=== PATIENT | female | born 1940 | race Caucasian/White ===

== ENCOUNTER 2017-07-18 12:10 | Outpatient (RCR) | payer SELFPAY ==
[2017-07-18 14:22] LABS: Prothrombin Time (Protime)PT. 21.8 SECONDS (11.7-14.9)
[2017-07-25 16:37] LABS: International Normalized Ratio 2.4; Prothrombin Time (Protime)PT. 25.3 SECONDS (11.7-14.9)
== END 2017-07-18 12:30 | disposition home or self-care (01) ==
LOC: MTLAB 12:10
PROVIDERS: Family Provider Student in an Organized Health Care Education/Training Program; PCP Student in an Organized Health Care Education/Training Program; Visit Provider Internal Medicine Cardiovascular Disease
DX: Z95.2 Presence of prosthetic heart valve (principal)
CPT/HCPCS: 36415; 85610

== ENCOUNTER 2017-08-08 12:55 | Outpatient (RCR) | payer OTHER, SELFPAY ==
[2017-08-08 14:32] LABS: International Normalized Ratio 2.3; Prothrombin Time (Protime)PT. 24.2 SECONDS (11.7-14.9)
== END 2017-08-08 15:00 | disposition home or self-care (01) ==
LOC: MTLAB 12:55
PROVIDERS: Family Provider Student in an Organized Health Care Education/Training Program; PCP Student in an Organized Health Care Education/Training Program; Visit Provider Internal Medicine Cardiovascular Disease
DX: Z95.2 Presence of prosthetic heart valve (principal)
CPT/HCPCS: 36415; 85610

== ENCOUNTER 2017-09-05 15:18 | Outpatient (RCR) | payer OTHER, SELFPAY ==
[2017-09-05 18:05] LABS: International Normalized Ratio 2.4; Prothrombin Time (Protime)PT. 26.5 SECONDS (11.7-14.9)
== END 2017-09-05 16:00 | disposition home or self-care (01) ==
LOC: MTLAB 15:18
PROVIDERS: Family Provider Student in an Organized Health Care Education/Training Program; PCP Student in an Organized Health Care Education/Training Program; Visit Provider Internal Medicine Cardiovascular Disease
DX: Z95.2 Presence of prosthetic heart valve (principal)
CPT/HCPCS: 36415; 85610

== ENCOUNTER 2017-09-20 13:45 | Outpatient (RCR) | payer MEDICARE, SELFPAY ==
[2017-09-20 16:30] LABS: International Normalized Ratio 3.4; Prothrombin Time (Protime)PT. 34.4 SECONDS (11.7-14.9)
== END 2017-09-20 14:00 | disposition home or self-care (01) ==
LOC: MTLAB 13:45
PROVIDERS: Family Provider Student in an Organized Health Care Education/Training Program; PCP Student in an Organized Health Care Education/Training Program; Visit Provider Internal Medicine Cardiovascular Disease
DX: Z95.2 Presence of prosthetic heart valve (principal); Z79.01 Long term (current) use of anticoagulants
CPT/HCPCS: 36415; 85610

== ENCOUNTER 2017-10-19 09:43 | Outpatient (RCR) | payer MEDICARE, SELFPAY ==
[2017-10-05 14:49] LABS: Prothrombin Time (Protime)PT. 22.5 SECONDS (11.7-14.9)
[2017-10-19 12:27] LABS: Prothrombin Time (Protime)PT. 23.1 SECONDS (11.7-14.9)
== END 2017-10-19 10:00 | disposition home or self-care (01) ==
LOC: MTLAB 09:43
PROVIDERS: Family Provider Student in an Organized Health Care Education/Training Program; PCP Student in an Organized Health Care Education/Training Program; Visit Provider Internal Medicine Cardiovascular Disease
DX: Z95.2 Presence of prosthetic heart valve (principal); Z79.01 Long term (current) use of anticoagulants
CPT/HCPCS: 36415; 85610

== ENCOUNTER 2017-11-02 13:53 | Outpatient (RCR) | payer MEDICARE, SELFPAY ==
[2017-11-02 16:08] LABS: International Normalized Ratio 3.3
== END 2017-11-02 14:00 | disposition home or self-care (01) ==
LOC: MTLAB 13:53
PROVIDERS: Family Provider Student in an Organized Health Care Education/Training Program; PCP Student in an Organized Health Care Education/Training Program; Visit Provider Internal Medicine Cardiovascular Disease
DX: Z95.2 Presence of prosthetic heart valve (principal); Z79.01 Long term (current) use of anticoagulants
CPT/HCPCS: 36415; 85610

== ENCOUNTER 2017-12-20 10:37 | Outpatient (RCR) | payer MEDICARE, SELFPAY ==
[2017-12-20 12:44] LABS: International Normalized Ratio 2.6; Prothrombin Time (Protime)PT. 27.8 SECONDS (11.7-14.9)
== END 2017-12-20 11:00 | disposition home or self-care (01) ==
LOC: MTLAB 10:37
PROVIDERS: Family Provider Student in an Organized Health Care Education/Training Program; PCP Student in an Organized Health Care Education/Training Program; Visit Provider Internal Medicine Cardiovascular Disease
DX: E78.5 Hyperlipidemia, unspecified (principal); Z95.2 Presence of prosthetic heart valve; Z79.01 Long term (current) use of anticoagulants
CPT/HCPCS: 36415; 85610

== ENCOUNTER 2018-01-30 09:33 | Outpatient (RCR) | payer MEDICARE, SELFPAY ==
[2018-01-30 12:47] LABS: International Normalized Ratio 3.2
== END 2018-01-30 11:00 | disposition home or self-care (01) ==
LOC: MTLAB 09:33
PROVIDERS: Family Provider Student in an Organized Health Care Education/Training Program; PCP Student in an Organized Health Care Education/Training Program; Visit Provider Internal Medicine Cardiovascular Disease
DX: E78.5 Hyperlipidemia, unspecified (principal); Z95.2 Presence of prosthetic heart valve; Z79.01 Long term (current) use of anticoagulants
CPT/HCPCS: 36415; 85610

== ENCOUNTER 2018-03-24 14:54 | Outpatient (RCR) | payer MEDICARE, SELFPAY ==
[2018-03-24 17:07] LABS: Prothrombin Time (Protime)PT. 39.5 SECONDS (11.7-14.9)
== END 2018-03-24 16:00 | disposition home or self-care (01) ==
LOC: LAB 14:54
PROVIDERS: Family Provider Student in an Organized Health Care Education/Training Program; PCP Student in an Organized Health Care Education/Training Program; Visit Provider Internal Medicine Cardiovascular Disease
DX: E78.5 Hyperlipidemia, unspecified (principal); Z95.2 Presence of prosthetic heart valve; Z79.01 Long term (current) use of anticoagulants
CPT/HCPCS: 36415; 85610

== ENCOUNTER 2018-05-01 10:56 | Outpatient (RCR) | payer MEDICARE, SELFPAY ==
[2018-04-28 13:57] LABS: International Normalized Ratio 5.2
[2018-05-01 11:59] LABS: International Normalized Ratio 2.2; Prothrombin Time (Protime)PT. 24.1 SECONDS (11.7-14.9)
== END 2018-05-01 12:00 | disposition home or self-care (01) ==
LOC: LAB 10:56
PROVIDERS: Family Provider Student in an Organized Health Care Education/Training Program; PCP Student in an Organized Health Care Education/Training Program; Referring Provider Internal Medicine Cardiovascular Disease; Visit Provider Internal Medicine Cardiovascular Disease
DX: Z79.01 Long term (current) use of anticoagulants (principal); Z95.2 Presence of prosthetic heart valve; E78.5 Hyperlipidemia, unspecified
CPT/HCPCS: 36415; 85610

== ENCOUNTER 2018-05-09 16:03 | Outpatient (RCR) | payer MEDICARE, SELFPAY ==
[2018-05-09 17:24] LABS: International Normalized Ratio 2.1; Prothrombin Time (Protime)PT. 23.2 SECONDS (11.7-14.9)
== END 2018-06-02 09:47 | disposition home or self-care (01) ==
LOC: LAB 16:03
PROVIDERS: Family Provider Student in an Organized Health Care Education/Training Program; PCP Student in an Organized Health Care Education/Training Program; Referring Provider Internal Medicine Cardiovascular Disease; Visit Provider Internal Medicine Cardiovascular Disease
DX: Z79.01 Long term (current) use of anticoagulants (principal); Z95.2 Presence of prosthetic heart valve; E78.5 Hyperlipidemia, unspecified
CPT/HCPCS: 36415; 85610

== ENCOUNTER 2018-06-23 14:36 | Outpatient (RCR) | payer MEDICARE, SELFPAY ==
[2018-06-15 13:48] LABS: International Normalized Ratio 2.1
[2018-06-23 16:01] LABS: International Normalized Ratio 2.5; Prothrombin Time (Protime)PT. 26.9 SECONDS (11.7-14.9)
--- OUTSIDE RECORDS SUMMARY | 2018-08-01 07:28 | XMS RPT_ITS ---
:1940 Author Organization OHIP Support Name Relationship Address Phone RACIEL XIAO Unavailable [address] + [place] [address] DUSTIN DOMINIQUE Unavailable Unavailable + [place] [address] S Unavailable Unavailable Unavailable NINOSKA, RACIEL Unavailable [address] + [place] [address] DUSTIN DOMINIQUE Unavailable Unavailable + [place] [address] S Unavailable Unavailable Unavailable NINOSKA, RACIEL Unavailable [address] + [place] [address] S Unavailable Unavailable Unavailable NINOSKA, RACIEL Unavailable [address] + [place] [address] S Unavailable Unavailable Unavailable NINOSKA, RACIEL Unavailable [address] + [place] [address] S Unavailable Unavailable Unavailable NINOSKA, RACIEL Unavailable [address] + [place] [address] S Unavailable Unavailable Unavailable NINOSKA, RACIEL Unavailable [address] + [place] [address] S Unavailable Unavailable Unavailable NINOSKA, RACIEL Unavailable [address] + [place] [address] S Unavailable Unavailable Unavailable NINOSKA, RACIEL Unavailable [address] + [place] [address] S Unavailable Unavailable Unavailable NINOSKA, RACIEL Unavailable [address] + [place] [address] S Unavailable Unavailable Unavailable NINOSKA, RACIEL Unavailable [address] + [place] [address] S Unavailable Unavailable Unavailable NINOSKA, RACIEL Unavailable [address] + [place] [address] S Unavailable Unavailable Unavailable NINOSKA, RACIEL Unavailable [address] + [place] [address] S Unavailable Unavailable Unavailable NINOSKA RACIEL Unavailable [address] + [place] [address] S Unavailable Unavailable Unavailable NINOSKA, RACIEL Unavailable [address] + [place] [address] S Unavailable Unavailable Unavailable Care Team Providers Name Role Phone JOELLE BIRMINGHAM ([facility]) Attending Unavailable JOELLE BIRMINGHAM ([facility]) Referring Unavailable BLAND, SEAN L Attending Unavailable BLAND, SEAN L Referring Unavailable BLAND, SEAN L Attending Unavailable Moodispaw, Dash Attending Unavailable Moodispaw, Dash Referring Unavailable Danilo Bolden Primary Care Unavailable Moodispaw, Dash Attending Unavailable Moodispaw, Dash Referring Unavailable Bland, Sean Primary Care Unavailable Moodispaw, Dash Attending Unavailable Moodispaw, Dash Referring Unavailable Bland, Sean Primary Care Unavailable Moodispaw, Dash Attending Unavailable Moodispaw, Dash Referring Unavailable Blnad, Sean Primary Care Unavailable Arabella Hughes Attending Unavailable Moodispaw, Dash Attending Unavailable Moodispaw, Dash Referring Unavailable Bland, Sean Primary Care Unavailable Moodispaw, Dash Attending Unavailable Bland, Sean Referring Unavailable Moodispaw, Dash Attending Unavailable Moodispaw, Dash Referring Unavailable Bland, Sean Primary Care Unavailable Moodispaw, Dash Attending Unavailable Moodispaw, Dash Referring Unavailable Bland, Sean Primary Care Unavailable Moodispaw, Dash Attending Unavailable Moodispaw, Dash Attending Unavailable Moodispaw, Dash Referring Unavailable Bland, Sean Primary Care Unavailable Moodispaw, Dash Attending Unavailable Moodispaw, Dash Referring Unavailable Bland, Sean Primary Care Unavailable Moodispaw, Dash Attending Unavailable Moodispaw, Dash Referring Unavailable Bland, Sean Primary Care Unavailable Moodispaw, Dash Attending Unavailable Moodispaw, Dash Referring Unavailable Bland, Sean Primary Care Unavailable Moodispaw, Dash Attending Unavailable Moodispaw, Dash Referring Unavailable Bland, Sean Primary Care Unavailable PROBLEMS PROBLEMS DATE TYPE CONDITION / CODE ATTENDING STATUS SOURCE 07/03/2018 Unknown E78.5 - MoodDash guzman Active [place] Hyperlipidemia, Community unspecified / Hospital E78.5(ICD-10) Repository 06/05/2018 Unknown Z79.01 - correction Moodispaw, Dash Active [place] (current) use of Community anticoagulants / Hospital Z79.01(ICD-10) Repository 01/30/2018 Active Encounter for NA Active [facility] screening mammogram [facility] for malignant [place] neoplasm of breast / Repository Z12.31(ICD-10) 12/30/2017 Unknown I48.0 - Paroxysmal Dash Victoria Active [place] atrial fibrillation Community / I48.0(ICD-10) Hospital Repository 2017 Unknown Z95.2 - Presence of Dash Victoria Active [place] prosthetic heart Community valve / Hospital Z95.2(ICD-10) Repository 09/12/2017 Active Nontoxic goiter, NA Active [place] unspecified / Clinic Main E04.9(ICD-10) [place] Repository PROCEDURES PROCEDURES No Procedure Records FoundRESULTS RESULTS PROTHROMBIN TIME W/INR Collected: 07/20/2018 Status: F Source: [place] 3:40 PM [facility] REPOSITORY TYPE CODE TESTS RESULT OUT OF RANGE REFERENCE UNITS LAB L300.4150 11.7-14.9 SECONDS High PROTIME 26.2 LAB L300.4200 Normal INR 2.4 Performed By: #### [id number] #### [facility] [address] [place], [place], [id number] PROTHROMBIN TIME W/INR Collected: 06/23/2018 Status: F Source: [place] 2:40 PM [facility] REPOSITORY TYPE CODE TESTS RESULT OUT OF RANGE REFERENCE UNITS LAB L300.4150 11.7-14.9 SECONDS High PROTIME 26.9 LAB L300.4200 Normal INR 2.5 Performed By: #### [id number] #### [facility] [address] [place], [place], [id number] PROTHROMBIN TIME W/INR Collected: 06/15/2018 Status: F Source: [place] 12:22 PM [facility] REPOSITORY TYPE CODE TESTS RESULT OUT OF RANGE REFERENCE UNITS LAB L300.4150 11.7-14.9 SECONDS High PROTIME 24.0 LAB L300.4200 Normal INR 2.1 Performed By: #### [id number] #### [facility] [address] [place], [place], [id number] PROGRESS Observed: 05/22/2018 Status: COMPLETED Source: [place] 10:57 AM [facility] REPOSITORY HNO ID: [id number] Author: Urmila Rangel Service: (none) Author Type: Physician Imaging Science Professor Type: Progress Notes Filed: 05/22/2018 5:05 PM Note Text: 05/22/2018 Patient presents with: Chest Congestion: head congestion, bodyaches, nasal drainage, sore throat and ear pain x 5 days SUBJECTIVE: This is a 77 year old that is here today for Complaint(s) of sinus pressure and congestion. + body aches. Feverish per patient, subjective. + coug hand chest congestion. Notes intermittent SOB/wheezing. 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 Victoria - Other and unspecified hyperlipidemia - Spinal stenosis Dr. Perales - Vitamin D deficiency 11/2013 ALLERGIES Penicillin [Other] MEDICATIONS Current Outpatient Prescriptions: clobetasol (TEMOVATE) 0.05 % ointment Apply 1 application to affected area twice daily. pravastatin (PRAVACHOL) 40 mg tablet Take 1 tablet by mouth once daily. acetaminophen (TYLENOL 8 HOUR) 650 mg CR tablet Take 650 mg by mouth every 8 hours as needed. metoprolol tartrate, short acting, 25 mg tablet Take 50 mg by mouth twice daily. warfarin 5 mg tablet Take 7 mg once daily omeprazole (PRILOSEC) 20 mg capsule Take 1 capsule by mouth daily before breakfast. 1/2 hr before meal. (Patient taking differently: Take 20 mg by mouth as needed. OTC) doxycycline monohydrate 100 mg tablet Take 1 tablet by mouth twice daily. (Patient not taking: Reported on 05/22/2018 ) No current facility-administered medications for this visit. 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 OBJECTIVE: BP 124/72 Pulse 70 Temp 36.7 ?C (98.1 ?F) (Tympanic) Resp 16 Wt 88 kg (194 lb) LMP 04/10/2018 SpO2 98% BMI 36.66 kg/m? APPEARANCE alert, in no acute distress, well-hydrated, well nourished. EYES PERRLA, conjunctiva and sclera normal. EARS External ears normal, canals clear NOSE/SINUS Nares normal. Septum midline. Mucosa erythematous. No drainage. + SHIRIN maxillary sinus tenderness. THROAT normal, no erythema NECK Supple, no adenopathy; HEART RRR with normal S1 and S2 LUNG clear to auscultation, No wheezing, rhonchi, rales. ASSESSMENT/PLAN: 1. Viral URI with cough - ICD9: 465.9, ICD10: J06.9, B97.89 - Discussed viral etiology and rationale for treatment. - Symptomatic treatment with prn analgesia - Supportive care with fluids and rest - The patient may also use OTC cough and cold meds as needed, behind the counter Pseudoephedrine, warm salt water gargles, throat lozenges and/or OTC throat spray as needed and nasal saline gtts and suction prn. - Follow up in 3-5 days if symptoms persist or sooner if worsening of symptoms - FLUTICASONE 50 MCG/ACTUATION NASAL SPRAY,SUSPENSION Reviewed red flags and when to seek care sooner. The patient indicates understanding of these issues and agrees with the plan. BESSIE Pan Observed: 05/22/2018 Status: COMPLETED Source: [place] 10:45 AM [facility] REPOSITORY Office Visit (WSTR) AALIYAH XIAO ([id number]) 1940 F Date Time Provider Department 11/19/18 10:45 AM URMILA RANGEL PA-C [facility] During your visit today, we recorded the following information about you: Temperature Pulse Respiration Blood pressure 98.1 degrees 70/minute 16/minute 124/72 Weight 88 kg Urmila Rangel PA-C 05/22/2018 5:05 PM Signed 05/22/2018 Patient presents with: Chest Congestion: head congestion, bodyaches, nasal drainage, sore throat and ear pain x 5 days SUBJECTIVE: This is a 77 year old that is here today for Complaint(s) of sinus pressure and congestion. + body aches. Feverish per patient, subjective. + coug hand chest congestion. Notes intermittent SOB/wheezing. 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 Victoria - Other and unspecified hyperlipidemia - Spinal stenosis Dr. Perales - Vitamin D deficiency 11/2013 ALLERGIES Penicillin [Other] MEDICATIONS Current Outpatient Prescriptions: clobetasol (TEMOVATE) 0.05 % ointment Apply 1 application to affected area twice daily. pravastatin (PRAVACHOL) 40 mg tablet Take 1 tablet by mouth once daily. acetaminophen (TYLENOL 8 HOUR) 650 mg CR tablet Take 650 mg by mouth every 8 hours as needed. metoprolol tartrate, short acting, 25 mg tablet Take 50 mg by mouth twice daily. warfarin 5 mg tablet Take 7 mg once daily omeprazole (PRILOSEC) 20 mg capsule Take 1 capsule by mouth daily before breakfast. 1/2 hr before meal. (Patient taking differently: Take 20 mg by mouth as needed. OTC) doxycycline monohydrate 100 mg tablet Take 1 tablet by mouth twice daily. (Patient not taking: Reported on 05/22/2018 ) No current facility-administered medications for this visit. 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 OBJECTIVE: BP 124/72 Pulse 70 Temp 36.7 ?C (98.1 ?F) (Tympanic) Resp 16 Wt 88 kg (194 lb) LMP 04/10/2018 SpO2 98% BMI 36.66 kg/m? APPEARANCE alert, in no acute distress, well-hydrated, well nourished. EYES PERRLA, conjunctiva and sclera normal. EARS External ears normal, canals clear NOSE/SINUS Nares normal. Septum midline. Mucosa erythematous. No drainage. + SHIRIN maxillary sinus tenderness. THROAT normal, no erythema NECK Supple, no adenopathy; HEART RRR with normal S1 and S2 LUNG clear to auscultation, No wheezing, rhonchi, rales. ASSESSMENT/PLAN: 1. Viral URI with cough - ICD9: 465.9, ICD10: J06.9, B97.89 - Discussed viral etiology and rationale for treatment. - Symptomatic treatment with prn analgesia - Supportive care with fluids and rest - The patient may also use OTC cough and cold meds as needed, behind the counter Pseudoephedrine, warm salt water gargles, throat lozenges and/or OTC throat spray as needed and nasal saline gtts and suction prn. - Follow up in 3-5 days if symptoms persist or sooner if worsening of symptoms - FLUTICASONE 50 MCG/ACTUATION NASAL SPRAY,SUSPENSION Reviewed red flags and when to seek care sooner. The patient indicates understanding of these issues and agrees with the plan. Urmila Rangel PA-C Referring Provider: SELF [200] Allergies As of Date: 05/22/2018 Noted Allergy Reaction Penicillin [Other] 04/26/1998 2 - Rash Comments: Unable to recall due to young age when took medication Date Reviewed: 05/22/2018 Reviewed by: Winter Reeder Ma - Fully Assessed Reason for Visit: Chest Congestion [236] Cmt: head congestion, bodyaches, nasal drainage, sore throat and ear pain x 5 days Primary Visit Diagnosis:Viral URI with cough [J06.9, B97.89] Order(s):fluticasone (FLONASE ALLERGY RELIEF) 50 mcg/actuation nasal sprayUse 2 Sprays in each nostril once daily.Disp: 1 BottleRfl: 0 Prescriptions as of 05/22/2018 Sig: CLOBETASOL 0.05 % TOPICAL OIN* Apply 1 application to affect* PRAVASTATIN 40 MG TABLET Take 1 tablet by mouth once d* ACETAMINOPHEN ER 650 MG TABLE* Take 650 mg by mouth every 8 * METOPROLOL TARTRATE 25 MG TAB* Take 50 mg by mouth twice gualberto* WARFARIN 5 MG TABLET Take 7 mg once daily OMEPRAZOLE 20 MG CAPSULE,LAW* Take 1 capsule by mouth daily* Patient taking differently: Take 20 mg by mouth as needed* FLUTICASONE 50 MCG/ACTUATION * Use 2 Sprays in each nostril * DOXYCYCLINE MONOHYDRATE 100 M* Take 1 tablet by mouth twice * Patient not taking: Reported on 05/22/2018 Problem List As Of Date 05/22/2018 Noted Resolved CHOLELITH W CHOLECYS NEC [K80.10] INVALID FOR* GERD (gastroesophageal reflux disease) [K21.9] INVALID FOR* Thigh pain, musculoskeletal [M79.606] INVALID FOR* Muscle weakness [M62.81] INVALID FOR* Hyperlipidemia [E78.5] INVALID FOR* Obesity (BMI 30-39.9) [E66.9] INVALID FOR* Encounter for screening for malignant neoplasm *INVALID FOR*05/01/2015 Constipation [K59.00] INVALID FOR*05/01/2015 H/O mechanical aortic valve replacement [Z95.2] INVALID FOR* Obesity, Class II, BMI 35-39.9 [E66.9] INVALID FOR* Dyslipidemia [E78.5] INVALID FOR* GERD without esophagitis [K21.9] INVALID FOR* Prescriptions ordered this encounter Disp Refills Start End FLUTICASONE 50 MCG/ACTUATION NASAL S* 1 Jae* 0 05/22/2018 Route: EACH NOSTRIL Sig: Use 2 Sprays in each nostril once daily. Encounter Status:Closed by URMILA RANGEL PA-C on 05/22/18 PROTHROMBIN TIME W/INR Collected: 05/09/2018 Status: F Source: [place] 4:06 PM [facility] REPOSITORY TYPE CODE TESTS RESULT OUT OF RANGE REFERENCE UNITS LAB L300.4150 11.7-14.9 SECONDS High PROTIME 23.2 LAB L300.4200 Normal INR 2.1 Performed By: #### [id number] #### [facility] [address] [place], [address] PROTHROMBIN TIME W/INR Collected: 05/01/2018 Status: F Source: [place] 11:07 AM [facility] REPOSITORY TYPE CODE TESTS RESULT OUT OF RANGE REFERENCE UNITS LAB L300.4150 11.7-14.9 SECONDS High PROTIME 24.1 LAB L300.4200 Normal INR 2.2 Performed By: #### [id number] #### [facility] [address] [place], [address] PROTHROMBIN TIME W/INR Collected: 04/28/2018 Status: F Source: [place] 1:24 PM [facility] REPOSITORY TYPE CODE TESTS RESULT OUT OF REFERENCE UNITS RANGE LAB L300.4150 11.7-14.9 SECONDS High PROTIME 48.0 LAB L300.4200 High alert INR 5.2 Result Comment: CRITICAL VALUE VERIFIED. CALLED TO LYNDSEY AT 'S OFFICE. 04/28/18 1357 Sg Angulo. RESULTS READ BACK BY SAME. Performed By: #### [id number] #### [facility] [address] [place], [place], [address] PROGRESS Observed: 04/10/2018 Status: COMPLETED Source: [place] 1:01 PM [facility] REPOSITORY HNO ID: [id number] Author: Sean Bland Service: (none) Author Type: Physician Type: Progress Notes Filed: 04/10/2018 2:20 PM Note Text: Medicare Yearly Visit Medical B eligibilty date years ago Date of last exam 1 year Arrhythmia, taking coumadin per [facility], taking Metoprolol and cholesterol medication, had labs in December., hx of CAD, hx of mechanical valve replacement of aortic valve, no new symptoms GERD, stable, no concerns, not taking PPI at this time Spinal stenosis lumbar spine, intermittent back pain flare ups. No new changes. 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 Victoria - Other and unspecified hyperlipidemia - Spinal stenosis Dr. Perales - Vitamin D deficiency 11/2013 PAST SURGICAL HISTORY Procedure Laterality Date - CATARACT EXTRACTION 2018 Both eyes - COLONOSCOP W/ OR W/O BRS SPEC Colonoscopy - COLONOSCOP W/ OR W/O BRSH SPEC Colonoscopy - COLONOSCOP W/ OR W/O BRSH SPEC 05/01/15 Colonoscopy - EXCIS UTERINE FIBROID,VAG APPRCH 2005 - LAP CHOLECYSTECT/CHOLANGIOGRAPHY 06/15/07 - PAST SURGICAL HISTORY OF 04/09 Bypass - REPLACEMENT, AORTIC VALVE, WITH CAR 1995 Penicillin [Other] Medications reviewed: Yes FAMILY HISTORY Problem Relation Age of Onset - Breast Cancer Sister - Coronary Artery Disease Mother - Diabetes Mother - Diabetes Brother - Heart Mother - Heart Sister - Prostate Cancer Brother - Heart Failure Brother SOCIAL HISTORY: Social History Marital status: Spouse name: Raciel Years of education: 14 Number of children: 3 Occupational History 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 She watches her diet for sodium, low fat and low cholesterol most of the time. List of current specialists seen: [facility] End of Live Planning discussed including patients advanced directive wishes: No I am willing to follow Aaliyah's advanced directives. Depression screen She in the past two weeks denies having felt down, depressed, hopeless or with little interest or pleasure in doing things. Functional Ability/Safety Screen 1. Was the patient's timed Up and Go test unsteady or longer than 30 seconds? No 2. Does the patient need help with the phone, transportation, shopping,preparing meals, housework, laundry, medications or managing money? No 3. Does your home have rugs in the hallway, lack of grab bars in the bathroom, lack of handrails on the stairs or have poor lighting? No Hearing Evaluation: normal PHYSICAL EXAM BP 110/70 Pulse 68 Temp 36.1 ?C (97 ?F) (Right Tympanic) Resp 16 Ht 154.9 cm (5' 1) Wt 86.2 kg (190 lb) LMP 04/10/2018 BMI 35.90 kg/m? Alert and oriented X 3: Yes Body mass index is 35.9 kg/m?. Visual acuity: not tested ASSESSMENT/PLAN: 77 year old female The following prevention plan was discussed during the office visit and provided to the patient: - Weight Loss - Fall avoidance - Lipid panel Sean Bland DO CNOV Observed: 04/10/2018 Status: COMPLETED Source: [place] 1:00 PM [facility] REPOSITORY Office Visit (FAMPWS) AALIYAH XIAO ([id number]) 1940 F Date Time Provider Department 04/10/18 1:00 PM [facility] During your visit today, we recorded the following information about you: Temperature Pulse Respiration Blood pressure 97 degrees 68/minute 16/minute 110/70 Weight Height Last Period 86.2 kg 1.549 m 04/10/18 Sean Bland DO 04/10/2018 2:20 PM Signed Medicare Yearly Visit Medical B eligibilty date years ago Date of last exam 1 year Arrhythmia, taking coumadin per [facility], taking Metoprolol and cholesterol medication, had labs in December., hx of CAD, hx of mechanical valve replacement of aortic valve, no new symptoms GERD, stable, no concerns, not taking PPI at this time Spinal stenosis lumbar spine, intermittent back pain flare ups. No new changes. 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 Victoria - Other and unspecified hyperlipidemia - Spinal stenosis Dr. Perales - Vitamin D deficiency 11/2013 PAST SURGICAL HISTORY Procedure Laterality Date - CATARACT EXTRACTION HX 2018 Both eyes - COLONOSCOP W/ OR W/O BRSH SPEC Colonoscopy - COLONOSCOP W/ OR W/O BRSH SPEC Colonoscopy - COLONOSCOP W/ OR W/O [facility] SPEC 05/01/15 Colonoscopy - EXCIS UTERINE FIBROID,VAG APPRCH 2005 - LAP CHOLECYSTECT/CHOLANGIOGRAPHY 06/15/07 - PAST SURGICAL HISTORY OF 04/09 Bypass - REPLACEMENT, AORTIC VALVE, WITH CAR 1995 Penicillin [Other] Medications reviewed: Yes FAMILY HISTORY Problem Relation Age of Onset - Breast Cancer Sister - Coronary Artery Disease Mother - Diabetes Mother - Diabetes Brother - Heart Mother - Heart Sister - Prostate Cancer Brother - Heart Failure Brother SOCIAL HISTORY: Social History Marital status: Spouse name: Raciel Years of education: 14 Number of children: 3 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 She watches her diet for sodium, low fat and low cholesterol most of the time. List of current specialists seen: [facility] Machinist End of Live Planning discussed including patients advanced directive wishes: No I am willing to follow Aaliyah's advanced directives. Depression screen She in the past two weeks denies having felt down, depressed, hopeless or with little interest or pleasure in doing things. Functional Ability/Safety Screen 1. Was the patient's timed Up and Go test unsteady or longer than 30 seconds? No 2. Does the patient need help with the phone, transportation, shopping,preparing meals, housework, laundry, medications or managing money? No 3. Does your home have rugs in the hallway, lack of grab bars in the bathroom, lack of handrails on the stairs or have poor lighting? No Hearing Evaluation: normal PHYSICAL EXAM BP 110/70 Pulse 68 Temp 36.1 ?C (97 ?F) (Right Tympanic) Resp 16 Ht 154.9 cm (5' 1) Wt 86.2 kg (190 lb) LMP 04/10/2018 BMI 35.90 kg/m? Alert and oriented X 3: Yes Body mass index is 35.9 kg/m?. Visual acuity: not tested ASSESSMENT/PLAN: 77 year old female The following prevention plan was discussed during the office visit and provided to the patient: - Weight Loss - Fall avoidance - Lipid panel Sean Bland DO Referring Provider: SELF [200] Allergies As of Date: 04/10/2018 Noted Allergy Reaction Penicillin [Other] 04/26/1998 2 - Rash Comments: Unable to recall due to young age when took medication Date Reviewed: 04/10/2018 Reviewed by: Marybeth Naqvi LPN - Fully Assessed Reason for Visit: Physical [83] Primary Visit Diagnosis:Medicare annual wellness visit, subsequent [Z00.00] Other Visit Diagnoses:H/O mechanical aortic valve replacement [Z95.2] Dyslipidemia [E78.5] Obesity, Class II, BMI 35-39.9 [E66.9] GERD without esophagitis [K21.9] Prescriptions as of 04/10/2018 Sig: CLOBETASOL 0.05 % TOPICAL OIN* Apply 1 application to affect* DOXYCYCLINE MONOHYDRATE 100 M* Take 1 tablet by mouth twice * PRAVASTATIN 40 MG TABLET Take 1 tablet by mouth once d* ACETAMINOPHEN ER 650 MG TABLE* Take 650 mg by mouth every 8 * METOPROLOL TARTRATE 25 MG TAB* Take 50 mg by mouth twice gualberto* WARFARIN 5 MG TABLET Take 7 mg once daily OMEPRAZOLE 20 MG CAPSULE,LAW* Take 1 capsule by mouth daily* Patient taking differently: Take 20 mg by mouth as needed* Problem List As Of Date 04/10/2018 Noted Resolved CHOLELITH W CHOLECYS NEC [K80.10] INVALID FOR* GERD (gastroesophageal reflux disease) [K21.9] INVALID FOR* Thigh pain, musculoskeletal [M79.606] INVALID FOR* Muscle weakness [M62.81] INVALID FOR* Hyperlipidemia [E78.5] INVALID FOR* Obesity (BMI 30-39.9) [E66.9] INVALID FOR* Encounter for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 replacement [Z95.2] INVALID FOR* Prescriptions ordered this encounter Disp Refills Start End BENZONATATE 100 MG CAPSULE 30 c* 0 08/31/2017 Route: ORAL Sig: Take 2 capsules by mouth three times daily as needed. Encounter Status:Closed by SCOTT VEE PA-C on 08/31/17 PROTHROMBIN TIME W/INR Collected: 08/08/2017 Status: F Source: [place] 1:06 PM [facility] REPOSITORY TYPE CODE TESTS RESULT OUT OF RANGE REFERENCE UNITS LAB L300.4150 11.7-14.9 SECONDS High PROTIME 24.2 LAB L300.4200 Normal INR 2.3 Performed By: #### L300.3900 #### [facility] [address], [address] ALLERGIES ALLERGIES DATE TYPE / CODE NAME / CODE REACTION SEVERITY SOURCE 04/26/1998 Miscellaneous OTHER RASH [facility] Allergy/[id number](S [address] [place] NOMED CT) Repository ENCOUNTERS ENCOUNTERS ADMIT/DISCHARGE ACCOUNT ADMITTING ENCOUNTER LOCATION SOURCE NUMBER CLASS 07/20/2018 [id number] [facility] ing:LAB Repository 06/23/2018/06/23/[id number] ing:LAB Repository 05/22/2018/05/23/20 [id number] Ambulatory [address] Repository 05/09/2018/06/02/20 [id number] Ambulatory [address] ing:LAB Repository 05/01/2018/05/01/20 [id number] Ambulatory [address] ing:LAB Repository 04/10/2018/04/11/20 [id number] Ambulatory [address] Repository 03/24/2018/03/24/20 [id number] Ambulatory [address] ing:LAB Repository 01/30/2018/01/31/20 [id number] Ambulatory [address] ing:MTLAB Repository 01/30/2018/01/31/20 [id number] Ambulatory [address] Repository 01/16/2018 [id number] Ambulatory BMSBuilding:Khadijah Ames [facility] Repository 12/28/2017/12/30/19 [id number] Ambulatory [address] Repository 12/20/2017/12/21/19 [id number] Ambulatory [address] ing:MTLAB Repository 12/09/2017/12/10/19 [id number] Ambulatory BMSBuilding:B [place] 18 [facility] Repository 11/02/2017/11/03/19 [id number] Ambulatory [place] Kwaku [address] [place] [address] Hospital ing:MTLAB Repository 10/19/2017/10/20/19 [id number] Ambulatory [place] 18 [facility] ing:MTLAB Repository 09/20/2017 [id number] Ambulatory BMSBuilding:B [place] Repository 09/20/2017/09/21/19 [id number] Ambulatory [place] Kw[place] 18 [facility] ing:MTLAB Repository 09/12/2017/09/13/19 [id number] Ambulatory [address] Repository 09/09/2017/09/13/19 [id number] Ambulatory [address] Repository 09/05/2017/09/06/19 [id number] Ambulatory [place] [address] [place] [address] ing:MTLAB Repository 08/31/2017/09/02/19 [id number] Ambulatory [address] Repository 08/08/2017/08/08/19 [id number] Ambulatory [place] [address] [place] [address] ing:MTLAB Repository PAYERS PAYERS ENCOUNTER GUARANTOR PAYER SUBSCRIBER SOURCE 07/20/2018 RACIEL ROJASOB: [place] [id number] SHYLA Insurance:[place]HE[place] [id number] [facility] [address]Frp: (330) ADVANTAPolicy Number: Repository [phone] () [id number] Date:[id number] [address]XA: 07/20/2018 Secondary NOT GIVENUNK [place] Insurance:SELF PAY [facility] Number: Effective Repository Date:2018-07-03 06/23/2018 RACIEL ROJASOB: [place] [id number] SHYLA Insurance[place] [id number]. [facility] Medical [facility] [address]Swj: (330) MEDICAREPolicy Repository [phone] () Number: [id number] Date: [place], [place] [address]EZ: 06/23/2018 Secondary NOT GIVENUNK [place] Insurance:SELF PAY [facility] Number: Effective Repository Date:2018-06-05 05/09/2018 RACIEL Self Primary AALIYAH RACHELEDOB: [place] [id number] [place]LA Insurance[place] [id number] [address]Tel: (465) MEDICAREPolicy Repository [phone] () Number: [id number] Date: [place], [place] [address]OU: 05/09/2018 Secondary NOT GIVENUNK [place] Insurance:SELF PAY [facility] Number: Effective Repository Date:2018-05-04 05/01/2018 RACIEL Self Primary AALIYAH RACHELEDOB: [place] [id number] SHYLA Insurance:[place] [id number] [place] [address]Tel: (366) MEDICAREPolicy Repository [id number] () Number: [id number] Date: [place], [place] [address]FW: 05/01/2018 Secondary NOT GIVENUNK [place] Insurance:SELF PAY [facility] Number: Effective Repository Date:2018-04-05 03/24/2018 RACIEL Self Primary AALIYAH RACHELEDOB: [place] [id number] [place] Insurance:[place] [id number] [place] [address]Tel: (364) MEDICAREPolicy Repository [id number] () Number: [id number] Date: [place], [place] [address]WA: 03/24/2018 Secondary NOT GIVENUNK [place] Insurance:SELF PAY [facility] Number: Effective Repository Date:2018-02-03 01/30/2018 RACIEL Self Primary AALIYAH RACHELEDOB: [place] [id number] [place] Insurance:[place] [id number]. Mary's Medical [facility] [address]Xxq: (807) MEDICAREPolicy Repository [phone] () Number: [id number] Date: [place], [place] [address]IC: 01/30/2018 Secondary NOT GIVENUNK [place] Insurance:SELF PAY [facility] Number: Effective Repository Date:2017-12-30 01/16/2018 Raciel [id number] Primary Raciel HogeDOB: [place] Shyla [facility], Insurance:ANTHEMPolic [id number]-[facility] [address]Snl: y Number: [facility] [id number] Repository () Date:[id number] [address]HX: 01/16/2018 Secondary NOT GIVENUNK [place] Insurance:SELF PAY [facility] Number: Effective Repository Date:2017-06-22 12/20/2017 RACIEL R Primary AALIYAH J HOGEDOB: [place] [id number] [place] Insurance:[place] [id number] [place] [id number]: (330) MEDICAREPolicy Repository [phone] () Number: [id number] Date: [place], [place] [address]YX: 12/20/2017 Secondary NOT GIVENUNK [place] Insurance:SELF PAY [facility] Number: Effective Repository Date:2017 12/09/2017 RACIEL R Primary AALIYAH J HOGEDOB: [place] [id number] [place]YLA Insurance:[place] [id number]. Mary's Medical [facility] [address]Kxx: (330) [facility] Centericy Repository [phone] () Number: [id number] Date: [place], [place] [address]UG: 12/09/2017 Secondary NOT GIVENUNK [place] Insurance:SELF PAY [facility] Number: Effective Repository Date:2017-12-16 11/02/2017 RACIEL [id number] Primary AALIYAH ROJASOB: [place] SHYLA POLLOCKER, Insurance:[place] [id number] [facility] [address]Lmb: [facility] MEDICAREPolicy Repository () Number: [id number] Date: [place], [place] [address]FA: 11/02/2017 Secondary NOT GIVENUNK [place] Insurance:SELF PAY [facility] Number: Effective Repository Date:2017-11-01 10/19/2017 RACIEL [id number] Primary AALIYAH ROJASOB: [place] SHYLA PHILLER, Insurance[place] [id number] [facility] [address]Jgx: [facility] MEDICAREPolicy Repository () Number: [id number] Date: [place], [place] [address]YF: 10/19/2017 Secondary NOT GIVENUNK [place] Insurance:SELF PAY [facility] Number: Effective Repository Date:2017-10-03 09/20/2017 Raciel [id number] Primary AALIYAH ROJASOB: [place] Shyla Pollocker, Insurance[place] [id number] [facility] [address]Bbb: [facility] MEDICAREPolicy Repository () Number: [id number] Date: [place], [place] [address]DO: 09/20/2017 Secondary NOT GIVENUNK [place] Insurance:SELF PAY [facility] Number: Effective Repository Date:2017-09-20 09/20/2017 Raciel Rachele1692 Primary AALIYAH ROJASOB: [place] Shyla Philler, Insurance[place] [id number] [facility] [address]Dtx: [facility] MEDICAREPolicy Repository () Number: [id number] Date: [facility]ITAL[facility] [place] [address]MG: 09/20/2017 Secondary NOT GIVENUNK [place] Insurance:SELF PAY [facility] Number: Effective Repository Date:2017-09-20 09/05/2017 Raciel [id number] Primary AALIYAH ROJASOB: [place], Insurance:HEALTH PLAN [id number]-Rainey Specialty [facility] [address]Djn: [facility] Number: Repository () [id number] Date: [place], [place] [address]ED: 09/05/2017 Secondary NOT GIVENUNK [place] Insurance:SELF PAY [facility] Number: Effective Repository Date:2017-09-01 08/08/2017 Raciel Rachele1692 Primary AALIYAH HOGEDOB: [place], Insurance:HEALTH PLAN [id number]-Rainey Specialty Hospital [address]Ire: [facility] Number: Repository () [id number] Date: [facility] [place] [address]PJ: 08/08/2017 Secondary NOT GIVENUNK [place] Insurance:SELF PAY [facility] Number: Effective Repository Date:2017-08-05
== END 2018-06-23 15:00 | disposition home or self-care (01) ==
LOC: LAB 14:36
PROVIDERS: Family Provider Student in an Organized Health Care Education/Training Program; PCP Student in an Organized Health Care Education/Training Program; Referring Provider Internal Medicine Cardiovascular Disease; Visit Provider Internal Medicine Cardiovascular Disease
DX: E78.5 Hyperlipidemia, unspecified (principal); Z95.2 Presence of prosthetic heart valve; Z79.01 Long term (current) use of anticoagulants
CPT/HCPCS: 36415; 85610

== ENCOUNTER 2018-07-20 15:29 | Outpatient (RCR) | payer MEDICARE, SELFPAY ==
[2018-07-20 17:50] LABS: International Normalized Ratio 2.4; Prothrombin Time (Protime)PT. 26.2 SECONDS (11.7-14.9)
--- OUTSIDE RECORDS SUMMARY | 2018-09-24 11:14 | XMS RPT_ITS ---
:1940 Author Organization OHIP Support Name Relationship Address Phone RACIEL XIAO Unavailable [address] + [place] [address] DUSTIN DOMINIQUE Unavailable Unavailable + [place] [address] S Unavailable Unavailable Unavailable NINOSKA, RACIEL Unavailable [address] + [place] [address] DUSTIN DOMINIQUE Unavailable Unavailable + [place] [address] S Unavailable Unavailable Unavailable NINOSKA, RACIEL Unavailable [address] + [place] [address] S Unavailable Unavailable Unavailable NINOSKA, RACIEL Unavailable [address] + [place] [address] S Unavailable Unavailable Unavailable NINOSKA, RACIEL Unavailable [address] + [place] [address] S Unavailable Unavailable Unavailable NINOSKA, RACIEL Unavailable [address] + [place] [address] S Unavailable Unavailable Unavailable NINOSKA, RACIEL Unavailable [address] + [place] [address] S Unavailable Unavailable Unavailable NINOSKA, RACIEL Unavailable [address] + [place] [address] S Unavailable Unavailable Unavailable NINOSKA, RACIEL Unavailable [address] + [place] [address] S Unavailable Unavailable Unavailable NINOSKA, RACIEL Unavailable [address] + [place] [address] S Unavailable Unavailable Unavailable NINOSKA, RACIEL Unavailable [address] + [place] [address] S Unavailable Unavailable Unavailable NINOSKA, RACIEL Unavailable [address] + [place] [address] S Unavailable Unavailable Unavailable NINOSKA, RACIEL Unavailable [address] + [place] [address] S Unavailable Unavailable Unavailable NINOSKA RACIEL Unavailable [address] + [place] [address] S Unavailable Unavailable Unavailable NINOSKA, RACIEL Unavailable [address] + [place] [address] S Unavailable Unavailable Unavailable Care Team Providers Name Role Phone JOELLE [place]ING[place]AM ([facility]) Attending Unavailable JOELLE [place] ([facility]) Referring Unavailable BLAND, SEAN L Attending [...] Referring Unavailable Bland, Sean Primary Care Unavailable Arabella Hughes Attending [...] Hospital E78.5(ICD-10) Repository 06/05/2018 Unknown Z79.01 - jail [place], Dash Active [place] (current) use of Community anticoagulants / Hospital Z79.01(ICD-10) Repository 01/30/2018 Active Encounter for NA Active [place] screening mammogram [facility] Main for malignant [place] neoplasm of breast / Repository Z12.31(ICD-10) 12/30/2017 Unknown I48.0 - Paroxysmal [place] Active [place] atrial fibrillation Community / I48.0(ICD-10) Hospital Repository 2017 Unknown 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 [place], [place], [address] PROTHROMBIN TIME W/INR Collected: 06/23/2018 Status: F Source: [place] 2:40 PM [facility] REPOSITORY TYPE CODE TESTS RESULT OUT OF RANGE REFERENCE UNITS LAB L300.4150 11.7-14.9 SECONDS High PROTIME 26.9 LAB L300.4200 Normal INR 2.5 Performed By: #### L300.3900 #### [facility] [address] [place], [place], [address] PROTHROMBIN TIME W/INR Collected: 06/15/2018 Status: F Source: [place] 12:22 PM [facility] REPOSITORY TYPE CODE TESTS RESULT OUT OF RANGE REFERENCE UNITS LAB L300.4150 11.7-14.9 SECONDS High PROTIME 24.0 LAB L300.4200 Normal INR 2.1 Performed By: #### L300.3900 #### [facility] [address] 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, [address] PROTHROMBIN TIME W/INR Collected: 05/01/2018 Status: F Source: [place] 11:07 AM [facility] REPOSITORY TYPE CODE TESTS RESULT OUT OF RANGE REFERENCE UNITS LAB L300.4150 11.7-14.9 SECONDS High PROTIME 24.1 LAB L300.4200 Normal INR 2.2 Performed By: #### L300.3900 #### [facility] [address] [place], [address] PROTHROMBIN TIME W/INR Collected: 04/28/2018 Status: F Source: [place] 1:24 PM [facility] REPOSITORY TYPE CODE TESTS RESULT OUT OF REFERENCE UNITS RANGE LAB L300.4150 11.7-14.9 SECONDS High PROTIME 48.0 LAB L300.4200 High alert INR 5.2 Result Comment: CRITICAL VALUE VERIFIED. CALLED TO LYNDSEY AT 'S OFFICE. 04/28/18 1357 Sg Angulo. RESULTS READ BACK BY SAME. Performed By: #### L300.3900 #### [facility] [address] 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 She watches her diet for sodium, low fat and low cholesterol most of the time. List of current specialists seen: [facility] End of Live Planning discussed including patients [...] DO CNOV Observed: 04/10/2018 Status: COMPLETED Source: [place] 1:00 PM [facility] REPOSITORY Office Visit (FAMPWS) AALIYAH XIAO ([id number]) 1940 F Date Time Provider Department 04/10/18 1:00 PM [facility] During your visit today, we recorded the following information about you: Temperature Pulse Respiration Blood pressure 97 degrees 68/minute 16/minute 110/70 Weight Height Last Period 86.2 kg 1.549 m 04/10/18 Saen Bland DO 04/10/2018 2:20 PM Signed Medicare Yearly Visit Medical B eligibilty date years ago Date of last exam 1 year Arrhythmia, taking coumadin per [facility], taking Metoprolol and cholesterol medication, had labs [...] SPEC Colonoscopy - COLONOSCOP W/ OR W/O [facility] SPEC 05/01/15 Colonoscopy - EXCIS UTERINE FIBROID,VAG [...] children: 3 Occupational History 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 She watches her diet for sodium, low fat and low cholesterol most of the time. 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 CALLED TO [facility] 03/24/18 4417 Beata Prather. RESULTS READ BACK BY SAME . Performed By: #### L300.3900 #### [facility] [address] [place], [address] CNCO Observed: 01/30/2018 Status: COMPLETED Source: [place] 1:04 PM [facility] REPOSITORY HNO ID: [id number] Author: Mammography Coordinator Service: (none) Author Type: Physician Type: Letter Filed: 01/31/2018 11:32 PM Note Text: January 30, 2018 PID: [id number] Aaliyah Xiao [address] [place] [address] Dear Ms. Xiao, We are pleased to [...] report will be kept on file at [facility] as part of your permanent medical record and are available for your continuing care. Thank you for allowing us to help in meeting your health care needs. Sincerely, Dr. Judge Interpreting Radiologist [facility] (Normal over 40) PROTHROMBIN TIME W/INR Collected: 01/30/2018 Status: F Source: [place] 9:34 AM [facility] REPOSITORY TYPE CODE TESTS RESULT OUT OF RANGE REFERENCE UNITS LAB L300.4150 11.7-14.9 SECONDS High PROTIME 33.0 LAB L300.4200 Normal INR 3.2 Performed By: #### L300.3900 #### [facility] [place], [address] [facility] SCREENING Observed: 01/30/2018 Status: F Source: [place] 9:26 AM [facility] REPOSITORY * * *Final Report* * * DATE OF EXAM: Jan 30 2018 9:26AM WRW 0581 - [facility] SCREENING / PROCEDURE REASON: Encounter for screening mammogram for malignant neoplasm of breast * * * * Physician Interpretation * * * * RESULT: #[id number] - [facility]LESTE SCREENING BILATERAL DIGITAL SCREENING MAMMOGRAM WITH CAD: 01/30/2018 HISTORY: Screening Mammogram - patient reports NO breast symptoms /priors available for comparison. RESULT: TECHNIQUE: The study was acquired using full field digital technology and interpreted from soft copy. Current study was also evaluated with a Computer Aided Detection (CAD). Comparison is made to exams dated: 03/17/2015 mammogram and 01/24/2014 mammogram - [facility]. The tissue of both breasts [...] screening mammogram is recommended. Kristina hillman/arian:01/30/2018 13:04:21 Legislative Advocate: Corine GARCIA(R)([place]), [facility] letter sent: Normal over 40 Mammogram BI-RADS: 2 Benign finding Adventure Guide: Arian Transcribe Date/Time: Jan 30 2018 9:02A Dictated by: KRISTINA JUDGE MD This examination was interpreted and the report reviewed and electronically signed by: KRISTINA JUDGE MD on Jan 30 2018 1:04PM EST [id number] PROGRESS Observed: 01/30/2018 Status: COMPLETED Source: [place] 9:01 AM [facility] REPOSITORY HNO ID: [id number] Author: Clarissa Garcia Service: (none) Author Type: [...] IMPLANT DATA REVIEWED: Not Applicable RADIOLOGY DEPARTMENT: [facility] DATA: Not applicable SIGNED BY: Clarissa Garcia January 30, 2018 9:01 AM PROGRESS Observed: 12/28/2017 Status: COMPLETED Source: [place] 8:05 PM [facility] REPOSITORY [facility] ID: [id number] Author: Sean Bland Service: (none) Author Type: [...] SPEC 05/01/15 Colonoscopy - [facility] [place] CHOLECYSTECT/CHOLANGIOGRAPHY 06/15/07 - PAST [...] children: 3 Occupational History 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 See patient instructions. 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 Follow up with Sean Bland DO. Discussed risks, benefits, alternatives, and potential side effects of medications. Patient/Guardian expressed understanding and agreed with the plan. See patient instructions. Sean Bland DO [address] [place] [address] Referring Provider: SELF [200] Allergies As of Date: 12/28/2017 Noted Allergy Reaction Penicillin [Other] 04/26/1998 2 - Rash Comments: Unable to recall due to young age when took medication Date Reviewed: 12/28/2017 Reviewed by: Marybeth Naqvi LPN - Fully Assessed Reason for Visit: Rash [1087] Cmt: x 6 months lower legs Primary Visit Diagnosis:Blistering rash [R21] Other Visit Diagnosis:Visit for screening mammogram [Z12.31] Order(s):[facility] SCREENING [9124682] Order #: [id number] FUTURE clobetasol (TEMOVATE) 0.05 % ointmentApply 1 [...] TIME W/INR Collected: 12/20/2017 Status: F Source: [place] 10:43 AM [facility] REPOSITORY TYPE CODE TESTS RESULT OUT OF RANGE REFERENCE UNITS LAB L300.4150 11.7-14.9 SECONDS High PROTIME 27.8 LAB L300.4200 Normal INR 2.6 Performed By: #### L300.3900 #### [facility] [address] [place], [place], [address] CNCO Observed: 11/25/2017 Status: COMPLETED Source: [place] 12:00 AM [facility] REPOSITORY Letter Text [address] [facility] [place] [address] Itiri-[phone] 11/25/2017 Aaliyah Xiao [address] [facility] [address] Dear Ms. Xiao: Due to a change [...] for you, please contact our office at [phone]. Thank you for choosing the [facility] as your Healthcare Provider. Sincerely, Appointment Office PROTHROMBIN TIME W/INR Collected: 11/02/2017 Status: F Source: [place] 2:00 PM [facility] REPOSITORY Order Comment: Comments: STANDING ORDER Comments: STANDING ORDER TYPE CODE TESTS RESULT OUT OF RANGE REFERENCE UNITS LAB L300.4150 11.7-14.9 SECONDS High PROTIME 34.0 LAB L300.4200 Normal INR 3.3 Performed By: #### L300.3900 #### [facility] [address] [place], [address] CNPTOUTREACH Observed: 11/01/2017 Status: COMPLETED Source: [place] 12:00 AM [facility] REPOSITORY Patient Outreach (FAMPST) AALIYAH XIAO ([id number]) 1940 F Date Time Provider Department 11/01/17 [...] [Z79.899] Order(s):LIPID PANEL BASIC [SQLIPB] Order #: [id number] FUTURE Prescriptions as of 11/01/2017 Sig: X [...] TIME W/INR Collected: 10/19/2017 Status: F Source: [place] 9:50 AM [facility] REPOSITORY TYPE CODE TESTS RESULT OUT OF RANGE REFERENCE UNITS LAB L300.4150 11.7-14.9 SECONDS High PROTIME 23.1 LAB L300.4200 Normal INR 2.0 Performed By: #### L300.3900 #### [facility] [address] [place], [address] PROTHROMBIN TIME W/INR Collected: 10/05/2017 Status: F Source: [place] 12:53 PM [facility] REPOSITORY TYPE CODE TESTS RESULT OUT OF RANGE REFERENCE UNITS LAB L300.4150 11.7-14.9 SECONDS High PROTIME 22.5 LAB L300.4200 Normal INR 2.0 Performed By: #### L300.3900 #### [facility] [address] [place], [address] PROTHROMBIN TIME W/INR Collected: 09/20/2017 Status: F Source: [place] 1:58 PM [facility] REPOSITORY TYPE CODE TESTS RESULT OUT OF RANGE REFERENCE UNITS LAB L300.4150 11.7-14.9 SECONDS High PROTIME 34.4 LAB L300.4200 Normal INR 3.4 Performed By: #### L300.3900 #### [facility] [address] [facility] [place], [address] US THYROID/PARATHYROID Observed: 09/12/2017 Status: F Source: [place] 1:41 PM [facility] REPOSITORY * * *Final Report* * * DATE OF EXAM: Sep 12 2017 1:41PM [facility] 1048 - US THYROID/PARATHYROID / PROCEDURE REASON: [...] heterogeneous parenchyma. No thyroid nodule is seen. Adventure Guide: LETI Transcribe Date/Time: Sep 12 2017 2:13P Dictated by : MATHIEU MENDOZA MD This examination was interpreted and the report reviewed and electronically signed by: MATHIEU MENDOZA MD on Sep 12 2017 2:14PM EST [id number] PROGRESS Observed: 09/12/2017 Status: COMPLETED Source: [place] 1:01 PM [facility] REPOSITORY HNO ID: [id number] Author: Yuko Turk Rdms Service: (none) Author [...] PM PROGRESS Observed: 09/09/2017 Status: COMPLETED Source: [place] 8:55 AM [facility] REPOSITORY HNO ID: [id number] Author: Joelle [place] CNP Service: (none) Author Type: Nurse Practitioner Type: Progress Notes Filed: 09/09/2017 11:26 AM Note Text: This note was created using i.TVriter. Subjective Patient is a 76 year old female presenting with respiratory complaint comments. The history is provided by a parent. No house coordinator was used. URI She complains of cough, [...] CNP CNOV Observed: 09/09/2017 Status: COMPLETED Source: [place] 8:40 AM [facility] REPOSITORY Office Visit (FAMPWS) AALIYAH XIAO ([id number]) 1940 F Date Time Provider Department 09/09/17 8:40 AM JOELLE [place]) FAMPWS During your visit today, we recorded the following information about you: Pulse Respiration Blood pressure Weight 68/minute 18/minute 100/68 86.6 kg Joelle Bowden MART [place], MART 09/09/2017 11:26 AM Signed This note was created using i.TVriter. Subjective Patient is a 76 year old female presenting with respiratory complaint comments. The history is provided by a parent. No house coordinator was used. URI She complains of cough, [...] THYROID/PARATHYROID - f/u PRN MART Hurtado CNP, CORPORATE SALES TRAINER 09/09/2017 9:27 AM Signed Home going instructions [...] help open respiratory and sinus passages. - [facility] may offer relief of nasal and head [...] symptoms get worse. Joelle [place] CNP [facility] [address] [facility] [address] Referring Provider: SELF [200] Allergies As [...] thyroid [E04.9] Order(s):TSH BLD [SQTSH] Order #: [id number] FUTURE T3 BLD [SQT3] Order #: [id number] FUTURE T4 FREE/FREE THYROX [SQFT4] Order #: [id number] FUTURE US THYROID/PARATHYROID [8575916] Order #: [id number] FUTURE doxycycline monohydrate (MONODOX) 100 mg capsuleTake [...] help open respiratory and sinus passages. - [facility] [place] may offer relief of nasal and head [...] symptoms get worse. Joelle [place] CNP [facility] [address] [facility] [address] Prescriptions ordered this encounter Disp Refills [...] TIME W/INR Collected: 09/05/2017 Status: F Source: [place] 3:22 PM [facility] REPOSITORY TYPE CODE TESTS RESULT OUT OF RANGE REFERENCE UNITS LAB L300.4150 11.7-14.9 SECONDS High PROTIME 26.5 LAB L300.4200 Normal INR 2.4 Performed By: #### L300.3900 #### [facility] [address] [place], [address] PROGRESS Observed: 08/31/2017 Status: COMPLETED Source: [place] 11:26 AM [facility] REPOSITORY HNO ID: [id number] Author: Scott Galvez) Josep Service: (none) Author Type: Physician Artificial Cherry Maker Type: Progress Notes Filed: 08/31/2017 11:38 AM [...] SPEC 05/01/15 Colonoscopy - [facility]ROID[facility] [place] CHOLECYSTECT/CHOLANGIOGRAPHY 06/15/07 - PAST [...] PA-C CNOV Observed: 08/31/2017 Status: COMPLETED Source: [place] 11:15 AM [facility] REPOSITORY Office Visit (WSTR) AALIYAH XIAO ([id number]) 1940 F Date Time Provider Department 08/31/17 [...] SPEC 05/01/15 Colonoscopy - EXCIS UTERINE FIBROID,[facility]AG [facility] - [place] CHOLECYSTECT/CHOLANGIOGRAPHY 06/15/07 - PAST [...] TARTRATE 50 MG TABLET >> Nicolette Yangon DISPENSARY ATTENDANT 08/31/2017 11:18 AM >> NICOLETTE WESTON LPN TueAug 31, 2017 11:18 AM Not Taking MECLIZINE 25 MG TABLET >> Nicolette Yangon DISPENSARY ATTENDANT 08/31/2017 11:18 AM >> BESNICOLETTE AQUINO LPN [...] 08/08/2017 Status: F Source: [place] 1:06 PM [facility] REPOSITORY TYPE CODE TESTS RESULT OUT OF RANGE REFERENCE UNITS LAB L300.4150 11.7-14.9 SECONDS High PROTIME 24.2 LAB L300.4200 Normal INR 2.3 Performed By: #### L300.3900 #### [facility] [address] [place], [address] ALLERGIES ALLERGIES DATE TYPE / CODE NAME / CODE REACTION SEVERITY SOURCE 04/26/1998 Miscellaneous OTHER RASH [facility] Allergy/[id number](S Main [place] NOMED CT) Repository ENCOUNTERS ENCOUNTERS ADMIT/DISCHARGE ACCOUNT ADMITTING ENCOUNTER LOCATION SOURCE NUMBER CLASS 07/20/2018 [id number] [facility] ing:LAB Repository 06/23/2018/06/23/[id number] ing:LAB Repository 05/22/2018/05/23/20 [id number] Ambulatory [address] Repository 05/09/2018/06/02/20 [id number] Ambulatory [address] ing:LAB Repository 05/01/2018/05/01/20 [id number] Ambulatory [address] ing:LAB Repository 04/10/2018/04/11/20 [id number] Ambulatory [address] Repository 03/24/2018/03/24/20 [id number] Ambulatory [address] ing:LAB Repository 01/30/2018/01/31/20 [id number] Ambulatory [address] ing:MTLAB Repository 01/30/2018/01/31/20 [id number] Ambulatory [address] Repository 01/16/2018 [id number] Ambulatory BMSBuilding:Khadijah Ames [facility] Repository 12/28/2017/12/30/19 [id number] Ambulatory [address] Repository 12/20/2017/12/21/19 [id number] Ambulatory [address] ing:MTLAB Repository 12/09/2017/12/10/19 [id number] Ambulatory BMSBuilding:B [place] [address] [facility] Repository 11/02/2017/11/03/19 [id number] Ambulatory [place] [address] [place] [address] Hospital ing:MTLAB Repository 10/19/2017/10/20/19 [id number] Ambulatory [place] [address] [facility] Hospital ing:MTLAB Repository 09/20/2017 [id number] Ambulatory BMSBuilding:B [place] [facility] Repository 09/20/2017/09/21/19 [id number] Ambulatory [place] [address] [facility] ing:MTLAB Repository 09/12/2017/09/13/19 [id number] Ambulatory [address] Repository 09/09/2017/09/13/19 [id number] Ambulatory [address] Repository 09/05/2017/09/06/19 [id number] Ambulatory [place] [address] [place] [address] ing:MTLAB Repository 08/31/2017/09/02/19 [id number] Ambulatory [address] Repository 08/08/2017/08/08/19 [id number] Ambulatory [place] [address] [place] [address] ing:MTLAB Repository PAYERS PAYERS ENCOUNTER GUARANTOR PAYER SUBSCRIBER SOURCE 07/20/2018 RACIEL ROJASOB: [place] [id number] [address] Insurance:[employer] [id number] [place] [facility] [id number]: ([phone]) ADVANTAPolicy Number: [id number] [phone] () [id number] Date:[id number] [address]GG: 07/20/2018 Secondary NOT GIVENUNK Kwaku Insurance:SELF PAY [facility] Number: Effective Repository Date:2018-07-03 06/23/2018 RACIEL ROJASOB: [place] [id number] SHYLA Insurance[place] [id number] [facility] [address]Qpl: [phone]) MEDICAREPolicy Repository [phone] () Number: [id number] Date: [place], [place] [address]PG: 06/23/2018 Secondary NOT GIVENUNK Kw[place] Insurance:SELF PAY [facility] Number: Effective Repository Date:2018-06-05 05/09/2018 RACIEL Self Primary AALIYAH RACHELEDOB: [place] [id number] SHYLA Insurance[place] [id number] [address]Tel: [phone]) MEDICAREPolicy Repository [phone] () Number: [id number] Date: [place], [place] [address]PJ: 05/09/2018 Secondary NOT GIVENUNK [place] Insurance:SELF PAY [facility] Number: Effective Repository Date:2018-05-04 05/01/2018 RACIEL Self Primary AALIYAH RACHELEDOB: [place] [id number] SHYLA Insurance:[place] [id number] [place] [address]Tel: [phone]) MEDICAREPolicy Repository [phone] () Number: [id number] Date: [place], [place] [address]FH: 05/01/2018 Secondary NOT GIVENUNK [place] Insurance:SELF PAY [facility] Number: Effective Repository Date:2018-04-05 03/24/2018 RACIEL Self Primary AALIYAH RACHELEDOB: [place] [id number] SHYLA Insurance:[place] [id number] [place] [address]Tel: [phone]) MEDICAREPolicy Repository [phone] () Number: [id number] Date: [place], [place] [address]SK: 03/24/2018 Secondary NOT GIVENUNK [place] Insurance:SELF PAY [facility] Number: Effective Repository Date:2018-02-03 01/30/2018 RACIEL Self Primary AALIYAH RACHELEDOB: [place] [id number] SHYLA Insurance[place] [id number] [facility] [address]Zvb: (082) MEDICAREPolicy Repository [phone] () Number: [id number] Date: [place], [place] [address]MV: 01/30/2018 Secondary NOT GIVENUNK [place] Insurance:SELF PAY [facility] Hospital Number: Effective Repository Date:2017-12-30 01/16/2018 Raciel [id number] Primary Raciel HogeDOB: [place] Shyla [facility], Insurance:ANTHE[place]olic [id number] [address]Ura: y Number: [facility] [id number] Repository () Date:[id number] [address]TL: 01/16/2018 Secondary NOT GIVENUNK [place] Insurance:SELF PAY [facility] Hospital Number: Effective Repository Date:2017-06-22 12/20/2017 RACIEL R Primary AALIYAH J HOGEDOB: [place] [id number] [place] Insurance[place] [id number] [place] [id number]: [phone]) MEDICAREPolicy Repository [phone] () Number: [id number] Date: [place], [place] [address]RC: 12/20/2017 Secondary NOT GIVENUNK [place] Insurance:SELF PAY [facility] Hospital Number: Effective Repository Date:2017 12/09/2017 RACIEL R Primary AALIYAH J HOGEDOB: [place] [id number] SHYLA Insurance:[place] [id number] [facility] [address]Cld: (330) [facility] [phone] () Number: [id number] Date: [place], [place] [address]WV: 12/09/2017 Secondary NOT GIVENUNK [place] Insurance:SELF PAY [facility] Hospital Number: Effective Repository Date:2017-12-16 11/02/2017 RACIEL [id number] Primary AALIYAH ROJASOB: [place] SHYLA POLLOCKER, Insurance[place] [id number] [facility] [address]Wuh: [facility] MEDICAREPolicy Repository () Number: [id number] Date: [place], [place] [address]YD: 11/02/2017 Secondary NOT GIVENUNK [place] Insurance:SELF PAY [facility] Hospital Number: Effective Repository Date:2017-11-01 10/19/2017 RACIEL [id number] Primary AALIYAH ROJASOB: [place] SHYLA PHILLER, Insurance[place] [id number] [facility] [address]Xfh: [facility] MEDICAREPolicy Repository () Number: [id number] Date: [place], [place] [address]GY: 10/19/2017 Secondary NOT GIVENUNK [place] Insurance:SELF PAY [facility] Number: Effective Repository Date:2017-10-03 09/20/2017 Raciel [id number] Primary AALIYAH ROJASOB: [place] Shyla Pollocker, Insurance[place] [id number] [facility] [address]Osl: [facility] MEDICAREPolicy Repository () Number: [id number] Date: [place], [place] [address]DL: 09/20/2017 Secondary NOT GIVENUNK [place] Insurance:SELF PAY [facility] Hospital Number: Effective Repository Date:2017-09-20 09/20/2017 Raciel [id number] Primary AALIYAH ROJASOB: [place] Shyla Philler, Insurance[place] [id number] [facility] [address]Wwx: [facility] MEDICAREPolicy Repository () Number: [id number] Date: [facility]ITAL[facility] [place] [address]QP: 09/20/2017 Secondary NOT GIVENUNK [place] Insurance:SELF PAY [facility] Number: Effective Repository Date:2017-09-20 09/05/2017 Raciel [id number] Primary AALIYAH ROJASOB: [place] Lopez, Insurance:HEALTH PLAN [id number] Health [facility] [address]Nse: [facility] Number: Repository () [id number] Date: [place], [place] [address]RT: 09/05/2017 Secondary NOT GIVENUNK [place] Insurance:SELF PAY [facility] Number: Effective Repository Date:2017-09-01 08/08/2017 Raciel [id number] Primary AALIYAH HOGEDOB: [place] Lopez, Insurance:HEALTH PLAN [id number] Health [facility] [address]Wrz: [facility] Number: Repository () [id number] Date: [facility] [place] [address]VM: 08/08/2017 Secondary NOT GIVENUNK [place] Insurance:SELF PAY [facility] Number: Effective Repository Date:2017-08-05
== END 2018-07-20 16:29 | disposition home or self-care (01) ==
LOC: LAB 15:29
PROVIDERS: Family Provider Family Medicine; PCP Family Medicine; Referring Provider Internal Medicine Cardiovascular Disease; Visit Provider Internal Medicine Cardiovascular Disease
DX: Z95.2 Presence of prosthetic heart valve (principal); Z79.01 Long term (current) use of anticoagulants
CPT/HCPCS: 36415; 85610

== ENCOUNTER 2018-08-08 13:14 | Outpatient (RCR) | payer MEDICARE, SELFPAY ==
[2018-08-08 14:08] LABS: Prothrombin Time (Protime)PT. 35.8 SECONDS (11.7-14.9)
[2018-08-08 14:14] LABS: International Normalized Ratio 3.6
== END 2018-08-31 13:39 | disposition home or self-care (01) ==
LOC: LAB 13:14
PROVIDERS: Family Provider Family Medicine; PCP Family Medicine; Referring Provider Internal Medicine Cardiovascular Disease; Visit Provider Internal Medicine Cardiovascular Disease
DX: Z95.2 Presence of prosthetic heart valve (principal); Z79.01 Long term (current) use of anticoagulants
CPT/HCPCS: 36415; 85610

== ENCOUNTER 2018-09-18 12:46 | Outpatient (RCR) | payer MEDICARE, SELFPAY ==
[2018-09-07 15:49] VITALS: BMI 37.5
[2018-09-18 14:03] LABS: International Normalized Ratio 3.3; Prothrombin Time (Protime)PT. 33.4 SECONDS (11.7-14.9)
== END 2018-09-18 13:00 | disposition home or self-care (01) ==
LOC: MTLAB 12:46
PROVIDERS: Family Provider Family Medicine; PCP Family Medicine; Referring Provider Internal Medicine Cardiovascular Disease; Visit Provider Internal Medicine Cardiovascular Disease
DX: Z95.2 Presence of prosthetic heart valve (principal); Z79.01 Long term (current) use of anticoagulants
CPT/HCPCS: 36415; 85610

== ENCOUNTER → 2018-09-25 09:18 | Outpatient (CLI) | payer MEDICARE, SELFPAY ==
[2018-09-07 15:49] VITALS: BMI 37.5
[2018-09-25 10:01] LABS: AST(SGOT) 24 U/L (15-37); Alanine Aminotransfer ALT/SGPT 25 U/L (13-56); Albumin, Serum 3.6 g/dL (3.2-5.0); Alkaline Phosphatase 93 U/L (45-117); Bilirubin, Direct 0.26 mg/dL (0.00-0.30); Cholesterol 193 mg/dL (200); Globulin 4.3 g/dL (2.2-4.2); High Density Lipoprotein 77 mg/dL; Protein, Total 7.9 g/dL (6.4-8.2); Triglycerides 91 mg/dL; Very Low Density Lipoprotein 18 mg/dL (5-40)
== END ==
PROVIDERS: Family Provider Family Medicine; PCP Family Medicine; Referring Provider Internal Medicine Cardiovascular Disease; Visit Provider Internal Medicine Cardiovascular Disease
DX: E78.2 Mixed hyperlipidemia (principal)
CPT/HCPCS: 36415; 80061; 80076

== ENCOUNTER → 2018-09-27 09:52 | Outpatient (CLI) | payer MEDICARE, SELFPAY ==
[2018-09-07 15:49] VITALS: BMI 37.5
--- NOTE | 2018-09-27 09:54 | ECHOD_ITS ---
Reason For Study: Valve Replacement Eval Procedure This was a 2D Doppler, Color Flow transthoracic echocardiogram. The exam was of adequate technical quality. Exam performed in department. Left Ventricle Normal LV size. Left ventricular systolic function is normal. The estimated ejection fraction is 60 %. No regional wall motion abnormalities noted. Right Ventricle Normal RV size. Normal systolic function. Atria The left atrium is moderately enlarged. The right atrium is mildly enlarged. No doppler evidence for ASD. Mitral Valve There is mild to moderate mitral annular calcification. Extension of the mitral annular calcification onto the posterior mitral valve leaflet. Moderate (2+) mitral valve insufficiency. Tricuspid Valve Normal tricuspid valve. Mild to moderate (1-2+) tricuspid valve insufficiency. Right ventricular systolic pressure estimated to be 47 mmHg. Aortic Valve Stable appearing mechanical aortic valve apparatus. Trivial transvalvular insufficiency of the aortic valve. Pulmonic Valve The pulmonic valve is not well visualized. Trivial pulmonic valve insufficiency. Great Vessels Mildly dilated aortic root. Pericardium/Pleural No pericardial effusion. MMode/2D Measurements & Calculations LVIDd: 4.4 cm IVSd: 1.1 cm LVOT diam: 2.0 cm LVIDs: 2.9 cm LVPWd: 0.97 cm LVOT area: 3.2 cm2 RVDd: 4.1 cm FS: 33.7 % Ao root diam: 4.1 cm LAV(MOD-bp): 60.4 ml LVAd ap4: 19.4 cm2 LAV(MOD-bp) Indexed: 32.4 ml/m2 EDV(MOD-sp4): 49.6 ml LAV(MOD-sp2): 53.0 ml EDV(sp4-el): 50.5 ml LAV(MOD-sp4): 63.5 ml LVAs ap4: 11.5 cm2 ESV(MOD-sp4): 22.0 ml ESV(sp4-el): 20.9 ml EF(MOD-sp4): 55.7 % EF(sp4-el): 58.5 % SV(MOD-sp4): 27.6 ml SV(sp4-el): 29.5 ml LA A4 area: 22.9 cm2 LA dimension(2D): 4.1 cm RA A4 area: 18.8 cm2 Time Measurements MV dec time: 0.12 sec Doppler Measurements & Calculations MV E max steve: 148.0 cm/sec Lat Peak E' Steve: 8.2 cm/sec Med Peak E' Steve: 3.9 cm/sec MV A max steve: 38.1 cm/sec E/E' lat: 18.1 E/E' med: 37.6 MV E/A: 3.9 MV V2 max: 177.7 cm/sec MV P1/2t max steve: 173.6 cm/sec Ao V2 max: 294.4 cm/sec MV max P.6 mmHg MV P1/2t: 79.7 msec Ao max P.7 mmHg MV V2 mean: 80.2 cm/sec Ao V2 mean: 223.3 cm/sec MV mean P.5 mmHg MV dec slope: 638.5 cm/sec2 Ao mean P.5 mmHg MV V2 VTI: 40.4 cm MVA(P1/2t): 2.8 cm2 Ao V2 VTI: 75.9 cm MVA(VTI): 2.2 cm2 URPERT(I,D): 1.2 cm2 RUPERT(V,D): 1.1 cm2 LV V1 max: 106.8 cm/sec SV(LVOT): 88.0 ml PA V2 max: 59.2 cm/sec LV V1 max P.6 mmHg LV V1 mean P.8 mmHg LV V1 mean: 79.5 cm/sec LV V1 VTI: 27.9 cm TR max steve: 331.9 cm/sec TR max P.1 mmHg Interpretation Summary Left ventricular systolic function is normal. The estimated ejection fraction is 60 %. The left atrium is moderately enlarged. The right atrium is mildly enlarged. There is mild to moderate mitral annular calcification. Extension of the mitral annular calcification onto the posterior mitral valve leaflet. Moderate (2+) mitral valve insufficiency. Mild to moderate (1-2+) tricuspid valve insufficiency. Stable appearing mechanical aortic valve apparatus. Trivial transvalvular insufficiency of the aortic valve. Trivial pulmonic valve insufficiency. Mildly dilated aortic root. Right ventricular systolic pressure estimated to be 47 mmHg. Transmitral diastolic flow velocities suggest diastolic dysfunction (pseudonormal pattern). Ordering Physician: Dash Victoria Referring Physician: Danilo Bolden Performed By: Kalani Newsome, ARUN, RVT
== END ==
LOC: CVS 09:53
PROVIDERS: Family Provider Family Medicine; PCP Family Medicine; Referring Provider Internal Medicine Cardiovascular Disease; Visit Provider Internal Medicine Cardiovascular Disease
DX: E78.2 Mixed hyperlipidemia (principal); I35.0 Nonrheumatic aortic (valve) stenosis; Z95.2 Presence of prosthetic heart valve
CPT/HCPCS: 93306

== ENCOUNTER 2018-10-30 12:15 | Outpatient (RCR) | payer MEDICARE, SELFPAY ==
[2018-09-07 15:49] VITALS: BMI 37.5
[2018-10-30 14:08] LABS: Prothrombin Time (Protime)PT. 37.1 SECONDS (11.7-14.9)
[2018-10-30 14:20] LABS: International Normalized Ratio 3.7
== END 2018-10-31 16:00 | disposition home or self-care (01) ==
LOC: MTLAB 12:15
PROVIDERS: Family Provider Family Medicine; PCP Family Medicine; Referring Provider Internal Medicine Cardiovascular Disease; Visit Provider Internal Medicine Cardiovascular Disease
DX: Z95.2 Presence of prosthetic heart valve (principal); Z79.01 Long term (current) use of anticoagulants
CPT/HCPCS: 36415; 85610

== ENCOUNTER 2018-11-10 08:46 | Outpatient (RCR) | payer MEDICARE, SELFPAY ==
[2018-09-07 15:49] VITALS: BMI 37.5
[2018-11-10 09:34] LABS: International Normalized Ratio 2.4; Prothrombin Time (Protime)PT. 26.5 SECONDS (11.7-14.9)
== END 2018-11-10 10:00 | disposition home or self-care (01) ==
LOC: LAB 08:46
PROVIDERS: Family Provider Family Medicine; PCP Family Medicine; Referring Provider Internal Medicine Cardiovascular Disease; Visit Provider Internal Medicine Cardiovascular Disease
DX: Z79.01 Long term (current) use of anticoagulants (principal); Z95.2 Presence of prosthetic heart valve
CPT/HCPCS: 36415; 85610

== ENCOUNTER 2018-11-25 14:12 | Emergency (ER) | payer MEDICARE, SELFPAY ==
[2018-09-07 15:49] VITALS: BMI 37.5
[2018-11-25 14:12] VITALS: BP 150/81; PULSE 55; RESP 16; TEMP 36.7; O2SAT 99; BMI 35.9
--- NOTE | 2018-11-25 15:38 | RAD_ITS ---
STUDY: X-RAY - PELVIS AND LEFT HIP REASON FOR EXAM: Female, 77 years old. Fall. Pain. TECHNIQUE: 3 views of the pelvis and hip. COMPARISON: None. FINDINGS: There is a non-specific bowel gas pattern. Normal visualized soft tissue structures. Normal bilateral iliac wings, sacroiliac joints and visualized sacrum. Normal bilateral superior and inferior pubic rami. Normal pubic symphysis. Normal bilateral ischial tuberosities. Normal visualized femoral head. Normal acetabulum. Normal hip joint. RAD/HIP, UNI W/ Pelvis 2-3 Views IMPRESSION: Normal x-ray examination of the pelvis and hip. . Electronically Signed: Skip Lamas MD at 17:05 EDT , Service support ,
--- NOTE | 2018-11-25 15:38 | RAD_ITS ---
STUDY: X-RAY - SACRUM/COCCYX REASON FOR EXAM: Female, 77 years old. Fall. TECHNIQUE: 3 view(s) of the sacrum and coccyx were obtained. COMPARISON: None. FINDINGS: Normal bilateral sacroiliac joints. Normal visualized sacral ala and fused sacral bodies. Normal sacrococcygeal junction with a normal angulation. Normal coccygeal segments. The presacral soft tissue structures are unremarkable. There is no demonstrated fracture. RAD/Sacrum-Coccyx min 2 Views IMPRESSION: Normal x-rays of the sacrum and coccyx. Electronically Signed: Skip Lamas MD at 17:06 EDT , Service support ,
--- NOTE | 2018-11-25 15:38 | RAD_ITS ---
STUDY: X-RAY - LUMBAR SPINE REASON FOR EXAM: Female, 77 years old. Fall. TECHNIQUE: 3 view(s) of the lumbar spine were obtained. COMPARISON: None FINDINGS: Normal lumbar lordosis. There is no substantial scoliosis. There is a normal alignment of the vertebrae. There is multilevel endplate spondylosis of the lumbar vertebrae. There is mild multi-level degenerative disc disease with multi-level disc space narrowing. There is no demonstrated fracture. The soft tissue structures are unremarkable. RAD/Lumbar Spine 2 or 3 Views IMPRESSION: Multilevel mild degenerative changes. No acute abnormality. Electronically Signed: Skip Lamas MD at 17:08 EDT , Service support ,
--- NOTE | 2018-11-25 15:40 | ED.VISSUMM ---
- ER Visit Summary Date of Service: 11/25/18 Chief Complaint: Lower back and left leg pain History of Present Illness: The patient is a 77 F who presents for evaluation 1 week after a fall, in which she lost her balance after cleaning a coffee table and fell onto her bottom. Patient denies any injury to her neck or head. She has been having lower back pain but for the last 3 days has been having worsening pain and swelling in the left leg. Patient has had difficulty bearing weight on the left leg since the fall. She is taken Tylenol without relief. She was seen in urgent care today and sent for further evaluation, with concern for possible DVT given the swelling. Patient has history of mechanical aortic valve replacement and is on Coumadin. She has degenerative disc disease in the lumbar spine and history of spinal stenosis. Patient denies any loss of bowel or bladder continence, retention, or numbness/tingling in the lower extremities. No numbness in the groin. Patient also has history of CHF. Physical Examination: Vital signs: afebrile, hemodynamically stable, no hypoxia on room air General: well nourished, well developed, in no distress Skin: warm, dry, no rash, no pallor HEENT: normocephalic and atraumatic; PERRL, EOMI, moist mucous membranes Cardiovascular: regular rate and rhythm 2+ pulses all distal extremities Respiratory: No increased work of breathing Abdominal: Abdomen is soft, nontender MSK: Moves all extremities, no deformities, normal strength; pelvis is stable, negative for pain with logroll bilaterally, patient has difficulty with hip flexion on the left, very subtle difference in lower extremity edema, 1+ pitting symmetrically, lumbar spine has midline tenderness in the lower lumbar and sacral region, also paraspinal tenderness on the left Neuro: Awake and alert, oriented ?4. No facial droop, sensation and motor function intact and symmetric Test Results: Abnormal Lab Results 11/25/18 15:50 PT 32.0 H INR 3.1 Clinical Impression(s) from Imaging Studies Hip/Pelvis X-Ray 11/25/18 15:38 IMPRESSION: Normal x-ray examination of the pelvis and hip. . Electronically Signed: Skip Lamas MD at 17:05 EDT , Service support , Lumbar Spine X-Ray 11/25/18 15:38 IMPRESSION: Multilevel mild degenerative changes. No acute abnormality. Electronically Signed: Skip Lamas MD at 17:08 EDT , Service support , Sacrum and Coccyx X-Ray 11/25/18 15:38 IMPRESSION: Normal x-rays of the sacrum and coccyx. Electronically Signed: Skip Lamas MD at 17:06 EDT , Service support , Medications Given Discontinued Medications Acetaminophen (Tylenol) 1,000 mg PO X1 ONE Stop: 11/25/18 16:40 Last Admin: 11/25/18 16:53 Dose: 1,000 mg Emergency Department Course and Treatment: She was offered and declined pain medication. INR was checked since patient is on Coumadin. NR was 3.1, which is therapeutic. She denies any injury other than falling on the bottom, thus no head CT is warranted to look for intracranial hemorrhage. X-ray performed of the left hip, pelvis, and the lumbosacral spine. X-ray showed no pelvic fracture, hip fracture or spinal fractures or dislocations. It is highly unlikely that patient is having a blood clot in the left lower extremity, as there is no significant difference in the swelling or appearance of the lower extremities, and patient is therapeutic on her Coumadin. Her exam is most consistent with a lumbar and hip sprain from falling onto her buttocks. Patient was able to ambulate without any assistance for several steps, making an occult hip fracture or pelvic fracture unlikely. Patient was eventually given Tylenol for pain during the work-up as her pain had increased. She had improvement at time of discharge. Patient was given return precautions and discharged home. Treatment Plan: [] Disposition: [] Impression: Sprain of the lumbar spine and left hip This note was generated with Apozyation software. It may contain incorrect words, spelling, and punctuation that were not noted in review of the chart prior to signing ED Disposition - Plan for ED Patient: Disposition: Home or Assisted Living Instructions: ED Sprain Strain Lumbar, ED Sprain Hip Referrals: Danilo Bolden MD [Primary Care Provider] - 3-5 Days if not improving Additional Instructions: Continue Tylenol as needed for pain. If at any point you are unable to bear weight walk on the left leg, if you develop numbness or weakness in the legs, you are unable to control your bowel or bladder function, or you have any other concerns, return immediately to the emergency department for another evaluation.
--- NOTE | 2018-11-25 15:43 | ED.DCSUM_ITS ---
- ER Visit Summary Date of Service: 11/25/18 Chief Complaint: Lower back and left leg pain History of Present Illness: The patient is a 77 F who presents for evaluation 1 week after a fall, in which she lost her balance after cleaning a coffee table and fell onto her bottom. Patient denies any injury to her neck or head. She has been having lower back pain but for the last 3 days has been having worsening pain and swelling in the left leg. Patient has had difficulty bearing weight on the left leg since the fall. She is taken Tylenol without relief. She was seen in urgent care today and sent for further evaluation, with concern for possible DVT given the swelling. Patient has history of mechanical aortic valve replacement and is on Coumadin. She has degenerative disc disease in the lumbar spine and history of spinal stenosis. Patient denies any loss of bowel or bladder continence, retention, or numbness/tingling in the lower extremities. No numbness in the groin. Patient also has history of CHF. Physical Examination: Vital signs: afebrile, hemodynamically stable, no hypoxia on room air General: well nourished, well developed, in no distress Skin: warm, dry, no rash, no pallor HEENT: normocephalic and atraumatic; PERRL, EOMI, moist mucous membranes Cardiovascular: regular rate and rhythm 2+ pulses all distal extremities Respiratory: No increased work of breathing Abdominal: Abdomen is soft, nontender MSK: Moves all extremities, no deformities, normal strength; pelvis is stable, negative for pain with logroll bilaterally, patient has difficulty with hip flexion on the left, very subtle difference in lower extremity edema, 1+ pitting symmetrically, lumbar spine has midline tenderness in the lower lumbar and sacral region, also paraspinal tenderness on the left Neuro: Awake and alert, oriented ?4. No facial droop, sensation and motor function intact and symmetric Test Results: Abnormal Lab Results 11/25/18 15:50 PT 32.0 H INR 3.1 Clinical Impression(s) from Imaging Studies Hip/Pelvis X-Ray 11/25/18 15:38 IMPRESSION: Normal x-ray examination of the pelvis and hip. . Electronically Signed: Skip Lamas MD at 17:05 EDT , Service support , Lumbar Spine X-Ray 11/25/18 15:38 IMPRESSION: Multilevel mild degenerative changes. No acute abnormality. Electronically Signed: Skip Lamsa MD at 17:08 EDT , Service support , Sacrum and Coccyx X-Ray 11/25/18 15:38 IMPRESSION: Normal x-rays of the sacrum and coccyx. Electronically Signed: Skip Lamas MD at 17:06 EDT , Service support , Medications Given Discontinued Medications Acetaminophen (Tylenol) 1,000 mg PO X1 ONE Stop: 11/25/18 16:40 Last Admin: 11/25/18 16:53 Dose: 1,000 mg Emergency Department Course and Treatment: She was offered and declined pain medication. INR was checked since patient is on Coumadin. NR was 3.1, which is therapeutic. She denies any injury other than falling on the bottom, thus no head CT is warranted to look for intracranial hemorrhage. X-ray performed of the left hip, pelvis, and the lumbosacral spine. X-ray showed no pelvic fracture, hip fracture or spinal fractures or dislocations. It is highly unlikely that patient is having a blood clot in the left lower extremity, as there is no significant difference in the swelling or appearance of the lower extremities, and patient is therapeutic on her Coumadin. Her exam is most consistent with a lumbar and hip sprain from falling onto her buttocks. Patient was able to ambulate without any assistance for several steps, making an occult hip fracture or pelvic fracture unlikely. Patient was eventually given Tylenol for pain during the work-up as her pain had increased. She had improvement at time of discharge. Patient was given return precautions and discharged home. Treatment Plan: [] Disposition: [] Impression: Sprain of the lumbar spine and left hip This note was generated with [employer] Athlete[employer]ation software. It may contain incorrect words, spelling, and punctuation that were not noted in review of the chart prior to signing ED Disposition - Plan for ED Patient: Disposition: Home or Assisted Living Instructions: ED Sprain Strain Lumbar, ED Sprain Hip Referrals: Danilo Bolden MD [Primary Care Provider] - 3-5 Days if not improving Additional Instructions: Continue Tylenol as needed for pain. If at any point you are unable to bear weight walk on the left leg, if you develop numbness or weakness in the legs, you are unable to control your bowel or bladder function, or you have any other concerns, return immediately to the emergency department for another evaluation.
[2018-11-25 16:42] LABS: International Normalized Ratio 3.1
[2018-11-25] MEDS: Acetaminophen 500 MG Tablet 1000 MG PO (16:53)
[2018-11-25 18:26] VITALS: PULSE 55; RESP 17; O2SAT 97
== END 2018-11-25 18:28 | disposition home or self-care (01) ==
PROVIDERS: Emergency Provider Emergency Medicine; Family Provider Family Medicine; PCP Family Medicine
DX: S33.5XXA Sprain of ligaments of lumbar spine, initial encounter (principal); S73.102A Unspecified sprain of left hip, initial encounter; I50.9 Heart failure, unspecified; Z79.899 Other long term (current) drug therapy; Z95.2 Presence of prosthetic heart valve; Z79.01 Long term (current) use of anticoagulants; W18.30XA Fall on same level, unspecified, initial encounter; Y93.E9 Activity, other interior property and clothing maintenance; Y92.008 Other place in unspecified non-institutional (private) residence as the place of occurrence of the external cause; Y99.8 Other external cause status
CPT/HCPCS: 72100; 72220; 73502; 85610; 99284

== ENCOUNTER 2018-11-30 00:07 | Emergency (ER) | payer MEDICARE, SELFPAY ==
[2018-11-30 00:09] VITALS: BP 163/110; PULSE 65; RESP 18; TEMP 36.9; O2SAT 92; BMI 38.5
--- NOTE | 2018-11-30 00:19 | CT_ITS ---
STUDY: CT SOFT TISSUE NECK WITH CONTRAST REASON FOR EXAM: Female, 77 years old. Right facial swelling RADIATION DOSAGE (If Supplied By Facility): CTDIvol = ( 19.52 ) mGy, DLP = ( 531.25 ) mGycm TECHNIQUE: The patient was scanned in a multi-detector CT scanner. High resolution transaxial imaging was performed following intravenous administration of 100ML IV Isovue 300. Sagittal and coronal images were reconstructed. Individualized dose optimization techniques were used for this CT. COMPARISON: None. FINDINGS: Mild asymmetric prominence of the right parotid gland with inflammatory stranding of the overlying subcutaneous fat. Normal bilateral patient care coordinator spaces. Normal bilateral parapharyngeal spaces. Normal bilateral carotid spaces. Asymmetric prominence of the right submandibular gland with puncture stranding of the overlying subcutaneous fat. Normal visualized nasopharynx. Normal retropharyngeal space. Normal perivertebral space. Normal visualized bilateral faucial tonsils. The visualized tongue, tongue base and oropharynx are normal. The visualized cervical lymph nodes (levels I-) are within normal size limits, and maintain normal morphology. There is no demonstrated solid or cystic mass lesion. There is no abnormal contrast enhancement. Normal epiglottis, bilateral vallecula and hypopharynx. The pre-epiglottic and paraglottic adipose spaces are normal. Normal visualized bilateral piriform sinuses, aryepiglottic folds, vocal cords, and arytenoid-cricoid articulations. Normal subglottic trachea. Normal bilateral lobes of the thyroid gland. Mild patchy centrilobular groundglass opacities throughout visualized bilateral upper lungs. Normal visualized paranasal sinuses. Normal visualized cervical spine. Ectasia of the ascending aorta. CT/Soft Tissue Neck WITH Contrast IMPRESSION: 1. Sialadenitis involving the right parotid and submandibular glands. 2. Mild centrilobular edema within the visualized upper lungs. Electronically Signed: Hira Parisi MD at 2:28 EDT Tel , Service support ,
--- NOTE | 2018-11-30 00:25 | ED.VISSUMM ---
- ER Visit Summary Date of Service: 11/30/18 Chief Complaint: Right jaw swelling History of Present Illness: The patient is a 78 F presenting with right jaw swelling. Patient states that this started earlier this afternoon. She complains of painful swelling to the right side of her lower jaw. She denies injury. She has not had these symptoms in the past. Denies chest pain or shortness of breath. Denies fever or cough. Denies other complaints. Physical Examination: Vitals are stable. Patient is afebrile. Alert no acute distress. HEENT exam right mandibular tenderness with mild swelling. No intraoral fluctuance. No sublingual edema. Neck is supple. Lungs are clear and equal bilaterally. Heart is regular rate and rhythm. Abdomen is soft nontender nondistended. Extremities are unremarkable. Skin is warm and dry. Remainder of exam is unremarkable. Emergency Department Course and Treatment: CBC, chemistries unremarkable. INR 2.6. CT soft tissue neck shows sialadenitis involving the right parotid and submandibular glands. Patient was given [place] x1 and clindamycin. She has an allergy to penicillin. She is resting comfortably on reevaluation. She is advised to follow-up with her PCP. Advised return to ED if worsening complaints. Disposition: Discharge home Impression: Sialadenitis This note was generated with [employer] dictation software. It may contain incorrect words, spelling, and punctuation that were not noted in review of the chart prior to signing ED Disposition - Plan for ED Patient: Referrals: Danilo Bolden MD [Primary Care Provider] -
[2018-11-30 00:34] LABS: Absolute Lymphocyte Count 1.63 X10^3/ul (0.83-4.51); Absolute Neutrophil Count 4.5 X10^3/uL (2.0-7.7); Basophil# 0.02 X10^3/uL; Basophil% 0.3 % (0-1); Eosinophils% 1.5 % (0-5); Hemoglobin 12.6 g/dl (12.0-15.0); Lymphocyte # 1.63 X10^3/ul (4.0); Lymphocyte % 23.9 % (19-41); Mean Corp Hgb Conc 33.2 g/gl (32-36); Mean Corpuscular Hgb 30.8 pg (27.0-32.0); Mean Corpuscular Volume 92.9 fL (81-99); Mean Platelet Vol. 10.9 fl (6.2-12.0); Monocyte# 0.54 X10^3/uL; Monocyte% 7.9 % (0-10); Neutrophil # 4.53 X10^3/uL (2.7-7.7); Neutrophil % 66.4 % (47-70); Platelet Count 188 K/mm3 (150-450); RBC Distribution Width CV 14.5 % (11.6-14.6); RBC Distribution Width SD 49.3 fl (35.1-43.9); Red Blood Count 4.09 M/mm3 (4.2-5.4); White Blood Count 6.8 K/mm3 (4.4-11.0)
[2018-11-30 00:41] LABS: International Normalized Ratio 2.6; Prothrombin Time (Protime)PT. 27.7 SECONDS (11.7-14.9)
[2018-11-30 00:43] LABS: POSITIVE COUNT NO; POSITIVE DIFFERENTIAL NO; POSITIVE MORPHOLOGY NO
[2018-11-30 00:46] LABS: Anion Gap 5 (5-15); BUN 15 mg/dL (7-18); BUN/Creat Ratio 15.5 RATIO (10-20); Calcium,Total 8.5 mg/dL (8.5-10.1); Chloride 108 mmol/L (98-107); Creatinine, Serum 0.97 mg/dL (0.55-1.02); EST Glomerular Filtration Rate 60 mL/min (>60); Est Glom Filt Rate - Afr Amer 72 mL/min (>60); Estimated Creatinine Clearance 37.81 ml/min; Glucose 119 mg/dL (74-106); Potassium 3.8 mmol/L (3.5-5.1); Sodium Level 141 mmol/L (136-145)
[2018-11-30 02:07] VITALS: BP 147/73; PULSE 71; RESP 16; O2SAT 97
--- NOTE | 2018-11-30 02:55 | ED.DEP ---
ED Disposition - Plan for ED Patient: Instructions: ED Submandibular Gland Infec Prescriptions: Clindamycin [Cleocin] 300 mg PO 4X/DAY #80 capsule Referrals: Danilo Bolden MD [Primary Care Provider] - Jovani Nielsen MD [STAFF PHYSICIAN] -
[2018-11-30] MEDS: Clindamycin HCl 150 MG Capsule 450 MG PO (03:00)
[2018-11-30] MEDS: HYDROcodone Bitartrate/Apap 5/325 Tablet PO (03:01)
[2018-11-30 03:04] VITALS: BP 155/87; PULSE 66; O2SAT 99
== END 2018-11-30 03:09 | disposition home or self-care (01) ==
LOC: ED 00:29
PROVIDERS: Emergency Provider Emergency Medicine; Family Provider Family Medicine; PCP Family Medicine
DX: K11.20 Sialoadenitis, unspecified (principal); I10 Essential (primary) hypertension; E78.00 Pure hypercholesterolemia, unspecified; Z79.899 Other long term (current) drug therapy
CPT/HCPCS: 70491; 80048; 85025; 85610; 99284; Q9967; A4216

== ENCOUNTER 2018-12-19 14:45 | Outpatient (RCR) | payer MEDICARE, SELFPAY ==
[2018-12-02 08:33] VITALS: BMI 37.5
[2018-12-19 17:28] LABS: International Normalized Ratio 3.3
== END 2018-12-19 15:00 | disposition home or self-care (01) ==
LOC: LAB 14:45
PROVIDERS: Family Provider Family Medicine; PCP Family Medicine; Referring Provider Internal Medicine Cardiovascular Disease; Visit Provider Internal Medicine Cardiovascular Disease
DX: Z79.01 Long term (current) use of anticoagulants (principal); Z95.2 Presence of prosthetic heart valve
CPT/HCPCS: 36415; 85610

== ENCOUNTER 2019-01-05 14:34 | Inpatient (IN) | payer MEDICARE, SELFPAY ==
[2019-01-05] VITALS (20 sets, daily range): BP systolic 104–148; BP diastolic 66–109; PULSE 95–140; RESP 16–25; TEMP 36.3–36.8; O2SAT 95–100; BMI 38.5; BMI 38.7; BMI 38.3; BMI 38.4
--- NOTE | 2019-01-05 14:54 | EKG12_ITS ---
Test Reason : SOB Blood Pressure : / mmHG Vent. Rate : 124 BPM Atrial Rate : 107 BPM P-R Int : 000 ms QRS Dur : 094 ms QT Int : 330 ms P-R-T Axes : 000 053 166 degrees QTc Int : 474 ms Atrial fibrillation with rapid ventricular response Nonspecific ST & T wave abnormality Abnormal ECG Confirmed by NURYS YANEZ, AMISH ([id number]), newspaper managing editor JOELLE EAGLE ([id number]) on 01/08/2019 1:12:19 PM Referred By: Alaina Reyes Confirmed By:AMISH NUNO MD
--- NOTE | 2019-01-05 14:58 | ED.DCSUM_ITS ---
- ER Visit Summary Date of Service: 01/05/19 Chief Complaint: Shortness of breath History of Present Illness: The patient is a 78 F with shortness of breath. Symptoms have increased gradually over the past 2 weeks. Nothing seemed to bring them on. Worse with exertion. Patient reports associated fatigue. She has a history of aortic stenosis and aortic valve replacement. She also has a history of coronary disease and CABG. She takes Coumadin. 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 Physical Examination: Afebrile vital signs unremarkable except for a heart rate of 115. Irregularly irregular. Lungs are clear throughout. Skin is pale. Trace peripheral edema, symmetric. Calves nontender. Pulses strong and equal. Test Results: EKG, labs, chest x-ray pending. Emergency Department Course and Treatment: Patient placed on a monitor. Work-up as above. Treatment Plan: Work-up was fairly unremarkable. The patient remained stable. Troponin was normal. INR was supratherapeutic at 6.2. Patient was discussed with cardiology. Advised starting amnio bolus and drip. We will follow her, possibly repeat echocardiogram, and possibly cardiovert if needed. Patient was admitted by the hospitalist. Disposition: As above Impression: 1. Atrial fibrillation 2. Supratherapeutic INR This note was generated with [employer] dictation software. It may contain incorrect words, spelling, and punctuation that were not noted in review of the chart prior to signing ED Disposition - Plan for ED Patient: Referrals: Danilo Bolden MD [Primary Care Provider] -
--- NOTE | 2019-01-05 15:10 | RAD_ITS ---
STUDY: X-RAY CHEST REASON FOR EXAM: Female, 78 years old. Atrial fibrillation. TECHNIQUE: Single AP portable view of the chest. COMPARISON: None. FINDINGS: The lungs are clear and expanded. There is no demonstrated pleural abnormality. There is mild cardiac enlargement. Normal mediastinum and milad. Normal visualized pulmonary arteries. There is atherosclerotic tortuosity of the aortic arch and descending thoracic aorta. Normal visualized thoracic spine. Normal visualized ribs, clavicles, and shoulders. There is no demonstrated abnormality of the visualized soft tissue structures of the upper abdomen. RAD/Chest 1 View (Portable) IMPRESSION: Cardiomegaly. Electronically Signed: Terry Lombardo, at 15:34 EDT , Service support ,
[2019-01-05 15:35] LABS: Prothrombin Time (Protime)PT. 55.7 SECONDS (11.7-14.9)
[2019-01-05 15:54] LABS: International Normalized Ratio 6.2
[2019-01-05 16:36] LABS: BNP,B-Type NATRIURETIC PEPTIDE 367.1 pg/mL (0-100)
--- NOTE | 2019-01-05 16:39 | HP.PCM_ITS ---
History of Present Illness Date of Admission: 01/05/19 Chief Complaint: Shortness of breath The patient is a 78 year old F with past medical history as listed. She was admitted to the ED on 01/05/2019 with a complaint of shortness of breath which had been going on for about 2 weeks. She had a stent palpitations, orthopnea and PND as well as swelling in her lower extremities. Shortness of breath was present at rest and worsened with exertion. 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 fib so she was sent to the ED. She has no previous diagnosis of A. fib. Review of systems otherwise negative. Vitals showed heart rate of 117. Chest x-ray showed no acute cardiopulmonary process and BNP was 367.1. Troponin was less than 0.015 and EKG done showed A. fib with RVR. INR was 1.62. Labs done earlier today on outpatient basis showed a CBC which was only significant for platelets of 142. BMP done also showed creatinine of 1.12 but was otherwise within normal limits. She has been admitted to be managed for new onset A. fib. 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) use of anticoagulants (Chronic) Medical History: Medical History (Last Reviewed 01/05/19 @ 13:47 by Clau Jones) Nonrheumatic aortic (valve) stenosis (Chronic) I35.0 History of bicuspid aortic valve (Acute) Z87.74 Mixed hyperlipidemia (Chronic) E78.2 Atherosclerotic heart disease of [place] coronary artery without angina pectoris (Chronic) I25.10 senior care (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) use of anticoagulants (Chronic) Z79.01 Allergies Penicillins Allergy (Intermediate, Verified 01/05/19 14:35) Unknown Home Medications: Ambulatory Orders Medication Instructions Recorded pravastatin 40 mg tablet 40 mg PO QHS #90 tab 09/21/18 Warfarin Sodium 5 mg PO SUSA 05/25/19 Metoprolol Tartrate [Lopressor 50 mg PO DAILY 01/05/19 (beta donna)] Warfarin Sodium 7 mg PO MOTUWETHFR 01/05/19 Surgical History: Surgical History (Last Reviewed 01/05/19 @ 13:47 by Clau Jones) History of coronary artery bypass surgery (Chronic) Onset Date: ~04/18/07 Z95.1 CABG x1 CHURCH to LAD 04/18/2007 History of mechanical aortic valve replacement (Chronic) Onset Date: ~1995 Z95.2 1995 History of cataract extraction Z98.49 History of colonoscopy with polypectomy Z98.890, Z86.010 Hx laparoscopic cholecystectomy Z90.49 Hx of cervical polypectomy Z98.890, Z87.42 with endometrial biopsy Smoking Status: Former smoker Review of Systems Constitutional: Denies: Chills, Fever, Malaise, Weakness, Weight Change, Fatigue Eyes: Denies: Blurred vision HEENT: Denies: Head Aches, Sinus Congestion, Sinus Drainage Cardiovascular: Reports: Edema, Orthopnea, Palpitations, Paroxysmal Noc. Dyspnea. Denies: Chest Pain, Chest Pressure, Chest Tightness, Syncope Respiratory: Reports: Shortness of Breath, Shortness of breath at rest, Shortness of breath upon exertion. Denies: Cough, Sputum production, Wheezing Gastrointestinal: Denies: Abdominal Pain, Nausea, Vomiting Genitourinary: Denies: Dysuria Musculoskeletal: Denies: Joint Pain, Joint Tenderness Skin: Denies: Rash, Wounds Neurological: Denies: Numbness, Tingling, Focal weakness Psychiatric: Denies: Anxiety, Depression, Homicidal Ideations, Suicidal Ideations Hematologic/ Lymphatic: Denies: Easy Bruising, Easy Bleeding VTE Information - Inpt Only VTE Present on Admission: No VTE Pharm Prophylaxis ordered?: Yes - Physical Exam General: Alert, Oriented x3, Cooperative, No apparent distress HEENT: Atraumatic, PERRLA, EOMI, Normocephalic Oral: Moist Mucosa Neck: Supple, No JVD, Negative Carotid Bruits Lungs: - - few fine crackles bibasally, no wheezes. Cardiovascular: Irregular Rate, Tachycardic, - - mechanical aortic valve click Abdomen: Bowel Sounds Present, Soft, Non Tender, Non-Distended, No Hepato- splenomegaly Extremities: No clubbing, No cyanosis, Capillary Refill Less than 3 Seconds, - - mild 1+ bipedal pitting edema Skin: No rashes, No breakdown Musculoskeletal: No Tenderness to Palpation of Joints or Extremities Lymphatic: No Cervical, Supraclavicular, or Inguinal Adenopathy Neurological: Cranial nerves II-XII grossly intact, Neuro grossly intact, Motor Exam 5/5 strength throughout Psych/Mental Status: Normal Affect, Appropriate, Alert and oriented to time, place, person, mood and affect Vital Signs Temp Pulse Resp BP Pulse Ox 97.3 F L 117 H 18 135/95 H 95 01/05/19 15:13 01/05/19 15:13 01/05/19 15:13 01/05/19 15:13 01/05/19 15:13 Oxygen Delivery Method Room Air Weight: 205 lb Body Mass Index (BMI) 38.7 Laboratory Tests Past 24 Hrs 01/05/19 01/05/19 01/05/19 15:10 15:10 15:10 PT 55.7 H INR 6.2 H* Troponin I < 0.015 B-Natriuretic Peptide 367.1 H Diagnostic Data Chest X-Ray 01/05/19 15:10 IMPRESSION: Cardiomegaly. Electronically Signed: Terry Lombardo, at 15:34 EDT , Service support , Assessment/Plan All Active Problems (Last Reviewed 01/05/19 @ 13:47 by Clau Jones) History of bicuspid aortic valve (Acute) 78-year-old female admitted with a complaint of shortness of breath for the past 2 weeks. 1. New onset Afib with RVR * admit to PCU with telemetry * check TSH * given IV amiodarone bolus is in ED * will start amiodarone drip as needed. * consult cardiology * Potassium was within normal limits. Will check magnesium. * 2. Acute heart failure with preserved ejection fraction * BNP is 367. 2D echo done in September 2018 showed EF of 60% with normal left ventricular systolic function and moderately enlarged left atrium. RVSP was 47 mmHg she had a stable appearing mechanical aortic valve. * Will start IV Lasix 40 mg twice daily. * Fluid restriction 1500 cc daily. * Monitor intake and output. * 3. History of bicuspid aortic valve status post aortic valve replacement: On Coumadin. INR 6.2. Will hold Coumadin. On metoprolol. 4. Supratherapeutic INR: As in the 3. Coumadin on hold. 5. CAD status post CABG: Had CABG in 2006. Stable. On statin. DVT prophylaxis: No anticoagulation due to supratherapeutic INR. CODE STATUS: Full code * Patient counseled extensively about different types of CODE STATUS including full code, DNR CCA and DNR CCA. Patient elects to be full code. Total [id number] time 16 minutes. Code Visit Inpatient E&M: 15835 Init Hosp L3 Procedures: 09475 Advncd Care Plan 30 Min
[2019-01-05 17:52] LABS: Thyroid Stim Hormone (TSH) 2.32 uIU/mL (0.358-3.74)
--- NOTE | 2019-01-05 18:26 | ECHOCS_ITS ---
Reason For Study: AFIB/FLUTTER Procedure This was a 2D Doppler, Color Flow transthoracic echocardiogram. The study was technically difficult. Due to body habitus and arrhythmia. Contrast injection was performed. Exam performed portable in patient room. Left Ventricle Normal LV size. Mild global left ventricular systolic dysfunction. The estimated ejection fraction is 45 %. Unable to assess diastolic dysfunction. Right Ventricle Normal RV size. Normal systolic function. Atria The left atrium is severely enlarged. The right atrium is mildly enlarged. No doppler evidence for ASD. Mitral Valve There is moderate mitral annular calcification. Extension of the mitral annular calcification onto the posterior mitral valve leaflet. Mild diffuse mitral valve thickening. Mild-Moderate (1-2+) mitral valve insufficiency. Tricuspid Valve Normal tricuspid valve. Moderate (2+) tricuspid valve insufficiency. Right ventricular systolic pressure estimated to be 45 mmHg. Aortic Valve Stable appearing mechanical aortic valve apparatus. Trivial transvalvular insufficiency of the aortic valve. Pulmonic Valve The pulmonic valve is not well visualized. Trivial pulmonic valve insufficiency. Great Vessels Borderline to mildly dilated aortic root. Pericardium/Pleural No pericardial effusion. Medication Diluted definity 4.0ml given slow IV push to enhance endocardial definition. MMode/2D Measurements & Calculations LVIDd: 4.3 cm IVSd: 1.2 cm Ao root diam: 3.8 cm LVIDs: 3.3 cm LVPWd: 1.1 cm RVDd: 2.8 cm FS: 23.6 % LAV(MOD-bp): 100.5 ml LA A4 area: 28.7 cm2 LA dimension(2D): 4.2 cm LAV(MOD-bp) Indexed: 53.0 ml/m2 LAV(MOD-sp2): 95.1 ml LAV(MOD-sp4): 93.8 ml RA A4 area: 18.1 cm2 Doppler Measurements & Calculations MV E max leah: 160.1 cm/sec Ao V2 max: 240.4 cm/sec LV V1 max: 83.5 cm/sec Ao max P.2 mmHg LV V1 max P.8 mmHg Ao V2 mean: 185.9 cm/sec LV V1 mean P.8 mmHg Ao mean P.8 mmHg LV V1 mean: 63.9 cm/sec Ao V2 VTI: 51.6 cm LV V1 VTI: 17.0 cm PA V2 max: 72.1 cm/sec TR max leah: 272.7 cm/sec TR max P.8 mmHg Interpretation Summary The study was technically difficult. Contrast injection was performed. Mild global left ventricular systolic dysfunction. The estimated ejection fraction is 45 %. The left atrium is severely enlarged. The right atrium is mildly enlarged. There is moderate mitral annular calcification. Extension of the mitral annular calcification onto the posterior mitral valve leaflet. Mild diffuse mitral valve thickening. Mild-Moderate (1-2+) mitral valve insufficiency. Moderate (2+) tricuspid valve insufficiency. Stable appearing mechanical aortic valve apparatus. Trivial transvalvular insufficiency of the aortic valve. Trivial pulmonic valve insufficiency. Borderline to mildly dilated aortic root. Right ventricular systolic pressure estimated to be 45 mmHg. Unable to assess diastolic dysfunction. Ordering Physician: Dash Victoria Referring Physician: Danilo Bolden Performed By: Kavitha Pruitt, ARUN, RVT
--- NOTE | 2019-01-05 18:27 | PCM.CONS.C ---
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 The patient notes that for the last 2 weeks she has been progressively short of breath and dyspneic especially with any activity and she states it is been more and more difficult to accomplish activities of daily living because of her limits of her breathing. She has also complained of symptoms which are compatible with orthopnea. She has had trace to mild bilateral ankle edema. She was able to sense some change in her heart rate or rhythm. She has not had any near syncope or syncope. Based upon her progressive symptoms that she elected to contact the office today for an outpatient office visit. During her outpatient office visit she was found to be in atrial fibrillation with rapid ventricular response. She was subsequently referred to the [facility] emergency department for further evaluation. Her laboratory studies were reviewed. Her INR was elevated at 6.2. Her troponin I level was negative. Her BNP was elevated. Her ECG demonstrated atrial fibrillation with rapid ventricular response with nonspecific ST and T wave abnormality. Her chest x-ray did not appear to suggest acute cardiopulmonary disease process. She was placed in the PCU for further evaluation and care. In the interim she has denied any other concerning chest discomfort. She has denied any fevers, chills, or night sweats. She states she was recently treated with corticosteroids for lower extremity related issues. She does not recall taking other forms of nonsteroidal anti-inflammatory agents or antibiotics. She also states there is been no significant change in her dietary habits. [] Past Medical History Allergies/Adverse Reactions: Allergies Penicillins Allergy (Intermediate, Verified 01/05/19 14:35) Unknown Home Medications: Ambulatory Orders Medication Instructions Recorded pravastatin 40 mg tablet 40 mg PO QHS #90 tab 09/21/18 Warfarin Sodium 5 mg PO SUSA 11/25/18 Metoprolol Tartrate [Lopressor 50 mg PO DAILY 01/05/19 (beta donna)] Warfarin Sodium 7 mg PO MOTUWETHFR 01/05/19 Past Medical History (Chronic Problems): Chronic Problems (Last Reviewed 01/05/19 @ 13:47 by Clau Jones) Nonrheumatic aortic (valve) stenosis (Chronic) Mixed hyperlipidemia (Chronic) Atherosclerotic heart disease of [place] coronary artery without angina pectoris (Chronic) History of coronary artery bypass surgery (Chronic ~04/18/07) CABG x1 CHURCH to LAD 04/18/2007 History of mechanical aortic valve replacement (Chronic ~1995) 1995 halfway (current) use of anticoagulants (Chronic) Surgical History: coronary bypass surgery - 04-18-2007: [facility]: CHURCH to the LAD Lives: Spouse/ Significant Other Smoking Status: Former smoker Tobacco Use: Cigarettes Alcohol: None Drugs: None Subjectve: This is a 78-year-old white female who appears to be resting reasonably comfortably at the moment in no acute distress. Objective: Vital Signs Temp Pulse Resp BP Pulse Ox 98.0 F 102 H 22 H 138/91 H 100 01/05/19 17:48 01/05/19 17:48 01/05/19 17:48 01/05/19 17:48 01/05/19 17:48 Oxygen Delivery Method Room Air Weight: 203 lb Body Mass Index (BMI) 38.3 General: Awake, Alert, Oriented x 3, Cooperative, No Acute Distress, Obese HEENT: Atraumatic, Normocephalic, PERRL, EOMI, Sclera Non Icteric Oral: Moist Mucosa Neck: Supple, Good ROM, No JVD Lungs: Diminished Kevin Bases Cardiovascular: Irregular Rhythm, Normal S1, [place] Prosthetic S2 Vascular: No Carotid Bruits Abdomen: Bowel Sounds Present, Soft, Non Tender Extremities: No Cyanosis, No Clubbing, Mild RLE Edema, Mild LLE Edema Neurological: No Focal Motor or Sensory Deficit Psych/Mental Status: Appropriate 01/05/19 15:10: PT 55.7 H, INR 6.2 H* 01/05/19 15:10: Troponin I < 0.015 01/05/19 15:10: B-Natriuretic Peptide 367.1 H 01/05/19 15:10: Magnesium 2.0 01/05/19 15:10: Magnesium Cancelled Rhythm: As noted above EKG: As noted above ECHO: 09-27-18: Left ventricle normal with an LVEF of 60%; moderate left atrial enlargement; mild right atrial enlargement; mild to moderate mitral annular calcification; moderate MR; mild to moderate TR; stable appearing mechanical aortic valve apparatus with trivial transvalvular insufficiency; trivial AL; mildly dilated aortic root; estimated RV systolic pressure 47 mmHg; decreased diastolic compliance Stress Test: 01-01-14: Pharmacologic stress nuclear imaging study: Considered negative for stress-induced myocardial ischemia; gated LVEF 69% Cardiac Cath: 07-12-2008: [facility]: LAD proximal 95 to 99% stenosis; LAD mid feels from competitive graft and [place] vessel flow; LAD distal fills from competitive graft and [place] vessel flow; LCx proximal with 30% stenosis; OM1 with 20% stenosis; RCA with mid 25 to 50% stenosis; CHURCH to the LAD patent CT Surgery: 04-18-2007: [facility]: CHURCH to the LAD 1996: Bicuspid aortic valve replacement with a [place] mechanical aortic valve prosthesis-19 mm CXR: Preliminary evaluation as noted above: Please see official report Assessment/Plan 1. Atrial fibrillation The patient presents with findings compatible with atrial fibrillation. Based upon her history this may have been going on for at least 2 weeks. At the present time she is being monitored. She is continuing rate control therapy. She has been on anticoagulant therapy with a supratherapeutic INR. She has been placed on antiarrhythmic therapy with IV amiodarone and attempt to hopefully assist with rate control and potentially regain sinus rhythm. She will have a follow-up transthoracic echocardiogram to reassess her atrial size as well as her left ventricular size, wall motion, and systolic function, as well as her valvular anatomy and physiology. Depending upon her clinical course she may need to be considered for future attempt at synchronized biphasic DC cardioversion to regain sinus rhythm. In the interim there has been some concern with respect to her atrial dysrhythmia and potentially her subsequently developing findings compatible with CHF which if her LV systolic function is preserved would be heart failure with preserved LVEF. Thus she is going to be treated for such. Her medications will be adjusted over time as needed. 2. Aortic valve replacement: Mechanical The patient has been followed for her aortic valve replacement. She has been on [facility] antibiotic prophylaxis. She has been on anticoagulant therapy. Her INR is supratherapeutic at 6.2. She has also been followed with noninvasive studies such as transthoracic echocardiograms as previously noted. She will continue her medical management as deemed appropriate. She will have a follow-up transthoracic echocardiogram based upon her development of atrial fibrillation reassess her cardiac anatomy and physiology. 3. CAD status post CABG At the present time the patient is without any acute coronary artery related symptoms and/or objective findings. Her troponin I level has been negative. Her ECG has demonstrated her atrial dysrhythmia but no other acute ECG changes. Her previous noninvasive and invasive studies are as noted above. At the present time she will continue to be monitored. She will have additional diagnostic studies as deemed appropriate. She will be reassessed for this issue as needed. 4. Hyperlipidemia She will continue lipid-lowering therapy. 5. Supratherapeutic INR The patient's INR is supratherapeutic at 6.2. This may be secondary to her recent corticosteroid use. Her INR levels will be followed. Comment: The patient's case was discussed and reviewed with the patient. This note was generated with [employer] software. It may contain incorrect words, spelling, and punctuation that were not noted in checking the note before signing.
[2019-01-05] MEDS: Furosemide 40 MG/4 ML Vial IV (19:05)
[2019-01-05] MEDS: Pravastatin 40 MG Tablet PO (21:44)
[2019-01-06] VITALS (27 sets, daily range): BP systolic 91–126; BP diastolic 63–95; PULSE 92–143; RESP 12–25; TEMP 36.5–36.9; O2SAT 92–99
[2019-01-06] MEDS: MELATONIN 3 MG TABLET PO (01:23)
--- NOTE | 2019-01-06 05:55 | EKG12_ITS ---
Test Reason : AM EKG Blood Pressure : / mmHG Vent. Rate : 099 BPM Atrial Rate : 089 BPM P-R Int : 000 ms QRS Dur : 104 ms QT Int : 390 ms P-R-T Axes : 000 053 155 degrees QTc Int : [address] & T wave abnormality, consider lateral ischemia Prolonged QT Abnormal ECG Confirmed by NURYS YANEZ, AMISH ([id number]), city editor JEAN-PAUL MCARTHUR ([id number]) on 01/11/2019 1:15:08 PM Referred By: DR LLAMAS Confirmed By:AMISH NUNO MD
[2019-01-06] MEDS: Acetaminophen 325 MG Tablet 650 MG PO (06:00)
[2019-01-06 06:34] LABS: Absolute Lymphocyte Count 1.39 X10^3/ul (0.83-4.51); Absolute Neutrophil Count 3.7 X10^3/uL (2.0-7.7); Basophil# 0.02 X10^3/uL; Basophil% 0.4 % (0-1); Eosinophil# 0.07 X10^3/uL; Eosinophils% 1.2 % (0-5); Hematocrit 35.3 % (37-47); Hemoglobin 11.6 g/dl (12.0-15.0); Lymphocyte # 1.39 X10^3/ul (4.0); Lymphocyte % 24.7 % (19-41); Mean Corp Hgb Conc 32.9 g/gl (32-36); Mean Corpuscular Hgb 30.7 pg (27.0-32.0); Mean Corpuscular Volume 93.4 fL (81-99); Mean Platelet Vol. 11.8 fl (6.2-12.0); Monocyte# 0.47 X10^3/uL; Monocyte% 8.4 % (0-10); Neutrophil # 3.67 X10^3/uL (2.7-7.7); Neutrophil % 65.3 % (47-70); Platelet Count 128 K/mm3 (150-450); RBC Distribution Width CV 15.2 % (11.6-14.6); RBC Distribution Width SD 49.6 fl (35.1-43.9); Red Blood Count 3.78 M/mm3 (4.2-5.4); White Blood Count 5.6 K/mm3 (4.4-11.0)
[2019-01-06 06:36] LABS: POSITIVE COUNT NO; POSITIVE DIFFERENTIAL NO; POSITIVE MORPHOLOGY NO
[2019-01-06 06:44] LABS: International Normalized Ratio 5.3
[2019-01-06 06:58] LABS: Anion Gap 9 (5-15); BUN 22 mg/dL (7-18); BUN/Creat Ratio 16.5 RATIO (10-20); Calcium,Total 8.6 mg/dL (8.5-10.1); Chloride 107 mmol/L (98-107); Creatinine, Serum 1.33 mg/dL (0.55-1.02); EST Glomerular Filtration Rate 41 mL/min (>60); Est Glom Filt Rate - Afr Amer 50 mL/min (>60); Estimated Creatinine Clearance 27.15 ml/min; Glucose 108 mg/dL (74-106); Potassium 3.7 mmol/L (3.5-5.1); Sodium Level 142 mmol/L (136-145)
[2019-01-06] MEDS: Metoprolol Tartrate 50 MG Tablet PO (09:20)
[2019-01-06] MEDS: Furosemide 40 MG/4 ML Vial IV ×2 (09:20→17:11)
--- NOTE | 2019-01-06 11:45 | PN_ITS ---
<Maggy Resendiz - Last Filed: 01/06/19 11:59> Patient Problems: Active and Suspected Problems (Last Reviewed 01/05/19 @ 13:47 by Clau Jones) Atrial fibrillation (Acute) Subjective: Patient seen and examined. Continues to complain of shortness of breath although notes some improvement. Denies chest pain, palpitations. Denies other associated symptoms. - Physical Exam General: Alert, Oriented x3, Cooperative HEENT: Atraumatic, PERRLA, EOMI, Normocephalic Oral: Moist Mucosa Neck: Supple, No JVD, Negative Carotid Bruits Lungs: Diminished, - - Faint crackles bilateral bases Cardiovascular: - - Atrial fibrillation, mechanical aortic click Abdomen: Bowel Sounds Present, Soft, Non Tender, Non-Distended, Obese Extremities: No clubbing, No cyanosis, Edema - Bilateral lower extremities Skin: No rashes, No breakdown Musculoskeletal: No Tenderness to Palpation of Joints or Extremities Neurological: Cranial nerves II-XII grossly intact, Neuro grossly intact Psych/Mental Status: Flat Affect Vital Signs Temp Pulse Resp BP Pulse Ox 97.7 F L 110 H 22 H 101/76 98 01/06/19 11:00 01/06/19 11:00 01/06/19 11:00 01/06/19 11:00 01/06/19 11:00 Oxygen Delivery Method Room Air Weight: 203 lb Body Mass Index (BMI) 38.3 Intake and Output for Last 24 Hours 01/04/19 01/05/19 01/06/19 23:59 23:59 23:59 Intake Total 240 / 240 323.6 / 323.6 Output Total 1900 / 1900 Balance 240 / 240 -1576.4 / -1576.4 Laboratory Tests Past 24 Hrs 01/05/19 01/05/19 01/05/19 15:10 15:10 15:10 WBC RBC Hgb Hct MCV MCH MCHC RDW RDW Differential Plt Count MPV Immature Gran % (Auto) Neut % (Auto) Lymph % (Auto) [place] % (Auto) Eos % (Auto) Baso % (Auto) Absolute Neuts (auto) Absolute Lymphs (auto) Total Counted PT 55.7 H INR 6.2 H* Sodium Potassium Chloride Carbon Dioxide Anion Gap BUN Creatinine Estim Creat Clear Calc Est GFR (MDRD) Af Amer Est GFR (MDRD) Non-Af BUN/Creatinine Ratio Glucose Calcium Magnesium Troponin I < 0.015 B-Natriuretic Peptide 367.1 H TSH 01/05/19 01/05/19 01/05/19 15:10 15:10 18:16 WBC RBC Hgb Hct MCV MCH MCHC RDW RDW Differential Plt Count MPV Immature Gran % (Auto) Neut % (Auto) Lymph % (Auto) [place] % (Auto) Eos % (Auto) Baso % (Auto) Absolute Neuts (auto) Absolute Lymphs (auto) Total Counted PT INR Sodium Potassium Chloride Carbon Dioxide Anion Gap BUN Creatinine Estim Creat Clear Calc Est GFR (MDRD) Af Amer Est GFR (MDRD) Non-Af BUN/Creatinine Ratio Glucose Calcium Magnesium 2.0 Cancelled Troponin I < 0.015 B-Natriuretic Peptide TSH 2.32 01/05/19 01/06/19 01/06/19 20:50 06:15 06:15 WBC 5.6 RBC 3.78 L Hgb 11.6 L Hct 35.3 L MCV 93.4 MCH 30.7 MCHC 32.9 RDW 15.2 H RDW Differential 49.6 H Plt Count 128 L MPV 11.8 Immature Gran % (Auto) 0.000 Neut % (Auto) 65.3 Lymph % (Auto) 24.7 [place] % (Auto) 8.4 Eos % (Auto) 1.2 Baso % (Auto) 0.4 Absolute Neuts (auto) 3.7 Absolute Lymphs (auto) 1.39 Total Counted Not Reportable PT INR Sodium 142 Potassium 3.7 Chloride 107 Carbon Dioxide 26.0 Anion Gap 9 BUN 22 H Creatinine 1.33 H Estim Creat Clear Calc 27.15 Est GFR (MDRD) Af Amer 50 L Est GFR (MDRD) Non-Af 41 L BUN/Creatinine Ratio 16.5 Glucose 108 H Calcium 8.6 Magnesium Troponin I < 0.015 B-Natriuretic Peptide TSH 01/06/19 06:15 WBC RBC Hgb Hct MCV MCH MCHC RDW RDW Differential Plt Count MPV Immature Gran % (Auto) Neut % (Auto) Lymph % (Auto) [place] % (Auto) Eos % (Auto) Baso % (Auto) Absolute Neuts (auto) Absolute Lymphs (auto) Total Counted PT 49.0 H INR 5.3 H* Sodium Potassium Chloride Carbon Dioxide Anion Gap BUN Creatinine Estim Creat Clear Calc Est GFR (MDRD) Af Amer Est GFR (MDRD) Non-Af BUN/Creatinine Ratio Glucose Calcium Magnesium Troponin I B-Natriuretic Peptide TSH Medical Necessity - Tobacco Use Smoking Status: Former smoker Tobacco Use: Cigarettes Assessment/Plan All Active Problems (Last Reviewed 01/05/19 @ 13:47 by Clau Jones) Atrial fibrillation (Acute) History of bicuspid aortic valve (Acute) 1. New onset atrial fibrillation with RVR-cardiology following. Patient follows with Dr. Victoria. On amiodarone drip. Continue home beta-wellington regimen. Patient on chronic anticoagulation with Coumadin due to aortic valve replacement. INR supratherapeutic. Per cardiology, possible synchronized cardioversion in the future. 2. Acute diastolic CHF-suspected secondary to #1. Echocardiogram September 2018 showed EF 60%, moderate mitral valve insufficiency, mild to moderate tricuspid valve insufficiency, stable appearing mechanical aortic valve apparatus, RVSP estimated to be 47 mmHg. Repeat echocardiogram pending. IV Lasix. 1500 cc fluid restriction. I&O. Guy wraps bilateral lower extremities. 3. History of bicuspid aortic valve status post aortic valve replacement on chronic anticoagulation with Coumadin-INR supratherapeutic. Coumadin on hold. Trend INR. 4. Acute kidney injury on suspected chronic kidney disease stage [id number] November 2018 0.97. Creatinine 1.3. Do not have prior labs for comparison. Trend BMP. 5. CAD with history of CABG (2006)-troponin negative. Denies chest pain. Continue metoprolol, statin regimen. 6. Hyperlipidemia-continue statin. 7. Obesity-encouraged diet and lifestyle modifications. DVT prophylaxis- coumadin This patient was seen by BARTOLOME Kate under the supervision of Dr. Chaney. <Delmar Chaney - Last Filed: 01/06/19 14:26> Subjective: Patient seen and examined. Shortness of breath. Patient had mechanical aortic valve replacement 23 years ago in [facility]. Currently patient is on amiodarone drip. Denies chest pain or palpitation. Telemetry reviewed. A. fib with heart rate in 100s. - Physical Exam General: Alert, Oriented x3, Cooperative HEENT: Atraumatic, PERRLA, EOMI, Normocephalic Neck: Supple, No JVD, Negative Carotid Bruits Lungs: Diminished, Rales, - Cardiovascular: Regular rate, Normal S1, Normal S2, No murmurs - Mechanical aortic valve click present, Irregular Rate, - Abdomen: Bowel Sounds Present, Soft, Non Tender, Non-Distended, Obese Extremities: Capillary Refill Less than 3 Seconds, Edema Skin: No rashes, No breakdown Musculoskeletal: No Tenderness to Palpation of Joints or Extremities, Arthritic Changes Neurological: Cranial nerves II-XII grossly intact, Deep Tendon Reflexes 2+/4 an d Symmetrical, Neuro grossly intact, Motor Exam 5/5 strength throughout Psych/Mental Status: Normal Affect, Appropriate Vital Signs Temp Pulse Resp BP Pulse Ox 98.5 F 113 H 20 H 103/74 95 01/06/19 13:48 01/06/19 13:48 01/06/19 13:48 01/06/19 13:48 01/06/19 13:48 Oxygen Delivery Method Room Air Weight: 203 lb Body Mass Index (BMI) 38.3 Intake and Output for Last 24 Hours 01/04/19 01/05/19 01/06/19 23:59 23:59 23:59 Intake Total 240 / 240 863.6 / 863.6 Output Total 3000 / 3000 Balance 240 / 240 -2136.4 / -2136.4 Laboratory Tests Past 24 Hrs 01/05/19 01/05/19 01/05/19 15:10 15:10 15:10 WBC RBC Hgb Hct MCV MCH MCHC RDW RDW Differential Plt Count MPV Immature Gran % (Auto) Neut % (Auto) Lymph % (Auto) [place] % (Auto) Eos % (Auto) Baso % (Auto) Absolute Neuts (auto) Absolute Lymphs (auto) Total Counted PT 55.7 H INR 6.2 H* Sodium Potassium Chloride Carbon Dioxide Anion Gap BUN Creatinine Estim Creat Clear Calc Est GFR (MDRD) Af Amer Est GFR (MDRD) Non-Af BUN/Creatinine Ratio Glucose Calcium Magnesium Troponin I < 0.015 B-Natriuretic Peptide 367.1 H TSH 01/05/19 01/05/19 01/05/19 15:10 15:10 18:16 WBC RBC Hgb Hct MCV MCH MCHC RDW RDW Differential Plt Count MPV Immature Gran % (Auto) Neut % (Auto) Lymph % (Auto) [place] % (Auto) Eos % (Auto) Baso % (Auto) Absolute Neuts (auto) Absolute Lymphs (auto) Total Counted PT INR Sodium Potassium Chloride Carbon Dioxide Anion Gap BUN Creatinine Estim Creat Clear Calc Est GFR (MDRD) Af Amer Est GFR (MDRD) Non-Af BUN/Creatinine Ratio Glucose Calcium Magnesium 2.0 Cancelled Troponin I < 0.015 B-Natriuretic Peptide TSH 2.32 01/05/19 01/06/19 01/06/19 20:50 06:15 06:15 WBC 5.6 RBC 3.78 L Hgb 11.6 L Hct 35.3 L MCV 93.4 MCH 30.7 MCHC 32.9 RDW 15.2 H RDW Differential 49.6 H Plt Count 128 L MPV 11.8 Immature Gran % (Auto) 0.000 Neut % (Auto) 65.3 Lymph % (Auto) 24.7 [place] % (Auto) 8.4 Eos % (Auto) 1.2 Baso % (Auto) 0.4 Absolute Neuts (auto) 3.7 Absolute Lymphs (auto) 1.39 Total Counted Not Reportable PT INR Sodium 142 Potassium 3.7 Chloride 107 Carbon Dioxide 26.0 Anion Gap 9 BUN 22 H Creatinine 1.33 H Estim Creat Clear Calc 27.15 Est GFR (MDRD) Af Amer 50 L Est GFR (MDRD) Non-Af 41 L BUN/Creatinine Ratio 16.5 Glucose 108 H Calcium 8.6 Magnesium Troponin I < 0.015 B-Natriuretic Peptide TSH 01/06/19 06:15 WBC RBC Hgb Hct MCV MCH MCHC RDW RDW Differential Plt Count MPV Immature Gran % (Auto) Neut % (Auto) Lymph % (Auto) [place] % (Auto) Eos % (Auto) Baso % (Auto) Absolute Neuts (auto) Absolute Lymphs (auto) Total Counted PT 49.0 H INR 5.3 H* Sodium Potassium Chloride Carbon Dioxide Anion Gap BUN Creatinine Estim Creat Clear Calc Est GFR (MDRD) Af Amer Est GFR (MDRD) Non-Af BUN/Creatinine Ratio Glucose Calcium Magnesium Troponin I B-Natriuretic Peptide TSH Assessment/Plan This patient was seen in conjunction with CRIMINAL INVESTIGATOR CUSTOMSMaggy. I have independently interviewed and examined the patient and reviewed pertinent history, examination findings, laboratory and plan of management. I have reviewed the note and agree with the documented findings with the few additional points. In brief, patient is admitted for new onset A. fib with RVR. Discussed with Dr. Victoria. Currently on amiodarone drip. Home beta-wellington regimen, metoprolol continued. INR is supratherapeutic. Antithrombotic agent Coumadin is on hold. Patient also has acute systolic heart failure. Echo in September 2018 shows EF 65%, moderate MR, mild to moderate TR and stable appearing mechanical aortic valve apparatus. Dr. Victoria advise repeat echo. Continue Lasix 40 mg twice daily. Monitor electrolytes and kidney function Patient has mild acute kidney injury on CKD stage III. Current creatinine 1.3. It was 0.97 in November 2018. I have discussed my assessment with CRIMINAL INVESTIGATOR CUSTOMSMaggy and orders have been reviewed. Active Medications Acetaminophen (Tylenol) 650 mg PO Q6H PRN PRN PRN Reason: PAIN Last Admin: 01/06/19 06:00 Dose: 650 mg Documented by: Dextrose (D50w Syringe) 0 gm IV X1 PRN; Protocol PRN Reason: Hypoglycemia Furosemide (Lasix) 40 mg IV BID@1000,1800 [facility] Last Admin: 01/06/19 09:20 Dose: 40 mg Documented by: Glucagon () 1 mg IM .X1 PRN PRN Reason: Hypoglycemia Amiodarone HCl/Dextrose (Nexterone 360 Mg/200 Ml Bag) 360 mg in 200 mls @ 16.667 mls/hr CONT INF .Q12H [facility] Stop: 01/06/19 16:09 Last Admin: 01/06/19 11:01 Dose: 16.667 mls/hr Documented by: Melatonin (Melatonin) 3 mg PO QHS PRN PRN PRN Reason: SLEEP Last Admin: 01/06/19 01:23 Dose: 3 mg Documented by: Metoprolol Tartrate (Lopressor (Beta Wellington)) 50 mg PO DAILY [facility] Last Admin: 01/06/19 09:20 Dose: 50 mg Documented by: Pravastatin Sodium (Pravachol) 40 mg PO QHS [facility] Last Admin: 01/05/19 21:44 Dose: 40 mg Documented by: Sodium Chloride () 10 - 40 ml IV UD PRN PRN Reason: SALINE FLUSH Code Visit Inpatient E&M: 70162 [facility] Hosp L3
--- NOTE | 2019-01-06 15:02 | CM.UR ---
SARAHI MEDINA PERIOPERATIVE MANAGER CM to room to meet with patient for initial transition planning/care coordination assessment. SARAHI MEDINA introduced self and role at [facility]. Pt voices understanding and consents to assessment at this time. Pt resting in bed in no distress at this time. No family members present. Pt is A/O at this time and answers all questions appropriately. Care providers, pharmacy, and demographics verified at this time. PCP: Yuan--she has not seen him yet. She transferred to him from Dr. Mcneal d/t insurance change. Specialists: Julien Preferred Pharmacy: [facility] Insurance: [place] Prescription Benefit: yes through [employer]. Living Will/HPOA: Living will on file. No DPOA on file but states that it is Raciel with Daughter, Isela, ernesto. LNOK: , Raciel Living Arrangements: 2 story home. She is beginning to have trouble with steps. They are currently in process of trying to sell their home in order to obtain a ranch home. ADLs: States she is independent with all ADLS. Transportation: Self DME: None. No preference for company. HHC/SNF: None. PLAN: Home. Denies any needs. Hans Leahy RN, CCM.
--- NOTE | 2019-01-06 15:10 | PN.CARD_ITS ---
Subjectve: The patient is awake and alert. She states she was not able to lie back last night to sleep because of her back discomfort/arthritic discomfort. She denies any acute chest discomfort. She is not sure whether her breathing has significantly improved as she has not been up and ambulating to any significant degree. Her lower extremity edema may be somewhat better. Objective: Vital Signs Temp Pulse Resp BP Pulse Ox 98.5 F 113 H 20 H 103/74 95 01/06/19 13:48 01/06/19 13:48 01/06/19 13:48 01/06/19 13:48 01/06/19 13:48 Oxygen Delivery Method Room Air Weight: 203 lb Body Mass Index (BMI) 38.3 Intake and Output for Last 24 Hours 01/04/19 01/05/19 01/06/19 23:59 23:59 23:59 Intake Total 240 / 240 863.6 / 863.6 Output Total 3000 / 3000 Balance 240 / 240 -2136.4 / -2136.4 General: Awake, Alert, Oriented x 3, Cooperative, No Acute Distress HEENT: Atraumatic, Normocephalic, PERRL Oral: Moist Mucosa Neck: Supple, Good ROM, No JVD Lungs: Diminished Right Base Cardiovascular: Irregular Rhythm, Normal S1, Normal S2 Abdomen: Bowel Sounds Present, Soft, Non Tender Extremities: No edema Neurological: No Focal Motor or Sensory Deficit Psych/Mental Status: Appropriate 01/05/19 15:10: PT 55.7 H, INR 6.2 H* 01/05/19 15:10: Troponin I < 0.015 01/05/19 15:10: B-Natriuretic Peptide 367.1 H 01/05/19 15:10: Magnesium 2.0 01/05/19 15:10: Magnesium Cancelled 01/05/19 18:16: Troponin I < 0.015 01/05/19 20:50: Troponin I < 0.015 01/06/19 06:15: WBC 5.6, RBC 3.78 L, Hgb 11.6 L, Hct 35.3 L, MCV 93.4, MCH 30.7, MCHC 32.9, RDW 15.2 H, RDW Differential 49.6 H, Plt Count 128 L, MPV 11.8, Immature Gran % (Auto) 0.000, Neut % (Auto) 65.3, Lymph % (Auto) 24.7, [place] % (Auto) 8.4, Eos % (Auto) 1.2, Baso % (Auto) 0.4, Absolute Neuts (auto) 3.7, Total Counted Not Reportable 01/06/19 06:15: Sodium 142, Potassium 3.7, Chloride 107, Carbon Dioxide 26.0, Anion Gap 9, BUN 22 H, Creatinine 1.33 H, Est GFR (MDRD) Af Amer 50 L, Est GFR (MDRD) Non-Af 41 L, BUN/Creatinine Ratio 16.5, Glucose 108 H, Calcium 8.6 01/06/19 06:15: PT 49.0 H, INR 5.3 H* Rhythm: Atrial fibrillation ECHO: Interpretation Summary The study was technically difficult. Contrast injection was performed. Mild global left ventricular systolic dysfunction. The estimated ejection fraction is 45 %. The left atrium is severely enlarged. The right atrium is mildly enlarged. There is moderate mitral annular calcification. Extension of the mitral annular calcification onto the posterior mitral valve leaflet. Mild diffuse mitral valve thickening. Mild-Moderate (1-2+) mitral valve insufficiency. Moderate (2+) tricuspid valve insufficiency. Stable appearing mechanical aortic valve apparatus. Trivial transvalvular insufficiency of the aortic valve. Trivial pulmonic valve insufficiency. Borderline to mildly dilated aortic root. Right ventricular systolic pressure estimated to be 45 mmHg. Unable to assess diastolic dysfunction. Medical Necessity - Tobacco Use Smoking Status: Former smoker Tobacco Use: Cigarettes Assessment/Plan 1. Atrial fibrillation The patient presents with findings compatible with atrial fibrillation. Based upon her history this may have been going on for at least 2 weeks. At the present time she is being monitored. She is continuing rate control therapy. She has been on anticoagulant therapy with a supratherapeutic INR. Her INR is decreasing. She has been placed on antiarrhythmic therapy with IV amiodarone and attempt to hopefully assist with rate control and potentially regain sinus rhythm. However she remains in atrial fibrillation. She will be transitioned from IV to oral amiodarone therapy. Depending upon her clinical course she may need to be considered for future attempt at synchronized biphasic DC cardioversion to regain sinus rhythm. In the interim there has been some concern with respect to her atrial dysrhythmia and potentially her subsequently developing findings compatible with CHF which if her LV systolic function is preserved would be heart failure with preserved LVEF. Thus she is going to be treated for such. Her medications will be adjusted over time as needed. 2. Aortic valve replacement: Mechanical The patient has been followed for her aortic valve replacement. She has been on AHA antibiotic prophylaxis. She has been on anticoagulant therapy. Her INR has decreased to 5.3. She has also been followed with noninvasive studies such as transthoracic echocardiograms as previously noted. She will continue her medical management as deemed appropriate. Her follow-up transthoracic echocardiogram is as noted above. Her mechanical aortic valve prosthesis appears to be stable. 3. CAD status post CABG At the present time the patient is without any acute coronary artery related symptoms and/or objective findings. Her troponin I level has been negative. Her ECG has demonstrated her atrial dysrhythmia but no other acute ECG changes. Her previous noninvasive and invasive studies are as noted above. At the present time she will continue to be monitored. She will have additional diagnostic studies as deemed appropriate. 4. Hyperlipidemia She will continue lipid-lowering therapy. 5. Supratherapeutic INR The patient's INR is supratherapeutic at 5.3. This may be secondary to her recent corticosteroid use. Her INR levels will be followed. Comment: The patient's case was discussed and reviewed with the patient. This note was generated with [employer] dictation software. It may contain incorrect words, spelling, and punctuation that were not noted in checking the note before signing.
[2019-01-06] MEDS: Amiodarone 200 MG Tablet PO ×2 (15:47→21:08)
[2019-01-06] MEDS: Pravastatin 40 MG Tablet PO (21:08)
[2019-01-07] VITALS (11 sets, daily range): BP systolic 94–110; BP diastolic 63–76; PULSE 85–118; RESP 14–16; TEMP 36.4–36.8; O2SAT 94–98
--- NOTE | 2019-01-07 05:55 | EKG12_ITS ---
Test Reason : AM Blood Pressure : / mmHG Vent. Rate : 090 BPM Atrial Rate : 227 BPM P-R Int : 000 ms QRS Dur : 102 ms QT Int : 392 ms P-R-T Axes : 000 041 161 degrees QTc Int : 479 ms Atrial fibrillation Nonspecific ST and T wave abnormality Prolonged QT Abnormal ECG Confirmed by NURYS YANEZ, AMISH ([id number]), make up editor JEAN-PAUL MCARTHUR ([id number]) on 01/11/2019 1:09:58 PM Referred By: Alaina Reyes Confirmed By:AMISH NUNO MD
[2019-01-07 05:57] LABS: Hematocrit 35.5 % (37-47); Hemoglobin 11.4 g/dl (12.0-15.0); Mean Corp Hgb Conc 32.1 g/gl (32-36); Mean Corpuscular Hgb 30.3 pg (27.0-32.0); Mean Corpuscular Volume 94.4 fL (81-99); Mean Platelet Vol. 11.9 fl (6.2-12.0); Platelet Count 132 K/mm3 (150-450); RBC Distribution Width CV 15.1 % (11.6-14.6); RBC Distribution Width SD 50.1 fl (35.1-43.9); Red Blood Count 3.76 M/mm3 (4.2-5.4); White Blood Count 4.8 K/mm3 (4.4-11.0)
[2019-01-07 06:07] LABS: Prothrombin Time (Protime)PT. 40.2 SECONDS (11.7-14.9)
[2019-01-07] MEDS: Amiodarone 200 MG Tablet PO ×3 (06:19→21:19)
[2019-01-07 06:27] LABS: Anion Gap 7 (5-15); BUN 24 mg/dL (7-18); BUN/Creat Ratio 19.5 RATIO (10-20); Calcium,Total 8.5 mg/dL (8.5-10.1); Chloride 106 mmol/L (98-107); Creatinine, Serum 1.23 mg/dL (0.55-1.02); EST Glomerular Filtration Rate 45 mL/min (>60); Est Glom Filt Rate - Afr Amer 55 mL/min (>60); Estimated Creatinine Clearance 29.36 ml/min; Glucose 104 mg/dL (74-106); Potassium 3.5 mmol/L (3.5-5.1); Sodium Level 144 mmol/L (136-145)
[2019-01-07 06:32] LABS: Scan Indicated on CBC? Y/N NO
[2019-01-07 06:38] LABS: International Normalized Ratio 4.1
--- NOTE | 2019-01-07 09:30 | PCM.PN.CARD ---
Subjectve: The patient is awake and alert. She states she is feeling better overall. This is in reference to her breathing. She has had no new chest discomfort. She believes her ankle edema is better but not totally absent. She has only been out of bed to the bathroom and back. She has not yet been up and ambulating in the hallway. Objective: Vital Signs Temp Pulse Resp BP Pulse Ox 97.6 F L 85 16 102/69 98 01/07/19 03:02 01/07/19 06:19 01/07/19 03:02 01/07/19 06:19 01/07/19 03:02 Oxygen Delivery Method Room Air Weight: 198 lb 13.711 oz Body Mass Index (BMI) 38.3 Intake and Output for Last 24 Hours 01/05/19 01/06/19 01/07/19 23:59 23:59 23:59 Intake Total 240 / 240 1551.6 / 1551.6 120 / 120 Output Total 3600 / 3600 400 / 400 Balance 240 / 240 -2048.4 / -2048.4 -280 / -280 General: Awake, Alert, Oriented x 3, Cooperative HEENT: Atraumatic, Normocephalic, PERRL, EOMI, Sclera Non Icteric Oral: Moist Mucosa Neck: Supple, Good ROM, No JVD Lungs: Clear to auscultation Cardiovascular: Irregular Rhythm, Normal S1, [place] Prosthetic S2 Abdomen: Bowel Sounds Present, Soft, Non Tender Extremities: Trace RLE Edema, Trace LLE Edema Neurological: No Focal Motor or Sensory Deficit Psych/Mental Status: Appropriate 01/07/19 05:20: WBC 4.8, RBC 3.76 L, Hgb 11.4 L, Hct 35.5 L, MCV 94.4, MCH 30.3, MCHC 32.1, RDW 15.1 H, RDW Differential 50.1 H, Plt Count 132 L, MPV 11.9 01/07/19 05:20: PT 40.2 H, INR 4.1 H* 01/07/19 05:20: Sodium 144, Potassium 3.5, Chloride 106, Carbon Dioxide 31.0, Anion Gap 7, BUN 24 H, Creatinine 1.23 H, Est GFR (MDRD) Af Amer 55 L, Est GFR (MDRD) Non-Af 45 L, BUN/Creatinine Ratio 19.5, Glucose 104, Calcium 8.5 Rhythm: Atrial fibrillation; PVCs Echocardiogram: Interpretation Summary The study was technically difficult. Contrast injection was performed. Mild global left ventricular systolic dysfunction. The estimated ejection fraction is 45 %. The left atrium is severely enlarged. The right atrium is mildly enlarged. There is moderate mitral annular calcification. Extension of the mitral annular calcification onto the posterior mitral valve leaflet. Mild diffuse mitral valve thickening. Mild-Moderate (1-2+) mitral valve insufficiency. Moderate (2+) tricuspid valve insufficiency. Stable appearing mechanical aortic valve apparatus. Trivial transvalvular insufficiency of the aortic valve. Trivial pulmonic valve insufficiency. Borderline to mildly dilated aortic root. Right ventricular systolic pressure estimated to be 45 mmHg. Unable to assess diastolic dysfunction. Medical Necessity - Tobacco Use Smoking Status: Former smoker Tobacco Use: Cigarettes Assessment/Plan 1. Atrial fibrillation The patient presents with findings compatible with atrial fibrillation. Based upon her history this may have been going on for at least 2 weeks. At the present time she is being monitored. She is continuing rate control therapy. She has been on anticoagulant therapy with a supratherapeutic INR. Her INR is decreasing. She has been placed on antiarrhythmic therapy with IV amiodarone. She has been transitioned from IV to oral amiodarone therapy. Depending upon her clinical course she may need to be considered for future attempt at synchronized biphasic DC cardioversion to regain sinus rhythm. Her medications will be adjusted over time as needed. 2. CHF The patient has had findings compatible with CHF. Based upon her ongoing evaluation and her echographic study results this appears to be due to systolic mediated. She will continue with medical therapy. 3. Aortic valve replacement: Mechanical The patient has been followed for her aortic valve replacement. She has been on [facility] antibiotic prophylaxis. She has been on anticoagulant therapy. Her INR has decreased to 4.1. She will continue her medical management as deemed appropriate. Her follow-up transthoracic echocardiogram is as noted above. Her mechanical aortic valve prosthesis appears to be stable. 4. CAD status post CABG At the present time the patient is without any acute coronary artery related symptoms and/or objective findings. Her troponin I level has been negative. Her ECG has demonstrated her atrial dysrhythmia but no other acute ECG changes. Her previous noninvasive and invasive studies are as noted above. At the present time she will continue to be monitored. She will have additional diagnostic studies as deemed appropriate. 5. Hyperlipidemia She will continue lipid-lowering therapy. 6. Supratherapeutic INR The patient's INR is supratherapeutic at 4.1. Her warfarin will be initiated to assist with maintaining an adequate INR level. Her INR levels will be followed. Comment: The patient's case was discussed and reviewed with the patient and Dr. Chaney. This note was generated with [employer] dictation software. It may contain incorrect words, spelling, and punctuation that were not noted in checking the note before signing.
[2019-01-07] MEDS: Metoprolol Tartrate 25 MG Tablet PO (11:09)
[2019-01-07] MEDS: Furosemide 40 MG Tablet PO ×2 (11:09→17:26)
[2019-01-07] MEDS: Metoprolol Tartrate 50 MG Tablet PO ×2 (11:09→21:19)
--- NOTE | 2019-01-07 12:06 | PCM.PROGNOTE ---
<Maggy Resendiz - Last Filed: 01/07/19 12:12> Patient Problems: Active and Suspected Problems (Last Reviewed 01/05/19 @ 13:47 by Clau Jones) Atrial fibrillation (Acute) Subjective: Patient seen and examined. Reports improvement in breathing. Slept better overnight, able to lie flat. Heart rate remains above goal. Denies other complaints. - Physical Exam General: Alert, Oriented x3, Cooperative HEENT: Atraumatic, PERRLA, EOMI, Normocephalic Neck: Supple, No JVD, Negative Carotid Bruits Lungs: Clear to auscultation, Diminished Cardiovascular: - - Atrial fibrillation, tachycardic, mechanical aortic click Abdomen: Bowel Sounds Present, Soft, Non Tender, Non-Distended, Obese Extremities: No clubbing, No cyanosis, No edema, Capillary Refill Less than 3 Seconds Skin: No rashes, No breakdown Musculoskeletal: No Tenderness to Palpation of Joints or Extremities Neurological: Cranial nerves II-XII grossly intact, Neuro grossly intact Psych/Mental Status: Flat Affect Vital Signs Temp Pulse Resp BP Pulse Ox 97.9 F 112 H 14 110/76 96 01/07/19 09:37 01/07/19 11:09 01/07/19 09:37 01/07/19 09:37 01/07/19 09:37 Oxygen Delivery Method Room Air Weight: 198 lb 13.711 oz Body Mass Index (BMI) 38.3 Intake and Output for Last 24 Hours 01/05/19 01/06/19 01/07/19 23:59 23:59 23:59 Intake Total 240 / 240 1551.6 / 1551.6 680 / 680 Output Total 3600 / 3600 600 / 600 Balance 240 / 240 -2048.4 / -2048.4 80 / 80 Laboratory Tests Past 24 Hrs 01/07/19 01/07/19 01/07/19 05:20 05:20 05:20 WBC 4.8 RBC 3.76 L Hgb 11.4 L Hct 35.5 L MCV 94.4 MCH 30.3 MCHC 32.1 RDW 15.1 H RDW Differential 50.1 H Plt Count 132 L MPV 11.9 PT 40.2 H INR 4.1 H* Sodium 144 Potassium 3.5 Chloride 106 Carbon Dioxide 31.0 Anion Gap 7 BUN 24 H Creatinine 1.23 H Estim Creat Clear Calc 29.36 Est GFR (MDRD) Af Amer 55 L Est GFR (MDRD) Non-Af 45 L BUN/Creatinine Ratio 19.5 Glucose 104 Calcium 8.5 Medical Necessity - Tobacco Use Smoking Status: Former smoker Tobacco Use: Cigarettes Assessment/Plan All Active Problems (Last Reviewed 01/05/19 @ 13:47 by Clau Jones) Atrial fibrillation (Acute) History of bicuspid aortic valve (Acute) 1. New onset atrial fibrillation with RVR-cardiology following. Patient follows with Dr. Victoria. Amiodarone drip discontinued and patient transition to oral amiodarone 200 mg 3 times daily. Home metoprolol regimen increased to 50 mg twice daily. Patient on chronic anticoagulation with Coumadin due to aortic valve replacement. INR supratherapeutic. Per cardiology, possible synchronized cardioversion in the future. 2. Acute systolic CHF-suspected secondary to #1. Echocardiogram September 2018 showed EF 60%, moderate mitral valve insufficiency, mild to moderate tricuspid valve insufficiency, stable appearing mechanical aortic valve apparatus, RVSP estimated to be 47 mmHg. Repeat echocardiogram 01/06/2019 shows an EF of 45%. IV Lasix discontinued. Initiated on Lasix 40 mg p.o. twice daily. 1500 cc fluid restriction. I&O. Guy wraps bilateral lower extremities. 3. History of bicuspid aortic valve status post aortic valve replacement on chronic anticoagulation with Coumadin-INR supratherapeutic. Coumadin on hold. Trend INR. 4. Suspected chronic kidney disease stage III, CHRISTINE ruled out-Trend BMP. 5. CAD with history of CABG (2006)-troponin negative. Denies chest pain. Continue metoprolol, statin regimen. 6. Hyperlipidemia-continue statin. 7. Obesity-encouraged diet and lifestyle modifications. DVT prophylaxis- coumadin This patient was seen by BARTOLOME Kate under the supervision of Dr. Chaney. <Delmar Chaney - Last Filed: 01/07/19 16:30> Subjective: Patient cardiac telemetry shows heart rate 100s to 120/min. Still in A. fib. Shortness of breath is better. Objective: General: Alert, Oriented x3, Cooperative HEENT: Atraumatic, PERRLA, EOMI, Normocephalic Neck: Supple, No JVD, Negative Carotid Bruits Lungs: Diminished, Rales, - Cardiovascular: Normal S1, Normal S2, No murmurs Mechanical aortic valve click present, Irregular Rate, A. fib with RVR Abdomen: Bowel Sounds Present, Soft, Non Tender, Non-Distended, Obese Extremities: Capillary Refill Less than 3 Seconds, Edema Skin: No rashes, No breakdown Musculoskeletal: No Tenderness to Palpation of Joints or Extremities, Arthritic Changes Neurological: Cranial nerves II-XII grossly intact, Deep Tendon Reflexes 2+/4 and Symmetrical, Neuro grossly intact, Motor Exam 5/5 strength throughout Psych/Mental Status: Normal Affect, Appropriate - Physical Exam Vital Signs Temp Pulse Resp BP Pulse Ox 98.3 F 104 H 14 94/72 96 01/07/19 15:30 01/07/19 15:30 01/07/19 15:30 01/07/19 15:30 01/07/19 15:30 Oxygen Delivery Method Room Air Weight: 198 lb 13.711 oz Body Mass Index (BMI) 38.3 Intake and Output for Last 24 Hours 01/05/19 01/06/19 01/07/19 23:59 23:59 23:59 Intake Total 240 / 240 1551.6 / 1551.6 680 / 680 Output Total 3600 / 3600 600 / 600 Balance 240 / 240 -2048.4 / -2048.4 80 / 80 Laboratory Tests Past 24 Hrs 01/07/19 01/07/19 01/07/19 05:20 05:20 05:20 WBC 4.8 RBC 3.76 L Hgb 11.4 L Hct 35.5 L MCV 94.4 MCH 30.3 MCHC 32.1 RDW 15.1 H RDW Differential 50.1 H Plt Count 132 L MPV 11.9 PT 40.2 H INR 4.1 H* Sodium 144 Potassium 3.5 Chloride 106 Carbon Dioxide 31.0 Anion Gap 7 BUN 24 H Creatinine 1.23 H Estim Creat Clear Calc 29.36 Est GFR (MDRD) Af Amer 55 L Est GFR (MDRD) Non-Af 45 L BUN/Creatinine Ratio 19.5 Glucose 104 Calcium 8.5 Assessment/Plan This patient was seen in conjunction with KNUCKLE STRAP SEWERMaggy. I have independently interviewed and examined the patient and reviewed pertinent history, examination findings, laboratory and plan of management. I have reviewed the note and agree with the documented findings with the few additional points. In brief, patient is admitted for new onset A. fib with RVR. Discussed with Dr. Victoria. The patient amiodarone drip was transitioned to oral 200 mg 3 times daily. Home beta-wellington regimen, metoprolol continued. INR is supratherapeutic, 4.1. Discussed with Dr. Victoria and agreed for resumption of Coumadin 5 mg daily. Daily monitoring of INR. As the patient has mechanical valve and Coumadin takes 2 to 3 days lag period, therefore Coumadin resumed. Patient also has acute systolic heart failure. Echo in September 2018 shows EF 65%, moderate MR, mild to moderate TR and stable appearing mechanical aortic valve apparatus. Dr. Victoria advise repeat echo. Continue Lasix 40 mg twice daily. Repeat echocardiogram 01/06/2019 shows an EF of 45%. Mild global LV systolic dysfunction. Mild to moderate MR. Moderate 2+ TR, RVSP 45 Hg. A stable appearing mechanical aortic valve apparatus. Monitor electrolytes and kidney function Patient has mild acute kidney injury on CKD stage III. Creatinine improved to 1.23.. It was 0.97 in November 2018. Active Medications Acetaminophen (Tylenol) 650 mg PO Q6H PRN PRN PRN Reason: PAIN Last Admin: 01/06/19 06:00 Dose: 650 mg Documented by: Amiodarone HCl (Cordarone) 200 mg PO TID [facility] Last Admin: 01/07/19 13:45 Dose: 200 mg Documented by: Dextrose (D50w Syringe) 0 gm IV X1 PRN; Protocol PRN Reason: Hypoglycemia Furosemide (Lasix) 40 mg PO BID@1000,1800 [facility] Last Admin: 01/07/19 11:09 Dose: 40 mg Documented by: Glucagon () 1 mg IM .X1 PRN PRN Reason: Hypoglycemia Melatonin (Melatonin) 3 mg PO QHS PRN PRN PRN Reason: SLEEP Last Admin: 01/06/19 01:23 Dose: 3 mg Documented by: Metoprolol Tartrate (Lopressor (Beta [place])) 50 mg PO BID [facility] Last Admin: 01/07/19 11:09 Dose: 50 mg Documented by: Pravastatin Sodium (Pravachol) 40 mg PO QHS [facility] Last Admin: 01/06/19 21:08 Dose: 40 mg Documented by: Sodium Chloride () 10 - 40 ml IV UD PRN PRN Reason: SALINE FLUSH Warfarin Sodium (Coumadin (Pbkc)) 5 mg PO DAILY@1700 [facility] Code Visit Inpatient E&M: 67152 Subs Hosp L3
[2019-01-07] MEDS: Pravastatin 40 MG Tablet PO (21:19)
[2019-01-08] VITALS (19 sets, daily range): BP systolic 97–128; BP diastolic 57–89; PULSE 48–118; RESP 14–18; TEMP 36.5–36.9; O2SAT 94–98; BMI 37.5
[2019-01-08] MEDS: Amiodarone 200 MG Tablet PO ×2 (05:07→21:42)
--- NOTE | 2019-01-08 05:55 | EKG12_ITS ---
Test Reason : AM EKG Blood Pressure : / mmHG Vent. Rate : 100 BPM Atrial Rate : 090 BPM P-R Int : 000 ms QRS Dur : 104 ms QT Int : 408 ms P-R-T Axes : 000 049 153 degrees QTc Int : 526 ms Atrial fibrillation Nonspecific ST and T wave abnormality Prolonged QT Abnormal ECG Confirmed by NURYS YANEZ, AMISH ([id number]), video tape editor JEAN-PAUL MCARTHUR ([id number] on 01/11/2019 12:59:34 PM Referred By: DR PHAM Confirmed By:AMISH NUNO MD
[2019-01-08 07:03] LABS: International Normalized Ratio 2.7; Prothrombin Time (Protime)PT. 28.6 SECONDS (11.7-14.9)
[2019-01-08 07:21] LABS: Anion Gap 6 (5-15); BUN 22 mg/dL (7-18); BUN/Creat Ratio 17.1 RATIO (10-20); Chloride 103 mmol/L (98-107); Creatinine, Serum 1.29 mg/dL (0.55-1.02); EST Glomerular Filtration Rate 43 mL/min (>60); Est Glom Filt Rate - Afr Amer 52 mL/min (>60); Glucose 103 mg/dL (74-106); Potassium 3.7 mmol/L (3.5-5.1); Sodium Level 142 mmol/L (136-145)
--- NOTE | 2019-01-08 07:42 | EKG12_ITS ---
Test Reason : AFIB Blood Pressure : / mmHG Vent. Rate : 100 BPM Atrial Rate : 062 BPM P-R Int : 000 ms QRS Dur : 104 ms QT Int : 390 ms P-R-T Axes : 000 034 157 degrees QTc Int : [address] & T wave abnormality, consider lateral ischemia Prolonged QT Abnormal ECG When compared with ECG of 08-JAN-2019 05:58, MANUAL COMPARISON REQUIRED, DATA IS UNCONFIRMED Confirmed by ODETTE MARTINEZ ([id number]), food editor VINICIO TENA ([id number]) on 01/11/2019 1:57:15 PM Referred By: Alaina Reyes Confirmed By:ODETTE MARTINEZ
[2019-01-08] MEDS: Furosemide 40 MG Tablet PO ×2 (09:33→17:08)
[2019-01-08] MEDS: Metoprolol Tartrate 50 MG Tablet PO (09:33)
--- NOTE | 2019-01-08 10:30 | PCM.PN.CARD ---
Subjectve: The patient appears to be symptomatically improved with respect to her breathing. She denies any other acute symptoms at this time. Objective: Vital Signs Temp Pulse Resp BP Pulse Ox 98.5 F 118 H 14 128/89 H 95 01/08/19 09:35 01/08/19 09:35 01/08/19 09:35 01/08/19 09:35 01/08/19 09:35 Oxygen Delivery Method Room Air Weight: 198 lb 10.184 oz Body Mass Index (BMI) 37.5 Intake and Output for Last 24 Hours 01/06/19 01/07/19 01/08/19 23:59 23:59 23:59 Intake Total 1551.6 / 1551.6 1400 / 1400 0 / 0 Output Total 3600 / 3600 1400 / 1400 500 / 500 Balance -2048.4 / -2048.4 0 / 0 -500 / -500 General: Awake, Alert, Oriented x 3, Cooperative, No Acute Distress HEENT: Atraumatic, Normocephalic, PERRL Oral: Moist Mucosa Neck: Supple, Good ROM, No JVD Lungs: Clear to auscultation Cardiovascular: Irregular Rhythm, Normal S1, Holmes Prosthetic S2 Abdomen: Bowel Sounds Present, Soft, Non Tender Extremities: Trace RLE Edema, Trace LLE Edema Neurological: No Focal Motor or Sensory Deficit Psych/Mental Status: Appropriate 01/08/19 06:35: PT 28.6 H, INR 2.7 01/08/19 06:35: Sodium 142, Potassium 3.7, Chloride 103, Carbon Dioxide 33.0 H, Anion Gap 6, BUN 22 H, Creatinine 1.29 H, Est GFR (MDRD) Af Amer 52 L, Est GFR (MDRD) Non-Af 43 L, BUN/Creatinine Ratio 17.1, Glucose 103, Calcium 9.0 Rhythm: Atrial fibrillation with intermittent episodes of rapid ventricular response Medical Necessity - Tobacco Use Smoking Status: Former smoker Tobacco Use: Cigarettes Assessment/Plan 1. Atrial fibrillation The patient presents with findings compatible with atrial fibrillation. Based upon her history this may have been going on for at least 2 weeks. At the present time she is being monitored. She is continuing rate control therapy. She has been on anticoagulant therapy with a supratherapeutic INR. Her INR is decreasing. She has been placed on antiarrhythmic therapy with IV amiodarone. She has been transitioned from IV to oral amiodarone therapy. The present time based on her continued episodes of rapid ventricular response she will continue medical therapy. However she will also be tenably scheduled for synchronized biphasic DC cardioversion in an attempt to regain sinus rhythm. 2. CHF The patient has had findings compatible with CHF. Based upon her ongoing evaluation and her echographic study results this appears to be due to systolic mediated. She will continue with medical therapy. 3. Aortic valve replacement: Mechanical The patient has been followed for her aortic valve replacement. She has been on [facility] antibiotic prophylaxis. She has been on anticoagulant therapy. Her INR has decreased to 2.7. She will continue her medical management as deemed appropriate. Her follow-up transthoracic echocardiogram is as noted above. Her mechanical aortic valve prosthesis appears to be stable. 4. CAD status post CABG At the present time the patient is without any acute coronary artery related symptoms and/or objective findings. Her troponin I level has been negative. Her ECG has demonstrated her atrial dysrhythmia but no other acute ECG changes. Her previous noninvasive and invasive studies are as noted above. At the present time she will continue to be monitored. She will have additional diagnostic studies as deemed appropriate. 5. Hyperlipidemia She will continue lipid-lowering therapy. 6. Supratherapeutic INR The patient's INR is supratherapeutic at 2.7. Her warfarin will be initiated to assist with maintaining an adequate INR level. Her INR levels will be followed. Comment: The patient's case was discussed and reviewed with the patient. This note was generated with [employer] dictation software. It may contain incorrect words, spelling, and punctuation that were not noted in checking the note before signing.
--- NOTE | 2019-01-08 11:25 | PN_ITS ---
Patient Problems: Active and Suspected Problems (Last Reviewed 01/05/19 @ 13:47 by Clau Jones) Atrial fibrillation (Acute) Subjective: Patient seen and examined. She has no complaints today. Shortness of breath has resolved. Review of systems otherwise negative. He still remains in A. fib and service for cardioversion today. Vitals/I&O's: Vital Signs Temp Pulse Resp BP Pulse Ox 98.5 F 118 H 14 128/89 H 95 01/08/19 09:35 01/08/19 09:35 01/08/19 09:35 01/08/19 09:35 01/08/19 09:35 Oxygen Delivery Method Room Air Weight: 198 lb 10.184 oz Body Mass Index (BMI) 37.5 Intake and Output for Last 24 Hours 01/06/19 01/07/19 01/08/19 23:59 23:59 23:59 Intake Total 1551.6 / 1551.6 1400 / 1400 0 / 0 Output Total 3600 / 3600 1400 / 1400 500 / 500 Balance -2048.4 / -2048.4 0 / 0 -500 / -500 General: Alert, Oriented x3, Cooperative, No apparent distress HEENT: Atraumatic, PERRLA, EOMI, Normocephalic Oral: Moist Mucosa Neck: Supple, No JVD, Negative Carotid Bruits Lungs: - - clear to auscultation. No wheezes or crackles Cardiovascular: Irregular Rate, rate controlled - - mechanical aortic valve click Abdomen: Bowel Sounds Present, Soft, Non Tender, Non-Distended, No Hepato- splenomegaly Extremities: No clubbing, No cyanosis, Capillary Refill Less than 3 Seconds, LE edema has resolved. Skin: No rashes, No breakdown Musculoskeletal: No Tenderness to Palpation of Joints or Extremities Lymphatic: No Cervical, Supraclavicular, or Inguinal Adenopathy Neurological: Cranial nerves II-XII grossly intact, Neuro grossly intact, Motor Exam 5/5 strength throughout Psych/Mental Status: Normal Affect, Appropriate, Alert and oriented to time, place, person, mood and affect Laboratory Results 01/08/19 06:35: PT 28.6 H, INR 2.7 01/08/19 06:35: Sodium 142, Potassium 3.7, Chloride 103, Carbon Dioxide 33.0 H, Anion Gap 6, BUN 22 H, Creatinine 1.29 H, Estim Creat Clear Calc 28.00, Est GFR (MDRD) Af Amer 52 L, Est GFR (MDRD) Non-Af 43 L, BUN/Creatinine Ratio 17.1, Glucose 103, Calcium 9.0 Diagnostic Data Chest X-Ray 01/05/19 15:10 IMPRESSION: Cardiomegaly. Electronically Signed: Terry Lombardo, at 15:34 EDT , Service support , Current Medications Acetaminophen (Tylenol) 650 mg PO Q6H PRN PRN PRN Reason: PAIN Last Admin: 01/06/19 06:00 Dose: 650 mg Documented by: Amiodarone HCl (Cordarone) 200 mg PO TID [facility] Last Admin: 01/08/19 05:07 Dose: 200 mg Documented by: Dextrose (D50w Syringe) 0 gm IV X1 PRN; Protocol PRN Reason: Hypoglycemia Furosemide (Lasix) 40 mg PO BID@1000,1800 [facility] Last Admin: 01/08/19 09:33 Dose: 40 mg Documented by: Glucagon () 1 mg IM .X1 PRN PRN Reason: Hypoglycemia Sodium Chloride () 500 mls @ 15 mls/hr IV .[id number] [facility] Melatonin (Melatonin) 3 mg PO QHS PRN PRN PRN Reason: SLEEP Last Admin: 01/06/19 01:23 Dose: 3 mg Documented by: Metoprolol Tartrate (Lopressor (Beta [place])) 50 mg PO BID [facility] Last Admin: 01/08/19 09:33 Dose: 50 mg Documented by: Pravastatin Sodium (Pravachol) 40 mg PO QHS [facility] Last Admin: 01/07/19 21:19 Dose: 40 mg Documented by: Sodium Chloride () 10 - 40 ml IV UD PRN PRN Reason: SALINE FLUSH Warfarin Sodium (Coumadin (Pbkc)) 5 mg PO DAILY@1700 [facility] Last Admin: 01/07/19 17:25 Dose: 5 mg Documented by: Medical Necessity - Tobacco Use Smoking Status: Former smoker Tobacco Use: Cigarettes Assessment/Plan All Active Problems (Last Reviewed 01/05/19 @ 13:47 by Clau Jones) Atrial fibrillation (Acute) History of bicuspid aortic valve (Acute) 78-year-old female admitted with a complaint of shortness of breath for the past 2 weeks. 1. New onset Afib with RVR * cardiology on board * on PO amiodarone and PO metoporolol * on coumadin * for cardioversion today as she remains in Afib * * 2. Acute heart failure with preserved ejection fraction * 2D echo done in September 2018 showed EF of 60% with normal left ventricular systolic function and moderately enlarged left atrium. RVSP was 47 mmHg she had a stable appearing mechanical aortic valve. * now on PO lasix 40mg bid. * Fluid restriction 1500 cc daily. * Monitor intake and output. * 3. History of bicuspid aortic valve status post aortic valve replacement: On Coumadin. INR today is 2.7. On metoprolol. 4. Supratherapeutic INR:resolved. INR today is 2.3 5. CAD status post CABG: Had CABG in 2006. Stable. On statin. DVT prophylaxis: on coumadin. INR therapeutic Code Visit Inpatient E&M: 68235 Subs Hosp L2
[2019-01-08] MEDS: Etomidate 20 MG/10 ML Vial IV (12:42)
--- NOTE | 2019-01-08 12:53 | CARDIOVERS ---
Cardioversion Cardioversion: Procedure: Synchronized Biphasic DC Cardioversion Indications: Atrial fibrillation Consent: [Per the Patient] Anesthesia: per Dr. Beth of pulmonology and critical care medicine with etomidate 6 mg IV push total Procedure: Synchronized Biphasic DC Cardioversion: 200 J x1: Result: Sinus rhythm Complications: no apparent complications This note was generated with [employer] software. It may contain incorrect words, spelling, and punctuation that were not noted in checking the note before signing.
--- NOTE | 2019-01-08 12:56 | PRO.PCM_ITS ---
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 Patient's ejection fraction in September was 60%, but this was down to 45% with atrial fibrillation. The patient reports no PO intake since midnight. The patient does not have a history of obstructive sleep apnea. The patient reports a history of smoking, but denies COPD. The patient denies any recent constitutional symptoms such as fevers, chills, nausea or vomiting. The patient denies previous anesthetic complications. PHYSICAL EXAMINATION: VITAL SIGNS: Reviewed and were acceptable. GENERAL: The patient is a female, in no apparent distress, speaking in full sentences. HEENT: Normocephalic, atraumatic. Mucous membranes are moist and pink. Good mouth opening noted. Trachea is midline. Good neck mobility. MP II CHEST: S1, S2 irregularly irregular. No murmurs, rubs or gallops were noted. LUNGS: Clear to auscultation bilaterally without appreciable wheezes, rales or rhonchi. ABDOMEN: Soft, nontender, nondistended. Positive bowel sounds. EXTREMITIES: There is no clubbing, cyanosis or edema. ASA Class: II DESCRIPTION OF PROCEDURE: After confirmation of informed consent, the patient's anesthesia plan was reviewed in detail. Etomidate was chosen. Risks and benefits were reviewed and the patient agreed to proceed. At 12:40 PM, the patient was given 4 mg of etomidate. The patient required a total of 6 mg of etomidate throughout the procedure to achieve appropriate sedation. The patient achieved an appropriate level of sedation and received 1 attempt synchronized cardioversion, at [address] Victoria at the bedside. This was successful in achieving normal sinus rhythm. The patient was monitored until 12:48 PM, at which time the patient reached their baseline mental status and function. The patient tolerated the procedure well. COMPLICATIONS: None ESTIMATED BLOOD LOSS: None RECOMMENDATIONS: Okay to recover in usual fashion. Code Visit 9xxxx: Other Procedure See Report - 69252 -8 minutes conscious sedation
--- NOTE | 2019-01-08 12:59 | NURSING ---
1238 patient set up for cardioversion, this RN, RN Karina, Dr. Beth and Dr. Victoria in room, BP 126/85, HR 105. 1240 patient given 4mg Etomidate IVP by Dr. Beth. 1241 patient starting to become sedated. 1242 2mg Etomidate given IVP by Dr. Beth. 1244 synchronized cardioversion was performed at 200J with successful conversion to Normal sinus rhythm. 1245 patient slowly begins waking up BP 121/73, HR 55 oxygen 97% on R%A. 14mg etomidate wasted by Dr. Beth and witnessed by this RN and Karina RN. 1246 patient begins to speak and move all extremities.
--- NOTE | 2019-01-08 13:18 | EKG12_ITS ---
Test Reason : POSTCARDIOVERSION Blood Pressure : / mmHG Vent. Rate : 060 BPM Atrial Rate : 066 BPM P-R Int : 000 ms QRS Dur : 100 ms QT Int : 520 ms P-R-T Axes : 000 046 147 degrees QTc Int : 520 ms Sinus Rhythm with Sinus Arrythmia PACs ST & T wave abnormality, consider lateral ischemia Prolonged QT Abnormal ECG When compared with ECG of 08-JAN-2019 08:55, MANUAL COMPARISON REQUIRED, DATA IS UNCONFIRMED Confirmed by ODETTE MARTINEZ ([id number]), editorial cartoonist VINICIO TENA ([id number]) on 01/11/2019 2:02:39 PM Referred By: Alaina Reyes Confirmed By:ODETTE MARTINEZ
--- NOTE | 2019-01-08 13:35 | CASEMGMT ---
As per admitting slip feeder, pt has POA/LW, POA is Isela Nava. Pt is not able to bring in the forms at this time however. AMY Riggins
--- NOTE | 2019-01-08 14:06 | CHAPLAIN ---
Type of Pastoral Visit _x__ Initial Visit ___ Follow-up Visit ___ On-call Visit ___ General Patient Visit ___ Spiritual Assessment ___ Family Conference ___ Bereavement ___ Rapid Response ___ Code Blue ___ Other (describe below) Pastoral Care Referral From _x__ Patient ___ Family ___ Nurse ___ Physician ___ Glass Mold Repairer ___ Maker Up Folding ___ Other (describe below) Sacrament/Intervention ___ Active listening ___ Anointing ___ Mu-Ism ___ Bereavement ___ Communion ___ Isabella exploration ___ ___ Life review ___ Prayer ___ Reconciliation ___ Sacrament of Sick _x__ Supportive presence ___ Wedding ___ Other (describe below) Pastoral Comments
[2019-01-08] MEDS: Pravastatin 40 MG Tablet PO (21:42)
[2019-01-08] MEDS: Metoprolol Tartrate 25 MG Tablet PO (22:48)
[2019-01-09] VITALS (7 sets, daily range): BP systolic 106–112; BP diastolic 55–60; PULSE 47–65; RESP 15–16; TEMP 36.8–36.9; O2SAT 97–98
[2019-01-09] MEDS: Acetaminophen 325 MG Tablet 650 MG PO (05:06)
--- NOTE | 2019-01-09 05:55 | EKG12_ITS ---
Test Reason : AM EKG Blood Pressure : / mmHG Vent. Rate : 055 BPM Atrial Rate : 055 BPM P-R Int : 178 ms QRS Dur : 104 ms QT Int : 532 ms P-R-T Axes : 058 047 136 degrees QTc Int : 508 ms Sinus bradycardia with sinus arrhythmia ST & T wave abnormality, consider lateral ischemia Prolonged QT Abnormal ECG When compared with ECG of 08-JAN-2019 13:39, MANUAL COMPARISON REQUIRED, DATA IS UNCONFIRMED Confirmed by ODETTE MARTINEZ ([id number]), electronic news gathering editor VINICIO TENA ([id number]) on 01/11/2019 2:02:56 PM Referred By: DR NUNO Confirmed By:ODETTE MARTINEZ
[2019-01-09 06:37] LABS: Anion Gap 8 (5-15); BUN 29 mg/dL (7-18); BUN/Creat Ratio 21.3 RATIO (10-20); Calcium,Total 9.2 mg/dL (8.5-10.1); Chloride 102 mmol/L (98-107); Creatinine, Serum 1.36 mg/dL (0.55-1.02); EST Glomerular Filtration Rate 40 mL/min (>60); Est Glom Filt Rate - Afr Amer 49 mL/min (>60); Estimated Creatinine Clearance 26.56 ml/min; Glucose 102 mg/dL (74-106); Potassium 3.7 mmol/L (3.5-5.1); Sodium Level 139 mmol/L (136-145)
[2019-01-09 07:02] LABS: International Normalized Ratio 2.4; Prothrombin Time (Protime)PT. 26.1 SECONDS (11.7-14.9)
--- NOTE | 2019-01-09 08:14 | PN.CARD_ITS ---
Subjectve: The patient is awake and alert. She has been up and ambulating. She denies any new acute symptoms or concerns. Objective: Vital Signs Temp Pulse Resp BP Pulse Ox 98.2 F 47 L 16 112/60 97 01/09/19 03:29 01/09/19 07:19 01/09/19 03:29 01/09/19 03:29 01/09/19 03:29 Oxygen Delivery Method Room Air Weight: 194 lb 14.218 oz Body Mass Index (BMI) 37.5 Intake and Output for Last 24 Hours 01/07/19 01/08/19 01/09/19 23:59 23:59 23:59 Intake Total 1400 / 1400 270 / 270 30 / 30 Output Total 1400 / 1400 1700 / 1700 300 / 300 Balance 0 / 0 -1430 / -1430 -270 / -270 General: Awake, Alert, Oriented x 3, Cooperative, No Acute Distress HEENT: Atraumatic, Normocephalic, PERRL, EOMI, Sclera Non Icteric Oral: Moist Mucosa Neck: Supple, Good ROM, No JVD Lungs: Clear to auscultation Cardiovascular: Regular Rhythm, Normal S1, Borden Prosthetic S2 Abdomen: Bowel Sounds Present, Soft, Non Tender Extremities: No Cyanosis, No Clubbing, No edema Neurological: No Focal Motor or Sensory Deficit Psych/Mental Status: Appropriate 01/09/19 05:53: PT 26.1 H, INR 2.4 01/09/19 05:53: Sodium 139, Potassium 3.7, Chloride 102, Carbon Dioxide 29.0, Anion Gap 8, BUN 29 H, Creatinine 1.36 H, Est GFR (MDRD) Af Amer 49 L, Est GFR (MDRD) Non-Af 40 L, BUN/Creatinine Ratio 21.3 H, Glucose 102, Calcium 9.2 Rhythm: Sinus rhythm EKG: Sinus rhythm; nonspecific ST/T wave abnormality Medical Necessity - Tobacco Use Smoking Status: Former smoker Tobacco Use: Cigarettes Assessment/Plan 1. Atrial fibrillation The patient is now status post synchronized biphasic DC cardioversion. She remains in sinus rhythm. She will continue rate control therapy, antiarrhythmic therapy, and anticoagulant therapy. 2. CHF The patient appears to be symptomatically improved. She will continue with medical therapy. This will include diuretic therapy with potassium supplement. 3. Aortic valve replacement: Mechanical The patient has been followed for her aortic valve replacement. She has been on [facility] antibiotic prophylaxis. She has been on anticoagulant therapy. Her INR has decreased to 2.4. She will continue her medical management as deemed appropriate. Her follow-up transthoracic echocardiogram is as noted above. Her mechanical aortic valve prosthesis appears to be stable. 4. CAD status post CABG At the present time the patient is without any acute coronary artery related symptoms and/or objective findings. Her troponin I level has been negative. At the present time she will continue to be monitored. 5. Hyperlipidemia She will continue lipid-lowering therapy. 6. Supratherapeutic INR The patient's INR is supratherapeutic at 2.4. Her warfarin will be initiated to assist with maintaining an adequate INR level. Her INR levels will be followed. Overall, the present time, the patient appears to be symptomatically improved and hemodynamically stable. She will need continued outpatient cardiovascular follow-up/monitoring. Comment: The patient's case was discussed and reviewed with the patient. This note was generated with [employer] dictation software. It may contain incorrect words, spelling, and punctuation that were not noted in checking the note before signing.
[2019-01-09] MEDS: Amiodarone 200 MG Tablet PO (09:36)
[2019-01-09] MEDS: Furosemide 20 MG Tablet PO (09:40)
[2019-01-09] MEDS: Metoprolol Tartrate 25 MG Tablet PO (09:41)
--- NOTE | 2019-01-09 10:15 | PCM.DC ---
- Discharge Diagnoses Current Active Problems: Current Active and Chronic Problems (Last Updated 01/08/19 @ 17:20 by Alaina Verma) Atrial fibrillation (Acute) You will use the following diet at home:: Cardiac Your food should be the consistency of: Regular Your liquids should be the consistency of: Regular/Thin Discharge Activity: Return to Normal Activity Weight Bearing Status: Weight bearing as tolerated Call your doctor if you observe: Shortness of breath, Dizziness, Fainting spells, Swelling in the ankles, Increased palpitations (irregular heartbeat) Instructions: What Is Atrial Flutter/Atrial Fibrillation?, Atrial Fibrillation Allergies/Adverse Reactions: Allergies Penicillins Allergy (Intermediate, Verified 01/05/19 14:35) Unknown Medications to take at Discharge pravastatin 40 mg tablet 40 mg PO QHS #90 tab 09/21/18 Warfarin Sodium 5 mg PO SUSA 11/25/18 Warfarin Sodium 7 mg PO MOTUWETHFR 01/05/19 Amiodarone HCl [Cordarone] 200 mg PO UD #90 tab 01/09/19 Metoprolol Tartrate [Lopressor (beta donna)] 25 mg PO BID #60 tab 01/09/19 The following prescriptions were given: Amiodarone HCl [Cordarone] 200 mg PO UD #90 tab Transmission Status: Pending to SHAUNNA RASMUSSEN [facility] Metoprolol Tartrate [Lopressor (beta donna)] 25 mg PO BID #60 tab Transmission Status: Pending to [facility] Primary Care Physician: Danilo Bolden MD [Primary Care Provider] - Please follow up with your Primary Care Physician in: one week Test Results: Test results from this visit will be discussed in further detail at your follow-up appointment, if applicable. Please Follow Up With: Dash Victoria MD When: one week Proposed Discharge Date: 01/09/19
--- NOTE | 2019-01-09 10:16 | PCM.DC.SUM ---
Discharge Date and Diagnosis Date of Admission: 01/05/19 Date of Discharge: 01/09/19 - Primary Discharge Diagnosis Active and Suspected Problems (Last Updated 01/08/19 @ 17:20 by Alaina Verma) Atrial fibrillation (Acute) - Secondary Discharge Diagnosis Chronic Problems (Last Updated 01/08/19 @ 17:20 by Alaina Verma) Nonrheumatic aortic (valve) stenosis (Chronic) Mixed hyperlipidemia (Chronic) Atherosclerotic heart disease of [place] coronary artery without angina pectoris (Chronic) History of coronary artery bypass surgery (Chronic ~04/18/07) CABG x1 [facility] to LAD 04/18/2007 History of mechanical aortic valve replacement (Chronic ~1995) 1995 [employer] intermediary (current) use of anticoagulants (Chronic) Hospital Course and Treatment Imaging Results: Diagnostic Data Chest X-Ray 01/05/19 15:10 IMPRESSION: Cardiomegaly. Electronically Signed: Terry Lombardo, at 15:34 EDT , Service support , cardiology- Dr Victoria Operations: None Procedures: 2-D Echocardiogram, Cardioversion Summary of Care Provided: The patient is a 78 year old F with past medical history as listed. She was admitted to the ED on 01/05/2019 with a complaint of shortness of breath which had been going on for about 2 weeks. She had a stent palpitations, orthopnea and PND as well as swelling in her lower extremities. Shortness of breath was present at rest and worsened with exertion. 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 fib so she was sent to the ED. She has no previous diagnosis of A. fib. Review of systems otherwise negative. Vitals showed heart rate of 117. Chest x-ray showed no acute cardiopulmonary process and BNP was 367.1. Troponin was less than 0.015 and EKG done showed A. fib with RVR. INR was 1.62. Labs done earlier today on outpatient basis showed a CBC which was only significant for platelets of 142. BMP done also showed creatinine of 1.12 but was otherwise within normal limits. She was admitted to be managed for new onset A. fib. INR was also supratherapeutic at 6.2. SHew as also started on amiodarone drip. Potassium and magnesium were WNL. Cardiology was consulted. Despite being on p.o. amiodarone and p.o. metoprolol, patient still remained in A. fib. She was also on admission managed for acute heart failure with preserved ejection fraction on account of the shortness of breath and mildly elevated BNP. It was noted to be 60%. She was started on IV Lasix which was transitioned to p.o. Lasix 40 mg twice daily. Elevated INR trended down. Patient still remained in A. fib and so she had DC cardioversion on 01/18/2019 by cardiology. Patient then went into regular rhythm. She was continued on her Coumadin. INR was therapeutic at time of discharge, 2.4. She was discharged on 01/09/2019. She was discharged home with a prescription for p.o. amiodarone 200 mg twice daily to take for the next 14 days and then to continue with p.o. amiodarone 200 mg daily. She is also to take metoprolol 25 mg twice daily and is to follow-up with her primary care doctor and cardiology within 1 week. Patient seen and examined prior to discharge. She had no complaints and felt well. REview of systems was otherwise negative. Labs and vitals reviewed. Home medications reviewed and reconciled. o/e: Vital Signs Height 5 ft 1 in Weight: 194 lb 14.218 oz Weight in Pounds 194.9 lbs Pulse Ox 98 Temperature 98.4 F Pulse Rate 65 Respiratory Rate 15 Blood Pressure [BP] 104/68 Blood Pressure 106/55 Blood Pressure Position [BP] Supine Blood Pressure Position Sitting General: Alert, Oriented x3, Cooperative, No apparent distress HEENT: Atraumatic, PERRLA, EOMI, Normocephalic Oral: Moist Mucosa Neck: Supple, No JVD, Negative Carotid Bruits Lungs: - - clear to auscultation. No wheezes or crackles Cardiovascular: regular, rate controlled - - mechanical aortic valve click Abdomen: Bowel Sounds Present, Soft, Non Tender, Non-Distended, No Hepato-splenomegaly Extremities: No clubbing, No cyanosis, Capillary Refill Less than 3 Seconds, LE edema has resolved. Skin: No rashes, No breakdown Musculoskeletal: No Tenderness to Palpation of Joints or Extremities Lymphatic: No Cervical, Supraclavicular, or Inguinal Adenopathy Neurological: Cranial nerves II-XII grossly intact, Neuro grossly intact, Motor Exam 5/5 strength throughout Psych/Mental Status: Normal Affect, Appropriate, Alert and oriented to time, place, person, mood and affect Plan as above. - Physical Exam Vital Signs Temp Pulse Resp BP Pulse Ox 98.4 F 58 L 15 106/55 L 98 01/09/19 09:29 01/09/19 09:41 01/09/19 09:29 01/09/19 09:41 01/09/19 09:29 Oxygen Delivery Method Room Air Weight: 194 lb 14.218 oz Body Mass Index (BMI) 37.5 Intake and Output for Last 24 Hours 01/07/19 01/08/19 01/09/19 23:59 23:59 23:59 Intake Total 1400 / 1400 270 / 270 30 / 30 Output Total 1400 / 1400 1700 / 1700 300 / 300 Balance 0 / 0 -1430 / -1430 -270 / -270 Laboratory Tests Past 24 Hrs 01/09/19 01/09/19 05:53 05:53 PT 26.1 H INR 2.4 Sodium 139 Potassium 3.7 Chloride 102 Carbon Dioxide 29.0 Anion Gap 8 BUN 29 H Creatinine 1.36 H Estim Creat Clear Calc 26.56 Est GFR (MDRD) Af Amer 49 L Est GFR (MDRD) Non-Af 40 L BUN/Creatinine Ratio 21.3 H Glucose 102 Calcium 9.2 Discharge Diet: Low fat/ Low Cholesterol Discharge Activity: Return to Normal Activity Weight Bearing Status: Weight bearing as tolerated Call your doctor if you observe: Shortness of breath, Dizziness, Fainting spells, Swelling in the ankles, Increased palpitations (irregular heartbeat) Home Medications: Medications to take at Discharge pravastatin 40 mg tablet 40 mg PO QHS #90 tab 09/21/18 Warfarin Sodium 5 mg PO SUSA 11/25/18 Warfarin Sodium 7 mg PO MOTUWETHFR 01/05/19 Amiodarone HCl [Cordarone] 200 mg PO UD #90 tab 01/09/19 Metoprolol Tartrate [Lopressor (beta donna)] 25 mg PO BID #60 tab 01/09/19 Following Prescrptions Were Given to Patient: Amiodarone HCl [Cordarone] 200 mg PO UD #90 tab Transmission Status: Received by SHAUNNA HERNADEZ [facility] Metoprolol Tartrate [Lopressor (beta donna)] 25 mg PO BID #60 tab Transmission Status: Received by [facility] Primary Care Physician: Danilo Bolden MD [Primary Care Provider] - Please follow up with your Primary Care Physician in: one week Please Follow Up With: Dash Victoria MD When: one week Patient Instructions: What Is Atrial Flutter/Atrial Fibrillation?, Atrial Fibrillation Disposition: Home Minutes spent on discharge:: 40 Patient Condition:: Stable Medical Necessity - Tobacco Use Smoking Status: Former smoker Tobacco Use: Cigarettes Meaningful Use Info Meaningful Use Diagnoses (Choose all that apply): CHF - CHF AUSTIN/ARB ordered at discharge?: No Reason AUSTIN/ARB not ordered?: Worsening renal dysfunctn Documented LVEF (%): 60 Code Visit Inpatient E&M: 42269 Disch Hosp
--- NOTE | 2019-01-10 14:30 | CASEMGMT ---
RN CAROL DC PHONE CALL DC DATE: 01/09/19 DC Disposition: Home Diagnosis on Discharge: A fib LACE/STRATA: 14/4 Intro role of CM to patient via phone. Pt states she did not have questions re: DC instructions, prescriptions or f/u appointments. No care improvement suggestions were given. Zaid MANNING RN ACM
== END 2019-01-09 13:41 | disposition home or self-care (01) | DRG 308 ==
LOC: ED 16:10 → PCU 17:03
PROVIDERS: Internal Medicine; Internal Medicine Cardiovascular Disease; Nurse Practitioner Family; Admitting Provider Student in an Organized Health Care Education/Training Program; Emergency Provider Emergency Medicine; Family Provider Family Medicine; PCP Family Medicine; Visit Provider Student in an Organized Health Care Education/Training Program
DX: I48.91 Unspecified atrial fibrillation (principal); I50.31 Acute diastolic (congestive) heart failure; E66.9 Obesity, unspecified; I25.10 Atherosclerotic heart disease of native coronary artery without angina pectoris; Z95.1 Presence of aortocoronary bypass graft; Z79.01 Long term (current) use of anticoagulants; Z95.2 Presence of prosthetic heart valve; Z68.37 Body mass index [BMI] 37.0-37.9, adult; Z87.891 Personal history of nicotine dependence; E78.2 Mixed hyperlipidemia
CPT/HCPCS: 36415; 71045; 80048; 83735; 83880; 84443; 84484; 85025; 85027; 85610; 92960; 93005; 93306; 99285; J7040; Q9957; A4216; C8929; J1940

== ENCOUNTER → 2019-01-05 | Outpatient (CLI) | payer MEDICARE, SELFPAY ==
[2019-01-01 09:08] VITALS: BMI 38.5
[2019-01-05 14:28] LABS: Absolute Lymphocyte Count 1.38 X10^3/ul (0.83-4.51); Absolute Neutrophil Count 3.3 X10^3/uL (2.0-7.7); Basophil# 0.03 X10^3/uL; Basophil% 0.6 % (0-1); Eosinophil# 0.02 X10^3/uL; Eosinophils% 0.4 % (0-5); Hematocrit 37.6 % (37-47); Lymphocyte # 1.38 X10^3/ul (4.0); Lymphocyte % 26.3 % (19-41); Mean Corp Hgb Conc 31.9 g/gl (32-36); Mean Corpuscular Hgb 30.2 pg (27.0-32.0); Mean Corpuscular Volume 94.5 fL (81-99); Mean Platelet Vol. 12.2 fl (6.2-12.0); Monocyte# 0.52 X10^3/uL; Monocyte% 9.9 % (0-10); Neutrophil # 3.29 X10^3/uL (2.7-7.7); Neutrophil % 62.8 % (47-70); Platelet Count 142 K/mm3 (150-450); RBC Distribution Width CV 15.2 % (11.6-14.6); RBC Distribution Width SD 50.5 fl (35.1-43.9); Red Blood Count 3.98 M/mm3 (4.2-5.4); White Blood Count 5.2 K/mm3 (4.4-11.0)
[2019-01-05 14:30] LABS: POSITIVE COUNT NO; POSITIVE DIFFERENTIAL NO; POSITIVE MORPHOLOGY NO
[2019-01-05 14:35] LABS: Anion Gap 7 (5-15); BUN 19 mg/dL (7-18); Calcium,Total 8.6 mg/dL (8.5-10.1); Chloride 111 mmol/L (98-107); Creatinine, Serum 1.12 mg/dL (0.55-1.02); EST Glomerular Filtration Rate 50 mL/min (>60); Est Glom Filt Rate - Afr Amer 61 mL/min (>60); Glucose 111 mg/dL (74-106); Potassium 4.3 mmol/L (3.5-5.1); Sodium Level 145 mmol/L (136-145)
[2019-01-05 14:42] LABS: BNP,B-Type NATRIURETIC PEPTIDE 387.1 pg/mL (0-100)
== END | disposition home or self-care (01) ==
LOC: LAB 13:17
PROVIDERS: Family Provider Family Medicine; PCP Family Medicine; Referring Provider Physician Assistant Medical; Visit Provider Physician Assistant Medical
DX: R06.09 Other forms of dyspnea (principal)
CPT/HCPCS: 36415; 80048; 83880; 85025

== ENCOUNTER → 2019-01-19 | Outpatient (CLI) | payer MEDICARE, SELFPAY ==
[2019-01-17 14:50] VITALS: BMI 37.0
[2019-01-19 13:39] LABS: Prothrombin Time (Protime)PT. 37.1 SECONDS (11.7-14.9)
[2019-01-19 13:41] LABS: International Normalized Ratio 3.7
[2019-01-19 13:52] LABS: Anion Gap 5 (5-15); BUN 23 mg/dL (7-18); BUN/Creat Ratio 18.3 RATIO (10-20); Calcium,Total 8.8 mg/dL (8.5-10.1); Chloride 103 mmol/L (98-107); Creatinine, Serum 1.26 mg/dL (0.55-1.02); EST Glomerular Filtration Rate 44 mL/min (>60); Est Glom Filt Rate - Afr Amer 53 mL/min (>60); Glucose 94 mg/dL (74-106); Potassium 4.1 mmol/L (3.5-5.1); Sodium Level 138 mmol/L (136-145)
--- NOTE | 2019-01-19 14:52 | PFTCOMP ---
COMPLETE PULMONARY FUNCTION TEST INTERPRETATION Brief HPI: Patient is a 78 year old female, currently under the care of Dr. Victoria, who presents to [facility] for complete pulmonary function tests secondary to diagnosis of amiodarone use. Respiratory therapist reports good effort, but unreproducible results. Interpretation: Forced expiration spirometry shows no large airways obstructive ventilatory defect with an FEV1 of 93% predicted. There is no significant bronchodilator response by strict ATS criteria. Spirograms are of poor quality and do not plateau. The respiratory flow volume loop shows a normal pattern. Lung volumes by body plethysmography show a normal total lung capacity at 3.85 L, 93% predicted. FRC and RV are elevated out of proportion. Lung volume measurements are consistent with air-trapping. Diffusion capacity by carbon monoxide is decreased at 38% predicted. The airway resistance is normal. No previous pulmonary function tests were available for review. Impression: Very poor data, but appears to have an isolated defect in diffusing capacity consistent with a pulmonary vascular disorder.
== END | disposition home or self-care (01) ==
PROVIDERS: Family Provider Family Medicine; PCP Family Medicine; Referring Provider Internal Medicine Cardiovascular Disease; Visit Provider Internal Medicine Cardiovascular Disease
DX: I25.10 Atherosclerotic heart disease of native coronary artery without angina pectoris (principal); I48.0 Paroxysmal atrial fibrillation; I35.0 Nonrheumatic aortic (valve) stenosis; E78.2 Mixed hyperlipidemia; Z95.1 Presence of aortocoronary bypass graft; Z95.2 Presence of prosthetic heart valve; Z79.01 Long term (current) use of anticoagulants
CPT/HCPCS: 36415; 80048; 85610; 94060; 94726; 94729

== ENCOUNTER 2019-03-01 10:07 | Outpatient (RCR) | payer MEDICARE, SELFPAY ==
[2019-01-01 09:08] VITALS: BMI 38.5
[2019-01-17 14:50] VITALS: BMI 37.0
[2019-02-26 11:08] LABS: Prothrombin Time (Protime)PT. 50.9 SECONDS (11.7-14.9)
[2019-02-26 11:14] LABS: International Normalized Ratio 5.5
[2019-03-01 10:37] LABS: International Normalized Ratio 2.6; Prothrombin Time (Protime)PT. 27.9 SECONDS (11.7-14.9)
== END 2019-03-01 12:00 | disposition home or self-care (01) ==
LOC: LAB 10:07
PROVIDERS: Family Provider Family Medicine; PCP Family Medicine; Referring Provider Internal Medicine Cardiovascular Disease; Visit Provider Internal Medicine Cardiovascular Disease
DX: Z79.01 Long term (current) use of anticoagulants (principal); Z95.2 Presence of prosthetic heart valve
CPT/HCPCS: 36415; 85610

== ENCOUNTER 2019-03-14 12:44 | Outpatient (RCR) | payer MEDICARE, SELFPAY ==
[2019-01-17 14:50] VITALS: BMI 37.0
[2019-03-14 16:25] LABS: International Normalized Ratio 4.8; Prothrombin Time (Protime)PT. 45.8 SECONDS (11.7-14.9)
== END 2019-03-14 16:00 | disposition home or self-care (01) ==
LOC: LAB 12:44
PROVIDERS: Family Provider Family Medicine; PCP Family Medicine; Referring Provider Internal Medicine Cardiovascular Disease; Visit Provider Internal Medicine Cardiovascular Disease
DX: Z79.01 Long term (current) use of anticoagulants (principal); Z95.2 Presence of prosthetic heart valve
CPT/HCPCS: 36415; 85610

== ENCOUNTER 2019-03-26 14:02 | Outpatient (RCR) | payer MEDICARE, SELFPAY ==
[2019-01-17 14:50] VITALS: BMI 37.0
[2019-03-26 15:26] LABS: Prothrombin Time (Protime)PT. 31.1 SECONDS (11.7-14.9)
== END 2019-03-26 18:00 | disposition home or self-care (01) ==
LOC: MTLAB 14:02
PROVIDERS: Family Provider Family Medicine; PCP Family Medicine; Referring Provider Internal Medicine Cardiovascular Disease; Visit Provider Internal Medicine Cardiovascular Disease
DX: Z79.01 Long term (current) use of anticoagulants (principal); Z95.2 Presence of prosthetic heart valve
CPT/HCPCS: 36415; 85610

== ENCOUNTER 2019-04-23 12:20 | Outpatient (RCR) | payer MEDICARE, SELFPAY ==
[2019-01-17 14:50] VITALS: BMI 37.0
[2019-04-05 12:41] LABS: Prothrombin Time (Protime)PT. 42.7 SECONDS (11.7-14.9)
[2019-04-05 12:43] LABS: AST(SGOT) 30 U/L (15-37); Alanine Aminotransfer ALT/SGPT 47 U/L (13-56); Albumin, Serum 3.6 g/dL (3.2-5.0); Alkaline Phosphatase 85 U/L (45-117); Anion Gap 2 (5-15); BUN 21 mg/dL (7-18); BUN/Creat Ratio 15.7 RATIO (10-20); Bilirubin, Direct 0.26 mg/dL (0.00-0.30); Calcium,Total 8.7 mg/dL (8.5-10.1); Chloride 103 mmol/L (98-107); Cholesterol 205 mg/dL (200); Creatinine, Serum 1.34 mg/dL (0.55-1.02); EST Glomerular Filtration Rate 41 mL/min (>60); Est Glom Filt Rate - Afr Amer 49 mL/min (>60); Globulin 3.6 g/dL (2.2-4.2); Glucose 92 mg/dL (74-106); High Density Lipoprotein 80 mg/dL; Potassium 4.6 mmol/L (3.5-5.1); Protein, Total 7.2 g/dL (6.4-8.2); Sodium Level 138 mmol/L (136-145); Triglycerides 106 mg/dL; Very Low Density Lipoprotein 21 mg/dL (5-40)
[2019-04-05 12:43] LABS: International Normalized Ratio 4.4
[2019-04-13 14:03] LABS: Prothrombin Time (Protime)PT. 37.8 SECONDS (11.7-14.9)
[2019-04-13 14:15] LABS: International Normalized Ratio 3.8
[2019-04-23 14:18] LABS: International Normalized Ratio 3.2; Prothrombin Time (Protime)PT. 33.2 SECONDS (11.7-14.9)
== END 2019-04-23 18:00 | disposition home or self-care (01) ==
LOC: MTLAB 12:20
PROVIDERS: Family Provider Family Medicine; PCP Family Medicine; Referring Provider Internal Medicine Cardiovascular Disease; Visit Provider Internal Medicine Cardiovascular Disease
DX: Z79.01 Long term (current) use of anticoagulants (principal); Z95.2 Presence of prosthetic heart valve; E78.2 Mixed hyperlipidemia
CPT/HCPCS: 36415; 80048; 80061; 80076; 85610

== ENCOUNTER 2019-05-09 12:10 | Outpatient (RCR) | payer MEDICARE, SELFPAY ==
[2019-04-09 14:10] VITALS: BMI 37.5
[2019-05-09 14:17] LABS: International Normalized Ratio 3.3; Prothrombin Time (Protime)PT. 33.5 SECONDS (11.7-14.9)
== END 2019-05-09 18:00 | disposition home or self-care (01) ==
LOC: MTLAB 12:10
PROVIDERS: Family Provider Family Medicine; PCP Family Medicine; Referring Provider Internal Medicine Cardiovascular Disease; Visit Provider Internal Medicine Cardiovascular Disease
DX: Z79.01 Long term (current) use of anticoagulants (principal); Z95.2 Presence of prosthetic heart valve
CPT/HCPCS: 36415; 85610

== ENCOUNTER 2019-06-20 04:33 | Observation (INO) | payer MEDICARE, SELFPAY ==
[2019-04-09 14:10] VITALS: BMI 37.5
[2019-06-20] VITALS (15 sets, daily range): BP systolic 108–161; BP diastolic 54–68; PULSE 58–70; RESP 14–19; TEMP 36.8–37.2; O2SAT 92–99; BMI 37.2; BMI 36.3
--- NOTE | 2019-06-20 04:43 | RAD_ITS ---
STUDY: X-RAY CHEST REASON FOR EXAM: Female, 78 years old. Shortness of breath TECHNIQUE: AP portable COMPARISON: 01/05/2019 FINDINGS: The lungs demonstrate no focal consolidative changes. There is mild cardiac enlargement. Normal mediastinum and milad. Normal visualized pulmonary arteries. Normal visualized aortic arch and descending thoracic aorta. There are degenerative changes of the visualized thoracic spine. There is no demonstrated abnormality of the visualized soft tissue structures of the upper abdomen. RAD/Chest 1 View (Portable) IMPRESSION: Stable mild cardiomegaly. No focal lung consolidation changes. No significant radiographic changes. Electronically Signed: Roman Villanueva, at 5:05 EST Tel , Service support ,
--- NOTE | 2019-06-20 04:43 | EKG12_ITS ---
Test Reason : Blood Pressure : / mmHG Vent. Rate : 056 BPM Atrial Rate : 056 BPM P-R Int : 164 ms QRS Dur : 104 ms QT Int : 492 ms P-R-T Axes : 068 053 121 degrees QTc Int : [address] & T wave abnormality, consider lateral ischemia Abnormal ECG No previous ECGs available Confirmed by MARÍA YANEZ, AISHA ([id number]), mapping editor JEAN-PAUL MCARTHUR ([id number]) on 06/25/2019 12:53:38 PM Referred By: GAUDENCIO Confirmed By:MELY DANIEL MD
--- NOTE | 2019-06-20 04:46 | ED.VIS.GEN ---
History of Present Illness Chief Complaint: Chest Pain Informant: Patient Onset: Yesterday Context: Gradual Onset Timing: Waxes and wanes Current Severity: Mild Maximum Severity: Moderate Narrative: Patient presents with palpitations intermittently for the past 5 days. Last evening she started to develop chest pressure. She went to bed at 10 PM last night with chest pressure and states it continued throughout the night. She presents earlier this morning for evaluation. Patient has a history of paroxysmal A. fib. She had prior aortic valve replacement. She is on Coumadin. 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 This had been requested by Dr. Sage, her cultured marble products maker, she has been seeing since she had abnormal pulmonary function tests obtained in January. 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 Victoria Prior records reviewed: Yes Surgical History: coronary bypass surgery - 04-18-2007: [facility]: [facility] to the LAD Lives: Spouse/ Significant Other Smoking Status: Former smoker Review of Systems General: Reports: Chills. Denies: Fever Eyes: Denies: Visual changes - bilaterally ENT: Denies: Bilateral ear pain Cardiovascular: Reports: Chest pain Respiratory: Reports: Dyspnea. Denies: Cough Gastrointestinal: Denies: Abdominal pain, Nausea, Vomiting, Diarrhea Genitourinary: Denies: Dysuria Musculoskeletal: Denies: Myalgias, Extremity Pain Skin: Denies: Rash Neurological: Denies: Headache Allergy: Denies: Uticaria Physical Exam Vital Signs/Narrative: Vital Signs Temp Pulse Resp BP Pulse Ox 06/20/19 04:43 98 06/20/19 04:34 99.0 F 68 18 161/65 H 97 Inital Vital Signs reviewed: Yes General: Well nourished, Well developed Head: Normocephalic ENT: Moist mucous membranes Neck: Supple Cardiovascular: Regular rate, Regular rhythm, - - Valve click is noted Respiratory: No distress, CTA bilaterally Abdomen: Soft, Nontender, Normal bowel sounds Extremities: Nontender Skin: Normal color Neurological: Alert, Oriented x3 Psychological: Normal affect Diagnostic/Tx/Re-eval Impressions Chest X-Ray 06/20/19 04:43 IMPRESSION: Stable mild cardiomegaly. No focal lung consolidation changes. No significant radiographic changes. Electronically Signed: Roman Villanueva, at 5:05 EST Tel , Service support , 06/20/19 04:43 Chest 1 View (Portable) [RAD] Stat Laboratory Results 06/20/19 06/20/19 06/20/19 04:40 04:40 04:40 WBC 10.4 RBC 3.51 L Hgb 11.5 L Hct 34.0 L MCV 96.9 MCH 32.8 H MCHC 33.8 RDW Std Deviation 47.2 H RDW Coeff of Jaime 13.3 Plt Count 184 MPV 11.2 Immature Gran % (Auto) 0.300 Neut % (Auto) 78.1 H Lymph % (Auto) 12.4 L [place] % (Auto) 7.7 Eos % (Auto) 1.2 Baso % (Auto) 0.3 Absolute Neuts (auto) 8.1 H Absolute Lymphs (auto) 1.29 Nucleated RBC % 0 PT 56.7 H INR 6.3 H* Sodium 141 Potassium 3.5 Chloride 106 Carbon Dioxide 29.0 Anion Gap 6 BUN 17 Creatinine 1.16 H Estim Creat Clear Calc 32.63 Est GFR (MDRD) Af Amer 58 L Est GFR (MDRD) Non-Af 48 L BUN/Creatinine Ratio 14.7 Glucose 107 H Calcium 8.7 Troponin I < 0.015 - EKG Initial EKG Interpretation: Sinus Rhythm - Sinus at 67. No obvious acute ischemia when factoring for artifact. - Medical Decision Making Patient was given aspirin on arrival. On repeat evaluation she is resting comfortably. She reports very minimal pain. She states that they were already considering doing a heart cath next month. Patient is now having chest pressure. I will speak with hospitalist regarding admission. Her INR will need to be reversed before any procedures to be performed regardless. ED Disposition - Plan for ED Patient: Disposition: Acute Care [facility] Diagnosis: Chest pain, Supratherapeutic INR Referrals: Danilo Bolden MD [Primary Care Provider] -
[2019-06-20 04:50] LABS: Absolute Lymphocyte Count 1.29 X10^3/uL (0.83-4.51); Absolute Neutrophil Count 8.1 X10^3/uL (2.0-7.7); Basophil# 0.03 X10^3/uL; Basophil% 0.3 % (0-1); Eosinophil# 0.12 X10^3/uL; Eosinophils% 1.2 % (0-5); Hemoglobin 11.5 g/dL (12.0-15.0); Lymphocyte # 1.29 X10^3/ul (4.0); Lymphocyte % 12.4 % (19-41); Mean Corp Hgb Conc 33.8 g/dL (32-36); Mean Corpuscular Hgb 32.8 pg (27.0-32.0); Mean Corpuscular Volume 96.9 fL (81-99); Mean Platelet Vol. 11.2 fl (6.2-12.0); Monocyte% 7.7 % (0-10); NRBC Flagged by Analyzer 0 % (0-5); Neutrophil # 8.11 X10^3/uL (2.7-7.7); Neutrophil % 78.1 % (47-70); Platelet Count 184 K/mm3 (150-450); RBC Distribution Width CV 13.3 % (11.6-14.6); RBC Distribution Width SD 47.2 fl (35.1-43.9); Red Blood Count 3.51 M/mm3 (4.2-5.4); White Blood Count 10.4 K/mm3 (4.4-11.0)
[2019-06-20] MEDS: Aspirin 81 MG TAB.CHEW 324 MG PO (04:50)
[2019-06-20] MEDS: 0.9% Normal Saline 1,000 ML 150 ML IV (04:53)
[2019-06-20 04:56] LABS: Prothrombin Time (Protime)PT. 56.7 SECONDS (11.7-14.9)
[2019-06-20 04:57] LABS: International Normalized Ratio 6.3
[2019-06-20 05:11] LABS: Anion Gap 6 (5-15); BUN 17 mg/dL (7-18); BUN/Creat Ratio 14.7 RATIO (10-20); Calcium,Total 8.7 mg/dL (8.5-10.1); Chloride 106 mmol/L (98-107); Creatinine, Serum 1.16 mg/dL (0.55-1.02); EST Glomerular Filtration Rate 48 mL/min (>60); Est Glom Filt Rate - Afr Amer 58 mL/min (>60); Estimated Creatinine Clearance 32.63 ml/min; Glucose 107 mg/dL (74-106); Potassium 3.5 mmol/L (3.5-5.1); Sodium Level 141 mmol/L (136-145)
--- NOTE | 2019-06-20 05:19 | PCM.HP.STD ---
Problem List (1) Chest pain Status: Acute (2) Supratherapeutic INR Status: Acute (3) Paroxysmal atrial fibrillation Status: Chronic (4) Nonrheumatic aortic (valve) stenosis Status: Chronic (5) History of bicuspid aortic valve Status: Chronic (6) Mixed hyperlipidemia Status: Chronic (7) Atherosclerotic heart disease of [place] coronary artery without angina pectoris Status: Chronic Qualifiers: [place] vs. transplanted heart: [place] heart Qualified Code(s): I25.10 - Atherosclerotic heart disease of [place] coronary artery without angina pectoris (8) History of coronary artery bypass surgery Status: Chronic Comment: CABG x1 [facility] to LAD 04/18/2007 (9) History of mechanical aortic valve replacement Status: Chronic Comment: 1995 (10) residential (current) use of anticoagulants Status: Chronic History of Present Illness Date of Admission: 06/20/19 Chief Complaint: CHEST PAIN The patient is a 78 year old F with a significant history of CAD status post CABG; mechanical mitral valve replacement; paroxysmal A. fib status post cardioversion who presented to emergency department with chest pain that started in ninth before her admission. Before patient went to sleep she had left-sided chest pain. She woke up and she continued to have chest pain. She is unsure whether the chest pain woke her from her sleep or she woke up on her own. She reported typically she wakes up multiple times to urinate/pain from carpal tunnel syndrome. Associated with her symptoms is shortness of breath. She denies any nausea vomiting or diaphoresis. Also she has headaches. In the last 5 days she has had malaise so she thought she was in A. fib. On presentation her EKG did not show A. fib. 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 Victoria is planning on a cardiac catheterization in July 2019. Past Medical History Past Medical History (Chronic Problems): Chronic Problems (Last Reviewed 06/20/19 @ 06:21 by Peyman El MD) Paroxysmal atrial fibrillation (Chronic) Nonrheumatic aortic (valve) stenosis (Chronic) History of bicuspid aortic valve (Chronic) Mixed hyperlipidemia (Chronic) Atherosclerotic heart disease of [place] coronary artery without angina pectoris (Chronic) History of coronary artery bypass surgery (Chronic ~04/18/07) CABG x1 [facility] to LAD 04/18/2007 History of mechanical aortic valve replacement (Chronic ~1995) 1995 residential (current) use of anticoagulants (Chronic) Medical History: Medical History (Last Reviewed 06/20/19 @ 06:21 by Peyman El MD) Paroxysmal atrial fibrillation (Chronic) I48.0 Nonrheumatic aortic (valve) stenosis (Chronic) I35.0 History of bicuspid aortic valve (Chronic) Z87.74 Mixed hyperlipidemia (Chronic) E78.2 Atherosclerotic heart disease of [place] coronary artery without angina pectoris (Chronic) 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) Z79.01 Allergies Penicillins Allergy (Intermediate, Verified 06/20/19 04:33) Unknown Home Medications: Ambulatory Orders Medication Instructions Recorded pravastatin 40 mg tablet 40 mg PO QHS #90 tab 09/21/18 Warfarin Sodium 5 mg PO DAILY 11/25/18 furosemide 40 mg tablet 40 mg PO DAILY 01/17/19 metoprolol tartrate 25 mg tablet 25 mg PO BID #180 tab 02/12/19 amiodarone 200 mg tablet 200 mg PO DAILY #90 tab 04/02/19 Surgical History: Surgical History (Last Reviewed 06/20/19 @ 06:47 by Peyman El MD) History of coronary artery bypass surgery (Chronic) Onset Date: ~04/18/07 Z95.1 CABG x1 [facility] to LAD 04/18/2007 History of cardioversion Onset Date: ~01/08/19 Z98.890 History of cataract extraction Z98.49 History of colonoscopy with polypectomy Z98.890, Z86.010 Hx laparoscopic cholecystectomy Z90.49 Hx of cervical polypectomy Z98.890, Z87.42 with endometrial biopsy Surgical History: coronary bypass surgery - 04-18-2007: [facility]: [facility]URCH to the LAD Lives: Spouse/ Significant Other Smoking Status: Former smoker Tobacco Use: Cigarettes - *Family History Maternal Family History: Family History (Last Reviewed 06/20/19 @ 06:47 by Peyman El MD) Mother CAD (coronary artery disease) Myocardial infarction Hypertension TIA (transient ischemic attack) Diabetes Sister H/O aortic valve replacement Sister H/O aortic valve replacement Brother Heart disease Review of Systems Constitutional: Reports: Anorexia, Malaise, Fatigue. Denies: Chills, Fever, Weight Change HEENT: Reports: Head Aches, Post Nasal Drip Cardiovascular: Reports: Chest Pain. Denies: Palpitations Respiratory: Reports: Shortness of Breath. Denies: Cough, Shortness of breath at rest, Sputum production Gastrointestinal: Denies: Abdominal Pain, Nausea, Vomiting Genitourinary: Denies: Dysuria Musculoskeletal: Denies: Joint Pain, Joint Tenderness Skin: Denies: Rash, Wounds Neurological: Denies: Numbness, Tingling, Focal weakness Psychiatric: Denies: Anxiety, Depression, Homicidal Ideations, Suicidal Ideations Hematologic/ Lymphatic: Denies: Easy Bruising, Easy Bleeding VTE Information - Inpt Only VTE Present on Admission: No VTE Mechan Device Prophylaxis: None VTE Pharm Prophylaxis ordered?: No Reason prophylaxis not ordered:: Treatment Not Indicated - INR is supratherapeutic Patient Problems: Active and Suspected Problems (Last Reviewed 06/20/19 @ 06:21 by Peyman El MD) Chest pain (Acute) Supratherapeutic INR (Acute) - Physical Exam Vitals/I&O's: Vital Signs Temp Pulse Resp BP Pulse Ox 99.0 F 68 18 161/65 H 98 06/20/19 04:34 06/20/19 04:34 06/20/19 04:34 06/20/19 04:34 06/20/19 04:43 Oxygen Flow Rate (L/min) 2 Oxygen Delivery Method Nasal Cannula Weight: 92.4 kg Body Mass Index (BMI) 37.2 General: Alert, Oriented x3, Cooperative HEENT: Atraumatic, PERRLA, EOMI, Normocephalic Neck: Supple, No JVD, Negative Carotid Bruits Lungs: Clear to auscultation, Normal air movement Cardiovascular: Regular rate, No murmurs, - - Hyperdynamic heart sounds. Abdomen: Bowel Sounds Present, Soft, Non Tender Extremities: No edema, Capillary Refill Less than 3 Seconds Skin: No rashes, No breakdown Musculoskeletal: No Tenderness to Palpation of Joints or Extremities Neurological: Cranial nerves II-XII grossly intact Psych/Mental Status: Normal Affect, Appropriate Laboratory Results 06/20/19 04:40: WBC 10.4, RBC 3.51 L, Hgb 11.5 L, Hct 34.0 L, MCV 96.9, MCH 32.8 H, MCHC 33.8, RDW Std Deviation 47.2 H, RDW Coeff of Jaime 13.3, Plt Count 184, MPV 11.2, Immature Gran % (Auto) 0.300, Neut % (Auto) 78.1 H, Lymph % (Auto) 12.4 L, [place] % (Auto) 7.7, Eos % (Auto) 1.2, Baso % (Auto) 0.3, Absolute Neuts (auto) 8.1 H, Absolute Lymphs (auto) 1.29, Nucleated RBC % 0 06/20/19 04:40: PT 56.7 H, INR 6.3 H* 06/20/19 04:40: Sodium 141, Potassium 3.5, Chloride 106, Carbon Dioxide 29.0, Anion Gap 6, BUN 17, Creatinine 1.16 H, Estim Creat Clear Calc 32.63, Est GFR (MDRD) Af Amer 58 L, Est GFR (MDRD) Non-Af 48 L, BUN/Creatinine Ratio 14.7, Glucose 107 H, Calcium 8.7, Troponin I < 0.015 Current Medications Sodium Chloride () 1,000 mls @ 150 mls/hr IV .[id number] [facility] Last Admin: 06/20/19 04:53 Dose: 150 mls/hr Documented by: Assessment/Plan All Active Problems (Last Reviewed 06/20/19 @ 06:21 by Peyman El MD) Chest pain (Acute) Supratherapeutic INR (Acute) The patient is a 78 year old F with a significant history of CAD status post CABG; mechanical mitral valve replacement; paroxysmal A. fib status post cardioversion with chest pain. Chest pain Place on a monitored bed at PCU CXR independently reviewed confirms no acute cardiopulmonary process. EKG independently reviewed confirms T wave inversion in lateral leads but is unchanged compared with EKG on January 09, 2019. Aspirin 324 mg in emergency department. ASA 81 mg p.o. daily SL NTG 0.4 mg prn as needed for chest pain Lipid level on 04/05/2019 showed LDL cholesterol of 104; total cholesterol of 205; triglyceride of 106. Her LDL was 80. Statin: On pravastatin 40 mg nightly; continued Anticoagulation: Hold home Coumadin in the setting of supratherapeutic INR Serial cardiac enzymes Stat EKG as needed for chest pain We will consult Dr. Victoria, cardiology since the patient reports that there is an outpatient cardiac cath being planned for July 2019 History of atrial fibrillation Patient on sinus rhythm on presentation. Amiodarone continued. Coumadin held secondary to supratherapeutic INR Mechanical aortic valve replacement Coumadin held secondary to supratherapeutic INR Trend INR. DVT prophylaxis Not indicated since patient is supratherapeutic on INR Code Visit OBSV E&M: 99204 Initial observation care L3
--- NOTE | 2019-06-20 06:02 | EKG12_ITS ---
Test Reason : CP Blood Pressure : / mmHG Vent. Rate : 067 BPM Atrial Rate : 067 BPM P-R Int : 160 ms QRS Dur : 102 ms QT Int : 448 ms P-R-T Axes : 097 053 125 degrees QTc Int : 473 ms Normal sinus rhythm ST & T wave abnormality, consider lateral ischemia Prolonged QT Abnormal ECG Confirmed by MARÍA YANEZ, AISHA ([id number]), makeup editor JOELLE EAGLE ([id number]) on 06/25/2019 11:46:02 AM Referred By: MITCHEL Confirmed By:MELY DANIEL MD
--- NOTE | 2019-06-20 06:28 | NURSING ---
Pts primary rn aware of orders obtained for vit k from dr puckett.
[2019-06-20] MEDS: Phytonadione (Vit K1) 5 MG TABLET 2.5 MG PO (06:59)
--- NOTE | 2019-06-20 07:27 | ECHOD_ITS ---
Reason For Study: VALVE REPLACEMENT EVAL Procedure This was a 2D Doppler, Color Flow transthoracic echocardiogram. The exam was of adequate technical quality. Exam performed portable in patient room. Left Ventricle Normal LV size. Left ventricular systolic function is normal. The estimated ejection fraction is 65 %. Post operative septal motion. Right Ventricle Normal RV size. A calcified moderator band is seen in the right ventricle. Normal systolic function. Atria The left atrium is severely enlarged. The right atrium is moderately enlarged. No doppler evidence for ASD. Mitral Valve There is moderate mitral annular calcification. Extension of the mitral annular calcification onto the base of the posterior mitral valve leaflet. Mild diffuse mitral valve thickening. Mild-Moderate (1-2+) mitral valve insufficiency. Tricuspid Valve Normal tricuspid valve. Moderate (2+) tricuspid valve insufficiency. Right ventricular systolic pressure estimated to be 67 mmHg. Aortic Valve Stable appearing mechanical aortic valve apparatus. Trivial transvalvular insufficiency of the aortic valve. Pulmonic Valve The pulmonic valve is not well visualized. Mild (1+) pulmonic valve insufficiency. Great Vessels Borderline enlarged aortic root. Pericardium/Pleural No pericardial effusion. MMode/2D Measurements & Calculations LVIDd: 4.3 cm IVSd: 1.0 cm LVOT diam: 2.0 cm LVIDs: 2.9 cm LVPWd: 1.0 cm LVOT area: 3.1 cm2 RVDd: 3.4 cm FS: 33.9 % Ao root diam: 3.2 cm LAV(MOD-bp): 80.9 ml LVAd ap4: 22.9 cm2 LAV(MOD-bp) Indexed: 42.5 ml/m2 EDV(MOD-sp4): 65.9 ml LAV(MOD-sp2): 76.8 ml EDV(sp4-el): 65.9 ml LAV(MOD-sp4): 80.5 ml LVAs ap4: 10.3 cm2 ESV(MOD-sp4): 17.7 ml ESV(sp4-el): 16.5 ml EF(MOD-sp4): 73.1 % EF(sp4-el): 74.9 % SV(MOD-sp4): 48.1 ml SV(sp4-el): 49.4 ml LA A4 area: 25.4 cm2 LA dimension(2D): 4.0 cm RA A4 area: 21.7 cm2 Time Measurements MV dec time: 0.41 sec Doppler Measurements & Calculations MV E max steve: 147.8 cm/sec Lat Peak E' Steve: 7.3 cm/sec Med Peak E' Steve: 6.6 cm/sec MV A max steve: 52.7 cm/sec E/E' lat: 20.2 E/E' med: 22.5 MV E/A: 2.8 Ao V2 max: 337.8 cm/sec LV V1 max: 91.5 cm/sec SV(LVOT): 76.7 ml Ao max P.8 mmHg LV V1 max P.4 mmHg Ao V2 mean: 245.3 cm/sec LV V1 mean P.0 mmHg Ao mean P.8 mmHg LV V1 mean: 67.6 cm/sec Ao V2 VTI: 82.4 cm LV V1 VTI: 24.6 cm RUPERT(I,D): 0.93 cm2 RUPERT(V,D): 0.85 cm2 PA V2 max: 104.1 cm/sec TR max steve: 399.7 cm/sec TR max P.9 mmHg Interpretation Summary Left ventricular systolic function is normal. The estimated ejection fraction is 65 %. Post operative septal motion. A calcified moderator band is seen in the right ventricle. The left atrium is severely enlarged. The right atrium is moderately enlarged. There is moderate mitral annular calcification. Extension of the mitral annular calcification onto the base of the posterior mitral valve leaflet. Mild diffuse mitral valve thickening. Mild-Moderate (1-2+) mitral valve insufficiency. Moderate (2+) tricuspid valve insufficiency. Stable appearing mechanical aortic valve apparatus. Trivial transvalvular insufficiency of the aortic valve. Mild (1+) pulmonic valve insufficiency. Borderline enlarged aortic root. Right ventricular systolic pressure estimated to be 67 mmHg. Transmitral diastolic flow velocities suggest diastolic dysfunction (pseudonormal pattern). Ordering Physician: Dash Victoria Referring Physician: RINA PETERSON Performed By: Mary Silva RDCS
--- NOTE | 2019-06-20 08:51 | PCM.CONS.C ---
<Zoltan Newsome - Last Filed: 06/20/19 11:16> Problem List (1) Chest pain Status: Acute (2) Supratherapeutic INR Status: Acute (3) Paroxysmal atrial fibrillation Status: Chronic (4) Mixed hyperlipidemia Status: Chronic (5) Atherosclerotic heart disease of [place] coronary artery without angina pectoris Status: Chronic Qualifiers: [place] vs. transplanted heart: [place] heart Qualified Code(s): I25.10 - Atherosclerotic heart disease of [place] coronary artery without angina pectoris (6) History of coronary artery bypass surgery Status: Chronic Comment: CABG x1 CHURCH to LAD 04/18/2007 (7) History of mechanical aortic valve replacement Status: Chronic Comment: 1995 Reason for Consult Date of Consultation: 06/20/19 Reason for Consultation: Chest pain History of Present Illness: The patient is a 78 year old F who presented to [facility] on 06/20/2019 for 5 days of palpitations and chest pain/pressure throughout the prior night. She has a past medical history of coronary artery disease status post CABG with an CHURCH to LAD on 04/18/2007, bicuspid aortic valve status post replacement with a mechanical aortic valve in 1995, paroxysmal atrial fibrillation with cardioversion on 01/08/2019, cardiomyopathy, hyperlipidemia, and long-term anticoagulation therapy with Coumadin. Her Emergency Department work-up revealed an EKG of sinus rhythm, negative troponin, INR of 6.3, potassium 3.5, creatinine of 1.16, and chest x-ray revealing mild cardiomegaly. Due to the initial plan of a [facility] heart catheterization in July 2019 on account of Vending Machine Mechanic, Dr. Sage, and new onset of chest pressure, she was admitted for further evaluation. She received 2.5 mg p.o.of vitamin K for elevated INR with the anticipation of possible heart catheterization in the near future. Cardiology was consulted for further recommendation/input. Patient was seen by artificial snow making machine operator/Dr. Sage on 01/31/2019. At that visit, it was recommended to undergo a heart catheterization to further evaluate if pulmonary hypertension noted on echocardiogram is secondary to enlarged left atrium secondary to mitral regurgitation?type II pulmonary hypertension. It was also recommend that she undergo a polysomnogram to assess for sleep apnea component to pulmonary hypertension. Past Medical History Allergies/Adverse Reactions: Allergies Penicillins Allergy (Intermediate, Verified 06/20/19 04:33) Unknown Home Medications: Ambulatory Orders Medication Instructions Recorded pravastatin 40 mg tablet 40 mg PO QHS #90 tab 09/21/18 Warfarin Sodium 5 mg PO DAILY 11/25/18 furosemide 40 mg tablet 40 mg PO DAILY 01/17/19 metoprolol tartrate 25 mg tablet 25 mg PO BID #180 tab 02/12/19 amiodarone 200 mg tablet 200 mg PO DAILY #90 tab 04/02/19 Past Medical History (Chronic Problems): Chronic Problems (Last Reviewed 06/20/19 @ 06:21 by Peyman El MD) Paroxysmal atrial fibrillation (Chronic) Nonrheumatic aortic (valve) stenosis (Chronic) History of bicuspid aortic valve (Chronic) Mixed hyperlipidemia (Chronic) Atherosclerotic heart disease of [place] coronary artery without angina pectoris (Chronic) History of coronary artery bypass surgery (Chronic ~04/18/07) CABG x1 CHURCH to LAD 04/18/2007 History of mechanical aortic valve replacement (Chronic ~1995) 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 - *Family History Maternal Family History: Family History (Last Reviewed 06/20/19 @ 06:47 by Peyman El MD) Mother CAD (coronary artery disease) Myocardial infarction Hypertension TIA (transient ischemic attack) Diabetes Sister H/O aortic valve replacement Sister H/O aortic valve replacement Brother Heart disease Lives: Spouse/ Significant Other Smoking Status: Former smoker Tobacco Use: Cigarettes Review of Systems - Review of Systems General: Reports: Fatigue. Denies: Fever HEENT: Denies: Vision Change Cardiovascular: Reports: Chest Discomfort, Chest Discomfort at Rest, Chest Discomfort with Exertion, Chest Pressure, Shortness of Breath, Shortness of Breath with Exertion, Peripheral Edema, Palpitations. Denies: Chest Tightness, Chest Heaviness, Shortness of Breath at Rest, Orthopnea, PND, Lightheadedness, Dizziness, Near Syncope, Syncope, Orthostatic Symptoms, Claudication Respiratory: Denies: Cough Neurological: Denies: Dizziness Hematologic/ Lymphatic: Denies: Anemia Subjectve: Patient seen and evaluated. She states ongoing chest discomfort at rest that she rates a 4 out of 10. She acknowledges approximately 5 days ago she noted fatigue. She was seen and evaluated during her carpal tunnel office visit and thought to have a viral infection. She then noted slightly worse shortness of breath approximately 2-3 days ago. Yesterday she noted episode of chest pressure that she rated 6 out of 10. Objective: Vital Signs Temp Pulse Resp BP Pulse Ox 98.2 F 58 L 17 133/68 H 96 06/20/19 06:10 06/20/19 06:15 06/20/19 06:10 06/20/19 06:10 06/20/19 06:10 Oxygen Flow Rate (L/min) 2 Oxygen Delivery Method Room Air Weight: 198 lb 10.184 oz Body Mass Index (BMI) 36.3 General: Healthy Appearing, Awake, Alert, Oriented x 3, Cooperative, No Acute Distress Oral: Moist Mucosa Neck: No JVD Lungs: Clear to auscultation Cardiovascular: Regular Rhythm, Normal S1, Normal S2 Murmur Murmur: RLSB - crisp Vascular: No Carotid Bruits Abdomen: Bowel Sounds Present, Soft Extremities: No Cyanosis, No Clubbing, No edema, Normal Capillary Refill Neurological: No Focal Motor or Sensory Deficit Psych/Mental Status: Appropriate, Normal Affect 06/20/19 04:40: WBC 10.4, RBC 3.51 L, Hgb 11.5 L, Hct 34.0 L, MCV 96.9, MCH 32.8 H, MCHC 33.8, Plt Count 184, MPV 11.2, Immature Gran % (Auto) 0.300, Neut % (Auto) 78.1 H, Lymph % (Auto) 12.4 L, [place] % (Auto) 7.7, Eos % (Auto) 1.2, Baso % (Auto) 0.3, Absolute Neuts (auto) 8.1 H, Nucleated RBC % 0 06/20/19 04:40: PT 56.7 H, INR 6.3 H* 06/20/19 04:40: Sodium 141, Potassium 3.5, Chloride 106, Carbon Dioxide 29.0, Anion Gap 6, BUN 17, Creatinine 1.16 H, Est GFR (MDRD) Af Amer 58 L, Est GFR (MDRD) Non-Af 48 L, BUN/Creatinine Ratio 14.7, Glucose 107 H, Calcium 8.7, Troponin I < 0.015 06/20/19 07:34: Troponin I < 0.015 Rhythm: EKG: ECHO: 01/05/2019 Interpretation Summary The study was technically difficult. Contrast injection was performed. Mild global left ventricular systolic dysfunction. The estimated ejection fraction is 45 %. The left atrium is severely enlarged. The right atrium is mildly enlarged. There is moderate mitral annular calcification. Extension of the mitral annular calcification onto the posterior mitral valve leaflet. Mild diffuse mitral valve thickening. Mild-Moderate (1-2+) mitral valve insufficiency. Moderate (2+) tricuspid valve insufficiency. Stable appearing mechanical aortic valve apparatus. Trivial transvalvular insufficiency of the aortic valve. Trivial pulmonic valve insufficiency. Borderline to mildly dilated aortic root. Right ventricular systolic pressure estimated to be 45 mmHg. Unable to assess diastolic dysfunction. Stress Test: 01/01/2014 IMPRESSION: 1. Pharmacologic (regadenoson) evaluation. 2. Peak pharmacologic ECG with no obvious ECG changes. 3. Nuclear images pending. IMPRESSION: 1. Rest and stress SPECT Cardiolite nuclear imaging demonstrate myocardial perfusion changes appearing compatible with soft tissue/breast attenuation with no myocardial perfusion changes considered diagnostic for stress induced myocardial ischemia or previous myocardial injury/infarction. 2. The gated Cardiolite study reports an LVEF of 69%. Cardiac Cath at [facility]:04/21/2007: Left main: Widely patent, no angiographically definable disease identified LAD proximal: 95-99% luminal narrowing LAD mid: Occluded LAD distal: Fills from graft Diagonal 1: Widely patent, no angiographically definable disease identified Left circumflex proximal: Widely pain, no angiographic viable disease identified Left circumflex mid: Widely patent, no angiographic definable disease identified Left circumflex distal: Widely patent, no angiographic definable disease identified Obtuse marginal 1: Widely patent, no angiographically definable disease identified RCA proximal: Widely patent, no angiographically definable disease identified RCA mid: Widely patent, no angiographic definable disease identified RCA distal widely patent, 10-25% luminal narrowing Right posterior descending: Widely patent, no angiographically definable disease identified CHURCH to LAD is patent. Cardiac cath at [facility] from 07/12/2008: LAD proximal: 95-99% luminal narrowing LAD mid: Fills from competitive graft and [place] vessels LAD distal: Fills from competitive graft and [place] vessels Circumflex proximal: 25-50% luminal narrowing Obtuse marginal 1: 10-25% luminal narrowing Mid RCA: 25-50% luminal narrowing CHURCH to mid LAD: Patent PCI: CT Surgery: Holter monitor: EPS: PPM: CXR: Chest CT Scan: Assessment/Plan 1. Chest pain The exact etiology remains unclear at this time. However, given her past medical history of coronary artery disease and CABG in conjunction of worsening shortness of breath, chest pressure, and fatigue, it is reasonable to proceed with left heart catheterization to further evaluate coronary artery disease component. Her troponin has been negative x2. Her EKG is similar to previous without acute ST or T wave changes. Proceeding with heart catheterization is complicated by her supratherapeutic INR at 6.3 upon admission. She was given 1 dose of 2.5 mg p.o. vitamin K. Her INR will need to be trended and if needed start on heparin therapy prior to heart catheterization as to bridge her once her INR has dropped below 2. Her last stress test in January 2014 was negative for ischemia. Her most recent heart catheterization at [facility] in 2008 showed minimal disease and patent bypass graft. 2. Status post mechanical aortic valve replacement This occurred in 1995. Her last echocardiogram in January 2019 showed ejection of 45% and stable appearing mechanical aortic valve apparatus with trivial transvalvular insufficiency of the aortic valve. This appears stable on exam. She will undergo repeat echocardiogram to assess for changes in LV function and valvular status. Based on results, further recommendation will be made. Depending on the trend of her INR, she may need bridged with heparin therapy prior to heart catheterization when INR reaches 2 or below. She will continue with anticoagulation and antibiotic prophylaxis long-term. 3. Paroxysmal atrial fibrillation She underwent cardioversion on 01/08/2019. Her EKG continues to show sinus rhythm today. Her heart rate is well controlled. She will continue with antiarrhythmic/amiodarone therapy and metoprolol therapy. Her Coumadin is currently on hold due to supratherapeutic INR and possible upcoming heart catheterization. 4. Pulmonary hypertension Her echocardiogram in January 2019 showed an RVSP of 45 mmHg. She has been followed by Dr. Sage/artificial snow making machine operator regarding this. It was recommended that she undergo a heart catheterization to further evaluate. Thus, assuming she undergoes a left heart catheterization, she can also undergo a right heart catheterization to further assess pulmonary status. 5. Hyperlipidemia Lipid panel from 04/05/2019 showed cholesterol: 205, HDL: 80, LDL: 104, and took a stress: 106. She will continue current statin medication. Patient's case was reviewed with Dr. Victoria, who will also personally evaluate patient. See his dictation for further details. Thank you for allowing us to participate in the patients plan of care, if you have any questions please do not hesitate to call. This note was generated using a voice recognition system and there may be incorrect words, spelling or punctuation that were not noted when reviewing the office note prior to saving. <JulienDash - Last Filed: 06/20/19 18:30> Reason for Consult History of Present Illness: The patient is a 78 year old F [] Past Medical History - *Family History Maternal Family History: Family History (Last Reviewed 06/20/19 @ 06:47 by Peyman El MD) Mother CAD (coronary artery disease) Myocardial infarction Hypertension TIA (transient ischemic attack) Diabetes Sister H/O aortic valve replacement Sister H/O aortic valve replacement Brother Heart disease Objective: Vital Signs Temp Pulse Resp BP Pulse Ox 98.5 F 60 16 113/65 92 06/20/19 15:18 06/20/19 15:18 06/20/19 15:18 06/20/19 15:18 06/20/19 15:18 Oxygen Flow Rate (L/min) 2 Oxygen Delivery Method Room Air Weight: 198 lb 10.184 oz Body Mass Index (BMI) 36.3 Intake and Output for Last 24 Hours 06/18/19 06/19/19 06/20/19 23:59 23:59 23:59 Intake Total 740 / 740 Balance 740 / 740 06/20/19 04:40: WBC 10.4, RBC 3.51 L, Hgb 11.5 L, Hct 34.0 L, MCV 96.9, MCH 32.8 H, MCHC 33.8, Plt Count 184, MPV 11.2, Immature Gran % (Auto) 0.300, Neut % (Auto) 78.1 H, Lymph % (Auto) 12.4 L, [place] % (Auto) 7.7, Eos % (Auto) 1.2, Baso % (Auto) 0.3, Absolute Neuts (auto) 8.1 H, Nucleated RBC % 0 06/20/19 04:40: PT 56.7 H, INR 6.3 H* 06/20/19 04:40: Sodium 141, Potassium 3.5, Chloride 106, Carbon Dioxide 29.0, Anion Gap 6, BUN 17, Creatinine 1.16 H, Est GFR (MDRD) Af Amer 58 L, Est GFR (MDRD) Non-Af 48 L, BUN/Creatinine Ratio 14.7, Glucose 107 H, Calcium 8.7, Troponin I < 0.015 06/20/19 07:34: Troponin I < 0.015 06/20/19 10:40: Troponin I < 0.015 06/20/19 14:35: PT 56.9 H, INR 6.3 H* Rhythm: EKG: ECHO: Stress Test: Cardiac Cath: PCI: CT Surgery: Holter monitor: EPS: PPM: CXR: Chest CT Scan: Assessment/Plan Addendum: Date: 06-20-19 The patient was independently evaluated and examined. The patient presented with concerns of chest discomfort. She noted it was somewhat more prominent with inspiration. However based upon her cardiovascular history she presented for further evaluation and care. Thus far her cardiac enzymes have been negative. Her cardiac rhythm has been sinus rhythm. She denies any ongoing symptoms of orthopnea or PND or worsening peripheral pitting edema. There has been no near syncope or syncope. She states she believes she may have had an irregular rhythm at times. However the present time she appears to be remaining in sinus rhythm. Her lung exam demonstrates no obvious rales or rhonchi at this time. Her cardiovascular exam demonstrates a regular rhythm with a normal S1 and a crisp prosthetic S2. Her lower extremities demonstrate no obvious peripheral pitting edema. Her transthoracic echocardiogram performed today is as noted. Interpretation Summary Left ventricular systolic function is normal. The estimated ejection fraction is 65 %. Post operative septal motion. A calcified moderator band is seen in the right ventricle. The left atrium is severely enlarged. The right atrium is moderately enlarged. There is moderate mitral annular calcification. Extension of the mitral annular calcification onto the base of the posterior mitral valve leaflet. Mild diffuse mitral valve thickening. Mild-Moderate (1-2+) mitral valve insufficiency. Moderate (2+) tricuspid valve insufficiency. Stable appearing mechanical aortic valve apparatus. Trivial transvalvular insufficiency of the aortic valve. Mild (1+) pulmonic valve insufficiency. Borderline enlarged aortic root. Right ventricular systolic pressure estimated to be 67 mmHg. Transmitral diastolic flow velocities suggest diastolic dysfunction (pseudonormal pattern). At the present time she carries a diagnosis of CAD status post CHURCH to the LAD, aortic valve disorder status post mechanical aortic valve prosthesis, paroxysmal atrial fibrillation, history of CHF secondary to her previous atrial fibrillation and diminished LV systolic function at the time (which now appears to have improved compared to her previous echocardiographic study), and pulmonary hypertension. She had previously been evaluated by pulmonology with recommendations for a right heart cardiac catheterization to further assess her pulmonary status. At the present time based upon her symptoms of chest discomfort, her underlying cardiovascular disease, and her concerns of pulmonary disease she will be considered for further evaluation with right/left cardiac catheterization. The procedure and risks have been discussed with her. She is agreeable to this approach. However before this can be obtained her INR does need to decrease. Thus she is receiving vitamin K therapy. When her INR is considered appropriate then she can proceed with further invasive evaluation and care. The above was discussed and reviewed with the patient, her spouse, and Zoltan Newsome CNP. This note was generated using a voice recognition system and there may be incorrect words, spelling or punctuation that were not noted when reviewing the office note prior to saving.
[2019-06-20] MEDS: Metoprolol Tartrate 25 MG Tablet PO ×2 (09:48→21:35)
[2019-06-20] MEDS: Furosemide 40 MG Tablet PO (09:48)
[2019-06-20] MEDS: Amiodarone 200 MG Tablet PO (09:48)
--- NOTE | 2019-06-20 13:14 | PN_ITS ---
<Landen Spaulding - Last Filed: 06/20/19 13:14> Patient Problems: Active and Suspected Problems (Last Reviewed 06/20/19 @ 06:21 by Peyman El MD) Chest pain (Acute) Supratherapeutic INR (Acute) Reason for Visit: Chest pain Subjective: Ongoing left chest pain. No radiation, no nausea, no LH/Dizziness, no palp, no SOB, no LE edema. Agreeable to heart cath tuesday. Vitals/I&O's: Vital Signs Temp Pulse Resp BP Pulse Ox 98.2 F 61 14 108/60 96 06/20/19 09:44 06/20/19 09:48 06/20/19 09:44 06/20/19 09:44 06/20/19 09:44 Oxygen Flow Rate (L/min) 2 Oxygen Delivery Method Room Air Weight: 198 lb 10.184 oz Body Mass Index (BMI) 36.3 Intake and Output for Last 24 Hours 06/18/19 06/19/19 06/20/19 23:59 23:59 23:59 Intake Total 740 / 740 Balance 740 / 740 General: Alert, Oriented x3, Cooperative HEENT: Atraumatic, PERRLA, EOMI, Normocephalic Neck: Supple, No JVD, Negative Carotid Bruits Lungs: Clear to auscultation, Normal air movement Cardiovascular: Regular rate, Murmur Abdomen: Bowel Sounds Present, Soft, Non Tender Extremities: No edema, Capillary Refill Less than 3 Seconds Skin: No rashes, No breakdown Musculoskeletal: No Tenderness to Palpation of Joints or Extremities Neurological: Cranial nerves II-XII grossly intact Psych/Mental Status: Normal Affect, Appropriate, Alert and oriented to time, place, person, mood and affect Laboratory Results 06/20/19 04:40: WBC 10.4, RBC 3.51 L, Hgb 11.5 L, Hct 34.0 L, MCV 96.9, MCH 32.8 H, MCHC 33.8, RDW Std Deviation 47.2 H, RDW Coeff of Jaime 13.3, Plt Count 184, MPV 11.2, Immature Gran % (Auto) 0.300, Neut % (Auto) 78.1 H, Lymph % (Auto) 12.4 L, [place] % (Auto) 7.7, Eos % (Auto) 1.2, Baso % (Auto) 0.3, Absolute Neuts (auto) 8.1 H, Absolute Lymphs (auto) 1.29, Nucleated RBC % 0 06/20/19 04:40: PT 56.7 H, INR 6.3 H* 06/20/19 04:40: Sodium 141, Potassium 3.5, Chloride 106, Carbon Dioxide 29.0, Anion Gap 6, BUN 17, Creatinine 1.16 H, Estim Creat Clear Calc 32.63, Est GFR (MDRD) Af Amer 58 L, Est GFR (MDRD) Non-Af 48 L, BUN/Creatinine Ratio 14.7, Glucose 107 H, Calcium 8.7, Troponin I < 0.015 06/20/19 07:34: Troponin I < 0.015 06/20/19 10:40: Troponin I < 0.015 Current Medications Acetaminophen (Tylenol) 650 mg PO Q6H PRN PRN PRN Reason: Pain Score 1-10/Temp > 100.7 F Amiodarone HCl (Cordarone) 200 mg PO DAILY [facility] Last Admin: 06/20/19 09:48 Dose: 200 mg Documented by: Furosemide (Lasix) 40 mg PO DAILY [facility] Last Admin: 06/20/19 09:48 Dose: 40 mg Documented by: Glucagon () 1 mg IM .X1 PRN PRN Reason: Hypoglycemia Dextrose (Dextrose 10%-Water) 250 mls @ 999 mls/hr IV .Q16M PRN; Protocol PRN Reason: HYPOGLYCEMIA Sodium Chloride () 250 mls @ 15 mls/hr IV .[id number] PRN PRN Reason: Saline Flush Sodium Chloride () 250 mls @ 15 mls/hr IV .[id number] PRN PRN Reason: Additional IVPB Infusion Metoprolol Tartrate (Lopressor (Beta [place])) 25 mg PO BID [facility] Last Admin: 06/20/19 09:48 Dose: 25 mg Documented by: Nitroglycerin (Nitrostat) 0.4 mg SUBLINGUAL Q5M PRN PRN Reason: CARDIAC/CHEST PAIN Nutritional Formula (Lactose Free) (Ensure Enlive) 120 ml PO 4X/DAY [facility] Last Admin: 06/20/19 09:47 Dose: Not Given Documented by: Ondansetron HCl (Zofran) 4 mg IV Q8H PRN PRN PRN Reason: NAUSEA/VOMITING Pravastatin Sodium (Pravachol) 40 mg PO QHS [place] Sodium Chloride () 10 - 40 ml IV UD PRN PRN Reason: SALINE FLUSH STROKE Vital Signs/Narrative: Vital Signs Temp Pulse Resp BP Pulse Ox 06/20/19 09:48 61 06/20/19 09:44 98.2 F 61 14 108/60 96 Medical Necessity - Tobacco Use Smoking Status: Former smoker Tobacco Use: Cigarettes Assessment/Plan All Active Problems (Last Reviewed 06/20/19 @ 06:21 by Peyman El MD) Chest pain (Acute) Supratherapeutic INR (Acute) 1. Chest pain - EKG with t wave inversions. Troponin negative. Ongoing pain. Cardiology following. Cath when INR improves -Echo with EF 45%, RVSP 45 mmHg, 2+ TVI, 1-2+ MVI, stable aortic valve. -Repeat echo pending. 2. Mechanical aortic valve - on coumadin, held for supratherapeutic inr. Will allow this to drift down on its own. Likely needs heparin bridge onece INR subtherapeutic. 3. pAfib - in sinus rhythm. warfarin, amiodarone, metoprolol 4. CAD - prior CABG. on statin, metoprolol, warfarin DVT ppx: inr 6.3 DC planning: heart cath likely Tuesday. This patient was seen by Landen Spaulding PA-C under the supervision of Dr. Sauer <Barbara Sauer - Last Filed: 06/20/19 14:52> Vitals/I&O's: Vital Signs Temp Pulse Resp BP Pulse Ox 98.2 F 61 14 108/60 96 06/20/19 09:44 06/20/19 09:48 06/20/19 09:44 06/20/19 09:44 06/20/19 09:44 Oxygen Flow Rate (L/min) 2 Oxygen Delivery Method Room Air Weight: 198 lb 10.184 oz Body Mass Index (BMI) 36.3 Intake and Output for Last 24 Hours 06/18/19 06/19/19 06/20/19 23:59 23:59 23:59 Intake Total 740 / 740 Balance 740 / 740 Laboratory Results 06/20/19 04:40: WBC 10.4, RBC 3.51 L, Hgb 11.5 L, Hct 34.0 L, MCV 96.9, MCH 32.8 H, MCHC 33.8, RDW Std Deviation 47.2 H, RDW Coeff of Jaime 13.3, Plt Count 184, MPV 11.2, Immature Gran % (Auto) 0.300, Neut % (Auto) 78.1 H, Lymph % (Auto) 12.4 L, [place] % (Auto) 7.7, Eos % (Auto) 1.2, Baso % (Auto) 0.3, Absolute Neuts (auto) 8.1 H, Absolute Lymphs (auto) 1.29, Nucleated RBC % 0 06/20/19 04:40: PT 56.7 H, INR 6.3 H* 06/20/19 04:40: Sodium 141, Potassium 3.5, Chloride 106, Carbon Dioxide 29.0, Anion Gap 6, BUN 17, Creatinine 1.16 H, Estim Creat Clear Calc 32.63, Est GFR (MDRD) Af Amer 58 L, Est GFR (MDRD) Non-Af 48 L, BUN/Creatinine Ratio 14.7, Glucose 107 H, Calcium 8.7, Troponin I < 0.015 06/20/19 07:34: Troponin I < 0.015 06/20/19 10:40: Troponin I < 0.015 Current Medications Acetaminophen (Tylenol) 650 mg PO Q6H PRN PRN PRN Reason: Pain Score 1-10/Temp > 100.7 F Amiodarone HCl (Cordarone) 200 mg PO DAILY [facility] Last Admin: 06/20/19 09:48 Dose: 200 mg Documented by: Furosemide (Lasix) 40 mg PO DAILY [facility] Last Admin: 06/20/19 09:48 Dose: 40 mg Documented by: Glucagon () 1 mg IM .X1 PRN PRN Reason: Hypoglycemia Dextrose (Dextrose 10%-Water) 250 mls @ 999 mls/hr IV .Q16M PRN; Protocol PRN Reason: HYPOGLYCEMIA Sodium Chloride () 250 mls @ 15 mls/hr IV .[id number] PRN PRN Reason: Saline Flush Sodium Chloride () 250 mls @ 15 mls/hr IV .[id number] PRN PRN Reason: Additional IVPB Infusion Metoprolol Tartrate (Lopressor (Beta [place])) 25 mg PO BID [facility] Last Admin: 06/20/19 09:48 Dose: 25 mg Documented by: Nitroglycerin (Nitrostat) 0.4 mg SUBLINGUAL Q5M PRN PRN Reason: CARDIAC/CHEST PAIN Nutritional Formula (Lactose Free) (Ensure Enlive) 120 ml PO 4X/DAY [facility] Last Admin: 06/20/19 13:17 Dose: Not Given Documented by: Ondansetron HCl (Zofran) 4 mg IV Q8H PRN PRN PRN Reason: NAUSEA/VOMITING Pravastatin Sodium (Pravachol) 40 mg PO QHS [facility] Sodium Chloride () 10 - 40 ml IV UD PRN PRN Reason: SALINE FLUSH Assessment/Plan Patient seen by Landen Spaulding PA-C under my supervision Patient was admitted with a complaint of chest pain. She also had exertional shortness of breath, which was relieved by rest. She is being managed for chest pain, to r/o ACS. Patient seen and examined this morning. She felt well. Chest pain had resolved. Review of systems otherwise negative. Labs and vitals reviewed. o/e: Vital Signs Height 5 ft 2 in Weight: 198 lb 10.184 oz Weight in Pounds 198.6 lbs Pulse Ox 96 Temperature 98.2 F Pulse Rate 61 Respiratory Rate 14 Blood Pressure 108/60 Blood Pressure Position Semi-Fowlers General: Alert, Oriented x3, Cooperative HEENT: Atraumatic, PERRLA, EOMI, Normocephalic Neck: Supple, No JVD, Negative Carotid Bruits Lungs: Clear to auscultation, Normal air movement Cardiovascular: Regular rate, mechanical aortic valve click Abdomen: Bowel Sounds Present, Soft, Non Tender Extremities: No edema, Capillary Refill Less than 3 Seconds Skin: No rashes, No breakdown Musculoskeletal: No Tenderness to Palpation of Joints or Extremities Neurological: Cranial nerves II-XII grossly intact Psych/Mental Status: Normal Affect, Appropriate, Alert and oriented to time, place, person, mood and affect Cardiology is currently on board. INR was elevated on admission at 6.3. Coumadin currently on hold. Cardiology on board. To have cardiac cath when INR is down. 2D echo is pending. Continue statin and metoprolol. Sublingual nitroglycerin as needed. P.o. aspirin 81 mg daily. Rest of management as per Landen Spaulding PA-C's notes which I have reviewed and endorsed. Code Visit OBSV E&M: 34402 Subsequent observation care L2
--- NOTE | 2019-06-20 15:05 | CASEMGMT ---
Insurance review for [facility] facilities if transfer is recommended. [facility], [facility], [facility], [facility], [facility], [facility].
[2019-06-20 15:39] LABS: Prothrombin Time (Protime)PT. 56.9 SECONDS (11.7-14.9)
[2019-06-20 15:57] LABS: International Normalized Ratio 6.3
[2019-06-20] MEDS: Phytonadione (Vit K1) 5 MG TABLET 7.5 MG PO (18:45)
[2019-06-20] MEDS: Pravastatin 40 MG Tablet PO (21:35)
[2019-06-20] MEDS: Acetaminophen 325 MG Tablet 650 MG PO (21:42)
[2019-06-21] VITALS (12 sets, daily range): BP systolic 92–144; BP diastolic 48–67; PULSE 53–74; RESP 14–18; TEMP 36.6–37.1; O2SAT 93–98
[2019-06-21 06:05] LABS: Absolute Lymphocyte Count 1.47 X10^3/uL (0.83-4.51); Absolute Neutrophil Count 4.9 X10^3/uL (2.0-7.7); Basophil# 0.03 X10^3/uL; Basophil% 0.4 % (0-1); Eosinophil# 0.12 X10^3/uL; Eosinophils% 1.7 % (0-5); Hematocrit 31.4 % (37-47); Hemoglobin 10.5 g/dL (12.0-15.0); Lymphocyte # 1.47 X10^3/ul (4.0); Lymphocyte % 20.6 % (19-41); Mean Corp Hgb Conc 33.4 g/dL (32-36); Mean Corpuscular Hgb 32.3 pg (27.0-32.0); Mean Corpuscular Volume 96.6 fL (81-99); Mean Platelet Vol. 11.3 fl (6.2-12.0); Monocyte# 0.62 X10^3/uL; Monocyte% 8.7 % (0-10); NRBC Flagged by Analyzer 0 % (0-5); Neutrophil # 4.85 X10^3/uL (2.7-7.7); Neutrophil % 68.2 % (47-70); Platelet Count 163 K/mm3 (150-450); RBC Distribution Width CV 13.1 % (11.6-14.6); RBC Distribution Width SD 46.6 fl (35.1-43.9); Red Blood Count 3.25 M/mm3 (4.2-5.4); White Blood Count 7.1 K/mm3 (4.4-11.0)
[2019-06-21 06:06] LABS: International Normalized Ratio 2.2; Prothrombin Time (Protime)PT. 24.8 SECONDS (11.7-14.9)
--- NOTE | 2019-06-21 06:08 | EKG12_ITS ---
Test Reason : AM EKG Blood Pressure : / mmHG Vent. Rate : 052 BPM Atrial Rate : 052 BPM P-R Int : 170 ms QRS Dur : 116 ms QT Int : 520 ms P-R-T Axes : 069 054 103 degrees QTc Int : 483 ms Sinus bradycardia Incomplete left bundle branch block ST & T wave abnormality, consider lateral ischemia Prolonged QT Abnormal ECG When compared with ECG of 20-JUN-2019 04:36, MANUAL COMPARISON REQUIRED, DATA IS UNCONFIRMED Confirmed by MARÍA YANEZ, AISHA ([id number]), managing editor JEAN-PAUL MCARTHUR ([id number]) on 06/25/2019 12:52:48 PM Referred By: KEVIN Confirmed By:MELY DANIEL MD
[2019-06-21 06:26] LABS: Anion Gap 6 (5-15); BUN 22 mg/dL (7-18); BUN/Creat Ratio 20.6 RATIO (10-20); Calcium,Total 8.5 mg/dL (8.5-10.1); Chloride 108 mmol/L (98-107); Creatinine, Serum 1.07 mg/dL (0.55-1.02); EST Glomerular Filtration Rate 53 mL/min (>60); Est Glom Filt Rate - Afr Amer 64 mL/min (>60); Estimated Creatinine Clearance 35.38 ml/min; Glucose 104 mg/dL (74-106); Potassium 3.4 mmol/L (3.5-5.1); Sodium Level 142 mmol/L (136-145)
--- NOTE | 2019-06-21 08:50 | PCM.PN.CARD ---
Subjectve: The patient is awake and alert. She denies ongoing chest discomfort. She believes her breathing is better overall. However, she still states she has a sensation of shortness of breath. Objective: Vital Signs Temp Pulse Resp BP Pulse Ox 98.8 F 70 18 92/55 L 98 06/21/19 06:42 06/21/19 07:00 06/21/19 06:42 06/21/19 06:42 06/21/19 06:42 Oxygen Flow Rate (L/min) 2 Oxygen Delivery Method Room Air Weight: 198 lb 10.184 oz Body Mass Index (BMI) 36.3 Intake and Output for Last 24 Hours 06/19/19 06/20/19 06/21/19 23:59 23:59 23:59 Intake Total 740 / 980 240 / 240 Balance 740 / 980 240 / 240 General: Awake, Alert, Oriented x 3, Cooperative, No Acute Distress HEENT: Atraumatic, Normocephalic, PERRL, EOMI, Sclera Non Icteric Oral: Moist Mucosa Neck: Supple, Good ROM, No JVD Lungs: Clear to auscultation Cardiovascular: Regular Rhythm, Normal S1, [place] Prosthetic S2 Abdomen: Bowel Sounds Present, Soft, Non Tender Extremities: No edema Neurological: No Focal Motor or Sensory Deficit 06/20/19 10:40: Troponin I < 0.015 06/20/19 14:35: PT 56.9 H, INR 6.3 H* 06/21/19 05:25: PT 24.8 H, INR 2.2 06/21/19 05:25: WBC 7.1, RBC 3.25 L, Hgb 10.5 L, Hct 31.4 L, MCV 96.6, MCH 32.3 H, MCHC 33.4, Plt Count 163, MPV 11.3, Immature Gran % (Auto) 0.400, Neut % (Auto) 68.2, Lymph % (Auto) 20.6, [place] % (Auto) 8.7, Eos % (Auto) 1.7, Baso % (Auto) 0.4, Absolute Neuts (auto) 4.9, Nucleated RBC % 0 06/21/19 05:25: Sodium 142, Potassium 3.4 L, Chloride 108 H, Carbon Dioxide 28.0, Anion Gap 6, BUN 22 H, Creatinine 1.07 H, Est GFR (MDRD) Af Amer 64, Est GFR (MDRD) Non-Af 53 L, BUN/Creatinine Ratio 20.6 H, Glucose 104, Calcium 8.5 Rhythm: Sinus rhythm Medical Necessity - Tobacco Use Smoking Status: Former smoker Tobacco Use: Cigarettes Assessment/Plan 1. Chest pain/shortness of breath The patient continues with an element of shortness of breath. At the present time she is continuing medical management. Her rule out [place] protocol has been negative by cardiac enzyme. Her previous transthoracic echocardiogram was reviewed. The tentative plan has been to proceed with further evaluation, as previously discussed, with right/left diagnostic cardiac catheterization. This is pending the patient's INR level. 2. CAD status post CABG with CHURCH to the LAD Again based upon the patient's history, clinical course, etc., the plan at this time is to proceed with further evaluation with diagnostic cardiac catheterization when the INR level is deemed appropriate. 3. Aortic valve disease status post aortic valve replacement-mechanical The patient's aortic valve has been reassessed by echocardiographic studies. The patient will proceed with further evaluation as noted above. Following the above evaluation she will need re-anticoagulation with her warfarin/Coumadin therapy as well as consideration for bridging anticoagulant therapy. She will need to continue AHA antibiotic prophylaxis. 4. Pulmonary hypertension The patient does appear to have an element of pulmonary hypertension. This may be a contributing factor to her symptoms. She has been requested to have further evaluation of this by her photoengraving retoucher with a right heart catheterization. 5. Paroxysmal atrial fibrillation The patient's rhythm appears to remain sinus at this time. She will continue medical management and follow-up. Comment: The patient's INR was supratherapeutic upon arrival at the hospital. Based upon the patient's history she does state that she was using nonsteroidal anti-inflammatory therapy in the form of acetaminophen. This may be a contributing factor to her elevated INR level. This note was generated using a voice recognition system and there may be incorrect words, spelling or punctuation that were not noted when reviewing the office note prior to saving.
[2019-06-21] MEDS: Amiodarone 200 MG Tablet PO (09:54)
[2019-06-21 10:32] LABS: International Normalized Ratio 1.9; Prothrombin Time (Protime)PT. 21.6 SECONDS (11.7-14.9)
[2019-06-21] MEDS: Furosemide 40 MG Tablet PO (10:49)
--- NOTE | 2019-06-21 11:14 | CASEMGMT ---
RN CM NOTE: To room to talk with pt. Reviewed HAYES form with pt and questions answered. Pt made aware status is reviewed daily and will be changed to IN-if criteria is met, according to [facility] guidelines. HAYES form signed by pt, copy made and placed on chart, and original given to pt. Pt also provided with Medicare's Are you a Hospital Inpatient or Outpatient handout/info sheets. Pt made aware if she has any further questions, to ask for CM. Kathy MANNING RN CM
--- NOTE | 2019-06-21 12:48 | PN_ITS ---
<Maggy Resendiz - Last Filed: 06/21/19 12:57> Patient Problems: Active and Suspected Problems (Last Reviewed 06/20/19 @ 06:21 by Peyman El MD) Chest pain (Acute) Supratherapeutic INR (Acute) Subjective: Patient seen and examined. Denies further chest pain overnight. Denies shortness of breath, palpitations. Plan for cardiac catheterization tomorrow. - Physical Exam Vitals/I&O's: Vital Signs Temp Pulse Resp BP Pulse Ox 98.6 F 66 14 144/67 H 93 06/21/19 10:41 06/21/19 10:41 06/21/19 10:41 06/21/19 10:41 06/21/19 12:21 Oxygen Flow Rate (L/min) 2 Oxygen Delivery Method Room Air Weight: 198 lb 10.184 oz Body Mass Index (BMI) 36.3 Intake and Output for Last 24 Hours 06/19/19 06/20/19 06/21/19 23:59 23:59 23:59 Intake Total 740 / 980 740 / 740 Balance 740 / 980 740 / 740 General: Alert, Oriented x3, Cooperative HEENT: Atraumatic, PERRLA, EOMI, Normocephalic Neck: Supple, No JVD, Negative Carotid Bruits Lungs: Clear to auscultation, Normal air movement Cardiovascular: Regular rate, Regular Rhythm, Normal S1, Normal S2, Murmur Abdomen: Bowel Sounds Present, Soft, Non Tender, Non-Distended Extremities: No clubbing, No cyanosis, No edema, Capillary Refill Less than 3 Seconds Skin: No rashes, No breakdown Musculoskeletal: No Tenderness to Palpation of Joints or Extremities Neurological: Cranial nerves II-XII grossly intact, Neuro grossly intact Psych/Mental Status: Normal Affect, Appropriate Laboratory Results 06/20/19 14:35: PT 56.9 H, INR 6.3 H* 06/21/19 05:25: PT 24.8 H, INR 2.2 06/21/19 05:25: WBC 7.1, RBC 3.25 L, Hgb 10.5 L, Hct 31.4 L, MCV 96.6, MCH 32.3 H, MCHC 33.4, RDW Std Deviation 46.6 H, RDW Coeff of Jaime 13.1, Plt Count 163, MPV 11.3, Immature Gran % (Auto) 0.400, Neut % (Auto) 68.2, Lymph % (Auto) 20.6, [place] % (Auto) 8.7, Eos % (Auto) 1.7, Baso % (Auto) 0.4, Absolute Neuts (auto) 4.9, Absolute Lymphs (auto) 1.47, Nucleated RBC % 0 06/21/19 05:25: Sodium 142, Potassium 3.4 L, Chloride 108 H, Carbon Dioxide 28.0, Anion Gap 6, BUN 22 H, Creatinine 1.07 H, Estim Creat Clear Calc 35.38, Est GFR (MDRD) Af Amer 64, Est GFR (MDRD) Non-Af 53 L, BUN/Creatinine Ratio 20.6 H, Glucose 104, Calcium 8.5 06/21/19 10:00: PT 21.6 H, INR 1.9 Current Medications Acetaminophen (Tylenol) 650 mg PO Q6H PRN PRN PRN Reason: Pain Score 1-10/Temp > 100.7 F Last Admin: 06/20/19 21:42 Dose: 650 mg Documented by: Amiodarone HCl (Cordarone) 200 mg PO DAILY [facility] Last Admin: 06/21/19 09:54 Dose: 200 mg Documented by: Furosemide (Lasix) 40 mg PO DAILY [facility] Last Admin: 06/21/19 10:49 Dose: 40 mg Documented by: Glucagon () 1 mg IM .X1 PRN PRN Reason: Hypoglycemia Dextrose (Dextrose 10%-Water) 250 mls @ 999 mls/hr IV .Q16M PRN; Protocol PRN Reason: HYPOGLYCEMIA Sodium Chloride () 250 mls @ 15 mls/hr IV .[id number] PRN PRN Reason: Saline Flush Sodium Chloride () 250 mls @ 15 mls/hr IV .[id number] PRN PRN Reason: Additional IVPB Infusion Sodium Chloride () 1,000 mls @ 0 mls/hr IV .Q0M [facility] Metoprolol Tartrate (Lopressor (Beta [place])) 25 mg PO BID [facility] Last Admin: 06/21/19 09:51 Dose: Not Given Documented by: Nitroglycerin (Nitrostat) 0.4 mg SUBLINGUAL Q5M PRN PRN Reason: CARDIAC/CHEST PAIN Nutritional Formula (Lactose Free) (Ensure Enlive) 120 ml PO 4X/DAY [facility] Last Admin: 06/21/19 09:51 Dose: Not Given Documented by: Ondansetron HCl (Zofran) 4 mg IV Q8H PRN PRN PRN Reason: NAUSEA/VOMITING Pravastatin Sodium (Pravachol) 40 mg PO QHS [facility] Last Admin: 06/20/19 21:35 Dose: 40 mg Documented by: Sodium Chloride () 10 - 40 ml IV UD PRN PRN Reason: SALINE FLUSH Medical Necessity - Tobacco Use Smoking Status: Former smoker Tobacco Use: Cigarettes Assessment/Plan All Active Problems (Last Reviewed 06/20/19 @ 06:21 by Peyman El MD) Chest pain (Acute) Supratherapeutic INR (Acute) 1. Chest pain, history of CAD status post CABG-troponin negative. Echocardiogram demonstrates an EF of 65%, mild to moderate mitral valve insufficiency, moderate tricuspid valve insufficiency, stable appearing mechanical aortic valve, mild pulmonic valve insufficiency, RVSP estimated to be 67 mmHg. Cardiology following. Plan to undergo cardiac catheterization in a.m. Continue statin, beta-wellington regimen. Patient follows with Dr. Victoria as outpatient. 2. Supratherapeutic INR-Coumadin on hold, trend INR. Patient received vitamin K x1. Repeat INR this a.m. 1.9. 3. Valvular heart disease status post mechanical aortic valve replacement- echocardiogram completed and shows stable appearing aortic valve. 4. Paroxysmal atrial fibrillation-continue amiodarone, metoprolol. Coumadin on hold. 5. Chronic kidney disease stage III-at baseline, trend BMP. 6. Hyperlipidemia-continue statin. DVT prophylaxis-Coumadin on hold This patient was seen by BARTOLOME Kate under the supervision of Dr. Sauer. <Barbara Sauer - Last Filed: 06/21/19 15:40> - Physical Exam Vitals/I&O's: Vital Signs Temp Pulse Resp BP Pulse Ox 98.6 F 66 14 144/67 H 93 06/21/19 10:41 06/21/19 10:41 06/21/19 10:41 06/21/19 10:41 06/21/19 12:21 Oxygen Flow Rate (L/min) 2 Oxygen Delivery Method Room Air Weight: 198 lb 10.184 oz Body Mass Index (BMI) 36.3 Intake and Output for Last 24 Hours 06/19/19 06/20/19 06/21/19 23:59 23:59 23:59 Intake Total 740 / 980 740 / 740 Balance 740 / 980 740 / 740 Laboratory Results 06/20/19 14:35: PT 56.9 H, INR 6.3 H* 06/21/19 05:25: PT 24.8 H, INR 2.2 06/21/19 05:25: WBC 7.1, RBC 3.25 L, Hgb 10.5 L, Hct 31.4 L, MCV 96.6, MCH 32.3 H, MCHC 33.4, RDW Std Deviation 46.6 H, RDW Coeff of Jaime 13.1, Plt Count 163, MPV 11.3, Immature Gran % (Auto) 0.400, Neut % (Auto) 68.2, Lymph % (Auto) 20.6, [place] % (Auto) 8.7, Eos % (Auto) 1.7, Baso % (Auto) 0.4, Absolute Neuts (auto) 4.9, Absolute Lymphs (auto) 1.47, Nucleated RBC % 0 06/21/19 05:25: Sodium 142, Potassium 3.4 L, Chloride 108 H, Carbon Dioxide 28.0, Anion Gap 6, BUN 22 H, Creatinine 1.07 H, Estim Creat Clear Calc 35.38, Est GFR (MDRD) Af Amer 64, Est GFR (MDRD) Non-Af 53 L, BUN/Creatinine Ratio 20.6 H, Glucose 104, Calcium 8.5 06/21/19 10:00: PT 21.6 H, INR 1.9 Current Medications Acetaminophen (Tylenol) 650 mg PO Q6H PRN PRN PRN Reason: Pain Score 1-10/Temp > 100.7 F Last Admin: 06/20/19 21:42 Dose: 650 mg Documented by: Amiodarone HCl (Cordarone) 200 mg PO DAILY [facility] Last Admin: 06/21/19 09:54 Dose: 200 mg Documented by: Furosemide (Lasix) 40 mg PO DAILY [facility] Last Admin: 06/21/19 10:49 Dose: 40 mg Documented by: Glucagon () 1 mg IM .X1 PRN PRN Reason: Hypoglycemia Dextrose (Dextrose 10%-Water) 250 mls @ 999 mls/hr IV .Q16M PRN; Protocol PRN Reason: HYPOGLYCEMIA Sodium Chloride () 250 mls @ 15 mls/hr IV .[id number] PRN PRN Reason: Saline Flush Sodium Chloride () 250 mls @ 15 mls/hr IV .[id number] PRN PRN Reason: Additional IVPB Infusion Sodium Chloride () 1,000 mls @ 0 mls/hr IV .Q0M [facility] Metoprolol Tartrate (Lopressor (Beta [place])) 25 mg PO BID [facility] Last Admin: 06/21/19 09:51 Dose: Not Given Documented by: Nitroglycerin (Nitrostat) 0.4 mg SUBLINGUAL Q5M PRN PRN Reason: CARDIAC/CHEST PAIN Nutritional Formula (Lactose Free) (Ensure Enlive) 120 ml PO 4X/DAY [facility] Last Admin: 06/21/19 14:29 Dose: Not Given Documented by: Ondansetron HCl (Zofran) 4 mg IV Q8H PRN PRN PRN Reason: NAUSEA/VOMITING Pravastatin Sodium (Pravachol) 40 mg PO QHS [facility] Last Admin: 06/20/19 21:35 Dose: 40 mg Documented by: Sodium Chloride () 10 - 40 ml IV UD PRN PRN Reason: SALINE FLUSH Assessment/Plan Patient seen by BARTOLOME Kate under my supervision. Patient has no complaints this morning and feels well. Review of steps otherwise negative. INR this morning is 2.2 and per cardiology, they would prefer for INR to be less than 2 for she can have cardiac cath. She was given 1 dose of IV vitamin K and INR came down to 1.9. Labs and vitals reviewed. o/e: Vital Signs Height 5 ft 2 in Weight: 198 lb 10.184 oz Weight in Pounds 198.6 lbs Pulse Ox 93 Temperature 98.6 F Pulse Rate 66 Respiratory Rate 14 Blood Pressure 144/67 Blood Pressure Position Semi-Fowlers General: Alert, Oriented x3, Cooperative HEENT: Atraumatic, PERRLA, EOMI, Normocephalic Neck: Supple, No JVD, Negative Carotid Bruits Lungs: Clear to auscultation, Normal air movement Cardiovascular: Regular rate, Regular Rhythm, Normal S1, Normal S2, Murmur Abdomen: Bowel Sounds Present, Soft, Non Tender, Non-Distended Extremities: No clubbing, No cyanosis, No edema, Capillary Refill Less than 3 Seconds Skin: No rashes, No breakdown Musculoskeletal: No Tenderness to Palpation of Joints or Extremities Neurological: Cranial nerves II-XII grossly intact, Neuro grossly intact Psych/Mental Status: Normal Affect, Appropriate Plan is for cardiac cath tomorrow. INR has to be less than 2. Continue statin and beta-wellington. Sublingual nitroglycerin as needed. P.o. aspirin 81 mg daily. Rest of management as per BARTOLOME Kate's notes which I reviewed and endorsed. Code Visit Inpatient E&M: 50659 Subs Hosp L2
[2019-06-21] MEDS: Acetaminophen 325 MG Tablet 650 MG PO (20:45)
[2019-06-21] MEDS: Pravastatin 40 MG Tablet PO (21:51)
[2019-06-21] MEDS: Metoprolol Tartrate 25 MG Tablet PO (21:51)
[2019-06-22] VITALS (21 sets, daily range): BP systolic 111–140; BP diastolic 59–82; PULSE 48–73; RESP 12–18; TEMP 36.2–36.8; O2SAT 92–98
--- NOTE | 2019-06-22 05:55 | EKG12_ITS ---
Test Reason : AM EKG Blood Pressure : / mmHG Vent. Rate : 055 BPM Atrial Rate : 055 BPM P-R Int : 172 ms QRS Dur : 106 ms QT Int : 524 ms P-R-T Axes : 080 065 115 degrees QTc Int : 501 ms Sinus bradycardia Incomplete left bundle branch block Nonspecific ST abnormality Prolonged QT Abnormal ECG When compared with ECG of 25-JUN-2008 09:38, MANUAL COMPARISON REQUIRED, DATA IS UNCONFIRMED Confirmed by MARÍA YANEZ, AISHA ([id number]), index editor JEAN-PAUL MCARTHUR ([id number]) on 06/29/2019 10:37:30 AM Referred By: KEVIN Confirmed By:MELY DANIEL MD
[2019-06-22 06:06] LABS: Absolute Lymphocyte Count 1.71 X10^3/uL (0.83-4.51); Absolute Neutrophil Count 4.8 X10^3/uL (2.0-7.7); Basophil# 0.05 X10^3/uL; Basophil% 0.7 % (0-1); Eosinophil# 0.16 X10^3/uL; Eosinophils% 2.2 % (0-5); Hematocrit 34.9 % (37-47); Hemoglobin 11.5 g/dL (12.0-15.0); Lymphocyte # 1.71 X10^3/ul (4.0); Lymphocyte % 23.5 % (19-41); Mean Corpuscular Hgb 32.1 pg (27.0-32.0); Mean Corpuscular Volume 97.5 fL (81-99); Mean Platelet Vol. 10.9 fl (6.2-12.0); Monocyte# 0.55 X10^3/uL; Monocyte% 7.6 % (0-10); NRBC Flagged by Analyzer 0 % (0-5); Neutrophil # 4.77 X10^3/uL (2.7-7.7); Neutrophil % 65.6 % (47-70); Platelet Count 205 K/mm3 (150-450); RBC Distribution Width CV 12.9 % (11.6-14.6); RBC Distribution Width SD 46.5 fl (35.1-43.9); Red Blood Count 3.58 M/mm3 (4.2-5.4); White Blood Count 7.3 K/mm3 (4.4-11.0)
[2019-06-22 06:13] LABS: Anion Gap 4 (5-15); BUN 22 mg/dL (7-18); BUN/Creat Ratio 19.5 RATIO (10-20); Calcium,Total 8.7 mg/dL (8.5-10.1); Chloride 107 mmol/L (98-107); Creatinine, Serum 1.13 mg/dL (0.55-1.02); EST Glomerular Filtration Rate 50 mL/min (>60); Est Glom Filt Rate - Afr Amer 60 mL/min (>60); Glucose 104 mg/dL (74-106); Potassium 3.9 mmol/L (3.5-5.1); Sodium Level 141 mmol/L (136-145)
[2019-06-22 06:14] LABS: International Normalized Ratio 1.4; Prothrombin Time (Protime)PT. 17.1 SECONDS (11.7-14.9)
[2019-06-22] MEDS: 0.9% Saline Lock 10 ML Syringe IV (06:47)
[2019-06-22] MEDS: Metoprolol Tartrate 25 MG Tablet PO ×2 (06:47→21:29)
[2019-06-22] MEDS: 0.9% Normal Saline 1,000 ML 15 ML IV (06:53)
[2019-06-22] MEDS: Amiodarone 200 MG Tablet PO (07:57)
--- NOTE | 2019-06-22 08:02 | NURSING ---
report called to laboratory aide RN Ryland. Ryland made aware that pt has not been receiving any type of antiplatelet. Ryland made aware that this RN contacted Dr Victoria about antiplatelet order. Dr. Victoria told this RN that he indeed wanted antiplatelet given and this RN made dr victoria aware that nothing was ordered. Ryland RN in laboratory aide made aware that this RN never received orders for antiplatelet. Ryland told this RN that it would be managed in laboratory aide.
[2019-06-22 09:46] LABS: Blood Gas Specimen Type VEN; VBG BASE EXCESS 1 mmol/L (-1.0-3.5); VBG Bicarbonate 26 mmol/L (22-26); VBG Oxygen Content 27 mmol/L (23-33); VBG PO2 34 mmHg (25-40); VBG SO2 65 % (50-70); VBG pCO2 42.2 mmHg (41-51); VBG pH 7.39 (7.32-7.42)
[2019-06-22 09:46] LABS: Base Excess 2 mmol/L (-2 to +2); Bicarbonate 26.1 mmol/L (22-26); Blood Gas Specimen Type ART; PO2 61 mmHG (75-100); SO2 91 % (95-99); Total Carbon Dioxide 27 mmol/L; pCO2 40.5 mmHg (35-45); pH 7.42 (7.35-7.45)
[2019-06-22 09:46] LABS: Blood Gas Specimen Type VEN; VBG BASE EXCESS 2 mmol/L (-1.0-3.5); VBG Bicarbonate 27 mmol/L (22-26); VBG Oxygen Content 28 mmol/L (23-33); VBG PO2 33 mmHg (25-40); VBG SO2 64 % (50-70); VBG pCO2 43.4 mmHg (41-51)
[2019-06-22 09:46] LABS: Blood Gas Specimen Type VEN; VBG BASE EXCESS 1 mmol/L (-1.0-3.5); VBG Bicarbonate 26 mmol/L (22-26); VBG Oxygen Content 27 mmol/L (23-33); VBG PO2 33 mmHg (25-40); VBG SO2 64 % (50-70); VBG pCO2 41.4 mmHg (41-51)
[2019-06-22] MEDS: 0.9% Normal Saline 1,000 ML 75 ML IV (11:21)
[2019-06-22] MEDS: Acetaminophen 325 MG Tablet 650 MG PO ×2 (11:21→21:35)
--- NOTE | 2019-06-22 12:23 | PN.CARD_ITS ---
Subjectve: The patient underwent diagnostic cardiac catheterization earlier this day. Present time she appears to have no obvious post procedure related acute s ymptoms/concerns. Objective: Vital Signs Temp Pulse Resp BP Pulse Ox 98.3 F 63 12 119/60 98 06/22/19 12:15 06/22/19 12:15 06/22/19 12:15 06/22/19 12:15 06/22/19 12:15 Oxygen Flow Rate (L/min) 2 Oxygen Delivery Method Room Air Weight: 198 lb 10.184 oz Body Mass Index (BMI) 36.3 Intake and Output for Last 24 Hours 06/20/19 06/21/19 06/22/19 23:59 23:59 23:59 Intake Total 740 / 980 1300 / 1300 174.75 / 174.75 Balance 740 / 980 1300 / 1300 174.75 / 174.75 General: Awake, Alert, Oriented x 3, Cooperative, No Acute Distress HEENT: Atraumatic, Normocephalic, PERRL, EOMI, Sclera Non Icteric Oral: Moist Mucosa Neck: Supple, Good ROM, No JVD Lungs: Clear to auscultation Cardiovascular: Regular Rhythm, Normal S1, [place] Prosthetic S2 Murmur Murmur: RLSB - crisp Vascular: Normal Femoral Pulses Abdomen: Bowel Sounds Present, Soft, Non Tender Extremities: No edema Neurological: No Focal Motor or Sensory Deficit Psych/Mental Status: Appropriate 06/22/19 05:46: WBC 7.3, RBC 3.58 L, Hgb 11.5 L, Hct 34.9 L, MCV 97.5, MCH 32.1 H, MCHC 33.0, Plt Count 205, MPV 10.9, Immature Gran % (Auto) 0.400, Neut % (Auto) 65.6, Lymph % (Auto) 23.5, [place] % (Auto) 7.6, Eos % (Auto) 2.2, Baso % (Auto) 0.7, Absolute Neuts (auto) 4.8, Nucleated RBC % 0 06/22/19 05:46: PT 17.1 H, INR 1.4 06/22/19 05:46: Sodium 141, Potassium 3.9, Chloride 107, Carbon Dioxide 30.0, Anion Gap 4 L, BUN 22 H, Creatinine 1.13 H, Est GFR (MDRD) Af Amer 60, Est GFR (MDRD) Non-Af 50 L, BUN/Creatinine Ratio 19.5, Glucose 104, Calcium 8.7 06/22/19 08:48: pH 7.42, Bicarbonate Actual 26.1 H, POC Total CO2 27, Base Excess 2, O2 Saturation 91 L, ABG pCO2 40.5, ABG pO2 61 L 06/22/19 08:57: VBG pH 7.40, VBG pO2 33, VBG O2 Sat (Calc) 64, VBG O2 Content 27, VBG Base Excess 1 06/22/19 09:00: VBG pH 7.40, VBG pO2 33, VBG O2 Sat (Calc) 64, VBG O2 Content 28, VBG Base Excess 2 06/22/19 09:03: VBG pH 7.39, VBG pO2 34, VBG O2 Sat (Calc) 65, VBG O2 Content 27, VBG Base Excess 1 Rhythm: Sinus rhythm Medical Necessity - Tobacco Use Smoking Status: Former smoker Tobacco Use: Cigarettes Assessment/Plan 1. Chest pain/shortness of breath The patient has undergone further evaluation with diagnostic cardiac catheterization. Based upon her procedure her CHURCH to the LAD was patent, the LCx and RCA did not appear to demonstrate angiographically significant appearing CAD requiring catheter based revascularization therapy, the thoracic aorta did not appear to demonstrate any obvious angiographically significant appearing disease, and her bileaflet mechanical aortic valve appeared to be opening and closing appropriately. She was noted to have marked elevation of her intrapulmonary/right heart pressures compatible with pulmonary hypertension. This may be contributing to her symptoms. From a cardiac standpoint she will continue medical management as deemed appropriate. She will need to continue to follow-up with her dog food shredder operator for further evaluation of her pulmonary hypertension. 2. CAD status post CABG with CHURCH to the LAD She has been evaluated as noted above. She will continue medical management. 3. Aortic valve disease status post aortic valve replacement-mechanical Again she has undergone noninvasive evaluation. She also underwent fluoroscopic evaluation of her aortic valve apparatus this day. She will restart her anticoagulant therapy with warfarin/Coumadin. She will be considered for bridging anticoagulant therapy with enoxaparin starting tomorrow barring any unforeseen adverse events from her cardiac catheterization procedure. If she is stable then perhaps she can continue this as an outpatient with bridging anticoagulant therapy with enoxaparin at 1 mg/kg twice daily until her INR is therapeutic. 4. Pulmonary hypertension The patient does appear to have an element of pulmonary hypertension. This may be a contributing factor to her symptoms. She is now status post both noninvasive and invasive evaluation. Again she will need to follow-up with her dog food shredder operator for further evaluation of her pulmonary pressures. 5. Paroxysmal atrial fibrillation The patient's rhythm appears to remain sinus at this time. She will continue medical management and follow-up. The above findings were discussed with the patient and her family members. This note was generated using a voice recognition system and there may be incorrect words, spelling or punctuation that were not noted when reviewing the office note prior to saving.
--- NOTE | 2019-06-22 13:15 | PN_ITS ---
<Maggy Resendiz - Last Filed: 06/22/19 13:21> Patient Problems: Active and Suspected Problems (Last Reviewed 06/20/19 @ 06:21 by Peyman El MD) Chest pain (Acute) Supratherapeutic INR (Acute) Subjective: Patient seen and examined. Underwent cardiac catheterization this morning which did not require any revascularization. Plan to monitor overnight. Plan to begin bridging with Lovenox tomorrow a.m. - Physical Exam Vitals/I&O's: Vital Signs Temp Pulse Resp BP Pulse Ox 98.3 F 63 12 119/60 98 06/22/19 12:15 06/22/19 12:15 06/22/19 12:15 06/22/19 12:15 06/22/19 12:15 Oxygen Flow Rate (L/min) 2 Oxygen Delivery Method Room Air Weight: 198 lb 10.184 oz Body Mass Index (BMI) 36.3 Intake and Output for Last 24 Hours 06/20/19 06/21/19 06/22/19 23:59 23:59 23:59 Intake Total 740 / 980 1300 / 1300 174.75 / 174.75 Balance 740 / 980 1300 / 1300 174.75 / 174.75 General: Alert, Oriented x3, Cooperative HEENT: Atraumatic, PERRLA, EOMI, Normocephalic Neck: Supple, No JVD, Negative Carotid Bruits Lungs: Clear to auscultation, Normal air movement Cardiovascular: Regular rate, Regular Rhythm, Normal S1, Normal S2, Murmur Abdomen: Bowel Sounds Present, Soft, Non Tender, Non-Distended Extremities: No clubbing, No cyanosis, No edema, Capillary Refill Less than 3 Seconds Skin: No rashes, No breakdown Musculoskeletal: No Tenderness to Palpation of Joints or Extremities Neurological: Cranial nerves II-XII grossly intact, Neuro grossly intact Psych/Mental Status: Normal Affect, Appropriate Laboratory Results 06/22/19 05:46: WBC 7.3, RBC 3.58 L, Hgb 11.5 L, Hct 34.9 L, MCV 97.5, MCH 32.1 H, MCHC 33.0, RDW Std Deviation 46.5 H, RDW Coeff of Jaime 12.9, Plt Count 205, MPV 10.9, Immature Gran % (Auto) 0.400, Neut % (Auto) 65.6, Lymph % (Auto) 23.5, [place] % (Auto) 7.6, Eos % (Auto) 2.2, Baso % (Auto) 0.7, Absolute Neuts (auto) 4.8, Absolute Lymphs (auto) 1.71, Nucleated RBC % 0 06/22/19 05:46: PT 17.1 H, INR 1.4 06/22/19 05:46: Sodium 141, Potassium 3.9, Chloride 107, Carbon Dioxide 30.0, Anion Gap 4 L, BUN 22 H, Creatinine 1.13 H, Estim Creat Clear Calc 33.50, Est GFR (MDRD) Af Amer 60, Est GFR (MDRD) Non-Af 50 L, BUN/Creatinine Ratio 19.5, Glucose 104, Calcium 8.7 06/22/19 08:48: Specimen Type ART, pH 7.42, Bicarbonate Actual 26.1 H, POC Total CO2 27, Base Excess 2, O2 Saturation 91 L, ABG pCO2 40.5, ABG pO2 61 L 06/22/19 08:57: Specimen Type BALA, VBG pH 7.40, VBG pO2 33, VBG O2 Sat (Calc) 64, VBG O2 Content 27, VBG Base Excess 1, POC Mix VBG pCO2 Pt Tmp 41.4 06/22/19 09:00: Specimen Type BALA, VBG pH 7.40, VBG pO2 33, VBG O2 Sat (Calc) 64, VBG O2 Content 28, VBG Base Excess 2, POC Mix VBG pCO2 Pt Tmp 43.4 06/22/19 09:03: Specimen Type BALA, VBG pH 7.39, VBG pO2 34, VBG O2 Sat (Calc) 65, VBG O2 Content 27, VBG Base Excess 1, POC Mix VBG pCO2 Pt Tmp 42.2 Current Medications Acetaminophen (Tylenol) 650 mg PO Q6H PRN PRN PRN Reason: Pain Score 1-10/Temp > 100.7 F Last Admin: 06/22/19 11:21 Dose: 650 mg Documented by: Amiodarone HCl (Cordarone) 200 mg PO DAILY [facility] Last Admin: 06/22/19 07:57 Dose: 200 mg Documented by: Amlodipine Besylate (Norvasc) 2.5 mg PO DAILY [facility] Enoxaparin Sodium (Lovenox) 90 mg 1 mg/kg (90 mg) SC Q12@1000,2200 [facility] Furosemide (Lasix) 40 mg PO DAILY [facility] Last Admin: 06/21/19 10:49 Dose: 40 mg Documented by: Glucagon () 1 mg IM .X1 PRN PRN Reason: Hypoglycemia Heparin Sodium (Beef Lung) (Heparin 500 Unit/5 Ml (100/Ml)) 500 unit IV UD PRN PRN Reason: HEPARIN FLUSH Dextrose (Dextrose 10%-Water) 250 mls @ 999 mls/hr IV .Q16M PRN; Protocol PRN Reason: HYPOGLYCEMIA Sodium Chloride () 250 mls @ 15 mls/hr IV .[id number] PRN PRN Reason: Saline Flush Sodium Chloride () 250 mls @ 15 mls/hr IV .[id number] PRN PRN Reason: Additional IVPB Infusion Sodium Chloride () 1,000 mls @ 0 mls/hr IV .Q0M XENIA Sodium Chloride () 1,000 mls @ 15 mls/hr IV .Q48H [facility] Last Infusion: 06/22/19 11:39 Dose: 0 mls/hr Documented by: Sodium Chloride () 1,000 mls @ 75 mls/hr IV .[id number] [facility] Stop: 06/22/19 13:50 Last Admin: 06/22/19 11:21 Dose: 75 mls/hr Documented by: Labetalol HCl (Trandate) 5 mg IV X1 PRN PRN Reason: SBP > 160 prior to sheath pull Stop: 06/24/19 09:49 Metoprolol Tartrate (Lopressor (Beta [place])) 25 mg PO BID [facility] Last Admin: 06/22/19 06:47 Dose: 25 mg Documented by: Nitroglycerin (Nitrostat) 0.4 mg SUBLINGUAL Q5M PRN PRN Reason: CARDIAC/CHEST PAIN Nutritional Formula (Lactose Free) (Ensure Enlive) 120 ml PO 4X/DAY [facility] Last Admin: 06/22/19 07:57 Dose: Not Given Documented by: Ondansetron HCl (Zofran) 4 mg IV Q8H PRN PRN PRN Reason: NAUSEA/VOMITING Pravastatin Sodium (Pravachol) 40 mg PO QHS [facility] Last Admin: 06/21/19 21:51 Dose: 40 mg Documented by: Sodium Chloride () 10 - 40 ml IV UD PRN PRN Reason: SALINE FLUSH Last Admin: 06/22/19 06:47 Dose: 10 ml Documented by: Warfarin Sodium (Coumadin (Pbkc)) 5 mg PO DAILY@1700 XENIA Medical Necessity - Tobacco Use Smoking Status: Former smoker Tobacco Use: Cigarettes Assessment/Plan All Active Problems (Last Reviewed 06/20/19 @ 06:21 by Peyman El MD) Chest pain (Acute) Supratherapeutic INR (Acute) 1. Chest pain, history of CAD status post CABG-troponin negative. Echocardiogram demonstrates an EF of 65%, mild to moderate mitral valve insufficiency, moderate tricuspid valve insufficiency, stable appearing mechanical aortic valve, mild pulmonic valve insufficiency, RVSP estimated to be 67 mmHg. Cardiology following. Patient underwent cardiac catheterization 06/22/2019 which did not require revascularization. Continue statin, beta- wellington regimen. Patient follows with Dr. Victoria. 2. Supratherapeutic INR-patient will resume Coumadin tonight with plans to bridge with Lovenox beginning tomorrow morning. 3. Valvular heart disease status post mechanical aortic valve replacement- echocardiogram completed and shows stable appearing aortic valve. 4. Paroxysmal atrial fibrillation-continue amiodarone, metoprolol, Coumadin. 5. Chronic kidney disease stage III-at baseline, trend BMP. 6. Hyperlipidemia-continue statin. 7. Pulmonary hypertension-RVSP 67 mmHg per echo. Recommend outpatient follow- up with pulmonary medicine. DVT prophylaxis-Coumadin Discharge planning: Anticipate discharge home tomorrow. This patient was seen by BARTOLOME Kate under the supervision of Dr. Sauer. <Barbara Sauer - Last Filed: 06/22/19 13:57> - Physical Exam Vitals/I&O's: Vital Signs Temp Pulse Resp BP Pulse Ox 98.3 F 52 L 12 111/59 L 93 06/22/19 12:15 06/22/19 13:21 06/22/19 13:21 06/22/19 13:21 06/22/19 13:21 Oxygen Flow Rate (L/min) 2 Oxygen Delivery Method Room Air Weight: 198 lb 10.184 oz Body Mass Index (BMI) 36.3 Intake and Output for Last 24 Hours 06/20/19 06/21/19 06/22/19 23:59 23:59 23:59 Intake Total 740 / 980 1300 / 1300 174.75 / 174.75 Balance 740 / 980 1300 / 1300 174.75 / 174.75 Laboratory Results 06/22/19 05:46: WBC 7.3, RBC 3.58 L, Hgb 11.5 L, Hct 34.9 L, MCV 97.5, MCH 32.1 H, MCHC 33.0, RDW Std Deviation 46.5 H, RDW Coeff of Jaime 12.9, Plt Count 205, MPV 10.9, Immature Gran % (Auto) 0.400, Neut % (Auto) 65.6, Lymph % (Auto) 23.5, [place] % (Auto) 7.6, Eos % (Auto) 2.2, Baso % (Auto) 0.7, Absolute Neuts (auto) 4.8, Absolute Lymphs (auto) 1.71, Nucleated RBC % 0 06/22/19 05:46: PT 17.1 H, INR 1.4 06/22/19 05:46: Sodium 141, Potassium 3.9, Chloride 107, Carbon Dioxide 30.0, Anion Gap 4 L, BUN 22 H, Creatinine 1.13 H, Estim Creat Clear Calc 33.50, Est GFR (MDRD) Af Amer 60, Est GFR (MDRD) Non-Af 50 L, BUN/Creatinine Ratio 19.5, Glucose 104, Calcium 8.7 06/22/19 08:48: Specimen Type ART, pH 7.42, Bicarbonate Actual 26.1 H, POC Total CO2 27, Base Excess 2, O2 Saturation 91 L, ABG pCO2 40.5, ABG pO2 61 L 06/22/19 08:57: Specimen Type BALA, VBG pH 7.40, VBG pO2 33, VBG O2 Sat (Calc) 64, VBG O2 Content 27, VBG Base Excess 1, POC Mix VBG pCO2 Pt Tmp 41.4 06/22/19 09:00: Specimen Type BALA, VBG pH 7.40, VBG pO2 33, VBG O2 Sat (Calc) 64, VBG O2 Content 28, VBG Base Excess 2, POC Mix VBG pCO2 Pt Tmp 43.4 06/22/19 09:03: Specimen Type BALA, VBG pH 7.39, VBG pO2 34, VBG O2 Sat (Calc) 65, VBG O2 Content 27, VBG Base Excess 1, POC Mix VBG pCO2 Pt Tmp 42.2 Current Medications Acetaminophen (Tylenol) 650 mg PO Q6H PRN PRN PRN Reason: Pain Score 1-10/Temp > 100.7 F Last Admin: 06/22/19 11:21 Dose: 650 mg Documented by: Amiodarone HCl (Cordarone) 200 mg PO DAILY [facility] Last Admin: 06/22/19 07:57 Dose: 200 mg Documented by: Amlodipine Besylate (Norvasc) 2.5 mg PO DAILY [facility] Enoxaparin Sodium (Lovenox) 90 mg 1 mg/kg (90 mg) SC Q12@1000,2200 [facility] Furosemide (Lasix) 40 mg PO DAILY [facility] Last Admin: 06/21/19 10:49 Dose: 40 mg Documented by: Glucagon () 1 mg IM .X1 PRN PRN Reason: Hypoglycemia Heparin Sodium (Beef Lung) (Heparin 500 Unit/5 Ml (100/Ml)) 500 unit IV UD PRN PRN Reason: HEPARIN FLUSH Dextrose (Dextrose 10%-Water) 250 mls @ 999 mls/hr IV .Q16M PRN; Protocol PRN Reason: HYPOGLYCEMIA Sodium Chloride () 250 mls @ 15 mls/hr IV .[id number] PRN PRN Reason: Saline Flush Sodium Chloride () 250 mls @ 15 mls/hr IV .[id number] PRN PRN Reason: Additional IVPB Infusion Sodium Chloride () 1,000 mls @ 0 mls/hr IV .Q0M XENIA Sodium Chloride () 1,000 mls @ 15 mls/hr IV .Q48H [facility] Last Infusion: 06/22/19 11:39 Dose: 0 mls/hr Documented by: Labetalol HCl (Trandate) 5 mg IV X1 PRN PRN Reason: SBP > 160 prior to sheath pull Stop: 06/24/19 09:49 Metoprolol Tartrate (Lopressor (Beta [place])) 25 mg PO BID [facility] Last Admin: 06/22/19 06:47 Dose: 25 mg Documented by: Nitroglycerin (Nitrostat) 0.4 mg SUBLINGUAL Q5M PRN PRN Reason: CARDIAC/CHEST PAIN Nutritional Formula (Lactose Free) (Ensure Enlive) 120 ml PO 4X/DAY [facility] Last Admin: 06/22/19 07:57 Dose: Not Given Documented by: Ondansetron HCl (Zofran) 4 mg IV Q8H PRN PRN PRN Reason: NAUSEA/VOMITING Pravastatin Sodium (Pravachol) 40 mg PO QHS [facility] Last Admin: 06/21/19 21:51 Dose: 40 mg Documented by: Sodium Chloride () 10 - 40 ml IV UD PRN PRN Reason: SALINE FLUSH Last Admin: 06/22/19 06:47 Dose: 10 ml Documented by: Warfarin Sodium (Coumadin (Pbkc)) 5 mg PO DAILY@1700 [facility] Assessment/Plan Patient seen by BARTOLOME Kate under my supervision Patient seen and examined this morning. She had no complaints. She had cardiac cath today which showed patent CHURCH to the LAD. Left circumflex and RCA did not demonstrate angiographically significant CAD requiring catheter based revascularization therapy. Patient has remained stable and has no complaints. Review of symptoms otherwise negative. o/e: Vital Signs Height 5 ft 2 in Weight: 198 lb 10.184 oz Weight in Pounds 198.6 lbs Pulse Ox 93 Temperature 98.3 F Pulse Rate 52 Respiratory Rate 12 Blood Pressure 111/59 Blood Pressure Position Semi-Fowlers General: Alert, Oriented x3, Cooperative HEENT: Atraumatic, PERRLA, EOMI, Normocephalic Neck: Supple, No JVD, Negative Carotid Bruits Lungs: Clear to auscultation, Normal air movement Cardiovascular: Regular rate, Regular Rhythm, Normal S1, Normal S2, mechanical aortic valve click Abdomen: Bowel Sounds Present, Soft, Non Tender, Non-Distended Extremities: No clubbing, No cyanosis, No edema, Capillary Refill Less than 3 Seconds Skin: No rashes, No breakdown Musculoskeletal: No Tenderness to Palpation of Joints or Extremities Neurological: Cranial nerves II-XII grossly intact, Neuro grossly intact Psych/Mental Status: Normal Affect, Appropriate Patient to resume Coumadin. To bridge with Lovenox starting tomorrow. For likely discharge tomorrow when she remained stable. Continue statins and beta- wellington. Continue amiodarone for A. fib as well as metoprolol. Note, 2D echo showed RVSP of 61 mmHg. Will need to be followed up on outpatient basis by cardiology and pulmonology. Rest of management as per Maggy Martín, ANESTHESIOLOGIST ASSISTANT-C's notes which I have reviewed and endorsed. Code Visit OBSV E&M: 53222 Subsequent observation care L2
[2019-06-22] MEDS: amLODIPine 2.5 MG Tablet PO (14:16)
[2019-06-22] MEDS: Furosemide 40 MG Tablet PO (14:16)
--- NOTE | 2019-06-22 14:28 | CASEMGMT ---
RN CM NOTE: Mabel RN, informed RN CAROL that pt is requesting to have new prescriptions sent to [facility] pharmacy. Pt's preferred pharmacy changed to [facility] in [facility] per pt request at this time. Kathy MANNING RN CM
--- NOTE | 2019-06-22 17:51 | CL.D_ITS ---
Patient Name: RALPH GLORIA Study Date: 06/22/2019 Performing: Dash Victoria MD Ht: 62 inches 157 cm : 1940 Wt: 198.7 lbs 90 kg Age: 78 Gender: female BSA: 1.9 PROCEDURE(S) PERFORMED [id number]/COR/CABG CLINICAL PROFILE AND INDICATIONS Indications: Suspected CAD, Valvular Disease Heart Failure: None Stress/Imaging Stress/Image Study Performed: No Angina Classification Anginal Classification w/in 2 Weeks: CCS III CAD Presentations: Other: shortness of breath CONCLUSIONS Right heart pressures - severely elevated The patient has pulmonary hypertension which is severe. Intracardiac shunting: None Ruby Multivessel CAD CHURCH to LAD: patent Stable appearing bileaflet mechanical aortic valve prosthesis Aortic Valve Insufficiency Mild RECOMMENDATIONS Risk factor modification Medical therapy Pulmonology Evaluation for pulmonary hypertension DESCRIPTION OF PROCEDURE The patient arrived to the procedure lab. The risks and benefits of the procedure as well as a full d escription of our services here and current unavailability of surgical backup were fully explained to the patient and/or their significant other prior to the catheterization. The Timeout was completed, verifying the correct patient and procedure. The patient's procedural site was prepped and draped in the usual fashion. Local anesthetic was given subcutaneously to right groin region with Lidocaine 2%. Using a modified Seldinger technique, arterial access was obtained via the right femoral artery, a 4 Fr sheath was inserted Venous access was obtained via the right femoral vein, a 7Fr sheath was insert ed. A 7Fr thermal dilution catheter was inserted and right heart pressures were recorded, it was then advanced to PA position for cardiac outputs. Thermal dilution cardiac outputs were then recorded. O2 saturations were then obtained. The Thermal dilution catheter was then removed. Left Coronary Artery selective angiography was performed in multiple views using a 4 Fr. JL5 catheter. Rig ht Coronary Artery selective angiography was then performed in multiple views using a 4 Fr. 3DRC cath eter. Left internal mammary artery graft to the LAD selective angiography was performed in multiple v iews using a 4 Fr. IM catheter. Ascending (root) aorta selective angiography was then performed in si ngle view. Ascending (root) aorta selective angiography was then performed in single view.The arteria l sheath was pulled and manual compression applied until hemostasis is achieved.. The venous sheath w as then pulled and manual compression applied until hemostasis achieved CORONARY ANGIOGRAPHY DOMINANCE: Right Dominant LEFT HEART ASSESSMENT Left Ventricular Ejection Fraction: Not assessed RIGHT HEART ASSESSMENT Thermal CO: 3.19 Thermal CI: 1.68 Kam CO: 5.99 Kam CI: 3.15 PW: 32 18 PA: 55/19 31 RV: 55/0 12 RA: 9/9 7 PVR: 326 SVR: 2207 Right Heart pressures - elevated Pulmonary Hypertension Severe Intracardiac shunting: None LEFT MAIN: Angiographically normal LEFT ANTERIOR DESCENDING ARTERY: PROX LAD: diffuse: eccentric: 85 % Stenosis MID LAD: is occluded, fills from the CHURCH graft with no angiographically significant appearing diseas e distal to the graft attachment CIRCUMFLEX ARTERY: PROX CIRC: 25 - 50 % Stenosis OM 1: Proximal - Mild luminal irregularities RIGHT CORONARY ARTERY: PROX RCA: 25 % Stenosis MID RCA: 25 % Stenosis GRAFTS: CHURCH graft to the Mid LAD is patent VALVE FINDINGS: Stable appearing bileaflet mechanical aortic valve prosthesis Aortic Valve Insufficiency: Grade 1 AORTIC ROOT: Angiographically normal COMPLICATIONS No Complications PROCEDURE MEDICATIONS Versed 1 mg IV Versed 1 mg IV Oxygen: 2 L/min via nasal cannula SUMMARY OF HEMODYNAMIC DATA Time AIR REST ECG 08:16:26 RA 9/ (7) SV 08:56:12 RV 55/0, 12 08:56:36 PW (18) PV 08:57:36 PA 55/19 (31) PA 08:57:55 PW (16) 09:02:32 AO 127/73 (95) SA 09:06:38 Type SV CO (l/m) CI (l/m/ HR Time AIR REST Thermal 63.80 3.19 1.68 50 08:16:26 Kam 119.80 5.99 3.15 50 08:16:26 Label % O2 Pres/Loc Time AIR REST AO 91 PV 09:04:50 PA 65 PA 09:04:56 IVC 64 SV 09:05:04 SVC 64 09:05:11 Signed By Dash Victoria MD On 06/22/2019 5:50:21 PM Dash Victoria MD
[2019-06-22] MEDS: Pravastatin 40 MG Tablet PO (21:32)
[2019-06-23 03:08] VITALS: PULSE 51
[2019-06-23 03:30] VITALS: BP 125/64; PULSE 55; RESP 16; TEMP 36.4; O2SAT 94
[2019-06-23] MEDS: Acetaminophen 325 MG Tablet 650 MG PO (03:40)
[2019-06-23 06:57] LABS: Hematocrit 33.5 % (37-47); Hemoglobin 10.9 g/dL (12.0-15.0)
[2019-06-23 07:04] LABS: International Normalized Ratio 1.4; Prothrombin Time (Protime)PT. 16.7 SECONDS (11.7-14.9)
[2019-06-23 07:05] LABS: Anion Gap 4 (5-15); BUN 21 mg/dL (7-18); BUN/Creat Ratio 19.8 RATIO (10-20); Calcium,Total 8.7 mg/dL (8.5-10.1); Chloride 107 mmol/L (98-107); Creatinine, Serum 1.06 mg/dL (0.55-1.02); EST Glomerular Filtration Rate 54 mL/min (>60); Est Glom Filt Rate - Afr Amer 65 mL/min (>60); Estimated Creatinine Clearance 35.71 ml/min; Glucose 99 mg/dL (74-106); Sodium Level 140 mmol/L (136-145)
[2019-06-23 07:18] VITALS: PULSE 49
[2019-06-23 08:49] VITALS: BP 118/59; PULSE 60; RESP 16; TEMP 36.7; O2SAT 95
[2019-06-23 09:05] VITALS: PULSE 60
[2019-06-23] MEDS: Enoxaparin 100 MG/ML Syringe 90 MG SC (09:05)
[2019-06-23] MEDS: amLODIPine 2.5 MG Tablet PO (09:05)
[2019-06-23] MEDS: Metoprolol Tartrate 25 MG Tablet PO (09:05)
[2019-06-23] MEDS: Furosemide 40 MG Tablet PO (09:05)
[2019-06-23] MEDS: Amiodarone 200 MG Tablet PO (09:05)
--- NOTE | 2019-06-23 09:48 | DCINST_ITS ---
- Discharge Diagnoses Current Active Problems: Current Active and Chronic Problems (Last Reviewed 06/20/19 @ 06:21 by Peyman El MD) Chest pain (Acute) Severe pulmonary hypertension You will use the following diet at home:: Cardiac Discharge Activity: Return to Normal Activity Call your doctor if you observe: Shortness of breath, Dizziness, Fainting spells, Chest pain Allergies/Adverse Reactions: Allergies Penicillins Allergy (Intermediate, Verified 06/20/19 04:33) Unknown Medications to take at Discharge pravastatin 40 mg tablet 40 mg PO QHS #90 tab 09/21/18 Warfarin Sodium 5 mg PO DAILY 11/25/18 furosemide 40 mg tablet 40 mg PO DAILY 01/17/19 metoprolol tartrate 25 mg tablet 25 mg PO BID #180 tab 02/12/19 amiodarone 200 mg tablet 200 mg PO DAILY #90 tab 04/02/19 Amlodipine [Norvasc] 2.5 mg PO DAILY #30 tab 06/23/19 Enoxaparin [Lovenox] 90 mg SUBCUT Q12@1000,2200 #14 syringe 06/23/19 The following prescriptions were given: Enoxaparin [Lovenox] 90 mg SUBCUT Q12@1000,2200 #14 syringe Transmission Status: Pending to [facility] Amlodipine [Norvasc] 2.5 mg PO DAILY #30 tab Transmission Status: Pending to [facility] Primary Care Physician: Danilo Bolden MD [Primary Care Provider] - Please follow up with your Primary Care Physician in: 3-5 Days Test Results: Test results from this visit will be discussed in further detail at your follow- up appointment, if applicable. Please Follow Up With: Dash Victoria MD When: 1-2 Weeks, may see NEW [employer] MECHANIC/PA Please Follow Up With: Matthew Sage MD When: 1 Week or soonest available Proposed Discharge Date: 06/23/19
--- NOTE | 2019-06-23 09:56 | PCM.DC.SUM ---
<Maggy Resendiz - Last Filed: 06/23/19 10:04> Discharge Date and Diagnosis Date of Admission: 06/20/19 Date of Discharge: 06/23/19 - Primary Discharge Diagnosis Active and Suspected Problems (Last Reviewed 06/20/19 @ 06:21 by Peyman El MD) 1. Chest pain, history of CAD status post CABG-ACS ruled out. 2. Supratherapeutic INR/subtherapeutic INR 3. Valvular heart disease status post mechanical aortic valve replacement 4. Paroxysmal atrial fibrillation 5. Chronic kidney disease stage III 6. Hyperlipidemia 7. 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 No focal lung consolidation changes. No significant radiographic changes. Electronically Signed: Roman Villanueva, at 5:05 EST Tel , Service support , Dr. Victoria- Cardiology Operations: None Procedures: 2-D Echocardiogram, Cardiac catheterization Summary of Care Provided: The patient is a 78 year old F admitted 06/20/2019 due to chest pain. 1. Chest pain, history of CAD status post CABG-troponin negative. Echocardiogram demonstrates an EF of 65%, mild to moderate mitral valve insufficiency, moderate tricuspid valve insufficiency, stable appearing mechanical aortic valve, mild pulmonic valve insufficiency, RVSP estimated to be 67 mmHg. Cardiology consulted during admission. Patient underwent cardiac catheterization 06/22/2019 which did not require revascularization. Continue statin, beta-wellington regimen. Patient follows with Dr. Victoria. Follow-up with cardiology in 1 to 2 weeks. 2. Supratherapeutic INR/subtherapeutic INR-INR initially elevated on admission, reversed prior to catheterization. Coumadin resumed and she will continue therapeutic Lovenox as outpatient until INR is therapeutic. Repeat INR on Tuesday. 3. Valvular heart disease status post mechanical aortic valve replacement-echocardiogram completed and shows stable appearing aortic valve. 4. Paroxysmal atrial fibrillation-continue amiodarone, metoprolol, Coumadin. 5. Chronic kidney disease stage III-at baseline. 6. Hyperlipidemia-continue statin. 7. Severe Pulmonary hypertension-RVSP 67 mmHg per echo. Patient has followed with Dr. Sage prior. Follow up with Dr. Sage in 1 week. General: Alert, Oriented x3, Cooperative HEENT: Atraumatic, PERRLA, EOMI, Normocephalic Neck: Supple, No JVD, Negative Carotid Bruits Lungs: Clear to auscultation, Normal air movement Cardiovascular: Regular rate, Regular Rhythm, Normal S1, Normal S2, Murmur Abdomen: Bowel Sounds Present, Soft, Non Tender, Non-Distended Extremities: No clubbing, No cyanosis, No edema, Capillary Refill Less than 3 Seconds Skin: No rashes, No breakdown Musculoskeletal: No Tenderness to Palpation of Joints or Extremities Neurological: Cranial nerves II-XII grossly intact, Neuro grossly intact Psych/Mental Status: Normal Affect, Appropriate Patient seen and examined prior to discharge. Physical assessment as noted above. Patient is stable for discharge with follow up recommendations as noted above. This patient was seen by BARTOLOME Kate under the supervision of Dr. Sauer. - Physical Exam Vitals/I&O's: Vital Signs Temp Pulse Resp BP Pulse Ox 98.0 F 60 16 118/59 L 95 06/23/19 08:49 06/23/19 09:05 06/23/19 08:49 06/23/19 08:49 06/23/19 08:49 Oxygen Flow Rate (L/min) 2 Oxygen Delivery Method Room Air Weight: 198 lb 10.184 oz Body Mass Index (BMI) 36.3 Intake and Output for Last 24 Hours 06/21/19 06/22/19 06/23/19 23:59 23:59 23:59 Intake Total 1300 / 1300 1054.75 / 1054.75 100 / 100 Balance 1300 / 1300 1054.75 / 1054.75 100 / 100 Laboratory Results 06/23/19 06:05: Hgb 10.9 L, Hct 33.5 L 06/23/19 06:05: PT 16.7 H, INR 1.4 06/23/19 06:05: Sodium 140, Potassium 4.0, Chloride 107, Carbon Dioxide 29.0, Anion Gap 4 L, BUN 21 H, Creatinine 1.06 H, Estim Creat Clear Calc 35.71, Est GFR (MDRD) Af Amer 65, Est GFR (MDRD) Non-Af 54 L, BUN/Creatinine Ratio 19.8, Glucose 99, Calcium 8.7 Current Medications Acetaminophen (Tylenol) 650 mg PO Q6H PRN PRN PRN Reason: Pain Score 1-10/Temp > 100.7 F Last Admin: 06/23/19 03:40 Dose: 650 mg Documented by: Amiodarone HCl (Cordarone) 200 mg PO DAILY [facility] Last Admin: 06/23/19 09:05 Dose: 200 mg Documented by: Amlodipine Besylate (Norvasc) 2.5 mg PO DAILY [facility] Last Admin: 06/23/19 09:05 Dose: 2.5 mg Documented by: Enoxaparin Sodium (Lovenox) 90 mg 1 mg/kg (90 mg) SC Q12@1000,2200 [facility] Last Admin: 06/23/19 09:05 Dose: 90 mg Documented by: Furosemide (Lasix) 40 mg PO DAILY [facility] Last Admin: 06/23/19 09:05 Dose: 40 mg Documented by: Glucagon () 1 mg IM .X1 PRN PRN Reason: Hypoglycemia Heparin Sodium (Beef Lung) (Heparin 500 Unit/5 Ml (100/Ml)) 500 unit IV UD PRN PRN Reason: HEPARIN FLUSH Dextrose (Dextrose 10%-Water) 250 mls @ 999 mls/hr IV .Q16M PRN; Protocol PRN Reason: HYPOGLYCEMIA Sodium Chloride () 250 mls @ 15 mls/hr IV .[id number] PRN PRN Reason: Saline Flush Sodium Chloride () 250 mls @ 15 mls/hr IV .[id number] PRN PRN Reason: Additional IVPB Infusion Sodium Chloride () 1,000 mls @ 0 mls/hr IV .Q0M XENIA Sodium Chloride () 1,000 mls @ 15 mls/hr IV .Q48H [facility] Last Infusion: 06/22/19 11:39 Dose: 0 mls/hr Documented by: Labetalol HCl (Trandate) 5 mg IV X1 PRN PRN Reason: SBP > 160 prior to sheath pull Stop: 06/24/19 09:49 Metoprolol Tartrate (Lopressor (Beta [place])) 25 mg PO BID [facility] Last Admin: 06/23/19 09:05 Dose: 25 mg Documented by: Nitroglycerin (Nitrostat) 0.4 mg SUBLINGUAL Q5M PRN PRN Reason: CARDIAC/CHEST PAIN Nutritional Formula (Lactose Free) (Ensure Enlive) 120 ml PO 4X/DAY [facility] Last Admin: 06/23/19 09:01 Dose: Not Given Documented by: Ondansetron HCl (Zofran) 4 mg IV Q8H PRN PRN PRN Reason: NAUSEA/VOMITING Pravastatin Sodium (Pravachol) 40 mg PO QHS [facility] Last Admin: 06/22/19 21:32 Dose: 40 mg Documented by: Sodium Chloride () 10 - 40 ml IV UD PRN PRN Reason: SALINE FLUSH Last Admin: 06/22/19 06:47 Dose: 10 ml Documented by: Warfarin Sodium (Coumadin (Pbkc)) 5 mg PO DAILY@1700 [facility] Last Admin: 06/22/19 17:10 Dose: 5 mg Documented by: Discharge Diet: Low fat/ Low Cholesterol Discharge Activity: Return to Normal Activity Call your doctor if you observe: Shortness of breath, Dizziness, Fainting spells, Chest pain Home Medications: Medications to take at Discharge pravastatin 40 mg tablet 40 mg PO QHS #90 tab 09/21/18 Warfarin Sodium 5 mg PO DAILY 11/25/18 furosemide 40 mg tablet 40 mg PO DAILY 01/17/19 metoprolol tartrate 25 mg tablet 25 mg PO BID #180 tab 02/12/19 amiodarone 200 mg tablet 200 mg PO DAILY #90 tab 04/02/19 Amlodipine [Norvasc] 2.5 mg PO DAILY #30 tab 06/23/19 Enoxaparin [Lovenox] 90 mg SUBCUT Q12@1000,2200 #14 syringe 06/23/19 Following Prescrptions Were Given to Patient: Enoxaparin [Lovenox] 90 mg SUBCUT Q12@1000,2200 #14 syringe Transmission Status: Received by [facility] Amlodipine [Norvasc] 2.5 mg PO DAILY #30 tab Transmission Status: Received by [facility] Primary Care Physician: Danilo Bolden MD [Primary Care Provider] - Please follow up with your Primary Care Physician in: 3-5 Days Please Follow Up With: Dash Victoria MD When: 1-2 Weeks, may see FIRMWARE ENGINEER/PA Please Follow Up With: Matthew Sage MD When: 1 Week or soonest available Disposition: Home Minutes spent on discharge:: 35 Patient Condition:: Stable Medical Necessity - Tobacco Use Smoking Status: Former smoker Tobacco Use: Cigarettes Meaningful Use Info Meaningful Use Diagnoses (Choose all that apply): None applicable <Barbara Sauer - Last Filed: 06/23/19 14:51> Discharge Date and Diagnosis - Secondary Discharge Diagnosis Chronic Problems (Last Reviewed 06/20/19 @ 06:21 by Pemyan El MD) Paroxysmal atrial fibrillation (Chronic) Nonrheumatic aortic (valve) stenosis (Chronic) History of bicuspid aortic valve (Chronic) Mixed hyperlipidemia (Chronic) Atherosclerotic heart disease of [place] coronary artery without angina pectoris (Chronic) History of coronary artery bypass surgery (Chronic ~04/18/07) CABG x1 CHURCH to LAD 04/18/2007 History of mechanical aortic valve replacement (Chronic ~1995) 1995 longterm (current) use of anticoagulants (Chronic) Hospital Course and Treatment Summary of Care Provided: Patient seen by Maggy SWAINC under my supervision The patient is a 78 year old F with a past medical history as listed was admitted with a complaint of chest pain. She had been scheduled to have cardiac cath on outpatient basis in July 2019 according to her. However she discontinued having chest pain with assisted exertional dyspnea which was relieved by rest. On admission, INR was supratherapeutic. INR was therefore reversed prior to cardiac catheterization after cardiology was consulted. She had cardiac cath which showed patent CHURCH to the LAD. Left circumflex and RCA did not demonstrate angiographically significant CAD requiring catheter based revascularization therapy. Patient remained stable. She was found to have severe pulmonary hypertension though. She remained stable and was discharged on 06/23/2019. INR was subtherapeutic at time of discharge and she was bridged with Lovenox and is to continue with this until INR is therapeutic. She is to have repeat INR on 06/25/2019. Bridging was done on account of her having a mechanical aortic valve in place. Patient seen and examined prior to discharge. She had no complaints. She was ready to go home. Review of stems otherwise negative. Labs and vitals reviewed. Home medication reviewed and reconciled. o/e: [] Vital Signs Height 5 ft 2 in Weight: 198 lb 10.184 oz Weight in Pounds 198.6 lbs Pulse Ox 95 Temperature 98.0 F Pulse Rate 60 Respiratory Rate 16 Blood Pressure 118/59 Blood Pressure Position Sitting General: Alert, Oriented x3, Cooperative HEENT: Atraumatic, PERRLA, EOMI, Normocephalic Neck: Supple, No JVD, Negative Carotid Bruits Lungs: Clear to auscultation, Normal air movement Cardiovascular: Regular rate, Regular Rhythm, Normal S1, Normal S2, mechanical aortic valve click Abdomen: Bowel Sounds Present, Soft, Non Tender, Non-Distended Extremities: No clubbing, No cyanosis, No edema, Capillary Refill Less than 3 Seconds Skin: No rashes, No breakdown Musculoskeletal: No Tenderness to Palpation of Joints or Extremities Neurological: Cranial nerves II-XII grossly intact, Neuro grossly intact Psych/Mental Status: Normal Affect, Appropriate Plan is as above. She is to follow-up with the on air director on account of severe pulmonary hypertension and also to follow-up with cardiology plus her primary care doctor Rest as per BARTOLOME Kate's note which I reviewed and endorsed. - Physical Exam Vitals/I&O's: Vital Signs Temp Pulse Resp BP Pulse Ox 98.0 F 60 16 118/59 L 95 06/23/19 10:04 06/23/19 10:04 06/23/19 10:04 06/23/19 10:04 06/23/19 10:04 Oxygen Flow Rate (L/min) 2 Oxygen Delivery Method Room Air Weight: 198 lb 10.184 oz Body Mass Index (BMI) 36.3 Intake and Output for Last 24 Hours 06/21/19 06/22/19 06/23/19 23:59 23:59 23:59 Intake Total 1300 / 1300 1054.75 / 1054.75 100 / 100 Balance 1300 / 1300 1054.75 / 1054.75 100 / 100 Laboratory Results 06/23/19 06:05: Hgb 10.9 L, Hct 33.5 L 06/23/19 06:05: PT 16.7 H, INR 1.4 06/23/19 06:05: Sodium 140, Potassium 4.0, Chloride 107, Carbon Dioxide 29.0, Anion Gap 4 L, BUN 21 H, Creatinine 1.06 H, Estim Creat Clear Calc 35.71, Est GFR (MDRD) Af Amer 65, Est GFR (MDRD) Non-Af 54 L, BUN/Creatinine Ratio 19.8, Glucose 99, Calcium 8.7 Code Visit OBSV E&M: [id number] Observation care discharge
[2019-06-23 10:04] VITALS: BP 118/59; PULSE 60; RESP 16; TEMP 36.7; O2SAT 95
== END 2019-06-23 09:49 | disposition home or self-care (01) ==
LOC: ED 05:15 → PCU 05:39
PROVIDERS: Internal Medicine Cardiovascular Disease; Physician Assistant; Admitting Provider Hospitalist; Emergency Provider Emergency Medicine; Family Provider Family Medicine; PCP Family Medicine; Visit Provider Student in an Organized Health Care Education/Training Program
DX: R07.89 Other chest pain (principal); I25.10 Atherosclerotic heart disease of native coronary artery without angina pectoris; I48.0 Paroxysmal atrial fibrillation; N18.3 Chronic kidney disease, stage 3 (moderate); I27.20 Pulmonary hypertension, unspecified; E78.2 Mixed hyperlipidemia; Z95.1 Presence of aortocoronary bypass graft; Z79.899 Other long term (current) drug therapy; Z79.01 Long term (current) use of anticoagulants; Z95.2 Presence of prosthetic heart valve; Z87.891 Personal history of nicotine dependence; I08.3 Combined rheumatic disorders of mitral, aortic and tricuspid valves; R06.09 Other forms of dyspnea
CPT/HCPCS: 36415; 71045; 80048; 82803; 84484; 85014; 85018; 85025; 85610; 93005; 93306; 93457; 96360; 96361; 97802; 99152; 99153; 99218; 99285; J7030; Q9957; Q9967; A4216; C1751; C1769; C1894; G0378

== ENCOUNTER 2019-06-25 12:00 | Outpatient (RCR) | payer MEDICARE, SELFPAY ==
[2019-04-09 14:10] VITALS: BMI 37.5
[2019-06-05 12:46] LABS: International Normalized Ratio 3.4; Prothrombin Time (Protime)PT. 34.4 SECONDS (11.7-14.9)
[2019-06-25 14:10] LABS: International Normalized Ratio 1.8; Prothrombin Time (Protime)PT. 21.2 SECONDS (11.7-14.9)
== END 2019-06-25 18:00 | disposition home or self-care (01) ==
LOC: MTLAB 12:00
PROVIDERS: Family Provider Family Medicine; PCP Family Medicine; Referring Provider Internal Medicine Cardiovascular Disease; Visit Provider Internal Medicine Cardiovascular Disease
DX: Z79.01 Long term (current) use of anticoagulants (principal); Z95.2 Presence of prosthetic heart valve
CPT/HCPCS: 36415; 85610

== ENCOUNTER 2019-07-18 15:14 | Outpatient (RCR) | payer MEDICARE, SELFPAY ==
[2019-06-20 06:08] VITALS: BMI 36.3
[2019-07-05 12:30] LABS: Prothrombin Time (Protime)PT. 39.9 SECONDS (11.7-14.9)
[2019-07-05 12:33] LABS: International Normalized Ratio 4.1
[2019-07-05 13:00] LABS: AST(SGOT) 24 U/L (15-37); Alanine Aminotransfer ALT/SGPT 31 U/L (13-56); Albumin, Serum 3.7 g/dL (3.2-5.0); Alkaline Phosphatase 88 U/L (45-117); Bilirubin, Direct 0.24 mg/dL (0.00-0.30); Globulin 4.2 g/dL (2.2-4.2); Protein, Total 7.9 g/dL (6.4-8.2)
[2019-07-16 14:14] LABS: Prothrombin Time (Protime)PT. 50.6 SECONDS (11.7-14.9)
[2019-07-16 14:30] LABS: International Normalized Ratio 5.5
[2019-07-18 17:37] LABS: Prothrombin Time (Protime)PT. 37.7 SECONDS (11.7-14.9)
[2019-07-18 17:46] LABS: International Normalized Ratio 3.8
== END 2019-07-18 18:00 | disposition home or self-care (01) ==
LOC: MTLAB 15:14
PROVIDERS: Internal Medicine Pulmonary Disease; Family Provider Family Medicine; PCP Family Medicine; Referring Provider Internal Medicine Cardiovascular Disease; Visit Provider Internal Medicine Cardiovascular Disease
DX: I27.20 Pulmonary hypertension, unspecified (principal); Z79.01 Long term (current) use of anticoagulants; Z95.2 Presence of prosthetic heart valve
CPT/HCPCS: 36415; 80076; 85610

== ENCOUNTER 2019-07-30 10:52 | Outpatient (RCR) | payer MEDICARE, SELFPAY ==
[2019-01-17 14:50] VITALS: BMI 37.0
[2019-06-20 06:08] VITALS: BMI 36.3
[2019-07-23 14:14] LABS: International Normalized Ratio 2.6; Prothrombin Time (Protime)PT. 28.3 SECONDS (11.7-14.9)
[2019-07-23 14:48] LABS: AST(SGOT) 25 U/L (15-37); Alanine Aminotransfer ALT/SGPT 31 U/L (13-56); Albumin, Serum 3.6 g/dL (3.2-5.0); Alkaline Phosphatase 80 U/L (45-117); Globulin 4.4 g/dL (2.2-4.2)
[2019-07-30 12:33] LABS: International Normalized Ratio 2.9; Prothrombin Time (Protime)PT. 30.7 SECONDS (11.7-14.9)
== END 2019-07-30 18:00 | disposition home or self-care (01) ==
LOC: MTLAB 10:52
PROVIDERS: Internal Medicine Pulmonary Disease; Family Provider Family Medicine; PCP Family Medicine; Referring Provider Internal Medicine Cardiovascular Disease; Visit Provider Internal Medicine Cardiovascular Disease
DX: I27.20 Pulmonary hypertension, unspecified (principal); Z79.01 Long term (current) use of anticoagulants; Z95.2 Presence of prosthetic heart valve
CPT/HCPCS: 36415; 80076; 85610

== ENCOUNTER 2019-08-13 10:46 | Outpatient (RCR) | payer MEDICARE, SELFPAY ==
[2019-06-20 06:08] VITALS: BMI 36.3
[2019-08-13 12:26] LABS: International Normalized Ratio 3.2; Prothrombin Time (Protime)PT. 32.7 SECONDS (11.7-14.9)
[2019-08-13 12:27] LABS: AST(SGOT) 28 U/L (15-37); Alanine Aminotransfer ALT/SGPT 31 U/L (13-56); Albumin, Serum 3.5 g/dL (3.2-5.0); Alkaline Phosphatase 77 U/L (45-117); Bilirubin, Direct 0.21 mg/dL (0.00-0.30); Globulin 4.9 g/dL (2.2-4.2); Protein, Total 8.4 g/dL (6.4-8.2)
== END 2019-08-13 18:00 | disposition home or self-care (01) ==
LOC: MTLAB 10:46
PROVIDERS: Internal Medicine Pulmonary Disease; Family Provider Family Medicine; PCP Family Medicine; Referring Provider Internal Medicine Cardiovascular Disease; Visit Provider Internal Medicine Cardiovascular Disease
DX: I27.20 Pulmonary hypertension, unspecified (principal); Z79.01 Long term (current) use of anticoagulants; Z95.2 Presence of prosthetic heart valve
CPT/HCPCS: 36415; 80076; 85610

== ENCOUNTER 2019-09-09 15:19 | Inpatient (IN) | payer MEDICARE, SELFPAY ==
[2019-06-20 06:08] VITALS: BMI 36.3
[2019-09-09] VITALS (21 sets, daily range): BP systolic 84–136; BP diastolic 36–90; PULSE 82–126; RESP 13–24; TEMP 36.9–39.4; O2SAT 87–97; BMI 36.4; BMI 36.9; BMI 37.0
[2019-09-09] MEDS: 0.9% Normal Saline 1,000 ML 999 ML IV ×2 (16:43→19:41)
[2019-09-09] MEDS: MethylPREDNISolone 125 MG/2 ML Vial IV (16:44)
[2019-09-09 16:49] LABS: Absolute Lymphocyte Count 0.38 X10^3/uL (0.83-4.51); Absolute Neutrophil Count 7.1 X10^3/uL (2.0-7.7); Basophil# 0.01 X10^3/uL; Basophil% 0.1 % (0-1); Hematocrit 31.4 % (37-47); Hemoglobin 10.3 g/dL (12.0-15.0); Lymphocyte # 0.38 X10^3/ul (4.0); Lymphocyte % 4.7 % (19-41); Mean Corp Hgb Conc 32.8 g/dL (32-36); Mean Corpuscular Hgb 32.1 pg (27.0-32.0); Mean Corpuscular Volume 97.8 fL (81-99); Mean Platelet Vol. 11.9 fl (6.2-12.0); Monocyte# 0.56 X10^3/uL; Monocyte% 6.9 % (0-10); NRBC Flagged by Analyzer 0 % (0-5); Neutrophil # 7.13 X10^3/uL (2.7-7.7); Neutrophil % 87.7 % (47-70); POSITIVE DIFFERENTIAL YES; POSITIVE MORPHOLOGY YES; Platelet Count 109 K/mm3 (150-450); RBC Distribution Width CV 14.3 % (11.6-14.6); RBC Distribution Width SD 51.5 fl (35.1-43.9); Red Blood Count 3.21 M/mm3 (4.2-5.4); White Blood Count 8.1 K/mm3 (4.4-11.0)
[2019-09-09 16:56] LABS: International Normalized Ratio 3.1; Prothrombin Time (Protime)PT. 31.8 SECONDS (11.7-14.9)
[2019-09-09] MEDS: Acetaminophen 500 MG Tablet 1000 MG PO (16:56)
[2019-09-09] MEDS: Ibuprofen 600 MG Tablet PO (16:56)
[2019-09-09 16:57] LABS: Partial Thromboplast Time 49.3 Seconds (24.1-36.2)
[2019-09-09 17:07] LABS: Anion Gap 8 (5-15); BUN 24 mg/dL (7-18); BUN/Creat Ratio 17.6 RATIO (10-20); Calcium,Total 8.2 mg/dL (8.5-10.1); Chloride 101 mmol/L (98-107); Creatinine, Serum 1.36 mg/dL (0.55-1.02); Differential Indicated SCAN CRITERIA MET; EST Glomerular Filtration Rate 40 mL/min (>60); Est Glom Filt Rate - Afr Amer 49 mL/min (>60); Estimated Creatinine Clearance 27.83 ml/min; Glucose 107 mg/dL (74-106); Potassium 3.3 mmol/L (3.5-5.1); Sodium Level 136 mmol/L (136-145)
--- NOTE | 2019-09-09 17:10 | RAD_ITS ---
STUDY: X-RAY CHEST REASON FOR EXAM: Female, 78 years old. cough, flu like sx s/p [place] TECHNIQUE: Frontal view of the chest COMPARISON: 20 June 2019 FINDINGS: There is extensive left mid and lower lung opacity. There is no pneumothorax, pulmonary edema or pleural effusions. There are surgical clips projecting over the left hilum. There is moderate cardiomegaly. Osseous structures are intact. RAD/Chest 1 View (Portable) IMPRESSION: Presumed left lung pneumonia. Recommend short-term follow-up to document resolution and to better evaluate underlying currently obscured lung parenchyma for presence of lesions. Electronically Signed: Sebastian Mccormick, at 18:17 EDT Tel , Service support ,
[2019-09-09] MEDS: Ipratropium/Albuterol Sulfate 3 ML AMPUL.NEB INHALATION (17:12)
[2019-09-09 17:16] LABS: Differential Comment SCANNED
[2019-09-09 17:29] LABS: Lactic Acid 1.7 mmol/L (0.4-1.9)
--- NOTE | 2019-09-09 19:25 | HP.PCM_ITS ---
Problem List (1) Cough with fever Status: Acute History of Present Illness Date of Admission: 09/09/19 Chief Complaint: Cough with fever The patient is a 78 year old F seen in the emergency room at [facility] with a chief complaint of nonproductive cough and fever over the last 3 days, she returned from a cruise to [place] yesterday, she went on a land in [place] in [facility] and also went to [place]. She felt ill 3 days ago and was seen on the ship, she tested negative for influenza at that time and was given an antibiotic to take. She states she has been running a temperature at home up to 102 degrees, she has had chills, she denies productive cough but has a dry cough. Patient states that she is congested in her chest, she denies actual shortness of breath at this examiner. Work-up in the emergency room included a rapid influenza test that was negative, chest x-ray showed marked bilateral pulmonary infiltrates, she required oxygen at 2 L/min via nasal cannula to maintain her pulse ox above 90%. Patient's white blood cell count was normal, patient's creatinine was 1.36, BUN was 24, lactic acid was normal at 1.7, potassium was 3.3, and INR was 3.1. Patient will be admitted to PCU and she will be placed in negative pressure precautions, respiratory panel was ordered by the emergency room physician but it will not be done till tomorrow, patient will have a sputum culture ordered, I contacted pulmonary medicine and they will see the patient in consultation tomorrow, patient was given Zithromax IV and Rocephin. Aerosol treatments will be administered and oxygen saturation will be monitored. 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) use of anticoagulants (Chronic) Medical History: Medical History (Last Updated 06/26/19 @ 08:09 by Alaina Verma) Paroxysmal atrial fibrillation (Chronic) I48.0 Nonrheumatic aortic (valve) stenosis (Chronic) I35.0 History of bicuspid aortic valve (Chronic) Z87.74 Mixed hyperlipidemia (Chronic) E78.2 Atherosclerotic heart disease of [place] coronary artery without angina pectoris (Chronic) I25.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) use of anticoagulants (Chronic) Z79.01 Allergies Penicillins Allergy (Intermediate, Verified 09/09/19 15:26) Unknown Home Medications: Ambulatory Orders Medication Instructions Recorded pravastatin 40 mg tablet 40 mg PO QHS #90 tab 09/21/18 Warfarin Sodium 2.5 mg PO WETH 11/25/18 furosemide 40 mg tablet 40 mg PO DAILY 01/17/19 metoprolol tartrate 25 mg tablet 25 mg PO BID #180 tab 02/12/19 amiodarone 200 mg tablet 200 mg PO DAILY #90 tab 04/02/19 Bosentan 125 mg PO BID 09/09/19 Levothyroxine [Synthroid] 75 mcg PO DAILY 09/09/19 Warfarin [Coumadin (PBKC)] 5 mg PO SUMOFRSA 09/09/19 Surgical History: Surgical History (Last Updated 06/26/19 @ 08:09 by Alaina Verma) History of coronary artery bypass surgery (Chronic) Onset Date: ~04/18/07 Z95.1 CABG x1 CHURCH to LAD 04/18/2007 History of cardioversion Onset Date: ~01/08/19 Z98.890 History of cataract extraction Z98.49 History of colonoscopy with polypectomy Z98.890, Z86.010 History of left heart catheterization (LHC) Onset Date: ~06/25/19 Z98.890 LEFT MAIN: Angiographically normal; LEFT ANTERIOR DESCENDING ARTERY: PROX LAD: diffuse: eccentric: 85 % Stenosis, MID LAD: is occluded, fills from the CHURCH graft with no angiographically significant appearing disease distal to the graft attachment; CIRCUMFLEX ARTERY: PROX CIRC: 25 - 50 % Stenosis, OM 1: Proximal - Mild luminal irregularities; RIGHT CORONARY ARTERY: PROX RCA: 25 % Stenosis, MID RCA: 25 % Stenosis; GRAFTS: CHURCH graft to the Mid LAD is patent; VALVE FINDINGS: Stable appearing bileaflet mechanical aortic valve prosthesis; Aortic Valve Insufficiency: Grade 1; AORTIC ROOT: Angiographically normal per cath 06/25/19 Hx laparoscopic cholecystectomy Z90.49 Hx of cervical polypectomy Z98.890, Z87.42 with endometrial biopsy Surgical History: cholecystectomy, coronary bypass surgery - 04-18-2007: [facility]: CHURCH to the LAD, - - Mechanical aortic heart valve Psychiatric History: No pertinent psych hx BUNDLER History: No pertinent BUNDLER history Lives: Spouse/ Significant Other Smoking Status: Never smoker Tobacco Use: Non-smoker Alcohol: None Drugs: None - *Family History Maternal Family History: Family History (Last Reviewed 06/20/19 @ 06:[address] Peyman El MD) Mother CAD (coronary artery disease) Myocardial infarction Hypertension TIA (transient ischemic attack) Diabetes Sister H/O aortic valve replacement Sister H/O aortic valve replacement Brother Heart disease History Items: Diabetes, Heart Disease, Hypertension Paternal Family History: Family History (Last Reviewed 06/20/19 @ 06:[address] Peyman El MD) Mother CAD (coronary artery disease) Myocardial infarction Hypertension TIA (transient ischemic attack) Diabetes Sister H/O aortic valve replacement Sister H/O aortic valve replacement Brother Heart disease History Items: Unknown - Killed-circumstance unknown Review of Systems Constitutional: Reports: Chills, Fever, Malaise, Fatigue Eyes: Denies: Cataracts, Conjunctivae Inflammation, Double vision, Drainage, Redness, Vision Change HEENT: Denies: Difficulty Swallowing, Dysphasia, Ear Pain, Eye Pain, Hearing Changes, Nasal bleeding, Nasal Congestion, Post Nasal Drip Cardiovascular: Reports: Chest Tightness. Denies: Chest Pain, Claudication, Chest Pressure, Edema, Orthopnea, Palpitations, Paroxysmal Noc. Dyspnea Respiratory: Reports: Cough. Denies: Hemoptysis, Pleuritic Pain, Shortness of Breath, Shortness of breath at rest, Shortness of breath upon exertion, Sputum production, Wheezing Gastrointestinal: Denies: Abdominal Pain, Constipation, Diarrhea, Hematemesis, Hematochezia, Nausea Genitourinary: Denies: Dysuria, Frequency, Hematuria, Incontinence, Nocturia, Retention Gynecological: Denies: Breast symptoms Musculoskeletal: Denies: Back Pain, Foot Pain, Hand Pain, Joint swelling, Joint Tenderness, Leg Pain Skin: Denies: Dryness, Jaundice, Pruritis, Rash Neurological: Denies: Balance problems, Blurred vision, Double vision, Change in Speech, Difficulty swallowing, Focal weakness, Headaches, Incoordination Psychiatric: Denies: Anxiety, Depression Endocrine: Denies: Change in Body Habitus Hematologic/ Lymphatic: Denies: Adenopathy VTE Information - Inpt Only VTE Present on Admission: No VTE Mechan Device Prophylaxis: None VTE Pharm Prophylaxis ordered?: No Reason prophylaxis not ordered:: Treatment Not Indicated - Patient on Coumadin Patient Problems: Active and Suspected Problems (Last Updated 06/26/19 @ 08:09 by Alaina Verma) Cough with fever (Acute) - Physical Exam Vitals/I&O's: Vital Signs Temp Pulse Resp BP Pulse Ox 100.0 F H 118 H 20 H 90/72 91 09/09/19 19:00 09/09/19 19:00 09/09/19 19:00 09/09/19 19:00 09/09/19 19:00 Oxygen Flow Rate (L/min) 2 Oxygen Delivery Method Nasal Cannula Weight: 90.4 kg Body Mass Index (BMI) 36.4 Intake and Output for Last 24 Hours 09/07/19 09/08/19 09/10/19 23:59 23:59 00:59 Intake Total 1050 / 1050 Balance 1050 / 1050 General: Alert, Oriented x3, Cooperative, No apparent distress, Well developed, Well nourished HEENT: Atraumatic, PERRLA, EOMI, Normocephalic Oral: Moist Mucosa Neck: Supple, No JVD, Negative Carotid Bruits, Trachea Midline, Thyroid Normal Size and Texture Lungs: Normal air movement, No rhonchi, Rales - Inspiratory rales are scattered over both lung daily Cardiovascular: Regular rate, Regular Rhythm, Normal S1, Normal S2, No murmurs, PMI Normal, No rub noted, No Gallop Abdomen: Bowel Sounds Present, Soft, Non Tender, Non-Distended, No hernias noted Extremities: No clubbing, No cyanosis, No edema, Capillary Refill Less than 3 Seconds Skin: No rashes, No breakdown Musculoskeletal: No Tenderness to Palpation of Joints or Extremities Neurological: Cranial nerves II-XII grossly intact, Neuro grossly intact, Sensory exam intact to light touch and pain, Coordination normal Psych/Mental Status: Normal Affect, Appropriate, Alert and oriented to time, place, person, mood and affect Microbiology Past 72 Hours 09/09/19 17:09 Mucosa - Nasopharyngeal Influenza Types A,B Direct FA (HSARON) - Final Laboratory Results 09/09/19 16:35: WBC 8.1, RBC 3.21 L, Hgb 10.3 L, Hct 31.4 L, MCV 97.8, MCH 32.1 H, MCHC 32.8, RDW Std Deviation 51.5 H, RDW Coeff of Jaime 14.3, Plt Count 109 L, MPV 11.9, Immature Gran % (Auto) 0.600, Neut % (Auto) 87.7 H, Lymph % (Auto) 4.7 L, Falls % (Auto) 6.9, Eos % (Auto) 0.0, Baso % (Auto) 0.1, Absolute Neuts (auto) 7.1, Absolute Lymphs (auto) 0.38 L, Nucleated RBC % 0, Differential Comment SCANNED 09/09/19 16:35: Sodium 136, Potassium 3.3 L, Chloride 101, Carbon Dioxide 27.0, Anion Gap 8, BUN 24 H, Creatinine 1.36 H, Estim Creat Clear Calc 27.83, Est GFR (MDRD) Af Amer 49 L, Est GFR (MDRD) Non-Af 40 L, BUN/Creatinine Ratio 17.6, Glucose 107 H, Calcium 8.2 L 09/09/19 16:35: Lactic Acid 1.7 09/09/19 16:35: PT 31.8 H, INR 3.1, APTT 49.3 H Assessment/Plan All Active Problems (Last Updated 06/26/19 @ 08:09 by Alaina Verma) Cough with fever (Acute) Chest pain (Resolved) Supratherapeutic INR (Resolved) #1 bilateral community-acquired pneumonia-etiology unclear at this point, patient will be admitted to PCU, she was given IV Zithromax and Rocephin and this will be continued, patient will have aerosol treatments administered, sputum culture was ordered, respiratory panel was ordered, patient will be seen in consultation by pulmonary medicine. #2 hypoxia secondary to #1-patient's oxygen saturation will be monitored, she is currently on nasal cannula O2 #3 pulmonary hypertension-patient is being treated as an outpatient for pulmonary hypertension and is on medication #4 mechanical aortic valve-patient is currently on Coumadin #5 chronic anticoagulation with Coumadin-INR will be rechecked tomorrow #6 coronary artery disease-stable #7 hypokalemia-patient will be given oral potassium, lab will be rechecked #8 chronic kidney disease stage III-etiology unclear Inpatient E&M: 36549 Init Hosp L3
[2019-09-09] MEDS: Pravastatin 40 MG Tablet PO (21:45)
--- NOTE | 2019-09-09 22:20 | ED.VISSUMM ---
- ER Visit Summary Date of Service: 09/09/19 Chief Complaint: Cough History of Present Illness: The patient is a [address] Navas and Dr. Victoria. Patient reports that she went on a cruise and returned yesterday. She states that she took [employer] and flew into [place]. From there the cruise went to [facility], in the [facility]. She states that she did not think there was anyone sick on the ship. The cruise was a 1 week cruise. She reports that she began getting ill 3 days ago. She has a cough that is productive yellow sputum without blood. She saw the doctor on the ship and had a flu test that was negative. She did have a chest x-ray. She was prescribed Zithromax, but took her first dose today. Review of systems patient complains of fever, chills, and sweats. Mild sore throat. A little bit of chest pain with her cough. She denies any shortness of breath. She does report she is been nauseated and had dry heaves. She is having 4-5 episodes of diarrhea today. No blood in her stools or black tarry stools. She denies any myalgias, headache, or other complaints. Physical Examination: Vitals: 102.6, 136/90, 114, 18, 90% room air which is not hypoxic. General: Well-nourished and well-developed. Head: Normocephalic atraumatic. Neck: Supple, no lymphadenopathy. No JVD. Nontender. Cardiovascular: Tachycardic regular rhythm. No murmurs. Respiratory: No respiratory distress. Rhonchi bilaterally left greater than right. Abdominal: Soft, nontender, nondistended, normal bowel sounds. No guarding, rebound, or peritoneal signs. Back: Nontender. Extremities: Nontender, no edema. Skin: Normal color, no rash. Neurologic: Alert and oriented ?3. Cranial nerves II through XII are intact. Normal strength and sensation. Psych: Normal affect. Test Results: Influenza is negative. Lactic acid is 1.7. INR is 3.1. Chem-7 shows a potassium of 3.3, BUN 24, creatinine 1.36, glucose 107, calcium 8.3. CBC shows an H&H 10.3 and 31.4, platelets 109, segmented feels 81, episodes of 5. Clinical Impression(s) from Imaging Studies Chest X-Ray 09/09/19 17:10 IMPRESSION: Presumed left lung pneumonia. Recommend short-term follow-up to document resolution and to better evaluate underlying currently obscured lung parenchyma for presence of lesions. Electronically Signed: Sebastian Mccormick, at 18:17 EDT Tel , Service support , Emergency Department Course and Treatment: Patient was given albuterol and Atrovent aerosols. She is given Solu-Medrol IV. She was given Rocephin and Zithromax IV. She given Tylenol and ibuprofen p.o. As her fever began to decrease her heart rate began as well. Heart rates now into the 90s. But unfortunately her systolic blood pressure is decreased as well into the high 80s. However, her mean arterial pressures remained over 65. She is again given a 30 cc/kg bolus of normal saline. She is resting comfortably. Due to the recent travel I did speak with Dr. Jha and the charge nurse spoke with the Department of Health and with the [facility]. At this time it is felt that the patient is low risk. They stated to use the same precautions we will add for a influenza patient. However, they did not want to have nasopharyngeal, oral, and sputum samples obtained and kept on eyes in case the patient does need to be tested. This will be based on the results of her respiratory panel which will not be finished until tomorrow. Treatment Plan: Patient was discussed with Dr. Akhtar. She will be admitted to the ICU for further evaluation and treatment. Disposition: Admitted in serious condition. Impression: 1. Pneumonia. 2. Septic shock. 3. Coumadin coagulopathy. 4. Critical care time 33 minutes. This note was generated with [employer] dictation software. It may contain incorrect words, spelling, and punctuation that were not noted in review of the chart prior to signing ED Disposition - Plan for ED Patient: Disposition: Acute Care [facility]
[2019-09-10] VITALS (48 sets, daily range): BP systolic 75–156; BP diastolic 45–121; PULSE 84–131; RESP 12–27; TEMP 35.8–37.3; O2SAT 89–100
[2019-09-10] MEDS: Ipratropium/Albuterol Sulfate 3 ML AMPUL.NEB INHALATION ×3 (00:15→13:18)
[2019-09-10] MEDS: 0.9% Normal Saline 1,000 ML 125 ML IV (00:16)
--- NOTE | 2019-09-10 02:55 | SEPSISNOTE ---
Sepsis Note - Physical Exam/Vitals Subjective: Patient complains of fatigue. While lying in bed and with nasal cannula she denies shortness of breath. She reported on presentation it was on exertion that she had shortness of breath. Objective: Chest X-Ray 09/09/19 17:10 IMPRESSION: Presumed left lung pneumonia. Recommend short-term follow-up to document resolution and to better evaluate underlying currently obscured lung parenchyma for presence of lesions. Electronically Signed: Sebastian Mccormick, at 18:17 EDT Tel , Service support , Temp Pulse Resp BP Pulse Ox 96.5 F L 91 12 75/45 L 93 09/10/19 02:00 09/10/19 02:50 09/10/19 02:00 09/10/19 02:50 09/10/19 02:00 09/09/19 09/09/19 09/09/19 16:35 16:35 16:35 WBC RBC Hgb Hct MCV MCH MCHC RDW Std Deviation RDW Coeff of Jaime Plt Count MPV Immature Gran % (Auto) Neut % (Auto) Lymph % (Auto) [place] % (Auto) Eos % (Auto) Baso % (Auto) Absolute Neuts (auto) Absolute Lymphs (auto) Nucleated RBC % Differential Comment PT 31.8 H INR 3.1 APTT 49.3 H Sodium 136 Potassium 3.3 L Chloride 101 Carbon Dioxide 27.0 Anion Gap 8 BUN 24 H Creatinine 1.36 H Estim Creat Clear Calc 27.83 Est GFR (MDRD) Af Amer 49 L Est GFR (MDRD) Non-Af 40 L BUN/Creatinine Ratio 17.6 Glucose 107 H Lactic Acid 1.7 Calcium 8.2 L 09/09/19 16:35 WBC 8.1 RBC 3.21 L Hgb 10.3 L Hct 31.4 L MCV 97.8 MCH 32.1 H MCHC 32.8 RDW Std Deviation 51.5 H RDW Coeff of Jaime 14.3 Plt Count 109 L MPV 11.9 Immature Gran % (Auto) 0.600 Neut % (Auto) 87.7 H Lymph % (Auto) 4.7 L [place] % (Auto) 6.9 Eos % (Auto) 0.0 Baso % (Auto) 0.1 Absolute Neuts (auto) 7.1 Absolute Lymphs (auto) 0.38 L Nucleated RBC % 0 Differential Comment SCANNED PT INR APTT Sodium Potassium Chloride Carbon Dioxide Anion Gap BUN Creatinine Estim Creat Clear Calc Est GFR (MDRD) Af Amer Est GFR (MDRD) Non-Af BUN/Creatinine Ratio Glucose Lactic Acid Calcium General: Alert, Oriented x3, Cooperative Lungs: Rales, Rhonchi Cardiovascular: Regular rate, Regular Rhythm, No murmurs Capillary Refill: <3 seconds Peripheral Pulses: Normal Skin Color: Roby - Assessment/Plan Septic shock Patient with heart rate more than 90; and systolic blood pressure less than 90 after receiving 30 mL's per kilogram bolus of NSS IV fluids and on maintenance normal saline infusion of 125 mL's per hour. Blood cultures are pending. Influenza screen is negative. Comprehensive respiratory pathogen panel showed human metapneumovirus. Strep pneumonia and Legionella antigen are negative. Septic shock likely secondary to human metapneumovirus in the setting of patient being on a cruise ship Can not rule out gram-positive or gram-negative pneumonia. Strep pneumonia antigen and Legionella urinary antigen are negative. Metoprolol has been on hold. Hold Lasix. Start patient on Levophed titrate to keep systolic blood pressure of at least 90 or map of at least 65.
[2019-09-10 04:57] LABS: Absolute Lymphocyte Count 0.36 X10^3/uL (0.83-4.51); Basophil# 0.01 X10^3/uL; Basophil% 0.1 % (0-1); Eosinophil# 0.15 X10^3/uL; Eosinophils% 1.7 % (0-5); Hemoglobin 9.2 g/dL (12.0-15.0); Lymphocyte # 0.36 X10^3/ul (4.0); Lymphocyte % 4.1 % (19-41); Mean Corp Hgb Conc 31.7 g/dL (32-36); Mean Corpuscular Hgb 31.6 pg (27.0-32.0); Mean Corpuscular Volume 99.7 fL (81-99); Mean Platelet Vol. 12.1 fl (6.2-12.0); Monocyte# 0.27 X10^3/uL; Monocyte% 3.1 % (0-10); NRBC Flagged by Analyzer 0 % (0-5); Neutrophil # 8.01 X10^3/uL (2.7-7.7); Neutrophil % 90.7 % (47-70); POSITIVE COUNT YES; POSITIVE DIFFERENTIAL YES; POSITIVE MORPHOLOGY YES; Platelet Count 96 K/mm3 (150-450); RBC Distribution Width CV 14.6 % (11.6-14.6); RBC Distribution Width SD 53.3 fl (35.1-43.9); Red Blood Count 2.91 M/mm3 (4.2-5.4); White Blood Count 8.8 K/mm3 (4.4-11.0)
[2019-09-10 04:58] LABS: Differential Indicated SCAN CRITERIA MET
[2019-09-10] MEDS: Levothyroxine 75 MCG Tablet PO (05:06)
[2019-09-10 05:07] LABS: International Normalized Ratio 3.1; Prothrombin Time (Protime)PT. 32.5 SECONDS (11.7-14.9)
[2019-09-10 05:15] LABS: Differential Comment SCANNED; Platelet Estimate MOD DEC (ADEQ)
[2019-09-10 05:16] LABS: Hypochromasia 1+; Microcytosis 1+
[2019-09-10 05:31] LABS: ALB/GLOB Ratio 0.6 RATIO (0.9-2.4); AST(SGOT) 183 U/L (15-37); Alanine Aminotransfer ALT/SGPT 165 U/L (13-56); Albumin, Serum 2.5 g/dL (3.2-5.0); Alkaline Phosphatase 112 U/L (45-117); Anion Gap 8 (5-15); BUN 26 mg/dL (7-18); BUN/Creat Ratio 18.8 RATIO (10-20); Calcium,Total 6.8 mg/dL (8.5-10.1); Chloride 108 mmol/L (98-107); Creatinine, Serum 1.38 mg/dL (0.55-1.02); EST Glomerular Filtration Rate 39 mL/min (>60); Est Glom Filt Rate - Afr Amer 48 mL/min (>60); Estimated Creatinine Clearance 27.43 ml/min; Globulin 4.2 g/dL (2.2-4.2); Glucose 164 mg/dL (74-106); Potassium 3.2 mmol/L (3.5-5.1); Protein, Total 6.7 g/dL (6.4-8.2); Sodium Level 139 mmol/L (136-145)
--- NOTE | 2019-09-10 05:55 | RAD_ITS ---
STUDY: X-RAY CHEST REASON FOR EXAM: Female, 78 years old patient with cough and flu like symptoms. Recent cruise to [place]. TECHNIQUE: Two AP portable views of the chest. COMPARISON: September 09, 2019. FINDINGS: Cardiac monitoring leads are present. The lungs are hyperexpanded. There is patchy left-sided airspace consolidation involving the left upper lobe primarily. There is no demonstrated pleural abnormality. There is moderate cardiac enlargement. Normal mediastinum and milad. There is prominence of the pulmonary hilar arteries without peripheral pulmonary vascular congestion. There is atherosclerotic calcification of the aortic arch with tortuosity. There is demineralization of the osseous structures. There are degenerative changes of the spine and shoulders. There is no demonstrated abnormality of the visualized soft tissue structures of the upper abdomen. RAD/Chest 1 View (Portable) IMPRESSION: Unchanged appearance of left-sided airspace consolidation likely representing pneumonia. Suggest follow-up imaging after treatment to exclude underlying neoplasia. Electronically Signed: Brianna Cordero MD at 6:08 EDT , Service support ,
--- NOTE | 2019-09-10 06:23 | CON.PCM_ITS ---
Reason for Consult Date of Consultation: 09/10/19 Reason for Consultation: Bilateral pneumonia History of Present Illness: The patient is a 78-year-old female, with a history as outlined below, who presented to the emergency department on September 08 with complaints of a cough. The patient has a history of aortic valve stenosis status post aortic valve replacement along with coronary artery disease status post CABG. She also has a history of paroxysmal atrial fibrillation as well. Surface echocardiogram from June 2019 revealed normal LV size and function with an ejection fraction of 65%. Right ventricular systolic pressure was estimated to be 67 mmHg. She is currently followed by Dr. Sage on an outpatient basis due to pulmonary hypertension. The patient had been on a cruise which visited [facility] in the [facility]. She had just returned home prior to her presentation to the emergency department. On presentation to the emergency department, the patient was noted to be febrile with a temperature of 102.6 ?F. In addition, she was tachycardic as well, but was hemodynamically stable. Laboratory evaluation revealed no evidence of a leukocytosis. INR was noted to be 3.1. Chemistry profile was notable for a potassium of 3.3 with creatinine of 1.36. Plain film chest x-ray revealed left- sided airspace consolidation. The patient received supplemental IV fluid hydration and was started on broad-spectrum antimicrobials. She was then admitted to the medical intensive care unit for further management. Due to the patient's recent travel history, both the [facility] and [facility] were contacted. The patient was maintained in airborne isolation overnight. However, her subsequent respiratory viral panel was positive for human metapneumovirus. 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 (Chronic) Medical History: Medical History (Last Updated 06/26/19 @ 08:09 by Alaina Verma) Paroxysmal atrial fibrillation (Chronic) I48.0 Nonrheumatic aortic (valve) stenosis (Chronic) I35.0 History of bicuspid aortic valve (Chronic) Z87.74 Mixed hyperlipidemia (Chronic) E78.2 Atherosclerotic heart disease of [place] coronary artery without angina pectoris (Chronic) I25.10 correction (current) use of anticoagulants (Chronic) Z79.01 Allergies Penicillins Allergy (Intermediate, Verified 09/09/19 15:26) Unknown Home Medications: Ambulatory Orders Medication Instructions Recorded pravastatin 40 mg tablet 40 mg PO QHS #90 tab 09/21/18 Warfarin Sodium 2.5 mg PO WETH 11/25/18 furosemide 40 mg tablet 40 mg PO DAILY 01/17/19 metoprolol tartrate 25 mg tablet 25 mg PO BID #180 tab 02/12/19 amiodarone 200 mg tablet 200 mg PO DAILY #90 tab 04/02/19 Bosentan 125 mg PO BID 09/09/19 Levothyroxine [Synthroid] 75 mcg PO DAILY 09/09/19 Warfarin [Coumadin (PBKC)] 5 mg PO SUMOFRSA 09/09/19 Surgical History: Surgical History (Last Updated 06/26/19 @ 08:09 by Alaina Verma) History of coronary artery bypass surgery (Chronic) Onset Date: ~04/18/07 Z95.1 CABG x1 CHURCH to LAD 04/18/2007 History of cardioversion Onset Date: ~01/08/19 Z98.890 History of cataract extraction Z98.49 History of colonoscopy with polypectomy Z98.890, Z86.010 History of left heart catheterization (LHC) Onset Date: ~06/25/19 Z98.890 LEFT MAIN: Angiographically normal; LEFT ANTERIOR DESCENDING ARTERY: PROX LAD: diffuse: eccentric: 85 % Stenosis, MID LAD: is occluded, fills from the CHURCH graft with no angiographically significant appearing disease distal to the graft attachment; CIRCUMFLEX ARTERY: PROX CIRC: 25 - 50 % Stenosis, OM 1: Proximal - Mild luminal irregularities; RIGHT CORONARY ARTERY: PROX RCA: 25 % Stenosis, MID RCA: 25 % Stenosis; GRAFTS: CHURCH graft to the Mid LAD is patent; VALVE FINDINGS: Stable appearing bileaflet mechanical aortic valve prosthesis; Aortic Valve Insufficiency: Grade 1; AORTIC ROOT: Angiographically normal per cath 06/25/19 Hx laparoscopic cholecystectomy Z90.49 Hx of cervical polypectomy Z98.890, Z87.42 with endometrial biopsy Surgical History: cholecystectomy, coronary bypass surgery - 04-18-2007: [facility]: CHURCH to the LAD, - - Mechanical aortic heart valve Psychiatric History: No pertinent psych hx 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 Peyman El MD) Mother CAD (coronary artery disease) Myocardial infarction Hypertension TIA (transient ischemic attack) Diabetes Sister H/O aortic valve replacement Sister H/O aortic valve replacement Brother Heart disease History Items: Diabetes, Heart Disease, Hypertension Paternal Family History: Family History (Last Reviewed 06/20/19 @ 06:[address] Peyman El MD) Mother CAD (coronary artery disease) Myocardial infarction Hypertension TIA (transient ischemic attack) Diabetes Sister H/O aortic valve replacement Sister H/O aortic valve replacement Brother Heart disease History Items: Unknown - Killed-circumstance unknown Review of Systems Constitutional: Reports: Chills, Fever, Fatigue Eyes: Denies: Blurred vision, Double vision HEENT: Reports: Sore Throat Cardiovascular: Denies: Chest Pain, Palpitations Respiratory: Reports: Cough, Shortness of Breath Gastrointestinal: Reports: Diarrhea Genitourinary: Denies: Dysuria Musculoskeletal: Denies: Joint Pain, Joint Tenderness Skin: Denies: Rash, Wounds Neurological: Denies: Numbness, Tingling, Focal weakness Psychiatric: Denies: Anxiety, Depression, Homicidal Ideations, Suicidal Ideations Hematologic/ Lymphatic: Denies: Easy Bruising, Easy Bleeding Patient Problems: Active and Suspected Problems (Last Updated 06/26/19 @ 08:09 by Alaina Verma) Human metapneumovirus (hMPV) pneumonia (Acute) Septic shock (Acute) Cough with fever (Acute) Objective: The patient's most recent lab work, culture data and imaging studies have all been personally reviewed. Respiratory viral panel was positive for human metapneumovirus. - Physical Exam Vitals/I&O's: Vital Signs Temp Pulse Resp BP Pulse Ox 97.7 F L 111 H 18 133/81 H 96 09/10/19 05:00 09/10/19 06:00 09/10/19 06:00 09/10/19 06:00 09/10/19 06:00 Oxygen Flow Rate (L/min) 2 Oxygen Delivery Method Nasal Cannula Weight: 205 lb 14.588 oz Body Mass Index (BMI) 36.9 Intake and Output for Last 24 Hours 09/08/19 09/09/19 09/10/19 22:59 23:59 23:59 Intake Total 716.26 / 716.26 Balance 716.26 / 716.26 General: Alert, Cooperative, No apparent distress HEENT: Atraumatic, Normocephalic Oral: No Gingival or Mucosal Lesions/ Ulcerations Neck: Supple, No Nodes, Trachea Midline Lungs: Rhonchi, - - Frequent paroxysms of coughing Cardiovascular: Normal S1, Normal S2, No murmurs, Irregular Rate Abdomen: Bowel Sounds Present, Soft, Non Tender Extremities: No clubbing, No cyanosis, No edema Skin: No breakdown Musculoskeletal: No Muscle Wasting Lymphatic: No Cervical, Supraclavicular, or Inguinal Adenopathy Neurological: Cranial nerves II-XII grossly intact, Neuro grossly intact Psych/Mental Status: Normal Affect, Appropriate Labs (Last 48 Hours) 09/09/19 09/09/19 09/09/19 16:35 16:35 16:35 WBC 8.1 RBC 3.21 L Hgb 10.3 L Hct 31.4 L MCV 97.8 MCH 32.1 H MCHC 32.8 RDW Std Deviation 51.5 H RDW Coeff of Jaime 14.3 Plt Count 109 L MPV 11.9 Immature Gran % (Auto) 0.600 Neut % (Auto) 87.7 H Lymph % (Auto) 4.7 L [place] % (Auto) 6.9 Eos % (Auto) 0.0 Baso % (Auto) 0.1 Absolute Neuts (auto) 7.1 Absolute Lymphs (auto) 0.38 L Nucleated RBC % 0 Differential Comment SCANNED Platelet Estimate Hypochromasia Microcytosis PT INR APTT Sodium 136 Potassium 3.3 L Chloride 101 Carbon Dioxide 27.0 Anion Gap 8 BUN 24 H Creatinine 1.36 H Estim Creat Clear Calc 27.83 Est GFR (MDRD) Af Amer 49 L Est GFR (MDRD) Non-Af 40 L BUN/Creatinine Ratio 17.6 Glucose 107 H Lactic Acid 1.7 Calcium 8.2 L Total Bilirubin AST ALT Alkaline Phosphatase Total Protein Albumin Globulin Albumin/Globulin Ratio 09/09/19 09/10/19 09/10/19 16:35 04:45 04:45 WBC 8.8 RBC 2.91 L Hgb 9.2 L Hct 29.0 L MCV 99.7 H MCH 31.6 MCHC 31.7 L RDW Std Deviation 53.3 H RDW Coeff of Jaime 14.6 Plt Count 96 L MPV 12.1 H Immature Gran % (Auto) 0.300 Neut % (Auto) 90.7 H Lymph % (Auto) 4.1 L [place] % (Auto) 3.1 Eos % (Auto) 1.7 Baso % (Auto) 0.1 Absolute Neuts (auto) 8.0 H Absolute Lymphs (auto) 0.36 L Nucleated RBC % 0 Differential Comment SCANNED Platelet Estimate MOD DEC Hypochromasia 1+ Microcytosis 1+ PT 31.8 H 32.5 H INR 3.1 3.1 APTT 49.3 H Sodium Potassium Chloride Carbon Dioxide Anion Gap BUN Creatinine Estim Creat Clear Calc Est GFR (MDRD) Af Amer Est GFR (MDRD) Non-Af BUN/Creatinine Ratio Glucose Lactic Acid Calcium Total Bilirubin AST ALT Alkaline Phosphatase Total Protein Albumin Globulin Albumin/Globulin Ratio 09/10/19 04:45 WBC RBC Hgb Hct MCV MCH MCHC RDW Std Deviation RDW Coeff of Jaime Plt Count MPV Immature Gran % (Auto) Neut % (Auto) Lymph % (Auto) [place] % (Auto) Eos % (Auto) Baso % (Auto) Absolute Neuts (auto) Absolute Lymphs (auto) Nucleated RBC % Differential Comment Platelet Estimate Hypochromasia Microcytosis PT INR APTT Sodium 139 Potassium 3.2 L Chloride 108 H Carbon Dioxide 23.0 Anion Gap 8 BUN 26 H Creatinine 1.38 H Estim Creat Clear Calc 27.43 Est GFR (MDRD) Af Amer 48 L Est GFR (MDRD) Non-Af 39 L BUN/Creatinine Ratio 18.8 Glucose 164 H Lactic Acid Calcium 6.8 L Total Bilirubin 0.70 AST 183 H ALT 165 H Alkaline Phosphatase 112 Total Protein 6.7 Albumin 2.5 L Globulin 4.2 Albumin/Globulin Ratio 0.6 L Microbiology 09/09/19 17:09 Mucosa - Nasopharyngeal Respiratory Panel (PCR) - Preliminary Human [place] 09/09/19 21:20 Urine, Clean Catch Legionella Antigen - Final 09/09/19 21:20 Urine, Clean Catch Streptococcus pneumoniae Antigen (M - Final 09/09/19 17:09 Mucosa - Nasopharyngeal Influenza Types A,B Direct FA (SHARON) - Final Clinical Impression(s) from Imaging Studies Chest X-Ray 09/09/19 17:10 IMPRESSION: Presumed left lung pneumonia. Recommend short-term follow-up to document resolution and to better evaluate underlying currently obscured lung parenchyma for presence of lesions. Electronically Signed: Sebastian Mccormick, at 18:17 EDT Tel , Service support , Chest X-Ray 09/10/19 05:55 IMPRESSION: Unchanged appearance of left-sided airspace consolidation likely representing pneumonia. Suggest follow-up imaging after treatment to exclude underlying neoplasia. Electronically Signed: Brianna Cordero MD at 6:08 EDT , Service support , Current Medications Acetaminophen (Tylenol) 650 mg PO Q6H PRN PRN PRN Reason: Pain Score 1-10/Temp > 100.7 F Albuterol Sulfate (Ventolin Aerosols) 2.5 mg INHALATION Q2H PRN PRN PRN Reason: DYSPNEA Albuterol/Ipratropium (Duoneb) 3 ml INHALATION Q6H.RT XENIA Last Admin: 09/10/19 00:15 Dose: 3 ml Documented by: Amiodarone HCl (Cordarone) 200 mg PO DAILY XENIA Bosentan (Tracleer) 125 mg PO BID [facility] Last Admin: 09/09/19 21:46 Dose: 125 mg Documented by: Furosemide (Lasix) 40 mg PO DAILY [facility] Sodium Chloride () 1,000 mls @ 125 mls/hr IV .Q8H [facility] Last Infusion: 09/10/19 05:21 Dose: 125 mls/hr Documented by: Azithromycin 500 mg/ Dextrose 255 mls @ 250 mls/hr IV Q24@2200 [facility] Ceftriaxone Sodium 2 gm/ (Sodium Chloride) 50 mls @ 100 mls/hr IV Q24@2200 [facility] Sodium Chloride () 250 mls @ 15 mls/hr IV .[id number] PRN PRN Reason: Saline Flush Sodium Chloride () 250 mls @ 15 mls/hr IV .[id number] PRN PRN Reason: Additional IVPB Infusion Norepinephrine Bitartrate 8 mg (/ Sodium Chloride) 250 mls @ 9.375 mls/hr CONT INF .[id number] [facility]; Protocol Last Titration: 09/10/19 06:00 Dose: 2 mcg/min, 3.8 mls/hr Documented by: Levothyroxine Sodium (Synthroid) 75 mcg PO DAILY@0600 [facility] Last Admin: 09/10/19 05:06 Dose: 75 mcg Documented by: Nutritional Formula (Lactose Free) (Ensure Enlive) 120 ml PO 4X/DAY [facility] Pravastatin Sodium (Pravachol) 40 mg PO QHS [facility] Last Admin: 09/09/19 21:45 Dose: 40 mg Documented by: Sodium Chloride () 10 - 40 ml IV UD PRN PRN Reason: SALINE FLUSH Warfarin Sodium (Coumadin (Pbkc)) 5 mg PO SuMoFrSa@1700 [facility] Last Admin: 09/09/19 21:45 Dose: 5 mg Documented by: Warfarin Sodium (Coumadin (Pbkc)) 2.5 mg PO TuWeTh@1700 [facility]; Protocol Assessment/Plan Active and Suspected Problems (Last Updated 06/26/19 @ 08:09 by Alaina Verma) Human metapneumovirus (hMPV) pneumonia (Acute) Septic shock (Acute) Cough with fever (Acute) RECOMMENDATIONS: 1. Discontinue ceftriaxone and azithromycin. Transition to empiric meropenem, given penicillin allergy. 2. Dose vancomycin x1 and await MRSA screen. If negative, okay to discontinue Vancomycin. 3. Discontinue Lasix, given hemodynamic instability. 4. Stop continuous IV fluids and bolus patient with lactated Ringer's. 5. Potassium repletion. IMPRESSIONS: 1. Septic shock with concern for human metapneumovirus URI and superimposed bacterial pneumonia The patient did receive supplemental IV fluid hydration but remained tenuous from a hemodynamic perspective, which required the initiation of vasopressor support. The patient only has evidence of heart failure with preserved ejection fraction. Therefore, a small amount of additional supplemental IV fluids in bolus form will be provided to the patient this morning in hopes of weaning her completely from Levophed. The patient's antimicrobial therapy has been broaden ed to include vancomycin and meropenem. MRSA screen is pending. 2. History of aortic valve stenosis status post replacement/coronary artery disease status post CABG/paroxysmal atrial fibrillation Continue baseline cardiac meds per home regimen. Continue systemic anticoagulation with Coumadin. Check INR daily. 3. Pulmonary hypertension The patient is currently followed by Dr. Sage and appears to be prescribed Bosentan. Upon transfer out of the intensive care unit, consultation can be placed to the patient's primary enrollment specialist for further recommendations. 4. Hypokalemia Electrolyte repletion as indicated. Recheck levels in the morning. 5. Advanced age/obesity/hypothyroidism/hyperlipidemia Complicates care, management, recovery and prognosis. Continue home medications as indicated. UPDATE: I was notified by the nursing staff this afternoon that the patient has been off of all vasopressor support and has remained hemodynamically stable now for several hours. Her oxygenation status has improved. Therefore, the patient can be transferred out of the intensive care unit. I will sign off from a critical care perspective and defer further pulmonary management to her primary enrollment specialist. This note was generated with [employer] dictation software. It may contain incorrect words, spelling, and punctuation that were not noted in checking the note before signing. Inpatient E&M: 43543 Init Hosp L3
--- NOTE | 2019-09-10 06:31 | NURSING ---
Called the CDC to inquire about airborne isolation. Resp panel came back with human meta. This relayed to CDC. CDC customer counter representative Dunia stated that if pt. is thought to be a possible COVID-19, then airborne isolation needs to remain in place. Call placed to Kalani with infection prevention and voicemail left regarding pt. update and resp panel results.
--- NOTE | 2019-09-10 07:50 | PCM.PN.HOSP ---
Patient Problems: Active and Suspected Problems (Last Updated 06/26/19 @ 08:09 by Alaina Verma) Human metapneumovirus (hMPV) pneumonia (Acute) Septic shock (Acute) Cough with fever (Acute) Subjective: States that she is definitely feeling better than she did but not great yet. States that she sees Dr. Sage for her PAH. Denies pain. C/O her eyes matting --> no discharge or conjunctivitis noted. Vitals/I&O's: Vital Signs Temp Pulse Resp BP Pulse Ox 97.7 F L 91 18 114/54 L 96 09/10/19 05:00 09/10/19 06:15 09/10/19 06:00 09/10/19 06:15 09/10/19 06:00 Oxygen Flow Rate (L/min) 2 Oxygen Delivery Method Nasal Cannula Weight: 93.4 kg Body Mass Index (BMI) 36.9 Intake and Output for Last 24 Hours 09/08/19 09/09/19 09/10/19 22:59 23:59 23:59 Intake Total 717.21 / 717.21 Balance 717.21 / 717.21 General: Alert, Oriented x3, Cooperative, No apparent distress, Well developed, Well nourished, - - Sitting up in bed getting ready to breakfast, nsg at bedside, doesn't appear toxic but appears as if she is not feeling great HEENT: Atraumatic, PERRLA, EOMI, Normocephalic, EAC Clear, - - no conjuntivitis, sm stye R upper eyelid Oral: Moist Mucosa, No Gingival or Mucosal Lesions/ Ulcerations Neck: Supple, No JVD, Negative Carotid Bruits, Negative Hepatojugular Reflux, No Nodes, No Nuchal Rigidity, Trachea Midline, Thyroid Normal Size and Texture Lungs: No rales, Rhonchi - most notable on the L, Wheezes - scattered diffuse Cardiovascular: Normal S1, Normal S2, No murmurs, No Ectopic Activity, No rub noted, No Gallop, Tachycardic - very mild, - - irreg rhythm Abdomen: Bowel Sounds Present, Soft, Non Tender, Non-Distended, No Hepato-splenomegaly, No hernias noted Extremities: No clubbing, No cyanosis, No edema, Capillary Refill Less than 3 Seconds, Peripheral Pulses Normal Skin: No rashes, No breakdown Musculoskeletal: No Tenderness to Palpation of Joints or Extremities Lymphatic: No Cervical, Supraclavicular, or Inguinal Adenopathy Neurological: Cranial nerves II-XII grossly intact, Deep Tendon Reflexes 2+/4 and Symmetrical, Neuro grossly intact, Motor Exam 5/5 strength throughout Psych/Mental Status: Normal Affect, Appropriate, - - very pleasant, Alert and oriented to time, place, person, mood and affect Microbiology Past 72 Hours 09/09/19 17:09 Mucosa - Nasopharyngeal Respiratory Panel (PCR) - Final Human [place] 09/09/19 21:20 Urine, Clean Catch Legionella Antigen - Final 09/09/19 21:20 Urine, Clean Catch Streptococcus pneumoniae Antigen (M - Final 09/09/19 17:09 Mucosa - Nasopharyngeal Influenza Types A,B Direct FA (SHARON) - Final Laboratory Results 09/09/19 16:35: WBC 8.1, RBC 3.21 L, Hgb 10.3 L, Hct 31.4 L, MCV 97.8, MCH 32.1 H, MCHC 32.8, RDW Std Deviation 51.5 H, RDW Coeff of Jaime 14.3, Plt Count 109 L, MPV 11.9, Immature Gran % (Auto) 0.600, Neut % (Auto) 87.7 H, Lymph % (Auto) 4.7 L, [place] % (Auto) 6.9, Eos % (Auto) 0.0, Baso % (Auto) 0.1, Absolute Neuts (auto) 7.1, Absolute Lymphs (auto) 0.38 L, Nucleated RBC % 0, Differential Comment SCANNED 09/09/19 16:35: Sodium 136, Potassium 3.3 L, Chloride 101, Carbon Dioxide 27.0, Anion Gap 8, BUN 24 H, Creatinine 1.36 H, Estim Creat Clear Calc 27.83, Est GFR (MDRD) Af Amer 49 L, Est GFR (MDRD) Non-Af 40 L, BUN/Creatinine Ratio 17.6, Glucose 107 H, Calcium 8.2 L 09/09/19 16:35: Lactic Acid 1.7 09/09/19 16:35: PT 31.8 H, INR 3.1, APTT 49.3 H 09/10/19 04:45: WBC 8.8, RBC 2.91 L, Hgb 9.2 L, Hct 29.0 L, MCV 99.7 H, MCH 31.6, MCHC 31.7 L, RDW Std Deviation 53.3 H, RDW Coeff of Jaime 14.6, Plt Count 96 L, MPV 12.1 H, Immature Gran % (Auto) 0.300, Neut % (Auto) 90.7 H, Lymph % (Auto) 4.1 L, [place] % (Auto) 3.1, Eos % (Auto) 1.7, Baso % (Auto) 0.1, Absolute Neuts (auto) 8.0 H, Absolute Lymphs (auto) 0.36 L, Nucleated RBC % 0, Differential Comment SCANNED, Platelet Estimate MOD DEC, Hypochromasia 1+, Microcytosis 1+ 09/10/19 04:45: PT 32.5 H, INR 3.1 09/10/19 04:45: Sodium 139, Potassium 3.2 L, Chloride 108 H, Carbon Dioxide 23.0, Anion Gap 8, BUN 26 H, Creatinine 1.38 H, Estim Creat Clear Calc 27.43, Est GFR (MDRD) Af Amer 48 L, Est GFR (MDRD) Non-Af 39 L, BUN/Creatinine Ratio 18.8, Glucose 164 H, Calcium 6.8 L, Total Bilirubin 0.70, AST 183 H, ALT 165 H, Alkaline Phosphatase 112, Total Protein 6.7, Albumin 2.5 L, Globulin 4.2, Albumin/Globulin Ratio 0.6 L 09/10/19 04:45: B-Natriuretic Peptide Pending Current Medications Acetaminophen (Tylenol) 650 mg PO Q6H PRN PRN PRN Reason: Pain Score 1-10/Temp > 100.7 F Albuterol Sulfate (Ventolin Aerosols) 2.5 mg INHALATION Q2H PRN PRN PRN Reason: DYSPNEA Albuterol/Ipratropium (Duoneb) 3 ml INHALATION Q6H.RT XENIA Last Admin: 09/10/19 07:23 Dose: 3 ml Documented by: Amiodarone HCl (Cordarone) 200 mg PO DAILY XENIA Bosentan (Tracleer) 125 mg PO BID [facility] Last Admin: 09/09/19 21:46 Dose: 125 mg Documented by: Sodium Chloride () 250 mls @ 15 mls/hr IV .[id number] PRN PRN Reason: Saline Flush Sodium Chloride () 250 mls @ 15 mls/hr IV .[id number] PRN PRN Reason: Additional IVPB Infusion Norepinephrine Bitartrate 8 mg (/ Sodium Chloride) 250 mls @ 9.375 mls/hr CONT INF .[id number] [facility]; Protocol Last Titration: 09/10/19 06:15 Dose: 2 mcg/min, 3.8 mls/hr Documented by: Meropenem 1 gm/ Sodium (Chloride) 120 mls @ 33 mls/hr IV Q12 [facility] Vancomycin IV Pharmacy to Dose (1 ea/ Sodium Chloride) 500 mls @ 250 mls/hr IV X1 PRN; Protocol PRN Reason: Rx to Dose Lactated Ringer's () 500 mls @ 999 mls/hr IV .Q31M [facility] Stop: 09/10/19 07:55 Potassium Chloride () 10 meq in 100 mls @ 100 mls/hr IV BOLUS Q1H [facility] Stop: 09/10/19 11:29 Levothyroxine Sodium (Synthroid) 75 mcg PO DAILY@0600 [facility] Last Admin: 09/10/19 05:06 Dose: 75 mcg Documented by: Nutritional Formula (Lactose Free) (Ensure Enlive) 120 ml PO 4X/DAY [facility] Pravastatin Sodium (Pravachol) 40 mg PO QHS [facility] Last Admin: 09/09/19 21:45 Dose: 40 mg Documented by: Sodium Chloride () 10 - 40 ml IV UD PRN PRN Reason: SALINE FLUSH Warfarin Sodium (Coumadin (Pbkc)) 5 mg PO Fr@1700 [facility] Last Admin: 09/09/19 21:45 Dose: 5 mg Documented by: Warfarin Sodium (Coumadin (Pbkc)) 2.5 mg PO TuWeTh@1700 [facility]; Protocol STROKE Vital Signs/Narrative: Vital Signs Temp Pulse Resp BP Pulse Ox 09/10/19 06:15 91 114/54 L 09/10/19 06:00 111 H 18 133/81 H 96 09/10/19 05:45 89 108/83 H 09/10/19 05:30 97 109/69 09/10/19 05:15 96 122/78 H 09/10/19 05:00 97.7 F L 84 15 114/68 96 09/10/19 04:45 92 104/52 L 09/10/19 04:30 96 117/70 09/10/19 04:15 93 123/84 H 09/10/19 04:00 84 12 122/63 H 97 Medical Necessity - Tobacco Use Smoking Status: Never smoker Tobacco Use: Non-smoker Assessment/Plan All Active Problems (Last Updated 06/26/19 @ 08:09 by Alaina Verma) Human metapneumovirus (hMPV) pneumonia (Acute) Septic shock (Acute) Cough with fever (Acute) Chest pain (Resolved) Supratherapeutic INR (Resolved) Human Metapneumovirus PNA with ? superimposed bacterial PNA -Abx converted to Meropenem by [facility] today and 1 dose of Vanc was given -CXR with considerable infiltrate on the L--> reviewed by me -continue scheduled and PRN aerosols -continue O2 and wean as able to keep SpO2 >92% -Appreciate Pulm input Septic Shock -pt on very low dose Levophed -wean as able -IVF Bolus given by [facility] -d/c lasix Acute Respiratory Insufficiency -wean O2 as able -see above CHRISTINE on CKD stage 3 -appears that baseline sCr is 0.9-1.1 -1.38 today -suspect related to perfusion and volume status with hypotension -IVF's -bolus in progress -monitor UO and sCr -if not better by tomorrow will w/u further -avoid nephrotoxins as able Hypokalemia -replacement in progress -repeat in am -check am Mag AVR/PAF/CAD/HPL -h/o CABG in 2016 and [facility] 06/2019 -hold lasix -continue Amiodarone -INR 3.1 with goal 2-3 -continue same dosing today but repeat INR in am -if up more tomorrow will need to hold dose -Hold BB until BP improves -continue statin Mild Macrocytic Anemia -no s/o blood loss -monitor hgb Thrombocytopenia -suspect down 2/2 acute illness as baseline is WNL -will trend PAH -continue Bosentan -follows with Siblilia for this Transaminitis -mild elevations -ok to continue statin -repeat in am Hypocalcemia -when corrected for albumin calcium is WNL at 8.0 Hyperglycemia -no h/o DM -will just trend for now -pt received Solumedrol in ED--> suspect it is related to this DVT Prophylaxis -Fully anticoagulated Code Status Full Dispo Continue current LOC Inpatient E&M: 85816 Subs Hosp L3
[2019-09-10] MEDS: Lactated Ringers 500 ML 999 ML IV (08:18)
[2019-09-10 08:29] LABS: BNP,B-Type NATRIURETIC PEPTIDE 413.9 pg/mL (0-100)
[2019-09-10] MEDS: Amiodarone 200 MG Tablet PO (09:28)
[2019-09-10] MEDS: Potassium Chloride 10mEq/100mL 10 MEQ/100 ML IV.SOLN. 100 MEQ IV BOLUS ×4 (09:31→13:37)
--- NOTE | 2019-09-10 09:38 | CASEMGMT ---
RN CM Assessment Note Presentation: CAP, hypoxia. Intro role of CM and purpose of RN CM assessment. Pt is awake, alert and oriented and able to participate in assessment. Demographics, PCP and Pharmacy verified. Pt states she is generally independent at home, drives and states no care needs. PCP: Dr. Bolden Specialists: Julien Anton, cardiology; Dr. Sage, Pulmonology Preferred Pharmacy: [facility] Insurance: [employer] Prescription Benefit: done LNOK : Raciel Xiao Living Arrangements: Lives independently. Denies care needs with ADL's, IADL's. Transportation: drives DME: wheelchair for distances, no other DME use HHC/SNF: none Patient DC goals: Home DC PLAN: Home. Pt on oxygen presently. If not weaned, may need oxygen testing prior to dc. RN CM advised to contact cm for any concerns/needs that may arise.
[2019-09-10 10:09] LABS: M R Staph aureus DNA By PCR Negative (Negative); Probe Check PASS; Specimen Processing Control PASS
[2019-09-10] MEDS: Acetaminophen 325 MG Tablet 650 MG PO (21:19)
[2019-09-10] MEDS: Pravastatin 40 MG Tablet PO (21:20)
[2019-09-10] MEDS: Metoprolol Tartrate 25 MG Tablet PO (21:21)
[2019-09-11] VITALS (31 sets, daily range): BP systolic 69–156; BP diastolic 49–119; PULSE 79–152; RESP 12–41; TEMP 36.8–37.4; O2SAT 90–99
[2019-09-11] MEDS: Ipratropium/Albuterol Sulfate 3 ML AMPUL.NEB INHALATION ×4 (00:42→18:40)
[2019-09-11] MEDS: Acetaminophen 325 MG Tablet 650 MG PO ×2 (03:10→10:57)
--- NOTE | 2019-09-11 04:30 | NURSING ---
pt sob after ambulating to the restroom with o2 on via nc, pt still sob once in bed and resting with the cpap on, resp called and he palced a airvo on the pt, pulse ox up to 95% from 89%
[2019-09-11] MEDS: Levothyroxine 75 MCG Tablet PO (05:31)
[2019-09-11 05:43] LABS: Hematocrit 26.8 % (37-47); Hemoglobin 8.8 g/dL (12.0-15.0); Mean Corp Hgb Conc 32.8 g/dL (32-36); Mean Corpuscular Hgb 32.1 pg (27.0-32.0); Mean Corpuscular Volume 97.8 fL (81-99); Mean Platelet Vol. 12.2 fl (6.2-12.0); Platelet Count 106 K/mm3 (150-450); RBC Distribution Width SD 53.6 fl (35.1-43.9); Red Blood Count 2.74 M/mm3 (4.2-5.4); White Blood Count 6.9 K/mm3 (4.4-11.0)
[2019-09-11 06:06] LABS: ALB/GLOB Ratio 0.6 RATIO (0.9-2.4); AST(SGOT) 178 U/L (15-37); Alanine Aminotransfer ALT/SGPT 187 U/L (13-56); Albumin, Serum 2.5 g/dL (3.2-5.0); Alkaline Phosphatase 111 U/L (45-117); Anion Gap 7 (5-15); BUN 25 mg/dL (7-18); BUN/Creat Ratio 23.8 RATIO (10-20); Calcium,Total 7.6 mg/dL (8.5-10.1); Chloride 110 mmol/L (98-107); Creatinine, Serum 1.05 mg/dL (0.55-1.02); EST Glomerular Filtration Rate 54 mL/min (>60); Est Glom Filt Rate - Afr Amer 65 mL/min (>60); Estimated Creatinine Clearance 36.05 ml/min; Globulin 4.1 g/dL (2.2-4.2); Glucose 108 mg/dL (74-106); Magnesium 2.1 mg/dL (1.6-2.6); Potassium 3.8 mmol/L (3.5-5.1); Protein, Total 6.6 g/dL (6.4-8.2); Sodium Level 140 mmol/L (136-145)
--- NOTE | 2019-09-11 07:22 | PN_ITS ---
Patient Problems: Active and Suspected Problems (Last Updated 06/26/19 @ 08:09 by Alaina Verma) Human metapneumovirus (hMPV) pneumonia (Acute) Septic shock (Acute) Cough with fever (Acute) Subjective: Feeling a little better but still SOB. Remains in A-fib this am. States that she had to be cardioverted in the past to get out of A-fib. C/O heat for humidification of HFNC to be to high. Vitals/I&O's: Vital Signs Temp Pulse Resp BP Pulse Ox 98.4 F 116 H 23 H 110/75 98 09/11/19 06:00 09/11/19 06:58 09/11/19 06:58 09/11/19 06:00 09/11/19 06:58 Oxygen Flow Rate (L/min) 4 Oxygen Delivery Method CPAP Weight: 97 kg Body Mass Index (BMI) 36.9 Intake and Output for Last 24 Hours 09/09/19 09/10/19 09/11/19 23:59 23:59 23:59 Intake Total 2110.73 / 2110.73 120 / 120 Balance 2110.73 / 2110.73 120 / 120 General: Alert, Oriented x3, Cooperative, No apparent distress, Well developed, Well nourished, - - dyspnea with conversation/minimal exertion HEENT: Atraumatic, PERRLA, EOMI, Normocephalic, EAC Clear Oral: Moist Mucosa, No Gingival or Mucosal Lesions/ Ulcerations Neck: Supple, No JVD, Negative Carotid Bruits, Negative Hepatojugular Reflux, No Nodes, No Nuchal Rigidity, Trachea Midline, Thyroid Normal Size and Texture Lungs: No rhonchi, No rales, Short of Breath - with conversation/exertion, Wheezes, - - course with scattered wheezing Cardiovascular: Normal S1, Normal S2, Irregular Rate, Tachycardic - mild, - - irreg rhythm Abdomen: Bowel Sounds Present, Soft, Non Tender, Non-Distended, No Hepato- splenomegaly, Obese, No hernias noted Extremities: No clubbing, No cyanosis, No edema, Capillary Refill Less than 3 Seconds Skin: No rashes, No breakdown Musculoskeletal: No Tenderness to Palpation of Joints or Extremities, No Muscle Wasting Lymphatic: No Cervical, Supraclavicular, or Inguinal Adenopathy Neurological: Cranial nerves II-XII grossly intact, Deep Tendon Reflexes 2+/4 and Symmetrical, Neuro grossly intact, Motor Exam 5/5 strength throughout Psych/Mental Status: Normal Affect, Appropriate, - - pleasant, Alert and oriented to time, place, person, mood and affect Microbiology Past 72 Hours 09/09/19 17:09 Mucosa - Nasopharyngeal Respiratory Panel (PCR) - Final Human [place] 09/09/19 21:20 Urine, Clean Catch Legionella Antigen - Final 09/09/19 21:20 Urine, Clean Catch Streptococcus pneumoniae Antigen (M - Final 09/09/19 17:09 Mucosa - Nasopharyngeal Influenza Types A,B Direct FA (SHARON) - Final Laboratory Results 09/10/19 04:45: B-Natriuretic Peptide 413.9 H 09/10/19 08:25: MRSA (PCR) Negative 09/11/19 05:25: WBC 6.9, RBC 2.74 L, Hgb 8.8 L, Hct 26.8 L, MCV 97.8, MCH 32.1 H , MCHC 32.8, RDW Std Deviation 53.6 H, RDW Coeff of Jaime 15.0 H, Plt Count 106 L, MPV 12.2 H 09/11/19 05:25: Sodium 140, Potassium 3.8, Chloride 110 H, Carbon Dioxide 23.0, Anion Gap 7, BUN 25 H, Creatinine 1.05 H, Estim Creat Clear Calc 36.05, Est GFR (MDRD) Af Amer 65, Est GFR (MDRD) Non-Af 54 L, BUN/Creatinine Ratio 23.8 H, Glucose 108 H, Calcium 7.6 L, Magnesium 2.1, Total Bilirubin 0.60, AST 178 H, ALT 187 H, Alkaline Phosphatase 111, Total Protein 6.6, Albumin 2.5 L, Globulin 4.1, Albumin/Globulin Ratio 0.6 L Current Medications Acetaminophen (Tylenol) 650 mg PO Q6H PRN PRN PRN Reason: Pain Score 1-10/Temp > 100.7 F Last Admin: 09/11/19 03:10 Dose: 650 mg Documented by: Albuterol Sulfate (Ventolin Aerosols) 2.5 mg INHALATION Q2H PRN PRN PRN Reason: DYSPNEA Albuterol/Ipratropium (Duoneb) 3 ml INHALATION Q6H.RT XENIA Last Admin: 09/11/19 06:57 Dose: 3 ml Documented by: Amiodarone HCl (Cordarone) 200 mg PO DAILY [facility] Last Admin: 09/10/19 09:28 Dose: 200 mg Documented by: Bosentan (Tracleer) 125 mg PO BID [facility] Last Admin: 09/10/19 23:32 Dose: 125 mg Documented by: Sodium Chloride () 250 mls @ 15 mls/hr IV .[id number] PRN PRN Reason: Saline Flush Sodium Chloride () 250 mls @ 15 mls/hr IV .[id number] PRN PRN Reason: Additional IVPB Infusion Meropenem 1 gm/ Sodium (Chloride) 120 mls @ 33 mls/hr IV Q12 [facility] Last Infusion: 09/11/19 02:06 Dose: Infused Documented by: Levothyroxine Sodium (Synthroid) 75 mcg PO DAILY@0600 [facility] Last Admin: 09/11/19 05:31 Dose: 75 mcg Documented by: Methylprednisolone (Solu-Medrol) 40 mg IV DAILY [facility] Last Admin: 09/11/19 02:19 Dose: 40 mg Documented by: Metoprolol Tartrate (Lopressor (Beta [place])) 25 mg PO BID [facility] Last Admin: 09/10/19 21:21 Dose: 25 mg Documented by: Nutritional Formula (Lactose Free) (Ensure Enlive) 120 ml PO 4X/DAY [facility] Last Admin: 09/10/19 21:20 Dose: Not Given Documented by: Pravastatin Sodium (Pravachol) 40 mg PO QHS [facility] Last Admin: 09/10/19 21:20 Dose: 40 mg Documented by: Sodium Chloride () 10 - 40 ml IV UD PRN PRN Reason: SALINE FLUSH Warfarin Sodium (Coumadin (Pbkc)) 5 mg PO Fr@1700 [facility] Last Admin: 09/10/19 18:17 Dose: 5 mg Documented by: Warfarin Sodium (Coumadin (Pbkc)) 2.5 mg PO We@1700 [facility]; Protocol STROKE Vital Signs/Narrative: Vital Signs Temp Pulse Resp BP Pulse Ox 09/11/19 06:58 116 H 23 H 98 09/11/19 06:00 98.4 F 112 H 18 110/75 97 09/11/19 05:16 115 H 23 H 96 09/11/19 05:00 99.3 F H 123 H 21 H 99/62 96 09/11/19 04:00 98.7 F 111 H 17 105/67 90 Medical Necessity - Tobacco Use Smoking Status: Never smoker Tobacco Use: Non-smoker Assessment/Plan All Active Problems (Last Updated 06/26/19 @ 08:09 by Alaina Verma) Human metapneumovirus (hMPV) pneumonia (Acute) Septic shock (Acute) Cough with fever (Acute) Chest pain (Resolved) Supratherapeutic INR (Resolved) Human Metapneumovirus PNA with ? superimposed bacterial PNA -meropenem day 08/10 -continue scheduled and PRN aerosols -continue O2 and wean as able to keep SpO2 >92% -on HFNC currently -CPAP qhs (wears at home) -continue steroids and wean as able -CXR in am -Appreciate Pulm input Septic Shock -resolved -off pressors Acute Respiratory Insufficiency -wean O2 as able -see above CHRISTINE on CKD stage 3 -resolved -appears that baseline sCr is 0.9-1.1 -1.05 today-->baseline -suspect related to perfusion and volume status with hypotension -monitor UO and sCr Hypokalemia -resolved AVR/PAF/CAD/HPL -h/o CABG in 2016 and [facility] 06/2019 -continue to hold lasix today--> may restart tomorrow if remains stable -continue Amiodarone -Metoprolol restarted last pm as pt is mildly tachycardic -may need prn BB -has required DCC in past--> if remains in A-fib may need cardiology consult -INR pending goal 2-3 -was 3.1 yesterday -continue statin Mild Macrocytic Anemia -no s/o blood loss -monitor hgb -relatively stable Thrombocytopenia -suspect down 2/2 acute illness as baseline is WNL -stable PAH -continue Bosentan -follows with Lalyilia for this--> will consult Transaminitis -mild elevations -ok to continue statin -stable Hypocalcemia -when corrected for albumin calcium is WNL Hyperglycemia -no h/o DM -better today DVT Prophylaxis -Fully anticoagulated Code Status Full Dispo Transfer to PCU Inpatient E&M: 06414 Subs Hosp L3
--- NOTE | 2019-09-11 09:30 | RAD_ITS ---
STUDY: X-RAY CHEST REASON FOR EXAM: Female, 78 years old. BILATERAL PNEUMONIA -- SOB TECHNIQUE: Frontal view of the chest COMPARISON: 10 September 2019 FINDINGS: There is progressive worsening of left upper lobe opacity with increasing density. There is increasing right midlung and lower lung opacity. There is opacification of the left lung. There are surgical clips in the left hilum. There is no pneumothorax pulmonary edema. There is likely a small left pleural effusion. Osseous structures are intact. RAD/Chest 1 View (Portable) IMPRESSION: Worsening pulmonary disease, presumably progressive pneumonia. Refer to follow-up imaging for evaluation of underlying lung parenchyma. Electronically Signed: Sebastian Mccormick, at 20:06 EDT Tel , Service support ,
[2019-09-11] MEDS: Amiodarone 200 MG Tablet PO (09:37)
[2019-09-11] MEDS: Metoprolol Tartrate 25 MG Tablet PO (09:37)
[2019-09-11 10:00] LABS: International Normalized Ratio 3.4; Prothrombin Time (Protime)PT. 34.5 SECONDS (11.7-14.9)
--- NOTE | 2019-09-11 13:26 | CHAPLAIN ---
Type of Pastoral Visit _x__ Initial Visit ___ Follow-up Visit ___ On-call Visit ___ General Patient Visit ___ Spiritual Assessment ___ Family Conference ___ Bereavement ___ Rapid Response ___ Code Blue ___ Other (describe below) Pastoral Care Referral From ___ Patient ___ Family _x__ Nurse ___ Physician ___ Coffee Host ___ Poultry Packer ___ Other (describe below) Sacrament/Intervention _x__ Active listening ___ Anointing ___ Uatsdin ___ Bereavement ___ Communion ___ Isabella exploration ___ ___ Life review _x__ Prayer ___ Reconciliation ___ Sacrament of Sick _x__ Supportive presence ___ Wedding ___ Other (describe below) Pastoral Comments patient welcomed support from this termite control representative after recommendation from RN; pt is experiencing high anxiety; pt talks about her fears
[2019-09-11] MEDS: Albuterol 2.5 MG/3 ML VIAL.NEB. INHALATION (16:40)
[2019-09-11] MEDS: Metoprolol Tartrate 5 MG/5 ML Vial IV (17:37)
[2019-09-11] MEDS: 0.9% Saline Lock 10 ML Syringe IV ×2 (17:37→20:00)
[2019-09-11 19:11] LABS: Allen Test POS; Base Excess -10 mmol/L (-2 to +2); Bicarbonate 15.9 mmol/L (22-26); Blood Gas Specimen Type ART; EPAP 6; FI02 45; IPAP 12; PO2 55 mmHG (75-100); RR 12; SITE L Radial; SO2 87 % (95-99); Time Given 1850; Total Carbon Dioxide 17 mmol/L; pCO2 28.2 mmHg (35-45); pH 7.36 (7.35-7.45)
[2019-09-11] MEDS: Amiodarone 360 MG in Dextrose 5% Viaflo Bag 192.8 ML 33.3 MG CONT INF ×2 (19:45→20:07)
--- NOTE | 2019-09-11 19:45 | NURSING ---
Reviewed in detail careplan w/pt and her spouse Gene. Expressed concerns regarding pt getting up and removing bipap mask w/out nursing staff present; educated pt and her spouse on hazards of drinking water while on bipap mask as well, pt acknowledges all information received and agrees to call for help if needed. Pt states I just want to get some rest. Explained to pt purpose of precedex is to allow to relax enough to tolerate the Biapap mask for longer periods in order to help oxygenate her lungs better w/out making her as fatigued from working so hard to breathe. Pt states agreement to plan.
--- NOTE | 2019-09-11 20:00 | NURSING ---
at bedside, [facility] reviewed.
--- NOTE | 2019-09-11 20:05 | CON.PCM_ITS ---
Reason for Consult Reason for Consultation: Viral pneumonia, respiratory failure History of Present Illness: The patient is a 78 year old F [] Past Medical History Past Medical History (Chronic Problems): Chronic Problems (Last Updated 09/11/19 @ 20:[address] Matthew Sage MD) History of mechanical aortic valve replacement (Chronic ~1995) 1995 Paroxysmal atrial fibrillation (Chronic) Nonrheumatic aortic (valve) stenosis (Chronic) History of bicuspid aortic valve (Chronic) Mixed hyperlipidemia (Chronic) Atherosclerotic heart disease of [place] coronary artery without angina pectoris (Chronic) History of coronary artery bypass surgery (Chronic ~04/18/07) CABG x1 CHURCH to LAD 04/18/2007 custodial (current) use of anticoagulants (Chronic) Medical History: Medical History (Last Updated 09/11/19 @ 20:[address] Matthew Sage MD) Pulmonary hypertension (Acute) I27.20 Currently on bosentan Paroxysmal atrial fibrillation (Chronic) I48.0 Nonrheumatic aortic (valve) stenosis (Chronic) I35.0 History of bicuspid aortic valve (Chronic) Z87.74 Mixed hyperlipidemia (Chronic) E78.2 Atherosclerotic heart disease of [place] coronary artery without angina pectoris (Chronic) I25.10 custodial (current) use of anticoagulants (Chronic) Z79.01 Allergies Penicillins Allergy (Intermediate, Verified 09/09/19 15:26) Unknown Home Medications: Ambulatory Orders Medication Instructions Recorded pravastatin 40 mg tablet 40 mg PO QHS #90 tab 09/21/18 Warfarin Sodium 2.5 mg PO TH 11/25/18 furosemide 40 mg tablet 40 mg PO DAILY 01/17/19 metoprolol tartrate 25 mg tablet 25 mg PO BID #180 tab 02/12/19 amiodarone 200 mg tablet 200 mg PO DAILY #90 tab 04/02/19 Bosentan 125 mg PO BID 09/09/19 Levothyroxine [Synthroid] 75 mcg PO DAILY 09/09/19 Warfarin [Coumadin (PBKC)] 5 mg PO SUMOFRSA 09/09/19 Surgical History: Surgical History (Last Updated 06/26/19 @ 08:09 by Alaina Verma) History of coronary artery bypass surgery (Chronic) Onset Date: ~04/18/07 Z95.1 CABG x1 CHURCH to LAD 04/18/2007 History of cardioversion Onset Date: ~01/08/19 Z98.890 History of cataract extraction Z98.49 History of colonoscopy with polypectomy Z98.890, Z86.010 History of left heart catheterization (LHC) Onset Date: ~06/25/19 Z98.890 LEFT MAIN: Angiographically normal; LEFT ANTERIOR DESCENDING ARTERY: PROX LAD: diffuse: eccentric: 85 % Stenosis, MID LAD: is occluded, fills from the CHURCH graft with no angiographically significant appearing disease distal to the graft attachment; CIRCUMFLEX ARTERY: PROX CIRC: 25 - 50 % Stenosis, OM 1: Proximal - Mild luminal irregularities; RIGHT CORONARY ARTERY: PROX RCA: 25 % Stenosis, MID RCA: 25 % Stenosis; GRAFTS: CHURCH graft to the Mid LAD is patent; VALVE FINDINGS: Stable appearing bileaflet mechanical aortic valve prosthesis; Aortic Valve Insufficiency: Grade 1; AORTIC ROOT: Angiographically normal per cath 06/25/19 Hx laparoscopic cholecystectomy Z90.49 Hx of cervical polypectomy Z98.890, Z87.42 with endometrial biopsy Surgical History: cholecystectomy, coronary bypass surgery - 04-18-2007: [facility]: CHURCH to the LAD, - - Mechanical aortic heart valve Psychiatric History: No pertinent psych hx DOCK COORDINATOR History: No pertinent DOCK COORDINATOR history Lives: Spouse/ Significant Other Smoking Status: Never smoker Tobacco Use: Non-smoker Alcohol: None Drugs: None - *Family History Maternal Family History: Family History (Last Reviewed 06/20/19 @ 06:[address] Peyman El MD) Mother CAD (coronary artery disease) Myocardial infarction Hypertension TIA (transient ischemic attack) Diabetes Sister H/O aortic valve replacement Sister H/O aortic valve replacement Brother Heart disease History Items: Diabetes, Heart Disease, Hypertension Paternal Family History: Family History (Last Reviewed 06/20/19 @ 06:[address] Peyman El MD) Mother CAD (coronary artery disease) Myocardial infarction Hypertension TIA (transient ischemic attack) Diabetes Sister H/O aortic valve replacement Sister H/O aortic valve replacement Brother Heart disease History Items: Unknown - Killed-circumstance unknown Review of Systems Constitutional: Reports: Malaise, Weakness, Fatigue HEENT: Denies: Head Aches, Sinus Congestion, Sinus Drainage Cardiovascular: Denies: Chest Pain, Palpitations Respiratory: Reports: Cough, Shortness of Breath, Wheezing Gastrointestinal: Denies: Abdominal Pain, Nausea, Vomiting Genitourinary: Denies: Dysuria Musculoskeletal: Denies: Joint Pain, Joint Tenderness Skin: Reports: - - Dry mouth. Denies: Rash, Wounds Neurological: Denies: Numbness, Tingling, Focal weakness Psychiatric: Reports: Anxiety Hematologic/ Lymphatic: Denies: Easy Bruising, Easy Bleeding Patient Problems: Active and Suspected Problems (Last Updated 09/11/19 @ 20:[address] Matthew Sage MD) Cough with fever (Acute) Septic shock (Acute) Human metapneumovirus (hMPV) pneumonia (Acute) Pulmonary hypertension (Acute) Currently on bosentan - Physical Exam Vitals/I&O's: Vital Signs Temp Pulse Resp BP Pulse Ox 99.0 F 152 H 39 H 146/113 H 92 09/11/19 16:00 09/11/19 18:55 09/11/19 18:55 09/11/19 16:00 09/11/19 18:55 Oxygen Flow Rate (L/min) 55 Oxygen Delivery Method Nasal Cannula Weight: 97 kg Body Mass Index (BMI) 36.9 Intake and Output for Last 24 Hours 09/09/19 09/10/19 09/11/19 23:59 23:59 23:59 Intake Total 2110.73 / 2110.73 690 / 690 Balance 2110.73 / 2110.73 690 / 690 General: Alert, Oriented x3, Non-Cooperative, - - Mild respiratory distress HEENT: Atraumatic, PERRLA, EOMI, Normocephalic Oral: No Gingival or Mucosal Lesions/ Ulcerations, Dry Mucosa Neck: Supple, No JVD, Negative Carotid Bruits, Trachea Midline Lungs: Diminished, Rales - Left greater than right posteriorly no egophony in the right base egophony in the left chest, tight, poor air entry, some accessory muscle use, Rhonchi, Short of Breath, Tachypneic Cardiovascular: Irregular Rate, Tachycardic, - - Atrial fibrillation at a rate of 140 Abdomen: Soft, Non Tender, Non-Distended, No Hepato-splenomegaly, Obese, No hernias noted Extremities: No clubbing, No cyanosis, No edema, Cool, - - Capillary refill 3 to 4 seconds in the fingers 5 seconds in the toes Skin: No rashes, No breakdown Musculoskeletal: No Tenderness to Palpation of Joints or Extremities Lymphatic: No Cervical, Supraclavicular, or Inguinal Adenopathy Neurological: Cranial nerves II-XII grossly intact, Neuro grossly intact, Muscle tone normal, Sensory exam intact to light touch and pain Psych/Mental Status: Anxious Microbiology Past 72 Hours 09/09/19 17:09 Mucosa - Nasopharyngeal Respiratory Panel (PCR) - Final Human [place] 09/09/19 21:20 Urine, Clean Catch Legionella Antigen - Final 09/09/19 21:20 Urine, Clean Catch Streptococcus pneumoniae Antigen (M - Final 09/09/19 17:09 Mucosa - Nasopharyngeal Influenza Types A,B Direct FA (SHARON) - Final Laboratory Results 09/11/19 05:25: WBC 6.9, RBC 2.74 L, Hgb 8.8 L, Hct 26.8 L, MCV 97.8, MCH 32.1 H , MCHC 32.8, RDW Std Deviation 53.6 H, RDW Coeff of Jaime 15.0 H, Plt Count 106 L, MPV 12.2 H 09/11/19 05:25: Sodium 140, Potassium 3.8, Chloride 110 H, Carbon Dioxide 23.0, Anion Gap 7, BUN 25 H, Creatinine 1.05 H, Estim Creat Clear Calc 36.05, Est GFR (MDRD) Af Amer 65, Est GFR (MDRD) Non-Af 54 L, BUN/Creatinine Ratio 23.8 H, Glucose 108 H, Calcium 7.6 L, Magnesium 2.1, Total Bilirubin 0.60, AST 178 H, ALT 187 H, Alkaline Phosphatase 111, Total Protein 6.6, Albumin 2.5 L, Globulin 4.1, Albumin/Globulin Ratio 0.6 L 09/11/19 09:30: PT 34.5 H, INR 3.4 09/11/19 19:02: Specimen Type ART, Sample Site L Radial, pH 7.36, Bicarbonate Actual 15.9 L, POC Total CO2 17, Base Excess -10 L, O2 Saturation 87 L, O2 % 45, ABG pCO2 28.2 L, ABG pO2 55 L, Marshal Test POS, Respiration Rate 12, O2 Delivery Device Bi / C PAP, EPAP 6, IPAP 12, Blood Gas Notified Whom MARCIO YANEZ, Blood Gas Notified Time 1850 Current Medications Acetaminophen (Tylenol) 650 mg PO Q6H PRN PRN PRN Reason: Pain Score 1-10/Temp > 100.7 F Last Admin: 09/11/19 10:57 Dose: 650 mg Documented by: Albuterol Sulfate (Ventolin Aerosols) 2.5 mg INHALATION Q2H PRN PRN PRN Reason: DYSPNEA Last Admin: 09/11/19 16:40 Dose: 2.5 mg Documented by: Albuterol/Ipratropium (Duoneb) 3 ml INHALATION Q6H.RT [facility] Last Admin: 09/11/19 18:40 Dose: 3 ml Documented by: Amiodarone HCl (Cordarone) 200 mg PO DAILY [facility] Last Admin: 09/11/19 09:37 Dose: 200 mg Documented by: Bosentan (Tracleer) 125 mg PO BID [facility] Last Admin: 09/11/19 09:37 Dose: 125 mg Documented by: Sodium Chloride () 250 mls @ 15 mls/hr IV .[id number] PRN PRN Reason: Saline Flush Sodium Chloride () 250 mls @ 15 mls/hr IV .[id number] PRN PRN Reason: Additional IVPB Infusion Meropenem 1 gm/ Sodium (Chloride) 120 mls @ 33 mls/hr IV Q12 [facility] Last Infusion: 09/11/19 13:40 Dose: Infused Documented by: Dexmedetomidine HCl 400 mcg/ (Sodium Chloride) 100 mls @ 12.125 mls/hr CONT INF .Q8H15M [facility]; Protocol Last Admin: 09/11/19 19:38 Dose: 0.5 mcg/kg/hr, 12.1 mls/hr Documented by: Amiodarone HCl 150 mg/ (Dextrose) 103 mls @ 600 mls/hr IV BOLUS X1 ONE Stop: 09/11/19 20:10 Amiodarone HCl 360 mg/ (Dextrose) 200 mls @ 33.333 mls/hr CONT INF .Q6H [facility] Stop: 09/12/19 02:59 Amiodarone HCl 360 mg/ (Dextrose) 200 mls @ 16.667 mls/hr CONT INF .Q12H [facility] Levothyroxine Sodium (Synthroid) 75 mcg PO DAILY@0600 [facility] Last Admin: 09/11/19 05:31 Dose: 75 mcg Documented by: Methylprednisolone (Solu-Medrol) 40 mg IV DAILY [facility] Last Admin: 09/11/19 02:19 Dose: 40 mg Documented by: Metoprolol Tartrate (Lopressor (Beta [place])) 25 mg PO BID [facility] Last Admin: 09/11/19 09:37 Dose: 25 mg Documented by: Metoprolol Tartrate (Lopressor (Beta [place])) 5 mg IV Q6H PRN PRN PRN Reason: HR >100 Last Admin: 09/11/19 17:37 Dose: 5 mg Documented by: Nutritional Formula (Lactose Free) (Ensure Enlive) 120 ml PO 4X/DAY [facility] Last Admin: 09/11/19 17:30 Dose: Not Given Documented by: Pravastatin Sodium (Pravachol) 40 mg PO QHS [facility] Last Admin: 09/10/19 21:20 Dose: 40 mg Documented by: Sodium Chloride () 10 - 40 ml IV UD PRN PRN Reason: SALINE FLUSH Last Admin: 09/11/19 17:37 Dose: 10 ml Documented by: Warfarin Sodium (Coumadin (Pbkc)) 5 mg PO SuMoFrSa@1700 [facility] Last Admin: 09/10/19 18:17 Dose: 5 mg Documented by: Warfarin Sodium (Coumadin (Pbkc)) 2.5 mg PO TuWeTh@1700 [facility]; Protocol Last Admin: 09/11/19 19:31 Dose: Not Given Documented by: Assessment/Plan All Active Problems (Last Updated 09/11/19 @ 20:[address] Matthew Sage MD) Chest pain (Resolved) Supratherapeutic INR (Resolved) Cough with fever (Acute) Septic shock (Acute) Human metapneumovirus (hMPV) pneumonia (Acute) Pulmonary hypertension (Acute) 78-year-old female known to mi for pulmonary hypertension paroxysmal atrial fibrillation obstructive sleep apnea [id number] smoking history who presents with left-sided pneumonia. This is day 6 of an illness that started on a cruise. She was seen on the boat and had a negative flu swab, proceeded to receive antibiotics, after arriving home continued to have low-grade fevers, nonproductive cough, shortness of breath, tachypnea. On admission to the hospital the patient was noted to have left-sided infiltrate enlarged cardiac silhouette, elevated BNP. The patient had gradual respiratory deterioration and was placed on noninvasive bilevel therapy which she tolerated poorly. In spite of the use of CPAP at home with a nasal interface the patient does poorly with a full facemask and high pressure. Subsequent viral panel indicated human metapneumovirus. I was asked to evaluate the patient this evening for worsening respiratory failure. On arrival the patient's heart rate was 170 with a respira tory rate of 45 and some accessory muscle use with adequate saturations. Arterial blood gas shows pH 736 PCO2 28 PO2 55 on 35% with high flow O2. The patient is not known to be a CO2 retainer. A repeat chest x-ray is done this evening indicating progression of the left-sided disease with effusion as well as new infiltrates in the right chest. Precedex was started by the in-house physician to have the patient be more comfortable utilizing Pap therapy. I spent 35 minutes working with the respiratory therapist to get the patient comfortable with a shorter time and expiratory pressure of 8 inspiratory pressure 14 with tidal volumes ranging in 525 range. Respiratory rate is hovering in the low 30s. The patient indicates that she feels more comfortable but still has increased work of breathing. In terms of the infiltrate at this point if the patient gets intubated I would send for sputum to see if there is a superinfection with bacteria, continue meropenem She has adequate blood pressure but heart rate is uncontrolled and more aggressive therapy is warranted for rate control. With respect to the pulmonary hypertension I would recommend that the patient remain euvolemic. Sedation with mechanical ventilation will likely drop this patient's blood pressure. I am recommending an arterial blood gas at about 1 hour after the bilevel therapy and if there is no improvement then advance the patient to mechanical ventilation sedation with ICU physician consultation in the morning. The case is discussed with the attending physician as well as the family, respiratory therapy and the nurse
[2019-09-11 21:21] LABS: Allen Test POS; Base Excess -10 mmol/L (-2 to +2); Bicarbonate 14.9 mmol/L (22-26); Blood Gas Specimen Type ART; EPAP 8; FI02 60; IPAP 14; PO2 63 mmHG (75-100); RR 12; SITE R Radial; SO2 92 % (95-99); Time Given 2110; Total Carbon Dioxide 16 mmol/L; pCO2 23.6 mmHg (35-45); pH 7.41 (7.35-7.45)
--- NOTE | 2019-09-11 22:00 | CPS ---
SET UP HEATED HUMIDITY TO BIPAP
[2019-09-11 22:36] LABS: Allen Test POS; Base Excess -9 mmol/L (-2 to +2); Bicarbonate 15.6 mmol/L (22-26); Blood Gas Specimen Type ART; EPAP 8; FI02 60; IPAP 14; PO2 68 mmHG (75-100); RR 12; SITE R Radial; SO2 94 % (95-99); Time Given 2224; Total Carbon Dioxide 16 mmol/L
[2019-09-11] MEDS: Atropine Sulfate 1 MG/10 ML Syringe IV (23:54)
[2019-09-12] VITALS (80 sets, daily range): BP systolic 44–160; BP diastolic 11–134; PULSE 0–120; RESP 11–55; TEMP 29.7–35.1; O2SAT 41–88
[2019-09-12] MEDS: Atropine Sulfate 1 MG/10 ML Syringe IV ×2 (00:08→00:21)
[2019-09-12] MEDS: DOPamine IV 800 MG/250 ML IV.SOLN. 9.1 MG CONT INF (00:13)
--- NOTE | 2019-09-12 00:20 | NURSING ---
Atropine 1mg given IVP x2 dose this far, pt placed on transcutaneous pacer at 60ppm and 40mA
--- NOTE | 2019-09-12 00:25 | RAD_ITS ---
STUDY: X-RAY - ABDOMEN/PELVIS REASON FOR EXAM: Female, 78 years old. ET AND OG TUBE PLACEMENTS -- TRAUMA -- FOUND PRONE ON FLOOR TECHNIQUE: Single AP view of the abdomen / pelvis. COMPARISON: None. FINDINGS: The nasogastric tube has the tip of the gastric body, normal location. There is airspace disease involving the lung daily. Mild distention of small bowel loops. There is no demonstrated free abdominal air. The visualized liver, spleen and kidneys are grossly normal in size and morphology. Normal soft tissue structures. Normal visualized osseous structures. RAD/Abdomen Single View (Portable) IMPRESSION: Nasogastric tube as described. Electronically Signed: Ely Lanza MD at 2:17 EDT , Service support ,
[2019-09-12] MEDS: 0.9% Normal Saline 1,000 ML 999 ML IV ×2 (00:30→01:50)
--- NOTE | 2019-09-12 00:30 | NURSING ---
cont to pace pt, mA increased to 50 in order to attempt capture; unsuccessful, cont to increase mA until reaching capture at 110mA, verified by palpable pulse and QRS complex s/p each pacer spikes.
--- NOTE | 2019-09-12 00:32 | ECHOL_ITS ---
Reason For Study: DYSPNEA/SOB Procedure This was a limited 2D transthoracic echocardiogram. Limited views were obtained. Exam performed portable in ICU/CCU. Left Ventricle Based upon the 2D echocardiographic images obtained there appears to be grossly normal left ventricular size, wall motion, and systolic function. The estimated ejection fraction is 55 %. Unable to assess diastolic dysfunction. Right Ventricle Mildly dilated right ventricle. Mild global right ventricular systolic dysfunction. Atria The left atrium is severely enlarged. The right atrium is severely enlarged. Mitral Valve There is moderate mitral annular calcification. Mild diffuse mitral valve thickening. Tricuspid Valve Normal tricuspid valve. Moderate (2+) tricuspid valve insufficiency. Right ventricular systolic pressure estimated to be 52 mmHg. 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 Pulmonic Valve The pulmonic valve is not well visualized. Great Vessels The aortic root is not well visualized. Pericardium/Pleural No pericardial effusion. MMode/2D Measurements & Calculations LVIDd: 3.8 cm IVSd: 1.1 cm LVOT diam: 2.0 cm LVIDs: 3.0 cm LVPWd: 1.2 cm LVOT area: 3.2 cm2 FS: 21.1 % LAV(MOD-bp): 74.2 ml LVAd ap4: 16.2 cm2 SV(MOD-sp4): 14.4 ml LAV(MOD-bp) Indexed: 38.8 ml/m2 EDV(MOD-sp4): 35.5 ml LAV(MOD-sp2): 70.9 ml EDV(sp4-el): 36.0 ml LAV(MOD-sp4): 66.6 ml LVAs ap4: 11.7 cm2 ESV(MOD-sp4): 21.0 ml ESV(sp4-el): 20.2 ml EF(MOD-sp4): 40.7 % EF(sp4-el): 43.9 % SV(sp4-el): 15.8 ml LA A4 area: 22.7 cm2 RA A4 area: 18.2 cm2 Doppler Measurements & Calculations Ao V2 max: 275.4 cm/sec LV V1 max: 65.7 cm/sec SV(LVOT): 44.7 ml Ao max P.3 mmHg LV V1 max P.7 mmHg Ao V2 mean: 171.3 cm/sec LV V1 mean P.92 mmHg Ao mean P.1 mmHg LV V1 mean: 45.9 cm/sec Ao V2 VTI: 50.4 cm LV V1 VTI: 14.0 cm RUPERT(I,D): 0.89 cm2 RUPERT(V,D): 0.76 cm2 TR max leah: 330.8 cm/sec TR max P.8 mmHg Interpretation Summary Limited views were obtained. Based upon the 2D echocardiographic images obtained there appears to be grossly normal left ventricular size, wall motion, and systolic function. The estimated ejection fraction is 55 %. Mildly dilated right ventricle. Mild global right ventricular systolic dysfunction. The left atrium is severely enlarged. The right atrium is severely enlarged. There is moderate mitral annular calcification. Mild diffuse mitral valve thickening. Moderate (2+) tricuspid valve insufficiency. 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 Right ventricular systolic pressure estimated to be 52 mmHg. Unable to assess diastolic dysfunction. Ordering Physician: Jessica Chavez Referring Physician: RINA PETERSON Performed By: Mary Silva RDCS
--- NOTE | 2019-09-12 01:10 | NURSING ---
at bedside, careplan and code Blue events reviewed.
--- NOTE | 2019-09-12 01:20 | CPS ---
Critical value on VBG Ph of 7.[address] Chavez
[2019-09-12 01:21] LABS: Blood Gas Specimen Type VEN; FI02 100; O2 Delivery Device Vent; PEEP 8; RR 20; SITE OTHER; Time Given 108; VBG BASE EXCESS -21 mmol/L (-1.0-3.5); VBG Bicarbonate 8 mmol/L (22-26); VBG Oxygen Content 9 mmol/L (23-33); VBG PO2 79 mmHg (25-40); VBG SO2 91 % (50-70); VBG pCO2 25.3 mmHg (41-51); VBG pH 7.13 (7.32-7.42); Vt 500
[2019-09-12 01:32] LABS: Prothrombin Time (Protime)PT. 63.3 SECONDS (11.7-14.9)
[2019-09-12 01:35] LABS: Hematocrit 29.1 % (37-47); Hemoglobin 8.6 g/dL (12.0-15.0); Mean Corp Hgb Conc 29.6 g/dL (32-36); Mean Corpuscular Hgb 31.5 pg (27.0-32.0); Mean Corpuscular Volume 106.6 fL (81-99); Mean Platelet Vol. 12.8 fl (6.2-12.0); POSITIVE COUNT YES; POSITIVE MORPHOLOGY YES; Platelet Count 136 K/mm3 (150-450); RBC Distribution Width CV 15.8 % (11.6-14.6); Red Blood Count 2.73 M/mm3 (4.2-5.4); White Blood Count 16.4 K/mm3 (4.4-11.0)
[2019-09-12 01:36] LABS: International Normalized Ratio 7.2
[2019-09-12 01:37] LABS: Differential Indicated MANUAL DIFF
[2019-09-12] MEDS: Sodium Bicarbonate 8.4% 50 ML Syringe 50 MEQ IV ×2 (01:40→03:20)
--- NOTE | 2019-09-12 01:40 | CON.PCM_ITS ---
Problem List (1) Cardiac arrest Status: Acute (2) Bradycardia Status: Acute (3) Hypotension Status: Acute (4) Paroxysmal atrial fibrillation Status: Chronic (5) CAD in [place] artery Status: Chronic (6) History of coronary artery bypass surgery Status: Chronic Comment: CABG x1 CHURCH to LAD 04/18/2007 (7) History of mechanical aortic valve replacement Status: Chronic Comment: 1995 (8) Pulmonary hypertension Status: Acute Comment: Currently on bosentan (9) Mixed hyperlipidemia Status: Chronic (10) Septic shock Status: Acute (11) Human metapneumovirus (hMPV) pneumonia Status: Acute (12) Supratherapeutic INR Status: Resolved (13) Anemia Status: Acute (14) Elevated liver enzymes Status: Acute (15) Abnormal cardiac enzyme level Status: Acute Reason for Consult Date of Consultation: 09/12/19 History of Present Illness: The patient is a 78 year old white female with a past cardiovascular history which included underlying CAD, status post CABG with CHURCH to the LAD, bicuspid aortic valve status post AVR with mechanical aortic valve, paroxysmal atrial fibrillation, cardiomyopathy, hyperlipidemia, pulmonary hypertension, who now presented for evaluation of fever, cough, pneumonia thought compatible with human metapneumovirus who now is referred for cardiovascular evaluation status post a cardiac arrest, bradycardia, and hypotension. During her hospitalization she was being evaluated in the ICU by internal medicine and pulmonology. She was subsequently found in the prone position on the floor with the appearance of blood on the floor. She subsequently underwent evaluation and care by the ICU staff and internal medicine. The patient was found to have cardiac arrest thought secondary to PEA. She underwent the ACLS protocol and received CPR, epinephrine, and Ativan. She eventually regained a rate/rhythm and blood pressure. However her rate and rhythm was noted to be bradycardia and atrial fibrillation. She was hypotensive. She was treated with additional medical therapy with IV dopamine and transcutaneous pacemaker. Despite those measures she remained bradycardic and hypotensive. She received additional medical therapy with IV norepinephrine. She continued evaluation care for her underlying infectious disease issue as well. Cardiology was consulted to evaluate the patient. At the time of consultation the patient was in bed. She was mechanically i ntubated/ventilated. She had a CT spine collar in place. She was noted on quality assurance monitor final to be in atrial fibrillation with a ventricular rate ranging between approximately 70 and 100 bpm. She remained hypotensive with systolic blood pressures of approximately 60 mmHg. Her laboratory studies were being reported. She appeared to be acidotic and thus she was receiving sodium bicarbonate. Her INR was reported as being supratherapeutic at 7.2. Thus she was to receive FFP and vitamin K. She was also noted to have an NG tube in place which was bringing up bright red blood. Subsequently an ECG was performed. She was noted to be in atrial fibrillation with a left axis deviation and nonspecific IVCD and an inferior my pattern of indeterminate age cannot be excluded. She has been noted in the past to have an underlying IVCD. A chest x-ray was performed. Based upon the portable chest x-ray she was noted to have post open heart surgery changes, post intubation changes, and bilateral pulmonary infiltrates/edema. [] Past Medical History Allergies/Adverse Reactions: Allergies Penicillins Allergy (Intermediate, Verified 09/09/19 15:26) Unknown Home Medications: Ambulatory Orders Medication Instructions Recorded pravastatin 40 mg tablet 40 mg PO QHS #90 tab 09/21/18 Warfarin Sodium 2.5 mg PO TH 11/25/18 furosemide 40 mg tablet 40 mg PO DAILY 01/17/19 metoprolol tartrate 25 mg tablet 25 mg PO BID #180 tab 02/12/19 amiodarone 200 mg tablet 200 mg PO DAILY #90 tab 04/02/19 Bosentan 125 mg PO BID 09/09/19 Levothyroxine [Synthroid] 75 mcg PO DAILY 09/09/19 Warfarin [Coumadin (PBKC)] 5 mg PO SUMOFRSA 09/09/19 Past Medical History (Chronic Problems): Chronic Problems (Last Updated 09/11/19 @ 20:[address] Matthew Sage MD) History of mechanical aortic valve replacement (Chronic ~1995) 1995 CAD in [place] artery (Chronic) Paroxysmal atrial fibrillation (Chronic) Nonrheumatic aortic (valve) stenosis (Chronic) History of bicuspid aortic valve (Chronic) Mixed hyperlipidemia (Chronic) Atherosclerotic heart disease of [place] coronary artery without angina pectoris (Chronic) History of coronary artery bypass surgery (Chronic ~04/18/07) CABG x1 CHURCH to LAD 04/18/2007 [facility] (current) use of anticoagulants (Chronic) Surgical History: cholecystectomy, coronary bypass surgery - 04-18-2007: [facility]: CHURCH to the LAD, - - Mechanical aortic heart valve Psychiatric History: No pertinent psych hx [employer]ER History: No pertinent [employer]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 Peyman El MD) Mother CAD (coronary artery disease) Myocardial infarction Hypertension TIA (transient ischemic attack) Diabetes Sister H/O aortic valve replacement Sister H/O aortic valve replacement Brother Heart disease History Items: Diabetes, Heart Disease, Hypertension Paternal Family History: Family History (Last Reviewed 06/20/19 @ 06:[address] Peyman El MD) Mother CAD (coronary artery disease) Myocardial infarction Hypertension TIA (transient ischemic attack) Diabetes Sister H/O aortic valve replacement Sister H/O aortic valve replacement Brother Heart disease History Items: Unknown - Killed-circumstance unknown Lives: Spouse/ Significant Other Smoking Status: Never smoker Tobacco Use: Non-smoker Alcohol: None Drugs: None Review of Systems - Review of Systems General: Reports: Fever Cardiovascular: Reports: Shortness of Breath Respiratory: Reports: Shortness of Breath Objective: Vital Signs Temp Pulse Resp BP Pulse Ox 99.0 F 89 39 H 69/49 L 92 09/11/19 16:00 09/11/19 21:44 09/11/19 19:55 09/11/19 21:44 09/11/19 18:55 Oxygen Flow Rate (L/min) 55 Oxygen Delivery Method Nasal Cannula Weight: 213 lb 13.574 oz Body Mass Index (BMI) 36.9 Intake and Output for Last 24 Hours 09/10/19 09/11/19 09/12/19 23:59 23:59 23:59 Intake Total 2110.73 / 2110.73 813.23 / 813.23 Balance 2110.73 / 2110.73 813.23 / 813.23 General: Ill Appearing, Obese Lungs: Rhonchi Cardiovascular: Irregular Rhythm, Normal S1, [place] Prosthetic S2 Abdomen: Bowel Sounds Present, Soft Extremities: No edema 09/11/19 05:25: WBC 6.9, RBC 2.74 L, Hgb 8.8 L, Hct 26.8 L, MCV 97.8, MCH 32.1 H , MCHC 32.8, Plt Count 106 L, MPV 12.2 H 09/11/19 05:25: Sodium 140, Potassium 3.8, Chloride 110 H, Carbon Dioxide 23.0, Anion Gap 7, BUN 25 H, Creatinine 1.05 H, Est GFR (MDRD) Af Amer 65, Est GFR (MDRD) Non-Af 54 L, BUN/Creatinine Ratio 23.8 H, Glucose 108 H, Calcium 7.6 L, Magnesium 2.1, Total Bilirubin 0.60 09/11/19 09:30: PT 34.5 H, INR 3.4 09/11/19 19:02: pH 7.36, Bicarbonate Actual 15.9 L, POC Total CO2 17, Base Excess -10 L, O2 Saturation 87 L, ABG pCO2 28.2 L, ABG pO2 55 L, Marshal Test POS 09/11/19 21:16: pH 7.41, Bicarbonate Actual 14.9 L, POC Total CO2 16, Base Excess -10 L, O2 Saturation 92 L, ABG pCO2 23.6 L, ABG pO2 63 L, Marshal Test POS 09/11/19 22:32: pH 7.40, Bicarbonate Actual 15.6 L, POC Total CO2 16, Base Excess -9 L, O2 Saturation 94 L, ABG pCO2 25.0 L, ABG pO2 68 L, Marshal Test POS 09/12/19 01:05: WBC 16.4 H, RBC 2.73 L, Hgb 8.6 L, Hct 29.1 L, MCV 106.6 H D, MCH 31.5, MCHC 29.6 L D, Plt Count 136 L, MPV 12.8 H, Neut % (Auto) Not Reportable 09/12/19 01:05: PT 63.3 H, INR 7.2 H* 09/12/19 01:13: VBG pH 7.13 L*, VBG pO2 79 H, VBG O2 Sat (Calc) 91 H, VBG O2 Content 9 L, VBG Base Excess -21 L Rhythm: Atrial fibrillation EKG: Atrial fibrillation; LAD; NSIVCD; Inferior HI, age undetermined, cannot be excluded ECHO: 06-20-2019 Interpretation Summary Left ventricular systolic function is normal. The estimated ejection fraction is 65 %. Post operative septal motion. A calcified moderator band is seen in the right ventricle. The left atrium is severely enlarged. The right atrium is moderately enlarged. There is moderate mitral annular calcification. Extension of the mitral annular calcification onto the base of the posterior mitral valve leaflet. Mild diffuse mitral valve thickening. Mild-Moderate (1-2+) mitral valve insufficiency. Moderate (2+) tricuspid valve insufficiency. Stable appearing mechanical aortic valve apparatus. Trivial transvalvular insufficiency of the aortic valve. Mild (1+) pulmonic valve insufficiency. Borderline enlarged aortic root. Right ventricular systolic pressure estimated to be 67 mmHg. Transmitral diastolic flow velocities suggest diastolic dysfunction (pseudonormal pattern). Stress Test: 01-01-2014 EXERCISE TOLERANCE TEST: The patient underwent pharmacologic (regadenoson) evaluation with a peak heart rate of 93 beats per minute (62% predicted maximum heart rate). The baseline ECG demonstrated sinus bradycardia. The peak pharmacologic ECG demonstrated no obvious ECG changes. There were no obvious cardiac dysrhythmias pretest, during pharmacologic infusion, or recovery. The patient had no report of chest discomfort during pharmacologic infusion or recovery. The examination was discontinued secondary to completion of protocol. IMPRESSION: 1. Pharmacologic (regadenoson) evaluation. 2. Peak pharmacologic ECG with no obvious ECG changes. 3. Nuclear images pending. MYOCARDIAL PERFUSION IMAGING STUDY: TECHNIQUE: The patient was injected with 14.1 mCi of Tc99m Cardiolite and subsequently rest SPECT Cardiolite nuclear imaging was obtained in the horizontal long, vertical long, and short axes views. The patient underwent pharmacologic (regadenoson) evaluation with a peak heart rate of 93 beats per minute (62% predicted maximum heart rate) with a peak blood pressure of 132/80 mmHg. The patient was injected with 43.6 mCi of Tc99m Cardiolite and subsequently stress SPECT Cardiolite nuclear imaging was obtained in the horizontal long, vertical long, and short axes views. A gated Cardiolite study at peak stress was obtained. INTERPRETATION: Rest and stress SPECT Cardiolite nuclear imaging both demonstrate a small area of subtle diminished tracer uptake in the mid anteroseptal segments without significant change. There appears to be end systolic thickening and brightening. The gated Cardiolite study demonstrates myocardial thickening and inward wall motion. The reported LVEF is 69%. The aforementioned changes appear compatible with the effects of soft tissue/breast attenuation with no myocardial perfusion changes considered diagnostic for stress induced myocardial ischemia or previous myocardial injury/infarction. IMPRESSION: 1. Rest and stress SPECT Cardiolite nuclear imaging demonstrate myocardial perfusion changes appearing compatible with soft tissue/breast attenuation with no myocardial perfusion changes considered diagnostic for stress induced myocardial ischemia or previous myocardial injury/infarction. 2. The gated Cardiolite study reports an LVEF of 69%. Cardiac Cath: 06-22-2019 CONCLUSIONS Right heart pressures - severely elevated The patient has pulmonary hypertension which is severe. Intracardiac shunting: None [place] Multivessel CAD CHURCH to LAD: patent Stable appearing bileaflet mechanical aortic valve prosthesis Aortic Valve Insufficiency Mild RECOMMENDATIONS Risk factor modification Medical therapy Pulmonology Evaluation for pulmonary hypertension CORONARY ANGIOGRAPHY DOMINANCE: Right Dominant LEFT HEART ASSESSMENT Left Ventricular Ejection Fraction: Not assessed RIGHT HEART ASSESSMENT Thermal CO: 3.19 Thermal CI: 1.68 Kam CO: 5.99 Kam CI: 3.15 PW: 17/32 18 PA: 55/19 31 RV: 55/0 12 RA: 9/9 7 PVR: 326 SVR: 2207 Right Heart pressures - elevated Pulmonary Hypertension Severe Intracardiac shunting: None LEFT MAIN: Angiographically normal LEFT ANTERIOR DESCENDING ARTERY: PROX LAD: diffuse: eccentric: 85 % Stenosis MID LAD: is occluded, fills from the CHURCH graft with no angiographically significant appearing disease distal to the graft attachment CIRCUMFLEX ARTERY: PROX CIRC: 25 - 50 % Stenosis OM 1: Proximal - Mild luminal irregularities RIGHT CORONARY ARTERY: PROX RCA: 25 % Stenosis MID RCA: 25 % Stenosis GRAFTS: CHURCH graft to the Mid LAD is patent VALVE FINDINGS: Stable appearing bileaflet mechanical aortic valve prosthesis Aortic Valve Insufficiency: Grade 1 AORTIC ROOT: Angiographically normal CT Surgery: 04-18-2007: [facility] CHURCH to LAD CT Surgery: 1995 AVR - mechanical CXR: Preliminary evaluation: portable film: s/p open heart surgery: s/p intubation: bilateral pulmonary infiltrates / edema: final report pending Assessment/Plan 1. Cardiac arrest The patient experienced a cardiac arrest and was reported as being in PEA. She underwent the ACLS protocol and regained a rate and rhythm and blood pressure. She has required continued mechanical intubation/ventilation and hemodynamic support with IV vasopressors. At the present time the patient will continue to be monitored. Her cardiovascular status can be followed by laboratory profile and ECG. Her left ventricular wall motion and systolic function can be reassessed with a transthoracic echocardiogram. In the interim she has significant underlying pulmonary disease issue with the human metapneumovirus. She has been thought to have underlying sepsis/septic shock. She is being treated with supportive therapy. 2. Bradycardia The patient was bradycardic. However status post her medical therapy including at the present time to IV vasopressors she has maintained an adequate heart rate without needing continued transcutaneous pacemaking or proceeding to transvenous pacemaking. She is having her underlying metabolic status reviewed. She has received sodium bicarbonate. She may need additional sodium bicarbonate to assist her acid-base balance which may benefit her from a cardiovascular status as well. At the same time any rate limiting medications are being placed on hold. 3. Hypotension She is hypotensive. It is thought that she has been hypotensive from underlying sepsis syndrome. She has been receiving fluids and IV vasopressors. From a cardiac standpoint she has undergone evaluation recently with transthoracic echocardiogram and diagnostic cardiac catheterization. The results are as previously noted. She can be reassessed with a transthoracic echocardiogram to assist in her ongoing evaluation and care. 4. Atrial fibrillation She has had paroxysmal atrial fibrillation. She is back in atrial fibrillation at this time. At the moment she is maintaining an adequate heart rate and has not needed continue transcutaneous pacemaking or transvenous pacemaking. This could change depending upon her underlying rate, hemodynamics, etc. 5. CAD s/p CABG (CHURCH to LAD) She does have a history of CAD status post CHURCH to the LAD. Her most recent diagnostic cardiac catheterization is as noted. At the present time she will continue to be monitored. She is scheduled for upcoming cardiac enzyme follow- up and ECG follow-up. 6. S/P AVR - mechanical She has a history of a mechanical aortic valve. Her prosthesis has been evaluated as noted above. It has been stable. She will need to continue AHA antibiotic prophylaxis. She has been on anticoagulant therapy with Coumadin/warfarin. Her INR is now supratherapeutic. It is unclear as to whether or not this is related to a combination of her medications and/or the possibility of hypotension and the possible development of a shock liver . At the present time she is going to receive reversal agents in attempt to bring her INR under better control especially in light of her findings of bright red blood through her NG tube, etc. 7. Pulmonary hypertension She has had a history of pulmonary hypertension. She is undergone recent right/left cardiac catheterization. Her pulmonary pressures are as noted. 8. Hyperlipidemia She will continue risk factor evaluation care as deemed appropriate. 9. Septic shock She continues to be evaluated by internal medicine and pulmonology/critical care medicine for concerns of underlying septic shock. She does need to continue supportive therapy. At the moment this includes IV vasopressor agents disturbances. 10. HMPV She has been diagnosed with human metapneumovirus. She continues evaluation care per internal medicine and pulmonology/critical care medicine. 11. Supratherapeutic INR Again she does have a supratherapeutic INR. The etiology is may be as noted. She is receiving reversal agents in attempt to bring her INR under better control especially in light of her notation of hemorrhagic issues and bright red blood per her NG tube. 12. Anemia She does have evidence of anemia. Her hemoglobin has declined over time. Again it is unclear whether this is related to an anemia of chronic renal insufficiency versus a more acute issue especially noting her bright red blood per NG tube. She will be followed by H&H. She may need further gastrointestinal evaluation care as deemed appropriate. Depending upon her course she may need PRBCs. 13. Elevated hepatic transaminases Her hepatic transaminases have markedly elevated. This may be secondary to her ongoing sepsis syndrome. There also may be a component of her cardiopulmonary arrest event with hypotension and a shock liver. This will have to be taken into consideration with her ongoing evaluation and care. 14. Abnormal cardiac enzymes She is noted to have an abnormal troponin I level. Again this may be a secondary type II event from supply demand mismatch related to her ca rdiopulmonary arrest event. Her cardiac enzymes will need to be followed as well as her ECG for any other acute changes. An echocardiogram has been requested to reassess her left ventricular wall motion and systolic function. In the meantime she will continue supportive therapy. She is avoiding medications will lead to bradycardia or hypotension based upon the aforementioned concerns. Overall, this patient has complex cardiovascular/medical disease. She has an underlying acute pulmonary disease process leading to an acute sepsis syndrome/septic shock. She has now experienced a cardiopulmonary arrest event. Based upon all of the concerns noted thus far it appears that her prognosis is poor. Comment: The patient's case has been discussed and reviewed with Dr. Chavez. This note was generated using a voice recognition system and there may be incorrect words, spelling or punctuation that were not noted when reviewing the office note prior to saving.
[2019-09-12 01:43] LABS: Magnesium 2.4 mg/dL (1.6-2.6); Phosphorus 4.6 mg/dL (2.5-4.9)
[2019-09-12 02:02] LABS: Neutrophil-Band 5 % (0-5); Neutrophil-Segmented 67 % (47-70); Total Cells Counted 100 (MANUAL DIFF)
[2019-09-12 02:03] LABS: Lymphocyte 11 % (19-41); Metamyelocyte 6 % (0-1); Monocyte 8 % (0-10)
[2019-09-12 02:04] LABS: Absolute Neutrophil Count 11.8 X10^3/uL (2.0-7.7); Blast 3 % (0-0)
[2019-09-12 02:05] LABS: Monocyte# 1.31 X10^3/uL; Platelet Estimate SLT DEC (ADEQ); Reactive Lymphocyte RARE
[2019-09-12 02:13] LABS: ALB/GLOB Ratio 0.5 RATIO (0.9-2.4); AST(SGOT) 4992 U/L (15-37); Alanine Aminotransfer ALT/SGPT 3045 U/L (13-56); Albumin, Serum 1.8 g/dL (3.2-5.0); Alkaline Phosphatase 209 U/L (45-117); Anion Gap 16 (5-15); BUN 27 mg/dL (7-18); BUN/Creat Ratio 15.9 RATIO (10-20); Calcium,Total 7.6 mg/dL (8.5-10.1); Chloride 112 mmol/L (98-107); EST Glomerular Filtration Rate 31 mL/min (>60); Est Glom Filt Rate - Afr Amer 38 mL/min (>60); Estimated Creatinine Clearance 22.27 ml/min; Globulin 3.9 g/dL (2.2-4.2); Glucose 99 mg/dL (74-106); Potassium 4.3 mmol/L (3.5-5.1); Protein, Total 5.7 g/dL (6.4-8.2); Sodium Level 143 mmol/L (136-145)
--- NOTE | 2019-09-12 03:20 | NURSING ---
Successful CVC placement to Rt femoral vein following combined efforts from Drs. Victoria and Scott using ultrasound and sterile technique.
--- NOTE | 2019-09-12 03:38 | CCHN_ITS ---
Hospitalist Note CODE BLUE/CRITICAL CARE MANAGEMENT NOTE: Patient with cardiac arrest. Found per nursing staff, fallen, face down, turned over and no pulse or respirations noted. CPR initiated at 2337. Patient in PEA with 6 rounds of epinephrine administered with resumption of rhythm with sinus bradycardia with a total of atropine x3 doses administered, normal saline IV fluid boluses initiated and initiation of Levophed as well as dopamine. Patient while on floor prior to transition back to bed, successfully intubated with glide scope with visualization of the cords and passage of ET tube with notable bright red blood, evidence of bleeding but unclear source. ETT verified. Post- intubation CXR requested. Patient continued to be significantly bradycardic therefore transcutaneous pacing initiated. Discussed case with Dr. Nguyễn, garbage pick up worker as well as Dr. Victoria, mucking machine operator. Dr. Victoria came to the hospital and evaluated patient with transition off transcutaneous pacing to assess rhythm with noted atrial fibrillation. Patient with ongoing MAP < 65 therefore also initiated vasopressin. Patient with collar in place given unclear specific fall history or mechanism. Attempted R SC given firm collar in place and unfortunately, while attempting central line placement had recurrent code blue at 247, initiated immediate CPR and epi x 1 administered as well as bicarb with resumption of rhythm with pulse at 2:52 am. Following ROSC, R femoral vein central line placement performed, guidewire threaded, central line catheter placed over guidewire and wire removed w/ cap placed. Lines again drawn and flushed without difficulty. Central line sutured in place. Given recent events with recurrent code blue, will now add bicarb drip, awaiting vitamin K and FFP administration also. Patient is at maximum dosing for her NEP, DA and on also vasopressin. Once clinically stabilized will plan CT head, neck, face and chest. Critical Care Time: 180 minutes, time from 23:37 pm-3:37 am, were spent addressing patients medical stabilization with ACLS, intubation, central line placement, review of all data in collaboration with care team in addition to discussion with family. Multi Select Codes - Hospitalists' Procedures Procedures: Other Procedure - See Report - Critical Care [place] x 1, [id number] x 4 (intubate, central line, code blue management x 2, family discussions, consultation with ICU, cardiology)
--- NOTE | 2019-09-12 04:00 | NURSING ---
updated on pt condition and vasopressor needs; also informed of keeping pt supine at slight reverse trendelenburg position d/t BP instability.
--- NOTE | 2019-09-12 04:30 | NURSING ---
at bedside, requested pt cont to be kept supine but in more level, to slightly trendelenburg position in order to support her BP.
[2019-09-12] MEDS: DOPamine IV 800 MG/250 ML IV.SOLN. 72.8 MG CONT INF ×3 (04:50→11:07)
--- NOTE | 2019-09-12 05:31 | PN_ITS ---
Patient Problems: Active and Suspected Problems (Last Updated 09/11/19 @ 20:[address] Matthew Sage MD) Cough with fever (Acute) Septic shock (Acute) Human metapneumovirus (hMPV) pneumonia (Acute) Cardiac arrest (Acute) Bradycardia (Acute) Hypotension (Acute) Anemia (Acute) Elevated liver enzymes (Acute) Abnormal cardiac enzyme level (Acute) Pulmonary hypertension (Acute) Currently on bosentan - Physical Exam Vitals/I&O's: Vital Signs Temp Pulse Resp BP Pulse Ox 99.0 F 78 20 H 112/53 L 95 09/11/19 16:00 09/12/19 05:20 09/12/19 05:20 09/12/19 05:20 09/11/19 22:00 Oxygen Flow Rate (L/min) 55 Oxygen Delivery Method Mechanical Ventilator Weight: 97 kg Body Mass Index (BMI) 36.9 Intake and Output for Last 24 Hours 09/10/19 09/11/19 09/12/19 23:59 23:59 23:59 Intake Total 2110.73 / 2110.73 813.23 / 813.23 2489.8 / 2489.8 Balance 2110.73 / 2110.73 813.23 / 813.23 2489.8 / 2489.8 General: - - Unresponsive to verbal commands, corneal reflex present, winces with sternal rub HEENT: - - Bilateral symmetric dilated pupils Oral: Moist Mucosa, No Gingival or Mucosal Lesions/ Ulcerations Neck: Supple, Trachea Midline, - - The patient is in a neck collar Lungs: - - Good air entry, symmetric, bilateral coarse rales, no wheezing, minimal air leak at the cuff Cardiovascular: Irregular Rate, - - Rate controlled Abdomen: Non Tender, - - Slightly tympanitic slightly distended abdomen Extremities: No clubbing, Cool - Acrocyanosis, 5 to 7-second capillary refill thready trace pulses-+1, - Skin: No rashes, No breakdown Musculoskeletal: No Tenderness to Palpation of Joints or Extremities Lymphatic: No Cervical, Supraclavicular, or Inguinal Adenopathy Neurological: - - No posturing with sternal rub Psych/Mental Status: Appropriate, - - Sedated Microbiology Past 72 Hours 09/09/19 17:09 Mucosa - Nasopharyngeal Respiratory Panel (PCR) - Final Human [place] 09/09/19 21:20 Urine, Clean Catch Legionella Antigen - Final 09/09/19 21:20 Urine, Clean Catch Streptococcus pneumoniae Antigen (M - Final 09/09/19 17:09 Mucosa - Nasopharyngeal Influenza Types A,B Direct FA (SHARON) - Final Laboratory Results 09/11/19 05:25: WBC 6.9, RBC 2.74 L, Hgb 8.8 L, Hct 26.8 L, MCV 97.8, MCH 32.1 H , MCHC 32.8, RDW Std Deviation 53.6 H, RDW Coeff of Jaime 15.0 H, Plt Count 106 L, MPV 12.2 H 09/11/19 05:25: Sodium 140, Potassium 3.8, Chloride 110 H, Carbon Dioxide 23.0, Anion Gap 7, BUN 25 H, Creatinine 1.05 H, Estim Creat Clear Calc 36.05, Est GFR (MDRD) Af Amer 65, Est GFR (MDRD) Non-Af 54 L, BUN/Creatinine Ratio 23.8 H, Glucose 108 H, Calcium 7.6 L, Magnesium 2.1, Total Bilirubin 0.60, AST 178 H, ALT 187 H, Alkaline Phosphatase 111, Total Protein 6.6, Albumin 2.5 L, Globulin 4.1, Albumin/Globulin Ratio 0.6 L 09/11/19 09:30: PT 34.5 H, INR 3.4 09/11/19 19:02: Specimen Type ART, Sample Site L Radial, pH 7.36, Bicarbonate Actual 15.9 L, POC Total CO2 17, Base Excess -10 L, O2 Saturation 87 L, O2 % 45, ABG pCO2 28.2 L, ABG pO2 55 L, Marshal Test POS, Respiration Rate 12, O2 Delivery Device Bi / C PAP, EPAP 6, IPAP 12, Blood Gas Notified Whom MARCIO YANEZ, Blood Gas Notified Time 184909/11/19 21:16: Specimen Type ART, Sample Site R Radial, pH 7.41, Bicarbonate Actual 14.9 L, POC Total CO2 16, Base Excess -10 L, O2 Saturation 92 L, O2 % 60, ABG pCO2 23.6 L, ABG pO2 63 L, Marshal Test POS, Respiration Rate 12, O2 Delivery Device Bi / C PAP, EPAP 8, IPAP 14, Blood Gas Notified Whom MARCIO YANEZ, Blood Gas Notified Time 210909/11/19 22:32: Specimen Type ART, Sample Site R Radial, pH 7.40, Bicarbonate Actual 15.6 L, POC Total CO2 16, Base Excess -9 L, O2 Saturation 94 L, O2 % 60, ABG pCO2 25.0 L, ABG pO2 68 L, Marshal Test POS, Respiration Rate 12, O2 Delivery Device Bi / C PAP, EPAP 8, IPAP 14, Blood Gas Notified Whom MARCIO YANEZ, Blood Gas Notified Time 222309/12/19 01:05: Sodium 143, Potassium 4.3, Chloride 112 H, Carbon Dioxide 15.0 L , Anion Gap 16 H, BUN 27 H, Creatinine 1.70 H, Estim Creat Clear Calc 22.27, Est GFR (MDRD) Af Amer 38 L, Est GFR (MDRD) Non-Af 31 L, BUN/Creatinine Ratio 15.9, Glucose 99, Calcium 7.6 L, Total Bilirubin 1.00, AST 4992 H, ALT 3045 H, Alkaline Phosphatase 209 H, Troponin I 0.976 H*, Total Protein 5.7 L, Albumin 1.8 L, Globulin 3.9, Albumin/Globulin Ratio 0.5 L 09/12/19 01:05: WBC 16.4 H, RBC 2.73 L, Hgb 8.6 L, Hct 29.1 L, MCV 106.6 H D, MCH 31.5, MCHC 29.6 L D, RDW Std Deviation 62.0 H, RDW Coeff of Jaime 15.8 H, Plt Count 136 L, MPV 12.8 H, Neut % (Auto) Not Reportable, Absolute Neuts (auto) 11.8 H, Absolute Lymphs (auto) 1.80, Total Counted 100, Neutrophils % (Manual) 67, Band Neutrophils % 5, Lymphocytes % (Manual) 11 L, Monocytes % (Manual) 8, Metamyelocytes % 6 H, Promyelocytes % MONITORING COORDINATOR, Blast Cells % 3 H*, Diff Path Review May foll, Reactive Lymphocytes RARE, Platelet Estimate SLT 09/12/19 01:05: Phosphorus 4.6, Magnesium 2.4 09/12/19 01:05: PT 63.3 H, INR 7.2 H* 09/12/19 01:13: Specimen Type BALA, Sample Site OTHER, O2 % 100, VBG pH 7.13 L*, VBG pO2 79 H, VBG O2 Sat (Calc) 91 H, VBG O2 Content 9 L, VBG Base Excess -21 L, POC Mix VBG pCO2 Pt Tmp 25.3 L, Respiration Rate 20, O2 Delivery Device Vent, Tidal Volume 500, POC PEEP 8, Blood Gas Notified Whom MARCIO YANEZ, Blood Gas Notified Time 108 09/12/19 03:45: Blood Type A POSITIVE Current Medications Acetaminophen (Tylenol) 650 mg PO Q6H PRN PRN PRN Reason: Pain Score 1-10/Temp > 100.7 F Last Admin: 09/11/19 10:57 Dose: 650 mg Documented by: Albuterol Sulfate (Ventolin Aerosols) 2.5 mg INHALATION Q2H PRN PRN PRN Reason: DYSPNEA Last Admin: 09/11/19 16:40 Dose: 2.5 mg Documented by: Albuterol/Ipratropium (Duoneb) 3 ml INHALATION Q6H.RT [facility] Last Admin: 09/12/19 01:00 Dose: Not Given Documented by: Bosentan (Tracleer) 125 mg PO BID [facility] Last Admin: 09/11/19 21:45 Dose: Not Given Documented by: Chlorhexidine Gluconate () 15 ml PO BID XENIA Sodium Chloride () 250 mls @ 15 mls/hr IV .[id number] PRN PRN Reason: Saline Flush Sodium Chloride () 250 mls @ 15 mls/hr IV .[id number] PRN PRN Reason: Additional IVPB Infusion Meropenem 1 gm/ Sodium (Chloride) 120 mls @ 33 mls/hr IV Q12 [facility] Last Infusion: 09/12/19 01:35 Dose: Infused Documented by: Norepinephrine Bitartrate 8 mg (/ Sodium Chloride) 250 mls @ 9.375 mls/hr CONT INF .[id number] [facility]; Protocol Last Admin: 09/12/19 00:10 Dose: 5 mcg/min, 9.4 mls/hr Documented by: Vasopressin 20 units/ Sodium (Chloride) 25 mls @ 3 mls/hr IV .[id number] [facility] Last Admin: 09/12/19 05:01 Dose: 0.04 units/min, 3 mls/hr Documented by: Sodium Bicarbonate 100 meq/ (Dextrose) 1,100 mls @ 150 mls/hr IV .[id number] [facility] Last Admin: 09/12/19 04:21 Dose: 150 mls/hr Documented by: Dopamine HCl/Dextrose () 800 mg in 250 mls @ 9.094 mls/hr CONT INF .[id number] [facility]; Protocol Levothyroxine Sodium (Synthroid) 75 mcg PO DAILY@0600 [facility] Last Admin: 09/11/19 05:31 Dose: 75 mcg Documented by: Methylprednisolone (Solu-Medrol) 40 mg IV DAILY [facility] Last Admin: 09/11/19 02:19 Dose: 40 mg Documented by: Metoprolol Tartrate (Lopressor (Beta [place])) 5 mg IV Q6H PRN PRN PRN Reason: HR >100 Last Admin: 09/11/19 17:37 Dose: 5 mg Documented by: Nutritional Formula (Lactose Free) (Ensure Enlive) 120 ml PO 4X/DAY [facility] Last Admin: 09/11/19 21:34 Dose: Not Given Documented by: Pravastatin Sodium (Pravachol) 40 mg PO QHS [facility] Last Admin: 09/11/19 21:45 Dose: Not Given Documented by: Sodium Chloride () 10 - 40 ml IV UD PRN PRN Reason: SALINE FLUSH Last Admin: 09/11/19 20:00 Dose: 30 ml Documented by: Medical Necessity - Tobacco Use Smoking Status: Never smoker Tobacco Use: Non-smoker Assessment/Plan All Active Problems (Last Updated 09/11/19 @ 20:[address] Matthew Sage MD) Chest pain (Resolved) Supratherapeutic INR (Resolved) Cough with fever (Acute) Septic shock (Acute) Human metapneumovirus (hMPV) pneumonia (Acute) Cardiac arrest (Acute) Bradycardia (Acute) Hypotension (Acute) Anemia (Acute) Elevated liver enzymes (Acute) Abnormal cardiac enzyme level (Acute) Pulmonary hypertension (Acute) Early in the evening between 8 and 9 PM the patient had stability of respiratory pattern, the nurses indicated the patient was compensating and comfortable. Respiratory rate came down into the 20s and heart rate stabilized. Arterial blood gas at 1850 pH 7.36 PCO2 28 PO2 55 on bilevel 14/8, repeat blood gas 2224-pH 7.4 PCO2 25 PO2 68 on BiPAP with supplemental O2 Rosario the nurse indicated to me that the patient was out of bed and fell on the floor face down with subsequent cardiac arrest. Cardiopulmonary resuscitation was instituted and the patient was intubated and pressors were started, the patient was placed in a neck collar. Nurses were in contact with critical care physician Dr. Nguyễn. Chest x-ray showed bilateral infiltrate more prominent with ET tube low in the trachea. I was informed that with maximum pressors and fluid bolus blood pressure remains below 60. On examination she remains in shock with poor capillary refill, minimal pulses- +1, adequate ventilation by exam. Staff has been unable to obtain a blood gas or pulse ox. Impression: Bilateral viral pneumonia possible superinfection with bacteria, progressive over the last 48 hours. With underlying significant pulmonary pretension the patient is unable to respond to maintain adequate blood pressure. She remains on pressors with suboptimal response. Recommendations: I would obtain a blood gas. Continue full support at this point with pressors and fluid resuscitation. I agree with correcting the INR and following up with scanning of the head and chest if the patient stabilizes. I would continue antibiotics, fluid support, head of bed down-Trendelenburg The case is discussed with the nursing staff, respiratory therapy Dr. Chavez and the at length. The understands that the patient has had a serious cardiac arrest with substantial downtime, no pulse for over 10 minutes. He understands that substantial neurologic deficits are likely if the patient is able to recover. Further imaging may be necessary to determine whether or not the patient has had a RANGE AID bleed-INR elevated. The prognosis is grim and the is aware. At this point the family supports full efforts to recovery. The understands that if the patient arrests again it is unlikely she will respond to medical intervention
--- NOTE | 2019-09-12 05:40 | CPS ---
Critical values of Ph 6.[address] Sage
[2019-09-12 05:51] LABS: Base Excess -24 mmol/L (-2 to +2); Bicarbonate 8.6 mmol/L (22-26); Blood Gas Specimen Type ART; FI02 100; Mode A-C; O2 Delivery Device Vent; PEEP 8; PO2 52 mmHG (75-100); RR 20; SITE L Brachial; SO2 61 % (95-99); Time Given 530; Total Carbon Dioxide 10 mmol/L; Vt 500
--- NOTE | 2019-09-12 05:55 | EKG12_ITS ---
Test Reason : POST CPR Blood Pressure : / mmHG Vent. Rate : 097 BPM Atrial Rate : 111 BPM P-R Int : 000 ms QRS Dur : 142 ms QT Int : 510 ms P-R-T Axes : 000 -70 102 degrees QTc Int : 647 ms Junctional EscapeRythm Left axis deviation Right bundle branch block Inferior infarct , age undetermined Abnormal ECG When compared with ECG of 22-JUN-2019 05:34, Current undetermined rhythm precludes rhythm comparison, needs review Non-specific intra-ventricular conduction block has replaced Incomplete left bundle branch block Inferior infarct is now Present Confirmed by ODETTE MARTINEZ ([id number]), sound editor VINICIO TENA ([id number]) on 09/13/2019 7:37:09 AM Referred By: NURYS Confirmed By:ODETTE MARTINEZ
--- NOTE | 2019-09-12 06:00 | RAD_ITS ---
STUDY: X-RAY CHEST REASON FOR EXAM: Female, 78 years old. ET AND OG TUBE PLACEMENTS -- TRAUMA -- FOUND PRONE ON FLOOR TECHNIQUE: Single AP portable view of the chest. COMPARISON: 09/11/2019. FINDINGS: The endotracheal tube has the tip at the mabel. The nasogastric tube has the tip below the diaphragm but not included in the [id number]. Diffuse bilateral airspace opacities with air bronchograms consistent with pneumonia. Differential diagnosis includes pulmonary edema or respiratory distress. Fluid within the right minor fissure. Normal size heart. Normal mediastinum and milad. Normal visualized pulmonary arteries. There is atherosclerotic calcification of the aortic arch with tortuosity. There is demineralization of the osseous structures. There is degenerative osteoarthritis of the bilateral shoulders. There is no demonstrated abnormality of the visualized soft tissue structures of the upper abdomen. RAD/Chest 1 View (Portable) IMPRESSION: Lines and tubes as described above. Recommend pulling back the endotracheal tube approximately 3 cm. Stable bilateral diffuse airspace opacities, worsening in the right upper lobe. Electronically Signed: Ely Lanza MD at 2:13 EDT , Service support ,
--- NOTE | 2019-09-12 06:08 | ED.RN ---
Late entry from 09/09/19 Dr Campbell was concerned for pt being a possible coronavirus. Neela Glass RN contacted as well as Dr Garrison. Per Neela Glass the [facility] Dept was called and Ryan Nesbitt called back. The situation was explained to her and she was going to contact [facility]. In the mean time pt was moved into a negative pressure room and N95 masks and PAPRs were being used. Ryan Nesbitt from [facility] called back after speaking to [facility]. [facility] felt that the patient was a low risk for coronavirus. Due to her symptoms they wanted us to collect 2 nasal swabs, an oral swab, and a sputum. They wanted it sent to the lab and held. They wanted to wait for her flu swab and respiratory panel results. If the resp panel and flu were negative than we were to send the held cultures to [facility] /coronavirus.. Pt was supposed to be treated like a flu pt with the same precautions. [employer] [address] Dr Lofgren, the primary nurse and Matthew the supervisor sanding are aware.
--- NOTE | 2019-09-12 06:54 | EKG12_ITS ---
Test Reason : AM EKG Blood Pressure : / mmHG Vent. Rate : 073 BPM Atrial Rate : 078 BPM P-R Int : 000 ms QRS Dur : 144 ms QT Int : 526 ms P-R-T Axes : 000 -47 123 degrees QTc Int : 579 ms Junctional Escape Rhythm Left axis deviation Non-specific intra-ventricular conduction delay Abnormal ECG When compared with ECG of 12-SEP-2019 01:27, MANUAL COMPARISON REQUIRED, DATA IS UNCONFIRMED Confirmed by ODETTE MARTINEZ ([id number]), subeditor VINICIO TENA ([id number]) on 09/13/2019 7:37:54 AM Referred By: NURYS Confirmed By:ODETTE MARTINEZ
[2019-09-12] MEDS: Ipratropium/Albuterol Sulfate 3 ML AMPUL.NEB INHALATION (06:58)
--- NOTE | 2019-09-12 07:24 | PN_ITS ---
Patient Problems: Active and Suspected Problems (Last Updated 09/11/19 @ 20:[address] Matthew Sage MD) Cough with fever (Acute) Septic shock (Acute) Human metapneumovirus (hMPV) pneumonia (Acute) Cardiac arrest (Acute) Bradycardia (Acute) Hypotension (Acute) Anemia (Acute) Elevated liver enzymes (Acute) Abnormal cardiac enzyme level (Acute) Pulmonary hypertension (Acute) Currently on bosentan Subjective: Overnight events reviewed and d/w ICU and cardiology. Pt intubated on vent with no sedation on 3 pressors maxed out with multisystem organ failure. Vitals/I&O's: Vital Signs Temp Pulse Resp BP Pulse Ox 99.0 F 71 17 66/47 L 56 09/11/19 16:00 09/12/19 07:00 09/12/19 07:00 09/12/19 07:00 09/12/19 02:50 Oxygen Flow Rate (L/min) 100 Oxygen Delivery Method Mechanical Ventilator Weight: 100.2 kg Body Mass Index (BMI) 36.9 Intake and Output for Last 24 Hours 09/10/19 09/11/19 09/12/19 23:59 23:59 23:59 Intake Total 2110.73 / 2110.73 813.23 / 813.23 3432.83 / 3432.83 Output Total 0 / 0 Balance 2110.73 / 2110.73 813.23 / 813.23 3432.83 / 3432.83 General: - - intubated and sedatated on a vent HEENT: - - pupil non-reactive, few abrasions on face but no ecchymosis , ETT in place Oral: Moist Mucosa, - - ETT in place, suctioning some blood out of the ETT Neck: Supple, Trachea Midline, - - C-collar in place Lungs: Diminished - B with increased consolidation from yesterday, Wheezes - scattered B Cardiovascular: Regular rate, Normal S1, Normal S2, No murmurs, No Ectopic Activity, No rub noted, No Gallop, - - irreg rhythm Abdomen: Soft, Non-Distended, Hypoactive Bowel Sounds, No hernias noted Extremities: No clubbing, No cyanosis, Capillary Refill Less than 3 Seconds, Edema Skin: No rashes, No breakdown Lymphatic: No Cervical, Supraclavicular, or Inguinal Adenopathy Neurological: - - no response to noxious stimuli, pupil dilated and non-reactive Psych/Mental Status: - - intubated and sedated Microbiology Past 72 Hours 09/09/19 17:09 Mucosa - Nasopharyngeal Respiratory Panel (PCR) - Final Human [place]y 09/09/19 21:20 Urine, Clean Catch Legionella Antigen - Final 09/09/19 21:20 Urine, Clean Catch Streptococcus pneumoniae Antigen (M - Final 09/09/19 17:09 Mucosa - Nasopharyngeal Influenza Types A,B Direct FA (SHARON) - Final Laboratory Results 09/11/19 09:30: PT 34.5 H, INR 3.4 09/11/19 19:02: Specimen Type ART, Sample Site L Radial, pH 7.36, Bicarbonate Actual 15.9 L, POC Total CO2 17, Base Excess -10 L, O2 Saturation 87 L, O2 % 45, ABG pCO2 28.2 L, ABG pO2 55 L, Marshal Test POS, Respiration Rate 12, O2 Delivery Device Bi / C PAP, EPAP 6, IPAP 12, Blood Gas Notified Whom [facility] , Blood Gas Notified Time 184909/11/19 21:16: Specimen Type ART, Sample Site R Radial, pH 7.41, Bicarbonate Actual 14.9 L, POC Total CO2 16, Base Excess -10 L, O2 Saturation 92 L, O2 % 60, ABG pCO2 23.6 L, ABG pO2 63 L, Marshal Test POS, Respiration Rate 12, O2 Delivery Device Bi / C PAP, EPAP 8, IPAP 14, Blood Gas Notified Whom [facility] , Blood Gas Notified Time 210909/11/19 22:32: Specimen Type ART, Sample Site R Radial, pH 7.40, Bicarbonate Actual 15.6 L, POC Total CO2 16, Base Excess -9 L, O2 Saturation 94 L, O2 % 60, ABG pCO2 25.0 L, ABG pO2 68 L, Marshal Test POS, Respiration Rate 12, O2 Delivery Device Bi / C PAP, EPAP 8, IPAP 14, Blood Gas Notified Whom [facility] , Blood Gas Notified Time 222309/12/19 01:05: Sodium 143, Potassium 4.3, Chloride 112 H, Carbon Dioxide 15.0 L , Anion Gap 16 H, BUN 27 H, Creatinine 1.70 H, Estim Creat Clear Calc 22.27, Est GFR (MDRD) Af Amer 38 L, Est GFR (MDRD) Non-Af 31 L, BUN/Creatinine Ratio 15.9, Glucose 99, Calcium 7.6 L, Total Bilirubin 1.00, AST 4992 H, ALT 3045 H, Alkaline Phosphatase 209 H, Troponin I 0.976 H*, Total Protein 5.7 L, Albumin 1.8 L, Globulin 3.9, Albumin/Globulin Ratio 0.5 L 09/12/19 01:05: WBC 16.4 H, RBC 2.73 L, Hgb 8.6 L, Hct 29.1 L, MCV 106.6 H D, MCH 31.5, MCHC 29.6 L D, RDW Std Deviation 62.0 H, RDW Coeff of Jaime 15.8 H, Plt Count 136 L, MPV 12.8 H, Neut % (Auto) Not Reportable, Absolute Neuts (auto) 11.8 H, Absolute Lymphs (auto) 1.80, Total Counted 100, Neutrophils % (Manual) 67, Band Neutrophils % 5, Lymphocytes % (Manual) 11 L, Monocytes % (Manual) 8, Metamyelocytes % 6 H, Promyelocytes % WAX MOLDER, Blast Cells % 3 H*, Diff Path Review May foll, Reactive Lymphocytes RARE, Platelet Estimate SLT 09/12/19 01:05: Phosphorus 4.6, Magnesium 2.4 09/12/19 01:05: PT 63.3 H, INR 7.2 H* 09/12/19 01:13: Specimen Type BALA, Sample Site OTHER, O2 % 100, VBG pH 7.13 L*, VBG pO2 79 H, VBG O2 Sat (Calc) 91 H, VBG O2 Content 9 L, VBG Base Excess -21 L, POC Mix VBG pCO2 Pt Tmp 25.3 L, Respiration Rate 20, O2 Delivery Device Vent, Tidal Volume 500, POC PEEP 8, Blood Gas Notified Whom MARCIO YANEZ, Blood Gas Notified Time 108 09/12/19 03:45: Blood Type A POSITIVE 09/12/19 05:42: Specimen Type ART, Sample Site L Brachial, pH 6.90 L*, Bicarbonate Actual 8.6 L, POC Total CO2 10, Base Excess -24 L, O2 Saturation 61 L, O2 % 100, ABG pCO2 44.0, ABG pO2 52 L, Marshal Test NA, Respiration Rate 20, O2 Delivery Device Vent, Vent Mode A-C, Tidal Volume 500, POC PEEP 8, Blood Gas Notified Whom HOSP MD, Blood Gas Notified Time 530 Current Medications Acetaminophen (Tylenol) 650 mg PO Q6H PRN PRN PRN Reason: Pain Score 1-10/Temp > 100.7 F Last Admin: 09/11/19 10:57 Dose: 650 mg Documented by: Albuterol Sulfate (Ventolin Aerosols) 2.5 mg INHALATION Q2H PRN PRN PRN Reason: DYSPNEA Last Admin: 09/11/19 16:40 Dose: 2.5 mg Documented by: Albuterol/Ipratropium (Duoneb) 3 ml INHALATION Q6H.RT [facility] Last Admin: 09/12/19 06:58 Dose: 3 ml Documented by: Bosentan (Tracleer) 125 mg PO BID [facility] Last Admin: 09/11/19 21:45 Dose: Not Given Documented by: Chlorhexidine Gluconate () 15 ml PO BID [facility] Sodium Chloride () 250 mls @ 15 mls/hr IV .[id number] PRN PRN Reason: Saline Flush Sodium Chloride () 250 mls @ 15 mls/hr IV .[id number] PRN PRN Reason: Additional IVPB Infusion Meropenem 1 gm/ Sodium (Chloride) 120 mls @ 33 mls/hr IV Q12 [facility] Last Infusion: 09/12/19 01:35 Dose: Infused Documented by: Norepinephrine Bitartrate 8 mg (/ Sodium Chloride) 250 mls @ 9.375 mls/hr CONT INF .[id number] [facility]; Protocol Last Titration: 09/12/19 07:00 Dose: 60 mcg/min, 112.5 mls/hr Documented by: Vasopressin 20 units/ Sodium (Chloride) 25 mls @ 3 mls/hr IV .[id number] [facility] Last Admin: 09/12/19 05:01 Dose: 0.04 units/min, 3 mls/hr Documented by: Sodium Bicarbonate 100 meq/ (Dextrose) 1,100 mls @ 150 mls/hr IV .[id number] [facility] Last Admin: 09/12/19 04:21 Dose: 150 mls/hr Documented by: Dopamine HCl/Dextrose () 800 mg in 250 mls @ 9.094 mls/hr CONT INF .[id number] [facility]; Protocol Last Admin: 09/12/19 04:50 Dose: 40 mcg/kg/min, 72.8 mls/hr Documented by: Levothyroxine Sodium (Synthroid) 75 mcg PO DAILY@0600 [facility] Last Admin: 09/12/19 06:07 Dose: Not Given Documented by: Methylprednisolone (Solu-Medrol) 40 mg IV DAILY [facility] Last Admin: 09/11/19 02:19 Dose: 40 mg Documented by: Metoprolol Tartrate (Lopressor (Beta [place])) 5 mg IV Q6H PRN PRN PRN Reason: HR >100 Last Admin: 09/11/19 17:37 Dose: 5 mg Documented by: Nutritional Formula (Lactose Free) (Ensure Enlive) 120 ml PO 4X/DAY [facility] Last Admin: 09/11/19 21:34 Dose: Not Given Documented by: Pravastatin Sodium (Pravachol) 40 mg PO QHS [facility] Last Admin: 09/11/19 21:45 Dose: Not Given Documented by: Sodium Chloride () 10 - 40 ml IV UD PRN PRN Reason: SALINE FLUSH Last Admin: 09/11/19 20:00 Dose: 30 ml Documented by: STROKE Vital Signs/Narrative: Vital Signs Pulse Resp BP 09/12/19 07:00 71 17 66/47 L 09/12/19 06:45 72 24 H 84/33 L 09/12/19 06:30 72 24 H 67/27 L 09/12/19 06:15 72 24 H 68/25 L 09/12/19 06:00 71 18 68/25 L 09/12/19 05:45 76 24 H 44/13 L 09/12/19 05:30 72 14 69/42 L 09/12/19 05:20 78 20 H 112/53 L 09/12/19 05:15 74 20 H 112/53 L 09/12/19 05:00 74 20 H 58/29 L 09/12/19 04:45 74 20 H 54/40 L 09/12/19 04:41 74 20 H 59/45 L 09/12/19 04:30 75 20 H 54/34 L 09/12/19 04:20 75 20 H 55/33 L 09/12/19 04:16 75 20 H 56/35 L 09/12/19 04:00 75 20 H 53/23 L 09/12/19 03:50 75 20 H 47/33 L 09/12/19 03:40 76 19 H 64/38 L 09/12/19 03:30 79 16 57/29 L Medical Necessity - Tobacco Use Smoking Status: Never smoker Tobacco Use: Non-smoker Assessment/Plan All Active Problems (Last Updated 09/11/19 @ 20:[address] Matthew Sage MD) Chest pain (Resolved) Supratherapeutic INR (Resolved) Cough with fever (Acute) Septic shock (Acute) Human metapneumovirus (hMPV) pneumonia (Acute) Cardiac arrest (Acute) Bradycardia (Acute) Hypotension (Acute) Anemia (Acute) Elevated liver enzymes (Acute) Abnormal cardiac enzyme level (Acute) Pulmonary hypertension (Acute) CPA x2 -uncertain etiology but respiratory -pt found immediately after a fall on her face and this was associated with her first arrest -down time was 20 min with first CPA until she had ROSC -PEA was the initial rhythm Septic Shock -continue pressors x 3 for now wean as able -BP still low with MAPs in the 50's and unable to wean pressors at this time -suspect will not be able to wean Human Metapneumovirus PNA with ? superimposed bacterial PNA -meropenem day 09/07 continue -check cx for sputum now that on mech ventilation Acute Respiratory Failure 2/2 above -pt now on mechanical ventilation -mgt per ICU/Pulm Metabolic Acidosis -on HCO3 ggt -repeat ABG Suspected Anoxia -pt is not breathing over the vent at all -pupils are dilated and not reactive currently -overall prognosis is extremely poor Fall with trauma -CT's head/Neck and Chest pending-->not yet obtained as pt isn't stable enough to go to CT scanner at this time -continue cervical collar CHRISTINE on CKD stage 3 2/2 ATN -worsened with CPA overnight -pt on 3 pressors -suspect continued worsening of renal function with persistent hypotension -overall all prognosis poor--> suspect she would not even tolerate [employer] of any kind at this point AVR/PAF/CAD/HPL -h/o CABG in 2016 and C 06/2019 -Had issues with RVR late yesterday -prn BB ordered with rate decrease to 120's but then went back up to 150s and Amio bolus and ggt was given -had bradycardia overnight and required transient pacing -remains on dopamine/Vasopressin and Levophed -cardiology following -INR up to 7 -d/c statin Supratherapeutic INR -7.2 this am -suspect dramatic rise is 2/2 shocked liver -FFP and vitamin K given -doubt DIC with plts improved Mild Macrocytic Anemia -no s/o blood loss -monitor hgb -relatively stable despite elevated INR Thrombocytopenia -suspect down 2/2 acute illness as baseline is WNL -stable and trended up since admission PAH-severe on Cath from 06/2019 -continue Bosentan -follows with Chu for this--> he is now following and has seen the pt again this am Shock Liver 2/2 CPA -mild elevations that were relatively stable upon admission -now with severe elevation Hypocalcemia -when corrected for albumin calcium is WNL Hyperglycemia -resolved DVT Prophylaxis -hold OC with supratherapeutic INR Code Status -Extensive d/w daughters x 2 and who were at the bedside. Explained that their mother/ was in multisystem organ failure maxed out on 3 pressors and that her overall prognosis is extremely poor given the progression of her Viral PNA. I advised family come in. Family declines clergy support. Code status was changed to DNR-CCA- no escalation of care. Dr. Sage d/w family as well and reviewed her CXR with them. Dispo -Continue ICU Care -overall mortality is very high with current issues
--- NOTE | 2019-09-12 08:18 | NURSING ---
unable to turn position due to blood pressure and patient condition. aware
--- NOTE | 2019-09-12 08:35 | NURSING ---
roge clement applied to patient per Dr. mackey orders at 0800
--- NOTE | 2019-09-12 09:24 | NURSING ---
3240 Dr. Gates at bedside discussed code status with family. Decided on DNR-CCA with no elevation in treatment, no increase in vasopressors from this point on.
[2019-09-12] MEDS: Chlorhexidine 15 ML PO (09:42)
[2019-09-12] MEDS: 0.9% Saline Lock 10 ML Syringe IV (09:42)
[2019-09-12 12:34] LABS: Pathologist Review Reviewed
--- NOTE | 2019-09-12 14:50 | PCM.PN.CARD ---
Subjectve: The patient was evaluated earlier this day. She remains in the ICU. She remains mechanically intubated/ventilated. She remains with multiple medications/support. Objective: Vital Signs Temp Pulse Resp BP Pulse Ox 95.1 F L 61 24 H 57/11 L 56 09/12/19 11:00 09/12/19 13:30 09/12/19 13:20 09/12/19 13:30 09/12/19 02:50 Oxygen Flow Rate (L/min) 100 Oxygen Delivery Method Mechanical Ventilator Weight: 220 lb 14.451 oz Body Mass Index (BMI) 36.9 Intake and Output for Last 24 Hours 09/10/19 09/11/19 09/12/19 23:59 23:59 23:59 Intake Total 2110.73 / 2110.73 813.23 / 813.23 6226.77 / 6226.77 Output Total 0 / 0 Balance 2110.73 / 2110.73 813.23 / 813.23 6226.77 / 6226.77 General: Ill Appearing Lungs: Rhonchi Cardiovascular: Irregular Rhythm, Normal S1, Humphreys Prosthetic S2 Abdomen: Bowel Sounds Present, Soft 09/11/19 19:02: pH 7.36, Bicarbonate Actual 15.9 L, POC Total CO2 17, Base Excess -10 L, O2 Saturation 87 L, ABG pCO2 28.2 L, ABG pO2 55 L, Marshal Test POS 09/11/19 21:16: pH 7.41, Bicarbonate Actual 14.9 L, POC Total CO2 16, Base Excess -10 L, O2 Saturation 92 L, ABG pCO2 23.6 L, ABG pO2 63 L, Marshal Test POS 09/11/19 22:32: pH 7.40, Bicarbonate Actual 15.6 L, POC Total CO2 16, Base Excess -9 L, O2 Saturation 94 L, ABG pCO2 25.0 L, ABG pO2 68 L, Marshal Test POS 09/12/19 01:05: Sodium 143, Potassium 4.3, Chloride 112 H, Carbon Dioxide 15.0 L, Anion Gap 16 H, BUN 27 H, Creatinine 1.70 H, Est GFR (MDRD) Af Amer 38 L, Est GFR (MDRD) Non-Af 31 L, BUN/Creatinine Ratio 15.9, Glucose 99, Calcium 7.6 L, Total Bilirubin 1.00, Troponin I 0.976 H* 09/12/19 01:05: WBC 16.4 H, RBC 2.73 L, Hgb 8.6 L, Hct 29.1 L, MCV 106.6 H D, MCH 31.5, MCHC 29.6 L D, Plt Count 136 L, MPV 12.8 H, Neut % (Auto) Not Reportable, Absolute Neuts (auto) 11.8 H, Total Counted 100, Neutrophils % (Manual) 67, Band Neutrophils % 5, Lymphocytes % (Manual) 11 L, Monocytes % (Manual) 8, Metamyelocytes % 6 H, Promyelocytes % REGISTERED DENTAL HYGIENIST, Blast Cells % 3 H* 09/12/19 01:05: Phosphorus 4.6, Magnesium 2.4 09/12/19 01:05: PT 63.3 H, INR 7.2 H* 09/12/19 01:13: VBG pH 7.13 L*, VBG pO2 79 H, VBG O2 Sat (Calc) 91 H, VBG O2 Content 9 L, VBG Base Excess -21 L 09/12/19 05:42: pH 6.90 L*, Bicarbonate Actual 8.6 L, POC Total CO2 10, Base Excess -24 L, O2 Saturation 61 L, ABG pCO2 44.0, ABG pO2 52 L, Marshal Test NA Rhythm: Atrial fibrillation ECHO: Interpretation Summary Limited views were obtained. Based upon the 2D echocardiographic images obtained there appears to be grossly normal left ventricular size, wall motion, and systolic function. The estimated ejection fraction is 55 %. Mildly dilated right ventricle. Mild global right ventricular systolic dysfunction. The left atrium is severely enlarged. The right atrium is severely enlarged. There is moderate mitral annular calcification. Mild diffuse mitral valve thickening. Moderate (2+) tricuspid valve insufficiency. 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 Right ventricular systolic pressure estimated to be 52 mmHg. Unable to assess diastolic dysfunction. Medical Necessity - Tobacco Use Smoking Status: Never smoker Tobacco Use: Non-smoker Assessment/Plan 1. Cardiac arrest The patient experienced a cardiac arrest and was reported as being in PEA. She underwent the ACLS protocol and regained a rate and rhythm and blood pressure. She has required continued mechanical intubation/ventilation and hemodynamic support with IV vasopressors and IV bicarb. At the present time the patient will continue to be monitored. In the interim she has significant underlying pulmonary disease issue with the human metapneumovirus. She has been thought to have underlying sepsis/septic shock. She is being treated with supportive therapy. 2. Bradycardia The patient was bradycardic. However status post her medical therapy including at the present time to IV vasopressors she has maintained an adequate heart rate without needing continued transcutaneous pacemaking or proceeding to transvenous pacemaking. She is having her underlying metabolic status reviewed. At the same time any rate limiting medications are being placed on hold. 3. Hypotension She is hypotensive. It is thought that she has been hypotensive from underlying sepsis syndrome. She has been receiving fluids and IV vasopressors. 4. Atrial fibrillation She has had paroxysmal atrial fibrillation. At the present time she was without rate limiting medication and without ongoing anticoagulant therapy. 5. CAD s/p CABG (CHURCH to LAD) She does have a history of CAD status post CHURCH to the LAD. Her most recent diagnostic cardiac catheterization is as noted. At the present time she will continue to be monitored. 6. S/P AVR - mechanical She has a history of a mechanical aortic valve. Her prosthesis has been evaluated as noted above. It has been stable. She will need to continue AHA antibiotic prophylaxis. She has been on anticoagulant therapy with Coumadin/warfarin. Her INR was now supratherapeutic. It is unclear as to whether or not this is related to a combination of her medications and/or the possibility of hypotension and the possible development of a shock liver . 7. Pulmonary hypertension She has had a history of pulmonary hypertension. She is undergone recent right/left cardiac catheterization. Her pulmonary pressures are as noted. 8. Hyperlipidemia She will continue risk factor evaluation care as deemed appropriate. 9. Septic shock She continues to be evaluated by internal medicine and pulmonology/critical care medicine for concerns of underlying septic shock. She does need to continue supportive therapy. At the moment this includes IV vasopressor agents disturbances. 10. HMPV She has been diagnosed with human metapneumovirus. She continues evaluation care per internal medicine and pulmonology/critical care medicine. 11. Supratherapeutic INR Again she does have a supratherapeutic INR. The etiology is may be as noted. She has received reversal agents. 12. Anemia She does have evidence of anemia. Her hemoglobin has declined over time. Again it is unclear whether this is related to an anemia of chronic renal insufficiency versus a more acute issue especially noting her bright red blood per NG tube. She will be followed by H&H. She may need further gastrointestinal evaluation care as deemed appropriate. Depending upon her course she may need PRBCs. 13. Elevated hepatic transaminases Her hepatic transaminases have markedly elevated. This may be secondary to her ongoing sepsis syndrome. There also may be a component of her cardiopulmonary arrest event with hypotension and a shock liver. This will have to be taken into consideration with her ongoing evaluation and care. 14. Abnormal cardiac enzymes She is noted to have an abnormal troponin I level. Again this may be a secondary type II event from supply demand mismatch related to her cardiopulmonary arrest event. Overall, this patient has complex cardiovascular/medical disease. She has an underlying acute pulmonary disease process leading to an acute sepsis syndrome/septic shock. She has now experienced a cardiopulmonary arrest event. Based upon all of the concerns noted thus far it appears that her prognosis is poor. Comment: The patient's case has been discussed and reviewed with Dr. Gates and Dr. Nugyễn. This note was generated using a voice recognition system and there may be incorrect words, spelling or punctuation that were not noted when reviewing the office note prior to saving.
--- NOTE | 2019-09-12 17:01 | NURSING ---
1405 verified with andrzej delgado RN no heart beat. time of pronounced at 1405. Dr. Gates made aware. family at bedside
--- NOTE | 2019-09-12 17:32 | EXP.PCM_ITS ---
Preliminary Cause of Acute Respiratory Failure 2/2 Human Metapneumovirus Date of Admission: 09/09/19 Date of : 09/12/19 - Principle Diagnosis Acute Respiratory Failure 2/2 Human Metapneumovirus complicated by severe PAH Problem List: Active and Suspected Problems (Last Updated 09/11/19 @ 20:[address] Matthew Sage MD) Septic shock (Acute) Human metapneumovirus (hMPV) pneumonia (Acute) Hospital Course Mrs Xiao was a 78 year old F who was seen in the ED at [facility] on 09/09/2019 with a chief complaint of nonproductive cough and fever over the last 3 days. She returned from a cruise to [place] on 09/09 where she went on land in [place] to [facility] and also in [place]. She felt ill 3 days prior to admission and was seen on the ship. She tested negative for influenza at that time and was given an oral antibiotic to take. She stated she had been running a temperature at home up to 102 degrees, had chills but denied a productive cough. She does however admit to a dry cough. Patient stated that she was congested in her chest, but denied actual SOB at that time. Work-up in the emergency room included a rapid influenza test that was negative, chest x-ray showed marked bilateral pulmonary infiltrates, she required oxygen at 2 L/min via nasal cannula to maintain her pulse ox above 90%. Patient's white blood cell count was normal, patient's creatinine was 1.36, BUN was 24, lactic acid w as normal at 1.7, potassium was 3.3, and INR was 3.1. She was admitted to the ICU and place intially on azithromycin and Rocephin and given supportive care otherwise. Given her elevated INR coumadin was held. She did require some low dose Levophed (2mcg) shortly after admission but was able to come off of this quickly with fluid resuscitation. The following morning 09/09 she stated that she was feeling somewhat better but was requiring a bit more O2. Her CXR showed persistent B infiltrates L>>R and her abx were switched to Meropenem for more aggressive coverage. MRSA screen was neg and Vanc was not initiated at that time. The pt was never able to produce a sputum for cx. On the am of 09/10 she was still SOB but overall stable but in the early evening she began to decompensate. Her HR which was mildly elevated increased to 150 (a-fib with RVR) Metoprolol IV was given with HR decrease to the 120 temporarily. She also at that time began to develop respiratory distress and was encouraged to go from HFNC to BIPAP which she initially refused. ABG was done and showed a nml pH but hypoxemia and reduced PaO2. She was seen by her primary bowling ball grader and marker who placed her on BIPAP and adjusted it some and she seemed to tolerate it better with the addition of Precedex. She was also given an amiodarone bolus to get her HR better controlled. An ABG was obtained 1 hr after adjustments were made and o xygenation was better and pH was WNL. Unfortunately at 2337 the patient developed a CPA with PEA. She was found per nursing staff, fallen, face down, turned over and no pulse or respirations noted. CPR initiated at 2337. She was initially in PEA with 6 rounds of epinephrine administered with ROSC in sinus bradycardia with a total of atropine x3 doses administered, normal saline IV flu id boluses initiated and initiation of Levophed as well as dopamine. Patient while on floor prior to transition back to bed, successfully intubated with glide scope with visualization of the cords and passage of ET tube with notable bright red blood, evidence of bleeding but unclear source. ETT verified. Post- intubation CXR requested. Patient continued to be significantly bradycardic therefore transcutaneous pacing initiated. Discussed case with Dr. Nguyễn, correctional corporal as well as Dr. Victoria, supervisor litharge. Dr. Victoria came to the hospital and evaluated patient with transition off transcutaneous pacing to assess rhythm with noted atrial fibrillation. Patient with ongoing MAP < 65 therefore also initiated vasopressin. Patient with collar in place given unclear specific fall history or mechanism. Attempted R SC given firm collar in place and unfortunately, while attempting central line placement had recurrent code blue at 247, initiated immediate CPR and epi x 1 administered as well as bicarb with resumption of rhythm with pulse at 2:52 am. Following ROSC, R femoral vein central line placement performed, guidewire threaded, central line catheter placed over guidewire and wire removed w/ cap placed. Lines again drawn and flushed without difficulty. Central line sutured in place. Given recent events with recurrent code blue, will now add bicarb drip, awaiting vitamin K and FFP administration also. Patient is at maximum dosing for her NEP, DA and on also vasopressin. Once clinically stabilized will plan CT head, neck, face and chest. The pt was never stable enough to have her scans completed. After CPA x 2 she developed multisystem organ failure and per discussions with the family ( and 2 daughters were present) the decision was made given her poor prognosis to convert her Code Status to DNR-CCA with no escalation of care. Mrs Xiao at 1405 on 09/12/2019 with the family at the bedside. The case was d/w the [facility] and [facility] given her recent travel and the severity of her case with marked rapid decompensation she was tested premortem for COVID-19.
== END 2019-09-12 17:10 | DRG 871 ==
LOC: ED 18:08 → PCU 19:00 → ICU 09-10 00:32
PROVIDERS: Family Medicine; Internal Medicine Critical Care Medicine; Admitting Provider Internal Medicine; Emergency Provider Emergency Medicine; PCP Family Medicine; Visit Provider Internal Medicine
DX: A41.9 Sepsis, unspecified organism (principal); R65.21 Severe sepsis with septic shock; J12.3 Human metapneumovirus pneumonia; K72.00 Acute and subacute hepatic failure without coma; J96.01 Acute respiratory failure with hypoxia; N17.0 Acute kidney failure with tubular necrosis; I25.10 Atherosclerotic heart disease of native coronary artery without angina pectoris; N18.3 Chronic kidney disease, stage 3 (moderate); E87.6 Hypokalemia; I46.9 Cardiac arrest, cause unspecified; I27.20 Pulmonary hypertension, unspecified; E66.9 Obesity, unspecified; E03.9 Hypothyroidism, unspecified; D69.6 Thrombocytopenia, unspecified; Z79.01 Long term (current) use of anticoagulants; D53.9 Nutritional anemia, unspecified; Z66 Do not resuscitate; I48.0 Paroxysmal atrial fibrillation; Z95.1 Presence of aortocoronary bypass graft; Z95.2 Presence of prosthetic heart valve; Z68.36 Body mass index [BMI] 36.0-36.9, adult
CPT/HCPCS: 31500; 31720; 36600; 71045; 74018; 80048; 80053; 82803; 83605; 83735; 83880; 84100; 84484; 85025; 85027; 85610; 85730; 86900; 86901; 87040; 87070; 87205; 87449; 87633; 87641; 87804; 92950; 93005; 93308; 94002; 94003; 94640; 94660; 94799; 97802; 99251; 99285; J2185; J7030; J7040; J7050; J7120; P9017; A4216; C1751; G0463; J0696; J3490